=== PATIENT | male | born 1950 | race Caucasian/White ===

== ENCOUNTER → 2020-05-17 10:44 | Outpatient (BNVA) | payer MEDICARE, SELFPAY | PROVIDERS: PCP Internal Medicine; Visit Provider Nurse Practitioner | DX: Z11.0 Encounter for screening for intestinal infectious diseases (principal) | CPT/HCPCS: 83013; Q3014 ==

== ENCOUNTER 2020-08-31 10:44 | Outpatient (REF) | payer MEDICARE, SELFPAY ==
--- NOTE | ~2020-08-31 | XR_ITS ---
EXAMINATION: XR knee RT 4V CLINICAL INFORMATION: Reason for Exam PAIN IN RT KNEE COMPARISON: None available at the time of this dictation. TECHNIQUE: frontal, lateral, tunnel and patella sunrise views FINDINGS: BONES: No fracture or dislocation is present. JOINTS: Narrowing of joint spaces and developed osteophytes from the edges of articular surfaces suggest degenerative osteoarthritis. SOFT TISSUE: Normal XR/XR knee RT 4V IMPRESSION: Mild degenerative osteoarthritis. No joint effusion.
== END 2020-08-31 10:45 | disposition home or self-care (01) ==
LOC: HO.XRAY 10:44
PROVIDERS: PCP Internal Medicine; Visit Provider Family Medicine
DX: M25.561 Pain in right knee (principal)
CPT/HCPCS: 73564

== ENCOUNTER → 2021-01-20 12:08 | Outpatient (BNVA) | payer MEDICARE, SELFPAY | PROVIDERS: PCP Internal Medicine; Referring Provider Internal Medicine; Visit Provider Nurse Practitioner | DX: R10.10 Upper abdominal pain, unspecified (principal); K21.9 Gastro-esophageal reflux disease without esophagitis; R14.0 Abdominal distension (gaseous); Z90.49 Acquired absence of other specified parts of digestive tract | CPT/HCPCS: 99212 ==

== ENCOUNTER → 2021-03-23 13:14 | Outpatient (BNVA) | payer MEDICARE, SELFPAY | PROVIDERS: Visit Provider Nurse Practitioner | DX: K21.9 Gastro-esophageal reflux disease without esophagitis (principal); R10.10 Upper abdominal pain, unspecified; R14.0 Abdominal distension (gaseous) | CPT/HCPCS: 99212 ==

== ENCOUNTER → 2021-10-02 14:26 | Outpatient (BNVA) | payer OTHER, SELFPAY | PROVIDERS: PCP Internal Medicine; Referring Provider Internal Medicine; Visit Provider Nurse Practitioner | DX: K21.9 Gastro-esophageal reflux disease without esophagitis (principal); R14.0 Abdominal distension (gaseous); R10.10 Upper abdominal pain, unspecified | CPT/HCPCS: 99212 ==

== ENCOUNTER 2021-10-27 08:49 | Outpatient (REF) | payer MEDICARE, SELFPAY ==
--- NOTE | ~2021-10-27 | MM_ITS ---
EXAMINATION: BONE DENSITOMETRY CLINICAL INDICATION: Encounter for screening for osteoporosis. COMPARISON: None (current study represents initial baseline exam). TECHNIQUE: Using a [employer] DXA System (software version: 13.1) manufactured by [employer], dual-energy x-ray absorptiometry was performed of the lumbar spine and left hip. The images are of good technical quality. Summary results are attached. FINDINGS: AP SPINE L1-L4: BMD 1.422 g/cm2, Z-score 2.7, T-score 1.7, normal. LEFT FEMUR, NECK: BMD 1.092 g/cm2, Z-score 1.8, T-score 0.2, normal. LEFT FEMUR, TOTAL: BMD 1.153 g/cm2, Z-score 1.4, T-score 0.4, normal. IDENTIFIED RISK FACTORS: Rheumatoid arthritis, recurrent falls, history of fracture (adult), secondary osteoporosis. HISTORY OF FRACTURE: Knee. MEDICATIONS: Calcium supplements or multivitamin, vitamin D. MM/XR DEXA axial skeleton IMPRESSION: 1. DIAGNOSIS: Normal bone density based on the lowest T-score value of 0.2 in the femoral neck applying World Health Organization criteria. 2. 10-YEAR FRACTURE RISK PREDICTION, FRAX: According to the guidelines, FRAX calculation should only be performed on patients in the osteopenia bone density category. Therefore, FRAX was not performed on this patient. 3. Treatment Recommendations: NOF guidelines recommend consideration for treatment in postmenopausal women and men age 50 and older presenting with the following: -A hip or vertebral (clinical or morphometric) fracture. -T-score less than or equal to -2.5 at the femoral neck or spine after appropriate evaluation to exclude secondary causes. -Low bone mass at the hip or spine and a 10-year fracture probability by FRAX of greater than or equal to 3% for hip fracture or greater than or equal to 20% for major osteoporotic fracture based on the [place] adapted WHO algorithm. 4. Other Recommendations: All treatment decisions require clinical judgment and consideration of individual patient factors, including patient preferences, comorbidities, previous drug use, risk factors not captured in the FRAX model (e.g. frailty, falls, vitamin D deficiency, increased bone turnover, interval significant decline in bone density) and possible under or overestimation of fracture risk by FRAX. FUTURE SCAN RECOMMENDATION: People with diagnosed cases of osteoporosis or at high risk for fracture should have regular bone mineral density tests. For patients eligible for Medicare, routine testing is allowed once every 2 years. The testing frequency can be increased to one year for patients who have rapidly progressing disease, those who are receiving or discontinuing medical therapy to restore bone mass, or have additional risk factors.
== END 2021-10-27 08:50 | disposition home or self-care (01) ==
LOC: HO.MAMMO 08:49
PROVIDERS: Visit Provider Internal Medicine
DX: Z13.820 Encounter for screening for osteoporosis (principal); M05.9 Rheumatoid arthritis with rheumatoid factor, unspecified; M81.0 Age-related osteoporosis without current pathological fracture; Z79.899 Other long term (current) drug therapy; Z87.81 Personal history of (healed) traumatic fracture
CPT/HCPCS: 77080

== ENCOUNTER 2022-01-01 13:13 | Emergency (ER) | payer MEDICARE, SELFPAY ==
--- NOTE | 2022-01-01 13:17 | ECG_ITS ---
Test Reason : CP Blood Pressure : / mmHG Vent. Rate : 069 BPM Atrial Rate : 069 BPM P-R Int : 194 ms QRS Dur : 096 ms QT Int : 390 ms P-R-T Axes : 012 -04 071 degrees QTc Int : 417 ms Normal sinus rhythm Nonspecific ST and T wave abnormality Abnormal ECG When compared to the previous EKG of Nonspecific ST and T wave abnormality are noted Referred By: Generic ED Physician Electronically Signed By:SHEILA BYERS MD
[2022-01-01 13:20] VITALS: BP 160/86; PULSE 71; RESP 18; O2SAT 99; BMI 26.0
[2022-01-01 13:34] LABS: MANUAL DIFF FLAG NO
[2022-01-01 13:39] LABS: Basophils Percent Auto 0.5 % (0-2); Eosinophils Absolute Auto 0.1 X10*3/uL (0.0-0.4); Eosinophils Percent Auto 1.6 % (0-4); Hematocrit 39.2 % (42.0-52.0); Hemoglobin 12.3 g/dl (14.0-18.0); Imm Gran Abs Auto 0.01 X10*3/uL (0.00-0.03); Imm Gran Pct Auto 0.2 % (0.0-0.4); Lymphocytes Absolute Auto 1.6 X10*3/uL (1.2-4.9); Lymphocytes Percent Auto 25.8 % (20-40); Mean Corpuscular HGB Conc 31.4 g/dl (31.0-36.0); Mean Corpuscular Hemoglobin 25.7 pg (27.0-33.0); Mean Corpuscular Volume 81.8 fL (80.0-98.0); Mean Platelet Volume 9.3 fL (9.4-12.4); Monocytes Absolute Auto 0.4 X10*3/uL (0.1-1.2); Neutrophils Absolute Auto 4.1 x10*3/uL (2.0-8.3); Neutrophils Percent Auto 64.9 % (45-73); Platelet Count 188 X10*3/uL (160-400); Red Blood Count 4.79 X10*6/uL (4.60-5.80); Red Cell Distribution Width 14.5 % (11.0-16.0); White Blood Count 6.3 X10*3/uL (4.8-10.8)
[2022-01-01 13:49] LABS: INTERNATIONAL NORM RATIO 1.2 (0.9-1.1); Prothrombin Time 13.4 SEC (10.0-13.1)
[2022-01-01 13:52] LABS: Anion Gap 15 (12-20); Blood Urea Nitrogen 27 mg/dL (9-16); Calcium 8.7 mg/dL (8.4-10.2); Carbon Dioxide 24 mmol/L (22-29); Chloride 103 mmol/L (96-108); Creatinine Clr Calc Pharmacy 40.9; Estimated Glomerular Filt Rate 53; Glucose Random 196 mg/dL (60-115); Sodium 138 mmol/L (135-145)
[2022-01-01 13:58] LABS: Troponin-I High Sensitivity 25.9 ng/L (<3.5-35.0)
--- NOTE | 2022-01-01 15:40 | ECG_ITS ---
Test Reason : repeat Blood Pressure : / mmHG Vent. Rate : 064 BPM Atrial Rate : 064 BPM P-R Int : 194 ms QRS Dur : 092 ms QT Int : 392 ms P-R-T Axes : 033 015 070 degrees QTc Int : 404 ms Normal sinus rhythm with sinus arrhythmia Low voltage QRS ST elevation consider inferolateral injury or acute infarct ACUTE ID / STEMI Consider right ventricular involvement in acute inferior infarct Abnormal ECG When compared with ECG of 01-JAN-2022 13:19, ST elevation now present in Inferior leads ST elevation now present in Lateral leads Referred By: Generic ED Physician Electronically Signed By:SHEILA BYERS MD
[2022-01-01 15:44] VITALS: RESP 20
[2022-01-01] MEDS: Morphine Sulfate 2 MG/ML CARTRIDGE IVPUSH (15:44)
[2022-01-01 15:45] VITALS: BMI 26.6
--- NOTE | 2022-01-01 15:45 | ED.CHESTPAIN ---
HPI - Chest Pain General Chief Complaint: Chest Pain Stated Complaint: chest pain, hand numb, history of heart attack Time Seen by Provider: 01/01/22 15:41 Source: patient Mode of arrival: ambulatory History of Present Illness HPI narrative: 71-year-old male with history of hypertension and CAD presents with chest pressure across his entire chest with noon today associated with shortness of breath, dizziness, diaphoresis and mild nausea but otherwise denies any recent travel, fever, chills. Related Data Home Medications Medication Instructions Recorded Confirmed alendronate 70 mg tablet 70 mg PO QWEEK 10/02/21 aspirin 81 mg tablet,delayed 81 mg PO DAILY 10/02/21 release brimonidine 0.2 % eye drops 1 drp ophthalmic (eye) ONCE 10/02/21 cholecalciferol (vitamin D3) 25 25 mcg PO DAILY 10/02/21 mcg (1,000 unit) capsule enalapril maleate 2.5 mg tablet mg PO DAILY 10/02/21 methimazole 10 mg tablet 10 mg PO DAILY 10/02/21 metoprolol succinate 25 mg 25 mg PO DAILY 10/02/21 tablet,extended release 24 hr simvastatin 20 mg tablet 20 mg PO BEDTIME 10/02/21 timolol maleate 0.5 % eye drops 1 drp ophthalmic (eye) QAM 10/02/21 Previous Rx's Medication Instructions Recorded pantoprazole 40 mg tablet,delayed 40 mg PO DAILY #30 tabs 10/12/21 release (Protonix) simethicone 125 mg capsule (Gas 125 mg PO TID-QID PRN abdominal 10/12/21 Relief (simethicone)) distention #120 caps sucralfate 1 gram tablet 2 g PO .qafternoon #60 tabs 10/13/21 Allergies Allergy/AdvReac Type Severity Reaction Status Date / Time No Known Allergies Allergy Verified 10/02/21 15:12 [No Known Allergies*] Review of Systems Review of Systems: Pertinent positives and negatives as stated in HPI 10 point review of systems is otherwise negative. [facility] Past Medical History Source: nursing notes reviewed Medical History Common bile duct calculi Surgical History H/O angioplasty H/O heart artery stent History of cholecystectomy History of esophagogastroduodenoscopy (EGD) Hx of colonoscopy Family History Family History Father No problems noted. Mother Cancer Social History Social History Alcohol intake: current Alcohol intake frequency: does not drink Advance Directives: No Advance Directives Information Provided: No Physical Exam Vital Signs: Vital Signs: Last Vital Signs Pulse 71 01/01/22 13:20 Resp 20 01/01/22 15:44 BP 160/86 H 01/01/22 13:20 Pulse Ox 99 01/01/22 13:20 O2 Del Method 01/01/22 13:20 BMI result Body Mass Index 26.0 VITAL SIGNS: Reviewed. GENERAL: Well developed, well nourished, in moderate distress. HEAD: Normocephalic/atraumatic EYES: PERRLA, EOMI EARS: Ext canals without abnormality OROPHARYNX: no oral lesions noted, posterior pharynx clear LUNGS: Normal breath sounds. No adventitious sounds or accessory muscle use. SpO2<99> CARDIOVASCULAR: Regular rate and rhythm without noted murmurs, no JVD or lower extremity edema. ABDOMEN: Soft, non-tender, non-distended with bowel sounds. MUSCULOSKELETAL: No tenderness, deformities, or effusions noted on gross inspection. EXTREMITIES: No cyanosis, clubbing or edema. SKIN: Inspection of the skin reveals no rashes NEUROLOGIC: Alert and oriented x 4. Strength and sensation to light touch were grossly intact x 4. Course Course Course Narrative: 1535: Notified by nursing that there was concerned that patient's EKG was changing and he had had persistent pain. Initial EKG from did show significant ST-T changes in the V2/V3 leads and on repeat EKG at 15:[address] elevations in the inferior distribution as well as V5/V6. Patient given Brilinta as well as IV push heparin and 2 mg of morphine in place on oxygen. ALS and [facility] [place] was contacted and patient accepted by Dr. Garcia for transfer to the cathode builder. MDM - Chest Pain Lab Data Result diagrams: 01/01/22 13:28 01/01/22 13:28 Labs: Lab Results 01/01/22 01/01/22 01/01/22 Range/Units 13:28 13:28 13:28 WBC 6.3 (4.8-10.8) X10*3/uL RBC 4.79 (4.60-5.80) X10*6/uL Hgb 12.3 L (14.0-18.0) g/dl Hct 39.2 L (42.0-52.0) % MCV 81.8 (80.0-98.0) fL MCH 25.7 L (27.0-33.0) pg MCHC 31.4 (31.0-36.0) g/dl RDW 14.5 (11.0-16.0) % Plt Count 188 (160-400) X10*3/uL MPV 9.3 L (9.4-12.4) fL Immature Gran % (Auto) 0.2 (0.0-0.4) % Neut % (Auto) 64.9 (45-73) % Lymph % (Auto) 25.8 (20-40) % Dawes % (Auto) 7.0 (2-11) % Eos % (Auto) 1.6 (0-4) % Baso % (Auto) 0.5 (0-2) % Lymph # (Auto) 1.6 (1.2-4.9) X10*3/uL Dawes # (Auto) 0.4 (0.1-1.2) X10*3/uL Eos # (Auto) 0.1 (0.0-0.4) X10*3/uL Baso # (Auto) 0.0 (0.0-0.2) X10*3/uL Abs Immat Gran (auto) 0.01 (0.00-0.03) X10*3/uL Absolute Neuts (auto) 4.1 (2.0-8.3) x10*3/uL Absolute Nucleated RBC 0.000 (0.0-0.012) X10*3/uL Nucleated RBC % (auto) 0.0 (0.0-0.2) /100WBC PT 13.4 H (10.0-13.1) SEC INR 1.2 H (0.9-1.1) Sodium 138 (135-145) mmol/L Potassium 4.0 (3.3-5.1) mmol/L Chloride 103 (96-108) mmol/L Carbon Dioxide 24 (22-29) mmol/L Anion Gap 15 (12-20) BUN 27 H (9-16) mg/dL Creatinine 1.33 (0.5-1.4) mg/dL Estim Creat Clear Calc 40.9 Estimated GFR 53 Random Glucose 196 H (60-115) mg/dL Calcium 8.7 (8.4-10.2) mg/dL Troponin I High Sens (<3.5-35.0) ng/L 01/01/22 Range/Units 13:28 WBC (4.8-10.8) X10*3/uL RBC (4.60-5.80) X10*6/uL Hgb (14.0-18.0) g/dl Hct (42.0-52.0) % MCV (80.0-98.0) fL MCH (27.0-33.0) pg MCHC (31.0-36.0) g/dl RDW (11.0-16.0) % Plt Count (160-400) X10*3/uL MPV (9.4-12.4) fL Immature Gran % (Auto) (0.0-0.4) % Neut % (Auto) (45-73) % Lymph % (Auto) (20-40) % Dawes % (Auto) (2-11) % Eos % (Auto) (0-4) % Baso % (Auto) (0-2) % Lymph # (Auto) (1.2-4.9) X10*3/uL Dawes # (Auto) (0.1-1.2) X10*3/uL Eos # (Auto) (0.0-0.4) X10*3/uL Baso # (Auto) (0.0-0.2) X10*3/uL Abs Immat Gran (auto) (0.00-0.03) X10*3/uL Absolute Neuts (auto) (2.0-8.3) x10*3/uL Absolute Nucleated RBC (0.0-0.012) X10*3/uL Nucleated RBC % (auto) (0.0-0.2) /100WBC PT (10.0-13.1) SEC INR (0.9-1.1) Sodium (135-145) mmol/L Potassium (3.3-5.1) mmol/L Chloride (96-108) mmol/L Carbon Dioxide (22-29) mmol/L Anion Gap (12-20) BUN (9-16) mg/dL Creatinine (0.5-1.4) mg/dL Estim Creat Clear Calc Estimated GFR Random Glucose (60-115) mg/dL Calcium (8.4-10.2) mg/dL Troponin I High Sens 25.9 (<3.5-35.0) ng/L ECG Data ECG #1: Attestation: I personally reviewed and interpreted this ECG as follows: Prior ECG tracings: available for review Interpretation: 1540: STEMI with ST elevaTIONS II,III,aVF, V5/V6 Discharge Plan Discharge Clinical Impression: ST elevation (STEMI) myocardial infarction Patient Disposition: [facility] Transfer Details: STEMI Prescriptions: No Action pantoprazole [Protonix] 40 mg tablet,delayed release (DR/EC) 40 mg PO DAILY Qty: 30 0RF simethicone [Gas Relief (simethicone)] 125 mg capsule 125 mg PO TID-QID PRN (Reason: abdominal distention) Qty: 120 1RF sucralfate 1 gram tablet 2 g PO .qafternoon Qty: 60 6RF metoprolol succinate 25 mg tablet extended release 24 hr 25 mg PO DAILY cholecalciferol (vitamin D3) 25 mcg (1,000 unit) capsule 25 mcg PO DAILY enalapril maleate 2.5 mg tablet PO DAILY aspirin 81 mg tablet,delayed release (DR/EC) 81 mg PO DAILY simvastatin 20 mg tablet 20 mg PO BEDTIME alendronate 70 mg tablet 70 mg PO QWEEK timolol maleate 0.5 % drops 1 drp ophthalmic (eye) QAM methimazole 10 mg tablet 10 mg PO DAILY brimonidine 0.2 % drops 1 drp ophthalmic (eye) ONCE
[2022-01-01 15:46] VITALS: BP 139/72; PULSE 61; RESP 18
[2022-01-01] MEDS: Ticagrelor 90 MG TABLET 180 MG PO (15:49)
[2022-01-01] MEDS: Heparin Sodium,Porcine 5,000 UNIT/ML VIAL 4000 UNIT IVPUSH (15:50)
--- NOTE | 2022-01-01 15:57 | PC.NURSE ---
Dr Grande asked to place [facility] Call was placed at 1541. Call back at 1549 with placement to the cathodic protection technician with the accepting physician Dr Dawson. I reached out to Gina to have her book and [employer] truck. ALS truck showed up at 1556.
[2022-01-01 16:13] LABS: COVID-19 Test Negative (Negative)
[2022-01-01 16:36] LABS: Troponin-I High Sensitivity 235.7 ng/L (<3.5-35.0)
== END 2022-01-01 16:53 | disposition short-term general hospital (02) ==
PROVIDERS: Emergency Provider Student in an Organized Health Care Education/Training Program
DX: I21.3 ST elevation (STEMI) myocardial infarction of unspecified site (principal); R07.89 Other chest pain; I25.10 Atherosclerotic heart disease of native coronary artery without angina pectoris; Z20.822 Contact with and (suspected) exposure to COVID-19; Z79.899 Other long term (current) drug therapy
CPT/HCPCS: 36415; 80048; 84484; 85025; 85610; 87635; 93005; 96374; 96375; 99285; J2270

== ENCOUNTER → 2022-04-25 13:11 | Outpatient (BNVA) | payer MEDICARE, SELFPAY | PROVIDERS: PCP Internal Medicine; Visit Provider Nurse Practitioner | DX: K21.9 Gastro-esophageal reflux disease without esophagitis (principal); R14.0 Abdominal distension (gaseous); R10.10 Upper abdominal pain, unspecified; Z86.010 Personal history of colon polyps; Z79.899 Other long term (current) drug therapy | CPT/HCPCS: 99212 ==

== ENCOUNTER 2022-06-13 11:04 | Outpatient (REF) | payer OTHER, SELFPAY ==
--- NOTE | ~2022-06-13 | XR_ITS ---
EXAMINATION: XR CHEST XR RIBS, RIGHT CLINICAL INFORMATION: Coughing. Right lateral chest and rib pain. No known injury. COMPARISON: Chest radiographs 05/20/2018, 3-14, 05/02/2013 TECHNIQUE: PA and lateral views of the chest are obtained along with 3 views of the right ribs. There are a total of 5 views. FINDINGS: There is no visible right rib fracture or rib destructive process. Surgical clips right upper quadrant abdomen likely from prior cholecystectomy. There is no lobar or segmental airspace consolidation, groundglass opacity, pleural reaction, pneumothorax, or effusion. The costophrenic sulci are clear. Heart is within normal size. The hilar and mediastinal contours are normal. There are scattered degenerative changes thoracic spine. XR/XR ribs RT 2V IMPRESSION: 1. No visible right rib fracture or rib destructive process. 2. Lungs clear.
--- NOTE | ~2022-06-13 | XR_ITS ---
EXAMINATION: XR CHEST XR RIBS, RIGHT CLINICAL INFORMATION: Coughing. Right lateral chest and rib pain. No known injury. COMPARISON: Chest radiographs 05/20/2018, 3-14, 05/02/2013 TECHNIQUE: PA and lateral views of the chest are obtained along with 3 views of the right ribs. There are a total of 5 views. FINDINGS: There is no visible right rib fracture or rib destructive process. Surgical clips right upper quadrant abdomen likely from prior cholecystectomy. There is no lobar or segmental airspace consolidation, groundglass opacity, pleural reaction, pneumothorax, or effusion. The costophrenic sulci are clear. Heart is within normal size. The hilar and mediastinal contours are normal. There are scattered degenerative changes thoracic spine. XR/XR chest 2V IMPRESSION: 1. No visible right rib fracture or rib destructive process. 2. Lungs clear.
== END 2022-06-13 11:05 | disposition home or self-care (01) ==
LOC: HO.XRAY 11:04
PROVIDERS: Absent Provider Internal Medicine; PCP Internal Medicine; Visit Provider Internal Medicine
DX: R07.81 Pleurodynia (principal); R31.29 Other microscopic hematuria
CPT/HCPCS: 71046; 71100

== ENCOUNTER 2022-10-23 13:59 | Outpatient (REF) | payer OTHER, SELFPAY ==
--- NOTE | ~2022-10-23 | US_ITS ---
ULTRASOUND RIGHT AXILLARY SOFT TISSUES CLINICAL: Right axillary pain and swelling of one week's duration. TECHNIQUE: Using a linear array transducer with grayscale and color modalities, ultrasound examination is performed of the right axilla. FINDINGS: The cutaneous, subcutaneous, muscular and fascial planes are unremarkable. No mass or fluid collection is seen. There is no lymphadenopathy. No foreign body is noted. The vascular structures show normal color Doppler flow. There is normal compressibility of the left axillary vein. US/US extremity nonvascular mauricio IMPRESSION: Unremarkable examination.
== END 2022-10-23 14:00 | disposition home or self-care (01) ==
LOC: HO.HMGCX 13:59
PROVIDERS: PCP Internal Medicine; Visit Provider Emergency Medicine
DX: M79.621 Pain in right upper arm (principal)
CPT/HCPCS: 76882

== ENCOUNTER 2022-11-01 12:43 | Outpatient (REF) | payer OTHER, SELFPAY ==
[2022-11-01 13:51] LABS: MANUAL DIFF FLAG NO
[2022-11-01 14:04] LABS: Basophils Percent Auto 0.5 % (0-2); Eosinophils Absolute Auto 0.1 X10*3/uL (0.0-0.4); Eosinophils Percent Auto 1.7 % (0-4); Hematocrit 35.6 % (42.0-52.0); Hemoglobin 11.3 g/dl (14.0-18.0); Imm Gran Abs Auto 0.01 X10*3/uL (0.00-0.03); Imm Gran Pct Auto 0.2 % (0.0-0.4); Lymphocytes Absolute Auto 1.1 X10*3/uL (1.2-4.9); Lymphocytes Percent Auto 18.7 % (20-40); Mean Corpuscular HGB Conc 31.7 g/dl (31.0-36.0); Mean Corpuscular Hemoglobin 25.9 pg (27.0-33.0); Mean Corpuscular Volume 81.5 fL (80.0-98.0); Mean Platelet Volume 10.2 fL (9.4-12.4); Monocytes Absolute Auto 0.7 X10*3/uL (0.1-1.2); Monocytes Percent Auto 10.9 % (2-11); Platelet Count 169 X10*3/uL (160-400); Red Blood Count 4.37 X10*6/uL (4.60-5.80); Red Cell Distribution Width 15.5 % (11.0-16.0); White Blood Count 5.9 X10*3/uL (4.8-10.8)
[2022-11-01 15:10] LABS: Alanine Aminotransferase 14 U/L (0-40); Albumin Level 3.9 g/dL (3.5-5.0); Alkaline Phosphatase 65 U/L (39-117); Anion Gap 9 (12-20); Aspartate Amino Transferase 18 U/L (5-37); Bilirubin Total 0.6 mg/dL (0.0-1.0); Blood Urea Nitrogen 14 mg/dL (9-16); Calcium 8.7 mg/dL (8.4-10.2); Carbon Dioxide 26 mmol/L (22-29); Chloride 109 mmol/L (96-108); Estimated Glomerular Filt Rate > 60; Glucose Random 128 mg/dL (60-115); Potassium 3.9 mmol/L (3.3-5.1); Sodium 140 mmol/L (135-145); Total Protein 6.6 g/dL (6.5-8.0)
== END 2022-11-01 12:44 | disposition home or self-care (01) ==
LOC: HO.LAB 12:43
PROVIDERS: PCP Internal Medicine; Referring Provider Internal Medicine; Visit Provider Nurse Practitioner
DX: Z01.818 Encounter for other preprocedural examination (principal); D12.6 Benign neoplasm of colon, unspecified; K21.9 Gastro-esophageal reflux disease without esophagitis; R14.0 Abdominal distension (gaseous); I21.9 Acute myocardial infarction, unspecified
CPT/HCPCS: 36415; 80053; 85025; 99212

== ENCOUNTER 2022-12-11 09:59 | Emergency (ER) | payer OTHER, SELFPAY ==
--- NOTE | ~2022-12-11 | XR_ITS ---
EXAMINATION: XR LUMBOSACRAL SPINE CLINICAL INFORMATION: Low back pain after injury Patient states severe low back pain since 12/09/2022 COMPARISON: None available. TECHNIQUE: Three standing views of the lumbosacral spine. The patient was unable to lay on the table for supine radiographs. FINDINGS: There are 5 nonrib-bearing lumbar-type vertebral bodies. The height of the vertebral bodies is well-maintained. There is moderate disc space narrowing with marginal osteophyte formation at L4-L5 and L5-S1. Moderate degenerative facet joint disease is seen at these levels as well. There is no spondylolisthesis. Surgical clips in the right upper quadrant are consistent with prior cholecystectomy. XR/XR lumbar spine 2-3V IMPRESSION: Degenerative disc disease and degenerative facet joint disease at L4-L5 and L5-S1.
[2022-12-11 10:07] VITALS: BP 136/85; PULSE 77; RESP 18; TEMP 36.3; O2SAT 98; BMI 24.0
--- NOTE | 2022-12-11 10:08 | ED.GENADULT ---
HPI - General Adult General Chief complaint: Back Pain/Injury Stated complaint: HTN Reflux Etc Time Seen by Provider: 12/11/22 10:06 Source: patient Mode of arrival: ambulatory Limitations: no limitations History of Present Illness HPI narrative: 72 yo [place]ian speaking male with history of HTN, osteoporosis, GERD, CAD, MT, Sciatica, thyroid disorder, BPH presents for evaluation of lower back pain x 2 days. He reports that he was doing mechanical work on a car when he injured his back while bending forward and pulling something at the same time. He reports a stabbing pain 10/10 in his lower back that radiates to his groin area. He is unable to bend forward. He states it was difficult to get dress this morning or put on his socks. He denies fever, chills, chest pain, SOB, urinary symptoms, or numbness or tingling. MD complaint: low back pain Onset (ago): day(s) (2) Location: back Radiation: other (Groin) Severity: severe Severity scale (1-10): >10 Quality: stabbing Pain Consistency: constant Relieving factors: rest Exacerbating factors: movement Associated symptoms: denies other symptoms Treatments prior to arrival: none Related Data Home Medications Medication Instructions Recorded Confirmed aspirin 81 mg tablet,delayed 81 mg PO DAILY 10/02/21 release brimonidine 0.2 % eye drops 1 drp ophthalmic (eye) ONCE 10/02/21 cholecalciferol (vitamin D3) 25 25 mcg PO DAILY 10/02/21 mcg (1,000 unit) capsule enalapril maleate 2.5 mg tablet mg PO DAILY 10/02/21 methimazole 10 mg tablet 10 mg PO DAILY 10/02/21 metoprolol succinate 25 mg 25 mg PO DAILY 10/02/21 tablet,extended release 24 hr timolol maleate 0.5 % eye drops 1 drp ophthalmic (eye) QAM 10/02/21 atorvastatin 80 mg tablet 80 mg PO BEDTIME 04/25/22 diclofenac sodium 1 % topical gel 2 g topical BID 04/25/22 finasteride 5 mg tablet 5 mg PO DAILY 04/25/22 isosorbide mononitrate 30 mg 30 mg PO DAILY 04/25/22 tablet,extended release 24 hr nitroglycerin 0.4 mg sublingual 0.4 mg sublingual angina 04/25/22 tablet tamsulosin 0.4 mg capsule 0.4 mg PO BEDTIME 04/25/22 ticagrelor 90 mg tablet (Brilinta) 90 mg PO BID 04/25/22 acetaminophen 500 mg capsule 500 mg PO Q6H PRN 11/01/22 Previous Rx's Medication Instructions Recorded pantoprazole 40 mg tablet,delayed 40 mg PO DAILY #30 tabs 11/01/22 release (Protonix) peg 3350-electrolytes 236 240 ml PO Q10M 1 day #4,000 mL 11/01/22 gram-22.74 gram-6.74 gram-5.86 gram solution (Golytely) simethicone 125 mg capsule (Gas 125 mg PO TID-QID abdominal 11/01/22 Relief (simethicone)) distention #120 caps sucralfate 1 gram tablet 2 g PO BEDTIME #60 tabs 11/01/22 cyclobenzaprine 10 mg tablet 10 mg PO TID PRN muscle spasm #10 12/11/22 tabs lidocaine 5 % topical patch 1 patch topical DAILY #15 ea 12/11/22 naproxen 500 mg tablet 500 mg PO BID PRN pain #20 tabs 12/11/22 Allergies Allergy/AdvReac Type Severity Reaction Status Date / Time No Known Allergies Allergy Verified 11/01/22 12:53 [No Known Allergies*] Review of Systems Review of Systems: Yes all other systems are reviewed and are negative PMFSH Past Medical History Attestation statement: The following information was validated with the patient. Source: nursing notes reviewed Medical History Common bile duct calculi Surgical History H/O angioplasty H/O heart artery stent History of cholecystectomy History of esophagogastroduodenoscopy (EGD) Hx of colonoscopy Family History Family History Father No problems noted. Mother Cancer Social History Social History Alcohol intake: current Alcohol intake frequency: does not drink Advance Directives: Yes Advance Directives Information Provided: Yes Advance Directives on File: No Physical Exam ED Vital Signs: Vital Signs - 24 hr 12/11/22 10:07 Temperature 97.4 F Pulse Rate 77 Respiratory Rate 18 Blood Pressure 136/85 Pulse Oximetry 98 Oxygen Delivery Method Room Air BMI result Body Mass Index 24.0 Const General: no acute distress and alert; No comfortable Orientation/consciousness: patient oriented x3 HENMT Head: Yes normocephalic and Yes atraumatic Neck Neck: Yes supple Resp Effort & Inspection: normal respiratory effort and able to speak in complete sentences Back/Spine/Pelvis Back: No erythema and No warmth Thoracic/Lumbar Spine: thoracic and lumbar spine normal to inspection, straight leg raise negative bilaterally, pain with thoraco-lumbar ROM, thoraco-lumbar ROM limited and lumbar spinal tenderness Skin General skin exam: no rashes or lesions noted, no ecchymosis and no erythema Neuro General: patient oriented x3 Medications Administered Discontinued Medications Generic Name Dose Route Start Last Admin Trade Name Familiaq PRN Reason Stop Dose Admin Acetaminophen 975 mg 12/11/22 13:01 12/11/22 13:07 Acetaminophen 325 Mg Tablet PO 12/11/22 13:02 975 mg ONCE ONE Administration Cyclobenzaprine HCl 10 mg 12/11/22 13:01 12/11/22 13:07 Cyclobenzaprine Hcl 10 Mg Tablet PO 12/11/22 13:02 10 mg ONCE ONE Administration Ketorolac Tromethamine 30 mg 12/11/22 10:34 12/11/22 10:50 Ketorolac Tromethamine 30 Mg/Ml Vial IM 12/11/22 10:35 30 mg ONCE ONE Administration Oxycodone HCl 5 mg 12/11/22 10:33 12/11/22 10:50 Oxycodone Hcl Immed Release 5 Mg Tablet PO 12/11/22 10:34 5 mg ONCE ONE Administration Oxycodone HCl 5 mg 12/11/22 13:01 12/11/22 13:07 Oxycodone Hcl Immed Release 5 Mg Tablet PO 12/11/22 13:02 5 mg ONCE ONE Administration Medical Decision Making Medical Decision Making MDM Narrative: 72 yo male presents to the ER for evaluation of low back pain after bending over working on a car. No red flag symptoms of low back pain but he is very uncomfortable. He is ambulatory. XR lumbar spine was checked due to history of osteoporosis which showed degenerative changes. He was treated with 2 rounds of pain medications and had improvement in his symptoms. Most likely muscular pain. Will treat accordingly and have him follow up with PCP. Stable for d/c home. Ambulatory out of the ER Differential Diagnosis Differential Diagnoses: The differential diagnosis associated with the presentation includes Inflammatory disorders, malignancy, trauma, osteoporosis, nerve root compression, radiculopathy, plexopathy, degenerative disc disease, disc herniation, spinal stenosis, sacroiliac joint dysfunction, facet joint injury, and less likely infection?like abscess or diskitis Independent Interpretation I performed an independent interpretation of an: Plain X-Ray Interpretation: xr without compression fx, agree w/ radiology read Radiology Impression Discussion of test interpretation with radiology: I have reviewed the radiologist's reading. Radiologist Impression: ?XR/XR lumbar spine 2-3V IMPRESSION: Degenerative disc disease and degenerative facet joint disease at L4-L5 and L5-S1. Independent Historian Clinical information obtained from an independent historian. History obtained from or confirmed by: Other (PCP) External Record Review External record reviewed: Office record, Outpatient record and Prior outpatient labs Tests considered The following testing was considered but not selected: CT scan of the lumbar spine considered but indicated today Prescription Management I considered prescription management with: Pain Medication and Other (muscle relaxer) Chronic Conditions Patient?s care impacted by: Hypertension Critical Care Time Critical Care Time Critical Care Time: No Discharge Plan Discharge Clinical Impression: Strain of lumbar region Patient Disposition: Home, Self-Care Instructions: Low Back Strain (ED), Lower Back Exercises (ED) Additional Instructions: XR/XR lumbar spine 2-3V Degenerative disc disease and degenerative facet joint disease at L4-L5 and L5-S1. Your pain is most likely due to muscle strain and spasm. No bending, lifting or twisting. Use ice several times per day for 20 minutes at a time for the next 48 hours and then change to heat. Take medications as prescribed to help with pain and discomfort. Follow up with your Primary Care Doctor this week. If your pain worsens, if you develop new numbness, tingling, weakness, loss of function or incontinence call 911 or come back to the ER right away for evaluation. [place] lumbar XR/XR 2-3V Enfermedad degenerativa del disco y enfermedad degenerativa de las articulaciones facetarias en L4-L5 y L5-S1. Lo m?s probable es que beckwith dolor se deba a tensi?n y espasmos musculares. Sin doblar, levantar o torcer. Use hielo varias veces al d?a guido 20 minutos a la vez guido las pr?ximas 48 horas y luego cambie a calor. Lavinia los medicamentos seg?n lo prescrito para ayudar con el dolor y la incomodidad. Gina un seguimiento con beckwith m?dico de atenci?n primaria esta semana. Si beckwith dolor empeora, si desarrolla un nuevo entumecimiento, hormigueo, debilidad, p?rdida de funci?n o incontinencia, llame al 911 o regrese a la mateo de emergencias de inmediato para chaparro evaluaci?n. Prescriptions: New cyclobenzaprine 10 mg tablet 10 mg PO TID PRN (Reason: muscle spasm) Qty: 10 0RF lidocaine 5 % adhesive patch,medicated 1 patch topical DAILY Qty: 15 0RF Rx Instructions: leave on most painful area for up to 12 hrs naproxen 500 mg tablet 500 mg PO BID PRN (Reason: pain) Qty: 20 0RF No Action metoprolol succinate 25 mg tablet extended release 24 hr 25 mg PO DAILY cholecalciferol (vitamin D3) 25 mcg (1,000 unit) capsule 25 mcg PO DAILY enalapril maleate 2.5 mg tablet PO DAILY aspirin 81 mg tablet,delayed release (DR/EC) 81 mg PO DAILY timolol maleate 0.5 % drops 1 drp ophthalmic (eye) QAM methimazole 10 mg tablet 10 mg PO DAILY brimonidine 0.2 % drops 1 drp ophthalmic (eye) ONCE nitroglycerin 0.4 mg tablet, sublingual 0.4 mg sublingual isosorbide mononitrate 30 mg tablet extended release 24 hr 30 mg PO DAILY atorvastatin 80 mg tablet 80 mg PO BEDTIME tamsulosin 0.4 mg capsule 0.4 mg PO BEDTIME finasteride 5 mg tablet 5 mg PO DAILY diclofenac sodium 1 % gel 2 g topical BID Brilinta 90 mg tablet 90 mg PO BID acetaminophen 500 mg capsule 500 mg PO Q6H PRN peg 3350-electrolytes [Golytely] 236-22.74-6.74 -5.86 gram recon soln 240 ml PO Q10M 1 Days Qty: 4000 0RF Rx Instructions: until fecal effluent is clear; do not exceed a total volume of 2,000 mL sucralfate 1 gram tablet 2 g PO BEDTIME Qty: 60 5RF pantoprazole [Protonix] 40 mg tablet,delayed release (DR/EC) 40 mg PO DAILY Qty: 30 6RF simethicone [Gas Relief (simethicone)] 125 mg capsule 125 mg PO TID-QID Qty: 120 6RF Referrals: Gucci Gross MD [Primary Care Provider] - Interventions: ED Discharge Assessment Last Done: 12/11/22 14:24 Discharge Date/Time: 12/11/22 14:25
--- NOTE | 2022-12-11 10:38 | PC.NURSE ---
pt ambulates with strong steady gait using own cane to xray at this time
[2022-12-11] MEDS: Ketorolac Tromethamine 30 MG/ML VIAL IM (10:50)
[2022-12-11] MEDS: oxyCODONE HCl Immed Release 5 MG TABLET PO ×2 (10:50→13:07)
[2022-12-11] MEDS: Cyclobenzaprine HCl 10 MG TABLET PO (13:07)
[2022-12-11] MEDS: Acetaminophen 325 MG TABLET 975 MG PO (13:07)
--- NOTE | 2022-12-11 13:13 | PC.NURSE ---
pt medicated per AUG for 10/10 back pain- attempted to reposition pt, pt declined.
== END 2022-12-11 14:25 | disposition home or self-care (01) ==
PROVIDERS: Emergency Provider Emergency Medicine Emergency Medical Services; PCP Internal Medicine
DX: S39.012A Strain of muscle, fascia and tendon of lower back, initial encounter (principal); X50.9XXA Other and unspecified overexertion or strenuous movements or postures, initial encounter; Y93.89 Activity, other specified; Y92.9 Unspecified place or not applicable; Y99.9 Unspecified external cause status
CPT/HCPCS: 72100; 96372; 99283; 99284; J1885

== ENCOUNTER 2023-02-15 05:46 | Emergency (ER) | payer OTHER, SELFPAY ==
--- NOTE | ~2023-02-15 | XR_ITS ---
EXAMINATION: XR KNEE, RIGHT CLINICAL INFORMATION: Knee pain after twisting injury COMPARISON: 08/31/2020 TECHNIQUE: Four views of the right knee. FINDINGS: Patellar spurring, mild medial knee joint narrowing. No fracture or dislocation. Moderate suprapatellar effusion. XR/XR knee RT 4V IMPRESSION: Moderate suprapatellar effusion. Mild degenerative changes. No acute bony pathology right knee.
[2023-02-15 06:30] VITALS: BP 115/70; PULSE 75; RESP 16; TEMP 36.4; O2SAT 97; BMI 25.6
--- NOTE | 2023-02-15 06:43 | PC.NURSE ---
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 State twisted knee x2 days ago and since has 9/10 pain feels like tearing. Some swelling noted to R-knee, Pt ambulated into room independently with cane.
--- NOTE | 2023-02-15 07:10 | ED_ITS ---
HPI - Extremity Injury (Lower) General Chief Complaint: Extremity Injury, Lower Stated Complaint: Right knee swelling with pain Time Seen by Provider: 02/15/23 06:47 Source: patient Mode of arrival: ambulatory Limitations: no limitations History of Present Illness HPI Narrative: 72-year-old male with PMHx of HTN, CAD, GERD, PA, osteoporosis, sciatica, thyroid d/o and BPH presents to the ED for evaluation of right knee pain/ swelling s/p or twisting his right knee in his sleep 2 days ago. The pain is localized to the medial aspect of the right knee. No radiation of pain. Rates his pain 7/10, worse with movement and bending the knee. Improved with rest. Able to ambulate. Reports chronic issue of knee popping out of place after a knee fracture 4 years ago. Reports following up with orthopedist who told him he was not a surgical candidate, has been receiving a corticosteroid injections in the right knee. Denies fever, chills, cp/sob, tingling/ numbness/ weakness of the LEs. Related Data Home Medications Medication Instructions Recorded Confirmed aspirin 81 mg tablet,delayed 81 mg PO DAILY 10/02/21 release brimonidine 0.2 % eye drops 1 drp ophthalmic (eye) ONCE 10/02/21 cholecalciferol (vitamin D3) 25 25 mcg PO DAILY 10/02/21 mcg (1,000 unit) capsule enalapril maleate 2.5 mg tablet mg PO DAILY 10/02/21 methimazole 10 mg tablet 10 mg PO DAILY 10/02/21 metoprolol succinate 25 mg 25 mg PO DAILY 10/02/21 tablet,extended release 24 hr timolol maleate 0.5 % eye drops 1 drp ophthalmic (eye) QAM 10/02/21 atorvastatin 80 mg tablet 80 mg PO BEDTIME 04/25/22 diclofenac sodium 1 % topical gel 2 g topical BID 04/25/22 finasteride 5 mg tablet 5 mg PO DAILY 04/25/22 isosorbide mononitrate 30 mg 30 mg PO DAILY 04/25/22 tablet,extended release 24 hr nitroglycerin 0.4 mg sublingual 0.4 mg sublingual angina 04/25/22 tablet tamsulosin 0.4 mg capsule 0.4 mg PO BEDTIME 04/25/22 ticagrelor 90 mg tablet (Brilinta) 90 mg PO BID 04/25/22 acetaminophen 500 mg capsule 500 mg PO Q6H PRN 11/01/22 Previous Rx's Medication Instructions Recorded pantoprazole 40 mg tablet,delayed 40 mg PO DAILY #30 tabs 11/01/22 release (Protonix) peg 3350-electrolytes 236 240 ml PO Q10M 1 day #4,000 mL 11/01/22 gram-22.74 gram-6.74 gram-5.86 gram solution (Golytely) simethicone 125 mg capsule (Gas 125 mg PO TID-QID abdominal 11/01/22 Relief (simethicone)) distention #120 caps sucralfate 1 gram tablet 2 g (2 x 1 gram) PO BEDTIME #60 11/01/22 tabs cyclobenzaprine 10 mg tablet 10 mg PO TID PRN muscle spasm #10 12/11/22 tabs lidocaine 5 % topical patch 1 patch topical DAILY #15 ea 12/11/22 naproxen 500 mg tablet 500 mg PO BID PRN pain #20 tabs 12/11/22 lidocaine 5 % topical patch 1 patch topical DAILY #15 ea 02/15/23 (Lidoderm) Allergies Allergy/AdvReac Type Severity Reaction Status Date / Time No Known Allergies Allergy Verified 11/01/22 12:53 [No Known Allergies*] Review of Systems Review of Systems: Constitutional: No fever, No chills, No fatigue, No malaise ENT/Mouth: No ear pain, No hearing loss, No nasal congestion, No sinus pain Eyes: No eye pain, No swelling, No redness, No vision changes, No foreign body, No discharge Cardio: No chest pain, No palpitations, No dyspnea on exertion, No orthopnea, No edema Respiratory: No SOB, No cough, No sputum, No wheezing, No dyspnea, No hemoptysis GI: No nausea, No vomiting, No hematemesis, No abdominal pain, No diarrhea, No constipation, No hematochezia, No melena : No irregular bleeding, No dysuria, No frequency, No urgency, No hesitancy, No hematuria MSK: No back pain, No neck pain, + joint pain, No myalgias Skin: No skin lesions, No rashes Neuro: No weakness, No numbness, No paresthesias, No LOC, No dizziness, No heada stephane All other systems reviewed and are negative. PMFSH Past Medical History Attestation statement: The following information was validated with the patient. Source: old records reviewed and nursing notes reviewed Medical History Common bile duct calculi Surgical History H/O heart artery stent H/O angioplasty History of cholecystectomy History of esophagogastroduodenoscopy (EGD) Hx of colonoscopy Family History Family History Father No problems noted. Mother Cancer Social History Social History Alcohol intake: never Smoked in Last 30 Days: No Use of substances other than those prescribed or required for medical reasons: No Advance Directives: No Advance Directives Information Provided: Yes Physical Exam Vital Signs: Vital Signs: Last Vital Signs Temp 97.6 F 02/15/23 06:30 Pulse 75 02/15/23 06:30 Resp 16 02/15/23 06:30 BP 115/70 02/15/23 06:30 Pulse Ox 97 02/15/23 06:30 O2 Del Method Room Air 02/15/23 06:30 BMI result Body Mass Index 25.6 Vital signs stable General: Nontoxic appearing. NAD Skin: Warm and dry. No rashes or lesions. Head: Normocephalic, atraumatic. EENT: Hearing is intact b/l. Conjunctiva clear. PERRLA. EOM intact. Moist mucous membranes. . Neck: Supple without LAD. Normal ROM. Trachea midline. Cardiac: Chest wall symmetric. RRR. S1 and S1 appreciated. No MRG. No JVD. Lungs: CTA bilaterally. No rales, rhonchi, or wheezes. Normal respiratory effort without accessory muscle use. Abdomen: No visible lesions or scars. Soft, non-tender, non-distended. No rebound tenderness or guarding. Normoactive BS x4. No masses, hepatomegaly, or splenomegaly. Spine: No midline spinous tenderness. No deformity or step off. Ext: Upper extremities atraumatic. Left knee with diffuse edema more medially, no overlying wound, erythema, warmth or fluctuance, diffuse tenderness to palpation M>L without palpable deformity, full ROM with limited flexion of the knee secondary to pain. NV intact distally Capillary refill <2 seconds in all extremities. Pulses 2+ equal b/l. No cyanosis. Neuro: Alert and oriented x3. Normal speech. CN 2-12 grossly intact. Strength 5/5 intact throughout. Sensation intact to light touch. Reflexes 2+ bilaterally. Ambulating with steady gait with cane. Psych: Appropriate mood and affect. Responds appropriately to questions. Course Course Course Narrative: 844 -- on re-evaluation patient's pain has improved with Tylenol. Informed patient of his x-ray results > no acute fracture dislocation. This is likelly a sprain or strain. Let patient know that he will have to follow up with Orthopedics as this may require MRI and further treatment and provided patient with referral. Advised patient that he will have to call and make an appointment, they will not call him. Provided patient with Alfred wrap to right knee. Patient able to ambulate with steady gait however offered to provide him with crutches > declined as he uses his cane. Lidoderm patches sent to patient's pharmacy. Advised patient to take Tylenol and Motrin as needed for pain/swelling. Educated patient on RICE treatment. Insert all questions. Patient agreeable with plan. Stable for discharge. Medications Administered Discontinued Medications Generic Name Dose Route Start Last Admin Trade Name Freq PRN Reason Stop Dose Admin Acetaminophen 975 mg 02/15/23 07:49 02/15/23 08:16 Acetaminophen 325 Mg Tablet PO 02/15/23 07:50 975 mg ONCE ONE Administration Medical Decision Making Medical Decision Making [facility] Narrative: 72-year-old male with PMHx of HTN, CAD, GERD, PA, osteoporosis, sciatica, thyroid d/o and BPH presents to the ED for evaluation of right knee pain/ swelling s/p twisting injury 2 days ago. Vital signs stable. Nontoxic appearing, in NAD. Left knee with diffuse edema more medially, no overlying wound, erythema, warmth or fluctuance, diffuse tenderness to palpation M>L without pa lpable deformity, full ROM with limited flexion of the knee secondary to pain. NV intact distally Capillary refill <2 seconds in all extremities. Pulses 2+ equal b/l. No cyanosis. Clinical concern for dislocation vs acute on chronic fracture vs ligamentous injury vs osteoporosis. Unlikely osteomyelitis or septic joint as patient is afebrile, knee without warmth, erythema or fluctuance, not consistent with story. Unlikely the DVT, compartment syndrome, arterial occlusion or threat to limb as patient is neurovascularly intact. Plan: X-ray, pain control Differential Diagnosis Differential Diagnoses: The differential diagnosis associated with the presentation includes Clinical concern for dislocation vs acute on chronic fracture vs ligamentous injury vs osteoporosis. Unlikely osteomyelitis or septic joint as patient is afebrile, knee without warmth, erythema or fluctuance, not consistent with story. Unlikely the DVT, compartment syndrome, arterial occlusion or threat to limb as patient is neurovascularly intact. Admission/Observation Not indicated. Lab Data Not indicated. Independent Interpretation I performed an independent interpretation of an: Plain X-Ray Interpretation: X-ray right knee without acute fracture, agree with radiologist's interpretation. Radiology Impression Discussion of test interpretation with radiology: I have reviewed the radiologist's reading. Radiologist Impression: XR knee RT 4V IMPRESSION: Moderate suprapatellar effusion. Mild degenerative changes. No acute bony pathology right knee. External Record Review External record reviewed: Inpatient record Tests considered The following testing was considered but not selected: I considered obtaining CBC with differential however patient without warmth, erythema, fluctuance over the right knee, afebrile. Prescription Management I considered prescription management with: Pain Medication (Tylenol) Chronic Conditions Patient?s care impacted by: Other (osteoporosis) Procedures Orthopedic Splinting/Casting Injury #1: Side: right Lower Extremity Injury Location: knee Lower Extremity Immobilizer: Alfred wrap Critical Care Time Critical Care Time Critical Care Time: No Discharge Plan Discharge Clinical Impression: Right knee injury Patient Disposition: Home, Self-Care Instructions: Musculoskeletal Pain (ED), R.I.C.E. Treatment (ED) Additional Instructions: X-ray today showed swelling of your right knee, no fracture or dislocation. This is likely a ligamentous or muscle injury. This requires outpatient follow- up for further imaging. You can take Tylenol and Motrin as needed for pain. Rest, ice, elevate the leg. Lidocaine patches have been sent to your pharmacy. You can apply these to your knee to help with any pain or discomfort. You've been provided with an ALFRED bandage. Keep this wrapped around your right knee to help with swelling. Remove as needed to shower. A referral to orthopedics has been provided to you, please follow up with them. CALL THEM TO MAKE AN APPOINTMENT. Follow-up with your primary care as needed. Return to the emergency department for worsening symptoms, fever, chills, inability to walk, numbness/tingling/weakness of your legs. La radiograf?a de hoy mostr? hinchaz?n de beckwith rodilla derecha, sin fractura ni dislocaci?n. Es probable que se trate de chaparro lesi?n ligamentosa o muscular. [place] requiere seguimiento ambulatorio para obtener m?s im?genes. Puede mitchell Tylenol y Motrin seg?n sea necesario para el dolor. Descansar, hacer hielo, elevar la pierna. Los parches de lidoca?na rosenberg sido enviados a beck[place] farmacia. Puede aplicarlos en la rodilla para ayudar con cualquier dolor o molestia. Le rosenberg proporcionado un vendaje ALFRED. Mant?ngalo enrollado alrededor de beckwith rodilla derecha para ayudar con la hinchaz?n. Retirar seg?n sea necesario para ducharse. Se le smith proporcionado chaparro derivaci?n a un ortopedista; gina un seguimiento con ellos. LL?[facility] [facility] ROSEM[facility]IE. Gina un seguimiento con beckwith atenci?n primaria seg?n sea necesario. Regrese al departamento de emergencia si los s?ntomas empeoran, fiebre, escalofr?os, incapacidad para caminar, entumecimiento/hormigueo/debilidad de las piernas. Prescriptions: New lidocaine [Lidoderm] 5 % adhesive patch,medicated 1 patch topical DAILY Qty: 15 0RF Rx Instructions: leave on most painful area for up to 12 hrs No Action cyclobenzaprine 10 mg tablet 10 mg PO TID PRN (Reason: muscle spasm) Qty: 10 0RF lidocaine 5 % adhesive patch,medicated 1 patch topical DAILY Qty: 15 0RF Rx Instructions: leave on most painful area for up to 12 hrs naproxen 500 mg tablet 500 mg PO BID PRN (Reason: pain) Qty: 20 0RF metoprolol succinate 25 mg tablet extended release 24 hr 25 mg PO DAILY cholecalciferol (vitamin D3) 25 mcg (1,000 unit) capsule 25 mcg PO DAILY enalapril maleate 2.5 mg tablet PO DAILY aspirin 81 mg tablet,delayed release (DR/EC) 81 mg PO DAILY timolol maleate 0.5 % drops 1 drp ophthalmic (eye) QAM methimazole 10 mg tablet 10 mg PO DAILY brimonidine 0.2 % drops 1 drp ophthalmic (eye) ONCE nitroglycerin 0.4 mg tablet, sublingual 0.4 mg sublingual isosorbide mononitrate 30 mg tablet extended release 24 hr 30 mg PO DAILY atorvastatin 80 mg tablet 80 mg PO BEDTIME tamsulosin 0.4 mg capsule 0.4 mg PO BEDTIME finasteride 5 mg tablet 5 mg PO DAILY diclofenac sodium 1 % gel 2 g topical BID Brilinta 90 mg tablet 90 mg PO BID acetaminophen 500 mg capsule 500 mg PO Q6H PRN peg 3350-electrolytes [Golytely] 236-22.74-6.74 -5.86 gram recon soln 240 ml PO Q10M 1 Days Qty: 4000 0RF Rx Instructions: until fecal effluent is clear; do not exceed a total volume of 2,000 mL sucralfate 1 gram tablet 2 g PO BEDTIME Qty: 60 5RF pantoprazole [Protonix] 40 mg tablet,delayed release (DR/EC) 40 mg PO DAILY Qty: 30 6RF simethicone [Gas Relief (simethicone)] 125 mg capsule 125 mg PO TID-QID Qty: 120 6RF Referrals: [facility] [place]] [facility] [Provider Group] Print Language: Bangladeshi
[2023-02-15] MEDS: Acetaminophen 325 MG TABLET 975 MG PO (08:16)
--- NOTE | 2023-02-15 08:19 | PC.NURSE ---
pt alert and oriented, skin appropriate for ethnicity, respirations even and unlabored, pt reports right knee pain 7/10, knee is slightly swollen and tender to touch
[2023-02-15 09:14] VITALS: BP 138/86; PULSE 75; RESP 14; O2SAT 100
== END 2023-02-15 09:24 | disposition home or self-care (01) ==
PROVIDERS: Emergency Provider Emergency Medicine Emergency Medical Services
DX: S89.91XA Unspecified injury of right lower leg, initial encounter (principal); X58.XXXA Exposure to other specified factors, initial encounter; M25.561 Pain in right knee; M25.461 Effusion, right knee; Z79.82 Long term (current) use of aspirin; Z79.899 Other long term (current) drug therapy; Y93.9 Activity, unspecified; Y92.9 Unspecified place or not applicable; Y99.9 Unspecified external cause status
CPT/HCPCS: 73564; 99283; 99284

== ENCOUNTER 2023-03-21 11:36 | Outpatient (REF) | payer OTHER, SELFPAY ==
--- NOTE | ~2023-03-21 | XR_ITS ---
EXAMINATION: XR KNEE, RIGHT CLINICAL INFORMATION: Chronic right knee pain COMPARISON: 02/15/2023 TECHNIQUE: Three views of the right knee. FINDINGS: Mild medial joint space narrowing. Small tricompartmental osteophytes. Moderate suprapatellar effusion. XR/XR knee RT 3V IMPRESSION: Mild degenerative changes. Moderate suprapatellar effusion
== END 2023-03-21 11:37 | disposition home or self-care (01) ==
LOC: HO.XRAY 11:36
PROVIDERS: PCP Internal Medicine; Visit Provider Internal Medicine
DX: M25.561 Pain in right knee (principal)
CPT/HCPCS: 73562

== ENCOUNTER 2023-04-22 08:03 | Outpatient (REF) | payer OTHER, SELFPAY ==
[2023-04-22 11:13] LABS: MANUAL DIFF FLAG NO
[2023-04-22 11:46] LABS: Basophils Percent Auto 0.4 % (0-2); Eosinophils Absolute Auto 0.1 X10*3/uL (0.0-0.4); Eosinophils Percent Auto 0.8 % (0-4); Hematocrit 41.9 % (42.0-52.0); Hemoglobin 13.3 g/dl (14.0-18.0); Imm Gran Abs Auto 0.02 X10*3/uL (0.00-0.03); Imm Gran Pct Auto 0.2 % (0.0-0.4); Lymphocytes Absolute Auto 1.4 X10*3/uL (1.2-4.9); Lymphocytes Percent Auto 14.9 % (20-40); Mean Corpuscular HGB Conc 31.7 g/dl (31.0-36.0); Mean Platelet Volume 10.7 fL (9.4-12.4); Monocytes Absolute Auto 0.8 X10*3/uL (0.1-1.2); Monocytes Percent Auto 8.9 % (2-11); Neutrophils Absolute Auto 6.9 x10*3/uL (2.0-8.3); Neutrophils Percent Auto 74.8 % (45-73); Platelet Count 203 X10*3/uL (160-400); Red Blood Count 5.11 X10*6/uL (4.60-5.80); Red Cell Distribution Width 16.5 % (11.0-16.0); White Blood Count 9.2 X10*3/uL (4.8-10.8)
[2023-04-22 12:42] LABS: Cholesterol 139 mg/dL (<200); HDL Cholesterol 61 mg/dL (>40); LDL Cholesterol Calculated 64 mg/dL (<100); Triglycerides 72 mg/dL (<150)
[2023-04-22 13:03] LABS: Free T4 (Free Thyroxine) 0.85 ng/dL (0.71-1.85)
== END 2023-04-22 08:04 | disposition home or self-care (01) ==
LOC: HO.HHCL 08:03
PROVIDERS: Visit Provider Internal Medicine
DX: R31.29 Other microscopic hematuria (principal); I10 Essential (primary) hypertension; I21.A9 Other myocardial infarction type
CPT/HCPCS: 36415; 80061; 84439; 84443; 85025

== ENCOUNTER 2023-06-26 08:40 | Outpatient (AMB) | payer OTHER, SELFPAY ==
--- NOTE | 2023-06-26 08:43 | A.OFFVIS_ITS ---
Intake Vital Signs 06/26/23 08:55 Height 5 ft 3 in Weight 132 lb 11.492 oz BMI 23.5 BP 124/93 H Blood Pressure Location Lt brachial Position Sitting Pulse 82 Intake Visit Reasons: Follow up GERD Intake Note: Patient presents to in office visit today in 6 months follow up of GERD. CC: Patient reports that he sometimes gets abdominal pain and GERD. Denies other GI symptoms today. Bander Hand Required: Yes Accompanied by: Self / Same As Patient Allergies No Known Allergies [No Known Allergies*] Allergy (Verified 06/26/23 08:58) HPI Follow up GERD HPI Details Assessment & Plan (1) GERD (gastroesophageal reflux diseas e): ?Code(s): K21.9 - Gastro-esophageal reflux disease without esophagitis ?Plan: [place] #[id number] He states that all of his GI conditions are good and stable, at times gas.? He continues on his pantoprazole 40 mg once a day with good control of his GERD, Carafate 2 tabs a day with good control of his diarrhea and on his simethicone. Next appt talk about colonoscopy. ROV 6 mos. (2) Abdominal bloating: ?Code(s): R14.0 - Abdominal distension (gaseous) (3) Tubular adenoma of colon: ?Comment: Last scoped -20 18 repeat in 5 years or 2022 ?Code(s): D12.6 - Benign neoplasm of colon, unspecified ? ? ? Medications: Changed From simethicone 125 mg? PO TID-QID PRN 120 caps 1RF abdominal distention ? ? To simethicone (Gas Relief (simethicone)) 125 mg PO TID-QID 120 caps 6RF abdominal distention ? ? From sucralfate 2 grams (2 x 1 gram) PO .qafternoon 60 tabs 6RF K21.9 - Gastro-esophageal reflux disease without esophagitis, R10.10 - Upper abdominal pain, unspecified ? To sucralfate 2 grams (2 x 1 gram) PO .qafternoon 60 tabs 6RF K21.9 - Gastro-esophageal reflux disease without esophagitis, R10.10 - Upper abdominal pain, unspecified ? Refilled pantoprazole (Protonix) 40 mg PO DAILY 30 tabs 6RF ? ? Laboratory Tests 11/01/22 04/22/23 04/22/23 13:49 08:05 08:05 WBC 9.2 Hgb 13.3 L Hct 41.9 L Plt Count 203 Estimated GFR > 60 Total Bilirubin 0.6 AST 18 ALT 14 Alkaline Phosphata se 65 TSH 8.10 H Free T4 0.85 TODAY'S VISIT [place] #Stephon Live He continues on his pantoprazole 40 mg once a day with good control of his GERD, Carafate 2 tabs a day with good control of his diarrhea and on his simethicone. He already had a colonoscopy scheduled 06/04, but they had to cancel it r/t his cardiac clearance. He will be seeing his retail loss prevention investigator in July for clearance - he does not know the name but he says he is at [facility]. He will be having an echocardiogram. He is also scheduled to have some sort of eye surgery common? Cataracts in the upcoming months for which he also needs cardiac clearance. He also had a respiratory illness in June, but it resolved with drinking teas. ROV in early august to check on cardiac clearance. He already has 2 bottles of prep at home because of the canceled colonoscopies. [facility] Medical History Common bile duct calculi Surgical History H/O heart artery stent H/O angioplasty History of cholecystectomy History of esophagogastroduodenoscopy (EGD) Hx of colonoscopy Family History Father No problems noted. Mother Cancer Social History Alcohol intake: never Patient Tobacco Use Status: Never used Tobacco Review of Systems Const Denies fatigue, Denies fever(s), Denies night sweats, Denies poor appetite and Denies weight loss Eyes Details: glasses Reports requires corrective lenses ENT Reports Normal hearing present, Denies dysphagia, Denies odynophagia, Denies throat swelling and Denies tongue swelling Card Reports no additional complaints Resp Reports no additional complaints GI Denies abdominal pain, Denies melena, Denies bloating, Denies hematochezia, Reports constipation, Denies GI cramping, Denies dysphagia, Denies excessive flatus, Denies early satiety, Reports heartburn, Denies diarrhea, Denies nausea, Denies odynophagia, Denies vomiting and Denies hematemesis Musc Reports back pain and Reports arthralgias Skin/Breast Denies pruritus, Denies lesions, Denies rash and Denies jaundice Neuro Reports Normal hearing present and Denies Abnormal speech present Endo Denies fatigue Aller/Immun Denies throat swelling and Denies tongue swelling Physical Exam Vital Signs: Last Vital Signs Pulse 82 06/26/23 08:55 BP 124/93 H 06/26/23 08:55 BMI result Body Mass Index 23.5 Const General: cooperative, no acute distress, well developed and well groomed Nutritional Appearance: well nourished and overweight Orientation/consciousness: oriented to person, oriented to place and oriented to time Limitations: language barrier and ambulation with cane HEENT Head: Yes normocephalic and Yes atraumatic Eyes General: appearance normal, both eyes and all related structures Pupils: Equal, round and reactive pupils present Neck Neck: Yes normal visual inspection and Yes no lymphadenopathy Thyroid: Thyroid normal Resp Effort & Inspection: normal respiratory effort and able to speak in complete sentences Auscultation: clear to auscultation bilaterally Cardio Rate: regular rate Rhythm: regular rhythm Heart sounds: Murmur heart sound present systolic (Mitral area late blowing) Peripheral pulses: radial pulses present and posterior tibial pulses present GI Inspection: No distended and No Abdominal panniculus present Palpation (GI): Soft to palpation, nontender, no guarding, not rigid and No hepatosplenomegaly present Percussion: Yes normal to percussion Auscultation: normal bowel sounds Rectal Exam - Male: Yes deferred Skin General skin exam: no rashes or lesions noted, turgor normal, skin not dry, no jaundice, No spider nevi and no striae Rashes: no rashes Nails: normal Neuro General: oriented to person, oriented to place and oriented to time Cranial nerves: Yes Equal, round and reactive pupils present and Yes Normal hearing present Speech: No Abnormal speech present Extrem General: Yes normal to inspection, No clubbing, No cyanosis and No edema Psych Appearance: grossly normal and well kempt Mental Status: mental status grossly normal Speech and movement: Normal speech and movement present Affect: normal affect Attitude: cooperative Thought process: Normal thought process present and not confabulating Thought content: Normal thought content present Insight: Fair insight present (Psych) Judgement: Fair judgement present (Psych) Results Reviewed Results Reviewed: Laboratory Tests 11/01/22 04/22/23 04/22/23 13:49 08:05 08:05 WBC 9.2 Hgb 13.3 L Hct 41.9 L Plt Count 203 Estimated GFR > 60 Total Bilirubin 0.6 AST 18 ALT 14 Alkaline Phosphatase 65 TSH 8.10 H Free T4 0.85 Assessment & Plan Assessment & Plan (1) Pre-op examination: Code(s): Z01.818 - Encounter for other preprocedural examination (2) Tubular adenoma of colon: Comment: Last scoped - repeat in 5 years or 2022 Code(s): D12.6 - Benign neoplasm of colon, unspecified (3) GERD (gastroesophageal reflux disease): Code(s): K21.9 - Gastro-esophageal reflux disease without esophagitis (4) Myocardial infarction: Comment: x 2 in [place] [facility](s): I21.9 - Acute myocardial infarction, unspecified Plan [place] #Stephon Live He continues on his pantoprazole 40 mg once a day with good control of his GERD, Carafate 2 tabs a day with good control of his diarrhea and on his simethicone. He already had a colonoscopy scheduled 06/04, but they had to cancel it r/t his cardiac clearance. He will be seeing his retail loss prevention investigator in July for clearance - he does not know the name but he says he is at [facility]. He will be having an echocardiogram. He is also scheduled to have some sort of eye surgery common? Cataracts in the upcoming months for which he also needs cardiac clearance. He also had a respiratory illness in June, but it resolved with drinking teas. ROV in early august to check on cardiac clearance. He already has 2 bottles of prep at home because of the canceled colonoscopies Medications: Refilled pantoprazole 40 mg PO QPM 30 tabs 6RF simethicone (Gas Relief (simethicone)) 125 mg PO TID-QID 120 caps 6RF abdominal distention sucralfate 2 grams (2 x 1 gram) PO BEDTIME 60 tabs 5RF K21.9 - Gastro-esophageal reflux disease without esophagitis, R10.10 - Upper abdominal pain, unspecified Coding Level of Care Code Est Pt Level 3 (38572) Diagnoses Pre-op examination Z01.818 Tubular adenoma of colon D12.6 GERD (gastroesophageal reflux disease) K21.9 Myocardial infarction I21.9
[2023-06-26 08:55] VITALS: BP 124/93; PULSE 82; BMI 23.5
== END 2023-06-26 09:56 | disposition home or self-care (01) ==
PROVIDERS: PCP Internal Medicine; Visit Provider Nurse Practitioner
DX: K21.9 Gastro-esophageal reflux disease without esophagitis (principal); Z01.818 Encounter for other preprocedural examination; Z12.11 Encounter for screening for malignant neoplasm of colon; Z86.010 Personal history of colon polyps
CPT/HCPCS: 99213

== ENCOUNTER → 2023-06-26 08:40 | Outpatient (BNVA) | payer OTHER, SELFPAY | PROVIDERS: PCP Internal Medicine; Visit Provider Nurse Practitioner | DX: Z01.818 Encounter for other preprocedural examination (principal); K21.9 Gastro-esophageal reflux disease without esophagitis; D12.6 Benign neoplasm of colon, unspecified; I21.9 Acute myocardial infarction, unspecified | CPT/HCPCS: 99212 ==

== ENCOUNTER 2023-07-12 09:03 | Outpatient (REF) | payer OTHER, SELFPAY ==
[2023-07-12 09:17] LABS: MANUAL DIFF FLAG NO
[2023-07-12 10:11] LABS: Basophils Percent Auto 0.4 % (0-2); Eosinophils Absolute Auto 0.1 X10*3/uL (0.0-0.4); Eosinophils Percent Auto 0.9 % (0-4); Hematocrit 36.2 % (42.0-52.0); Hemoglobin 11.7 g/dl (14.0-18.0); INTERNATIONAL NORM RATIO 1.1 (0.9-1.1); Imm Gran Abs Auto 0.04 X10*3/uL (0.00-0.03); Imm Gran Pct Auto 0.5 % (0.0-0.4); Lymphocytes Absolute Auto 0.9 X10*3/uL (1.2-4.9); Mean Corpuscular HGB Conc 32.3 g/dl (31.0-36.0); Mean Corpuscular Volume 83.4 fL (80.0-98.0); Mean Platelet Volume 9.4 fL (9.4-12.4); Monocytes Absolute Auto 0.6 X10*3/uL (0.1-1.2); Monocytes Percent Auto 8.2 % (2-11); Platelet Count 225 X10*3/uL (160-400); Prothrombin Time 13.7 SEC (11.1-13.3); Red Blood Count 4.34 X10*6/uL (4.60-5.80); Red Cell Distribution Width 17.3 % (11.0-16.0); White Blood Count 7.6 X10*3/uL (4.8-10.8)
[2023-07-12 10:14] LABS: Partial Thromboplastin Time 30.6 SEC (26.0-36.8)
[2023-07-12 10:38] LABS: B Type Natriuretic Peptide 424 pg/mL (<100)
[2023-07-12 10:49] LABS: Anion Gap 13 (12-20); Blood Urea Nitrogen 17 mg/dL (9-16); Carbon Dioxide 27 mmol/L (22-29); Chloride 107 mmol/L (96-108); Cholesterol 135 mg/dL (<200); Estimated Glomerular Filt Rate > 60; Glucose Random 94 mg/dL (60-115); HDL Cholesterol 56 mg/dL (>40); LDL Cholesterol Calculated 67 mg/dL (<100); Potassium 4.2 mmol/L (3.3-5.1); Sodium 143 mmol/L (135-145); Triglycerides 62 mg/dL (<150)
== END 2023-07-12 09:04 | disposition home or self-care (01) ==
LOC: HO.LAB 09:03
PROVIDERS: PCP Internal Medicine; Visit Provider Internal Medicine Cardiovascular Disease
DX: I48.91 Unspecified atrial fibrillation (principal); E78.2 Mixed hyperlipidemia
CPT/HCPCS: 36415; 80048; 80061; 83880; 85025; 85610; 85730

== ENCOUNTER 2023-08-14 08:30 | Outpatient (REF) | payer OTHER, SELFPAY ==
[2023-08-14 12:06] LABS: TSH reflex Free T4 6.85 uIU/mL (0.32-4.0)
[2023-08-14 14:54] LABS: Free T4 (Free Thyroxine) 0.87 ng/dL (0.71-1.85)
== END 2023-08-14 08:31 | disposition home or self-care (01) ==
LOC: HO.HHCL 08:30
PROVIDERS: Visit Provider Internal Medicine
DX: R79.89 Other specified abnormal findings of blood chemistry (principal)
CPT/HCPCS: 36415; 84439; 84443

== ENCOUNTER 2023-09-19 09:05 | Outpatient (AMB) | payer OTHER, SELFPAY ==
[2023-09-19 09:11] VITALS: BP 131/80; PULSE 81; BMI 24.3
--- NOTE | 2023-09-19 09:11 | MHC.OFFVIS ---
Intake Vital Signs 09/19/23 09:11 Height 5 ft 3 in Weight 137 lb 2.04 oz BMI 24.3 BP 131/80 Blood Pressure Location Lt brachial Position Sitting Pulse 81 Intake Visit Reasons: clearance for scope, GERD Intake Note: Patient scheduled today to get clearance for scope/ colonoscopy procedure. Reports GERD under control. Patient states emergency cardiac surgery at [facility] in August 2023. On eliquis. Patient sees Dr. 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 Accompanied by: Self / Same As Patient Allergies No Known Allergies [No Known Allergies*] Allergy (Verified 09/19/23 09:20) HPI clearance for scope, GERD HPI Details Assessment & Plan (1) Pre-op examination: Code(s): Z01.818 - Encounter for other preprocedural examination (2) Tubular adenoma of colon: Comment: Last scoped - repeat in 5 years or 2022 Code(s): D12.6 - Benign neoplasm of colon, unspecified (3) GERD (gastroesophageal reflux disease): Code(s): K21.9 - Gastro-esophageal reflux disease without esophagitis (4) Myocardial infarction: Comment: x 2 in 2021 at [facility] Code(s): I21.9 - Acute myocardial infarction, unspecified Plan Pakistani #Stephon Live He continues on his pantoprazole 40 mg once a day with good control of his GERD, Carafate 2 tabs a day with good control of his diarrhea and on his simethicone. He already had a colonoscopy scheduled 06/04, but they had to cancel it r/t his cardiac clearance. He will be seeing his paper twister tender in July for clearance - he does not know the name but he says he is at [facility]. He will be having an echocardiogram. He is also scheduled to have some sort of eye surgery common? Cataracts in the upcoming months for which he also needs cardiac clearance. He also had a respiratory illness in June, but it resolved with drinking teas. ROV in early august to check on cardiac clearance. He already has 2 bottles of prep at home because of the canceled colonoscopies Medications: Refilled pantoprazole 40 mg PO QPM 30 t abs 6RF simethicone (Gas R elief (simethicone )) 125 mg PO TID-QID 120 caps 6RF abdo laura distention sucralfate 2 grams (2 x 1 gra m) PO BEDTIME 60 t abs 5RF K21.9 - Gastro-eso phageal reflux dis ease without esoph agitis, R10.10 - U pper abdominal brent n, unspecified TODAY'S VISIT Pakistani #[id number] Floridalma Candelaria at [facility] cardiology.? ? I can not find this provider so will probably have to rely on his primary care provider to make sure he is cleared from a cardiac standpoint. His primary provider is Dr. Fitzpatrick at [facility]. During the appointment we find his records at [facility] it appears that he had a DC conversion for AFib only and no invasive procedure. This is performed by Dr. Jeannette Olmstead at [facility]. He says his cardiac procedure went well. He says that he is now clear for his colonoscopy. Ordered. There are no respiratory problems reported. There are no prior problems with anesthesia or sedation. There are no infectious disease problems. He had a tubular adenoma removed in 2018 was his last colonoscopy and we have put off repeat scoping him because of his continued cardiac issues which he says are now resolved. From a GI standpoint he continues to do well on his pantoprazole, simethicone and Carafate. ROV 6 mos [facility] Medical History (Updated 09/19/23 @ 11:23 by TAN Cavazos) Abdominal bloating Upper abdominal pain Common bile duct calculi Surgical History H/O heart artery stent H/O angioplasty History of cholecystectomy History of esophagogastroduodenoscopy (EGD) Hx of colonoscopy Family History Father No problems noted. Mother Cancer Social History Alcohol intake: never Patient Tobacco Use Status: Never used Tobacco Review of Systems Const Denies fatigue, Denies fever(s), Denies night sweats, Denies poor appetite and Denies weight loss ENT Reports Normal hearing present, Denies dental pain, Denies dysphagia, Denies hearing loss, Denies mouth pain, Denies odynophagia, Denies throat swelling, Denies tongue swelling and Reports other (Dentition adequate) Card Reports no additional complaints Resp Reports no additional complaints GI Details: Denies abdominal pain, Denies melena, Reports bloating, Denies hematochezia, Denies constipation, Denies GI cramping, Denies dysphagia, Denies excessive flatus, Denies early satiety, Reports heartburn, Reports diarrhea, Denies nausea, Denies odynophagia, Denies vomiting and Denies hematemesis Musc Reports abnormal gait, Reports myalgias and Reports arthralgias Skin/Breast Denies pruritus, Denies lesions, Denies rash and Denies jaundice Neuro Reports Normal hearing present, Denies Abnormal speech present and Reports abnormal gait Endo Denies fatigue Aller/Immun Denies throat swelling and Denies tongue swelling Physical Exam Vital Signs: Last Vital Signs Pulse 81 09/19/23 09:11 BP 131/80 09/19/23 09:11 BMI result Body Mass Index 24.3 Const General: cooperative, no acute distress, well developed and well groomed Nutritional Appearance: average body habitus and well nourished Orientation/consciousness: oriented to person, oriented to place and oriented to time Limitations: language barrier and ambulation with cane HEENT Head: Yes normocephalic and Yes atraumatic Eyes General: appearance normal, both eyes and all related structures Pupils: Equal, round and reactive pupils present Neck Neck: Yes normal visual inspection and Yes no lymphadenopathy Thyroid: Thyroid normal Resp Effort & Inspection: normal respiratory effort and able to speak in complete sentences Auscultation: clear to auscultation bilaterally Cardio Rate: regular rate Rhythm: regular rhythm Heart sounds: Normal, physiologic split S2 sound present Peripheral pulses: radial pulses present and posterior tibial pulses present GI Inspection: No distended, No Abdominal panniculus present and Yes obesity Palpation (GI): Soft to palpation, nontender, no guarding, not rigid and No hepatosplenomegaly present Percussion: Yes normal to percussion Auscultation: normal bowel sounds Rectal Exam - Male: Yes deferred Skin General skin exam: no rashes or lesions noted, turgor normal, skin not dry, no jaundice, No spider nevi and no striae Rashes: no rashes Nails: normal Neuro General: oriented to person, oriented to place and oriented to time Cranial nerves: Yes Equal, round and reactive pupils present and Yes Normal hearing present Speech: No Abnormal speech present Extrem General: Yes normal to inspection, No clubbing, No cyanosis and No edema Psych Appearance: grossly normal and well kempt Mental Status: mental status grossly normal Speech and movement: Normal speech and movement present Affect: normal affect Attitude: cooperative Thought process: Normal thought process present and not confabulating Thought content: Normal thought content present Insight: Limited insight present (Psych) Judgement: Limited judgement present (Psych) Results Reviewed Results Reviewed: Laboratory Tests 11/01/22 07/12/23 08/14/23 13:49 09:16 08:32 WBC 7.6 RBC 4.34 L Hgb 11.7 L Hct 36.2 L MCV 83.4 Plt Count 225 Estimated GFR > 60 Total Bilirubin 0.6 AST 18 ALT 14 Alkaline Phosphatase 65 B-Natriuretic Peptide 424 H TSH 6.85 H Free T4 0.87 Assessment & Plan Assessment & Plan (1) Tubular adenoma of colon: Comment: Last scoped -20 18 repeat in 5 years or 2022 Code(s): D12.6 - Benign neoplasm of colon, unspecified (2) GERD (gastroesophageal reflux disease): Code(s): K21.9 - Gastro-esophageal reflux disease without esophagitis (3) Myocardial infarction: Comment: x 2 in 2021 at [facility] Code(s): I21.9 - Acute myocardial infarction, unspecified (4) Atrial fibrillation: Code(s): I48.91 - Unspecified atrial fibrillation (5) Pre-op examination: Code(s): Z01.818 - Encounter for other preprocedural examination Plan Pakistani #[id number] Floridalma Candelaria at [facility] cardiology.? ? I can not find this provider so will probably have to rely on his primary care provider to make sure he is cleared from a cardiac standpoint. His primary provider is Dr. Fitzpatrick at [facility]. During the appointment we find his records at [facility] it appears that he had a DC conversion for AFib only and no invasive procedure. This is performed by Dr. Jeannette Olmstead at [facility]. He says his cardiac procedure went well. He says that he is now clear for his colonoscopy. Ordered. There are no respiratory problems reported. There are no prior problems with anesthesia or sedation. There are no infectious disease problems. He had a tubular adenoma removed in 2018 was his last colonoscopy and we have put off repeat scoping him because of his continued cardiac issues which he says are now resolved. From a GI standpoint he continues to do well on his pantoprazole, simethicone and Carafate. ROV 6 mos Orders: Orders Colonoscopy - GI Use Only Today D12.6 - Benign neoplasm of colon, unspecified Medications: New bisacodyl (Dulcolax (bisacodyl)) 10 mg (2 x 5 mg) PO BEDTIME 2 days 4 tabs 0RF Refilled simethicone (Gas Relief (simethicone)) 125 mg PO TID-QID 120 caps 6RF abdominal distention pantoprazole 40 mg PO QPM 30 tabs 6RF sucralfate 2 grams (2 x 1 gram) PO BEDTIME 60 tabs 5RF K21.9 - Gastro-esophageal reflux disease without esophagitis, R10.10 - Upper abdominal pain, unspecified Coding Level of Care Code Est Pt Level 4 (53027) Diagnoses Tubular adenoma of colon D12.6 GERD (gastroesophageal reflux disease) K21.9 Myocardial infarction I21.9 Atrial fibrillation I48.91 Pre-op examination Z01.818
== END 2023-09-19 09:37 | disposition home or self-care (01) ==
PROVIDERS: PCP Internal Medicine; Visit Provider Nurse Practitioner
DX: D12.6 Benign neoplasm of colon, unspecified (principal); K21.9 Gastro-esophageal reflux disease without esophagitis; I21.9 Acute myocardial infarction, unspecified; I48.91 Unspecified atrial fibrillation; Z01.818 Encounter for other preprocedural examination
CPT/HCPCS: 99214

== ENCOUNTER → 2023-09-19 09:05 | Outpatient (BNVA) | payer OTHER, SELFPAY | PROVIDERS: PCP Internal Medicine; Visit Provider Nurse Practitioner | DX: Z01.818 Encounter for other preprocedural examination (principal); D12.6 Benign neoplasm of colon, unspecified; K21.9 Gastro-esophageal reflux disease without esophagitis; I21.9 Acute myocardial infarction, unspecified; I48.91 Unspecified atrial fibrillation | CPT/HCPCS: 99212 ==

== ENCOUNTER 2023-09-20 08:38 | Outpatient (REF) | payer OTHER, SELFPAY ==
[2023-09-23 10:54] LABS: Free Prostate Spec Ag 0.1 ng/mL; Percent Free Prostate Spec Ag 25 % (calc) (>25); Prostate Specific Ag Total 0.4 ng/mL (< OR = 4.0)
== END 2023-09-20 08:39 | disposition home or self-care (01) ==
LOC: HO.HHCL 08:38
PROVIDERS: Visit Provider Physician Assistant Surgical
DX: R97.20 Elevated prostate specific antigen [PSA] (principal)
CPT/HCPCS: 36415; 84154

== ENCOUNTER 2023-12-26 09:03 | Outpatient (REF) | payer OTHER, SELFPAY ==
--- NOTE | ~2023-12-26 | XR_ITS ---
EXAMINATION: XR CHEST CLINICAL INFORMATION: 73-year-old female with concern for heart failure exacerbation. COMPARISON: Multiple priors with last chest x-rays of 06/13/2022 TECHNIQUE: 2 views of the chest were obtained. FINDINGS: Cardiomediastinal silhouette is stable with mild cardiomegaly. The lungs are symmetrically adequately expanded. No focal consolidation, changes of congestion, pleural effusions or pneumothorax are seen. Regional skeleton is intact. Post cholecystectomy surgical clips are noted in the right upper abdominal quadrant. XR/XR chest 2V IMPRESSION: No acute pulmonary process. Specifically, there is no evidence of pulmonary edema.
[2023-12-26 09:28] LABS: MANUAL DIFF FLAG NO
[2023-12-26 10:52] LABS: Basophils Percent Auto 0.6 % (0-2); Eosinophils Absolute Auto 0.1 X10*3/uL (0.0-0.4); Eosinophils Percent Auto 1.1 % (0-4); Hematocrit 33.2 % (42.0-52.0); Hemoglobin 10.7 g/dl (14.0-18.0); Imm Gran Abs Auto 0.01 X10*3/uL (0.00-0.03); Imm Gran Pct Auto 0.2 % (0.0-0.4); Lymphocytes Absolute Auto 1.1 X10*3/uL (1.2-4.9); Lymphocytes Percent Auto 18.2 % (20-40); Mean Corpuscular HGB Conc 32.2 g/dl (31.0-36.0); Mean Corpuscular Hemoglobin 27.2 pg (27.0-33.0); Mean Corpuscular Volume 84.5 fL (80.0-98.0); Mean Platelet Volume 11.2 fL (9.4-12.4); Monocytes Absolute Auto 0.6 X10*3/uL (0.1-1.2); Monocytes Percent Auto 9.5 % (2-11); Neutrophils Absolute Auto 4.4 x10*3/uL (2.0-8.3); Neutrophils Percent Auto 70.4 % (45-73); Platelet Count 149 X10*3/uL (160-400); Red Blood Count 3.93 X10*6/uL (4.60-5.80); Red Cell Distribution Width 16.1 % (11.0-16.0); White Blood Count 6.2 X10*3/uL (4.8-10.8)
[2023-12-26 11:34] LABS: B Type Natriuretic Peptide 331 pg/mL (<100)
[2023-12-26 11:48] LABS: Alanine Aminotransferase 17 U/L (0-40); Albumin Level 3.8 g/dL (3.5-5.0); Alkaline Phosphatase 62 U/L (39-117); Anion Gap 13 (12-20); Aspartate Amino Transferase 17 U/L (5-37); Bilirubin Total 0.7 mg/dL (0.0-1.0); Blood Urea Nitrogen 13 mg/dL (9-16); Calcium 8.3 mg/dL (8.4-10.2); Carbon Dioxide 27 mmol/L (22-29); Chloride 106 mmol/L (96-108); Cholesterol 108 mg/dL (<200); Creatinine Urine 102.23 mg/dL; Estimated Glomerular Filt Rate > 60; Glucose Random 94 mg/dL (60-115); HDL Cholesterol 55 mg/dL (>40); LDL Cholesterol Calculated 44 mg/dL (<100); Microalbum/Creatinine Ratio Ur 4.8 ug/mg cr (<30); Potassium 3.9 mmol/L (3.3-5.1); Sodium 142 mmol/L (135-145); Total Protein 5.9 g/dL (6.5-8.0); Triglycerides 46 mg/dL (<150)
[2023-12-26 11:54] LABS: TSH reflex Free T4 19.71 uIU/mL (0.32-4.0)
[2023-12-26 12:40] LABS: Free T4 (Free Thyroxine) 0.49 ng/dL (0.71-1.85)
== END 2023-12-26 09:04 | disposition home or self-care (01) ==
LOC: HO.LAB 09:03
PROVIDERS: Absent Provider Internal Medicine; PCP Internal Medicine; Visit Provider Family Medicine
DX: I50.9 Heart failure, unspecified (principal)
CPT/HCPCS: 36415; 71046; 80053; 80061; 82043; 82570; 83880; 84439; 84443; 85025

== ENCOUNTER 2024-01-07 08:51 | Outpatient (REF) | payer OTHER, SELFPAY ==
[2024-01-07 12:03] LABS: Alanine Aminotransferase 16 U/L (0-40); Albumin Level 3.9 g/dL (3.5-5.0); Alkaline Phosphatase 63 U/L (39-117); Anion Gap 11 (12-20); Aspartate Amino Transferase 20 U/L (5-37); Bilirubin Total 0.6 mg/dL (0.0-1.0); Blood Urea Nitrogen 15 mg/dL (9-16); Calcium 8.4 mg/dL (8.4-10.2); Carbon Dioxide 30 mmol/L (22-29); Chloride 104 mmol/L (96-108); Estimated Glomerular Filt Rate > 60; Glucose Random 107 mg/dL (60-115); Potassium 3.7 mmol/L (3.3-5.1); Sodium 141 mmol/L (135-145); Total Protein 6.3 g/dL (6.5-8.0)
[2024-01-07 12:33] LABS: Free T4 (Free Thyroxine) 0.51 ng/dL (0.71-1.85)
== END 2024-01-07 08:52 | disposition home or self-care (01) ==
LOC: HO.HHCL 08:51
PROVIDERS: Visit Provider Internal Medicine
DX: I50.9 Heart failure, unspecified (principal); E77.8 Other disorders of glycoprotein metabolism
CPT/HCPCS: 36415; 80053; 84439; 84443

== ENCOUNTER 2024-01-23 09:37 | Outpatient (REF) | payer OTHER, SELFPAY ==
[2024-01-23 13:00] LABS: Free T4 (Free Thyroxine) 0.46 ng/dL (0.71-1.85)
[2024-01-24 07:19] LABS: Triiodothyronine T3 Total 60 ng/dL (76-181)
[2024-01-24 09:23] LABS: Thyroid Peroxidase Antibodies 11 IU/mL (<9)
[2024-01-28 16:04] LABS: Thyroid Stimulating Immunoglob 123 % baseline (<140)
== END 2024-01-23 09:38 | disposition home or self-care (01) ==
LOC: HO.LAB 09:37
PROVIDERS: PCP Internal Medicine; Visit Provider Student in an Organized Health Care Education/Training Program
DX: E05.90 Thyrotoxicosis, unspecified without thyrotoxic crisis or storm (principal); E03.2 Hypothyroidism due to medicaments and other exogenous substances
CPT/HCPCS: 36415; 84439; 84443; 84445; 84480; 86376; 99202

== ENCOUNTER 2024-01-23 09:37 | Outpatient (AMB) | payer OTHER, SELFPAY ==
[2024-01-23 09:43] VITALS: BP 102/58; PULSE 53; BMI 24.8
--- NOTE | 2024-01-23 09:43 | MHC.OFFVIS ---
Vital Signs 01/23/24 09:43 Height 5 ft 3 in Weight 139 lb 15.896 oz BMI 24.8 BP 102/58 L Blood Pressure Location Lt brachial Position Sitting Pulse 53 Pulse Source Pulse Oximeter Intake Visit Reasons: Elevated TSH Intake Note: Patient present today for elevated TSH follow up visit. 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 Beautician Language: Precision Machine Operator Name: Brisa Information Interpreted: non-clinical & clinical Accompanied by: Self / Same As Patient Allergies No Known Allergies [No Known Allergies*] Allergy (Verified 01/23/24 09:46) Medication List - Last Reconciled 01/23/24 by Aaliyah Ding MD acetaminophen 500 mg PO Q6H PRN apixaban (Eliquis) 5 mg PO BID atorvastatin 80 mg PO BEDTIME bisacodyl (Dulcolax (bisacodyl)) 10 mg (2 x 5 mg) PO BEDTIME 2 days brimonidine 0.2% 1 drp ophthalmic (eye) ONCE cholecalciferol (vitamin D3) 25 mcg PO DAILY cyclobenzaprine 10 mg PO TID PRN diclofenac sodium 1% 2 grams topical BID enalapril maleate mg PO DAILY ferrous gluconate 324 mg PO DAILY finasteride 5 mg PO DAILY furosemide 40 mg PO DAILY isosorbide mononitrate ER 30 mg PO DAILY lidocaine 5% 1 patch topical DAILY lidocaine 5% (Lidoderm) 1 patch topical DAILY methimazole mg PO TID metoprolol succinate ER 25 mg PO DAILY naproxen 500 mg PO BID PRN nitroglycerin 0.4 mg sublingual pantoprazole 40 mg PO QPM peg 3350-electrolytes 236-22.74-6.74 -5.86 gram (Golytely) 240 mL PO Q10M 1 day simethicone (Gas Relief (simethicone)) 125 mg PO TID-QID sucralfate 2 grams (2 x 1 gram) PO BEDTIME tamsulosin 0.4 mg PO BEDTIME ticagrelor (Brilinta) 90 mg PO BID timolol maleate 0.5% 1 drp ophthalmic (eye) QAM HPI Comments Details: 73-year-old male coming in today for initial evaluation of elevated TSH level. Blood work from 12/26/2023 showed elevated TSH of 19.71, free T4 low at 0.49 ng/dL. Blood work from 01/07/2024 also showed elevated TSH of 20.4 UU per mL, with low free T4 of 0.51 ng/dL. He is on methimazole 5 mg TID , says he has been on it for many years. Diagnosed with hyperthyroidism many years ago per patient. Methimazole prescribed by PCP. Denies any neck surgeries or MOSS Denies any thyroid eye disease. He remembers having a swollen neck at 1 point when he stopped taking this medicine. Otherwise denies any history of goiter. Patient currently denies heat or cold intolerance, diarrhea or constipation, hair loss, anxiety, weight changes, mood changes, changes in appearance of eyes or vision changes, tremors, increased diaphoresis or dry skin. ? endorses palpitations and low energy. Had an OR 6 months ago, underwent PCI Prior history of CAD as well No stroke Patient denies any difficulty swallowing, pain on swallowing or voice changes or difficulty breathing. Patient denies any history of childhood neck radiation. Denies having ever used lithium, amiodarone or biotin supplements. Patient denies any family history of thyroid cancer. Sister had thyroid disease , possible orbitopathy. Review of systems Constitutional: no fevers, chills or weight loss HEENT: no changes in vision Cardiac: No chest pain, discomfort or palpitations. Pulmonary: No SOB GI:No abdominal pain, no nausea or vomiting, no anorexia, no blood in stool : no burning micturition, dysuria or increase in urinary frequency Neurologic: No dizziness, no weakness in extremities MSK: no back pain or joint stiffness Physical exam General: sitting comfortably in bed in no acute distress HEENT: normocephalic/atraumatic, moist oral mucosa Neck: Prominent thyroid but no nodules palpable , no dorsocervical or supraclavicular fat pads Cardiac: normal heart sounds Pulm: normal breath sounds B/L, no added breath sounds Abd: not distended, no tenderness Extremities: no edema, no signs of myxedema Neuro: AAO x3, Speech: normal, no facial droop, moving all 4 extremities Skin: no rash PFSH Medical History (Updated 01/23/24 @ 10:32 by Aaliyah Ding MD) Hyperthyroidism Abdominal bloating Upper abdominal pain Common bile duct calculi Surgical History H/O heart artery stent H/O angioplasty History of cholecystectomy History of esophagogastroduodenoscopy (EGD) Hx of colonoscopy Family History Father No problems noted. Mother Cancer Social History Alcohol intake: never Patient Tobacco Use Status: Never used Tobacco Physical Exam Vital Signs: Last Vital Signs Pulse 53 01/23/24 09:43 BP 102/58 L 01/23/24 09:43 BMI result Body Mass Index 24.8 Results Reviewed Results Reviewed: Laboratory Tests 04/22/23 08/14/23 12/26/23 08:05 08:32 09:24 TSH 8.10 H 6.85 H 19.71 H Free T4 0.85 0.87 0.49 L 01/07/24 08:57 TSH 20.40 H Free T4 0.51 L Assessment & Plan Assessment & Plan (1) Hyperthyroidism: Code(s): E05.90 - Thyrotoxicosis, unspecified without thyrotoxic crisis or storm Category: Medical Plan: see below (2) Iatrogenic hypothyroidism: Code(s): E03.2 - Hypothyroidism due to medicaments and other exogenous substances Category: Medical Plan: Patient with history of hyperthyroidism, who is on methimazole 5 mg 3 times daily now coming in today for elevated TSH of 20.4, with low free T4 of 0.5. He does not have any symptoms of low thyroid function currently. Unclear whether he has history of Graves disease or toxic nodules. At this time he has iatrogenic hypothyroidism caused by exogenous intake of methimazole. I have asked him to stop taking methimazole and canceled this prescription. We will obtain blood work today to assess TSI and TPO antibody levels as well to see if there is any detection of possibly TSI levels causing Graves disease in the past. However unlikely they would be elevated at this point since clearly if he did have Graves disease he is in remission and now hypothyroid. I am also going to repeat his thyroid function testing today. I have asked him to also repeat blood tests in 6 weeks after stopping this medication before his follow up with me. Plan: -discontinue methimazole -check TSI and TPO antibodies -do thyroid function test today -repeat TSH and free T4 in 6 weeks -follow up in 6 weeks Plan I spent 45 minutes in reviewing the record, seeing the patient and documenting in the medical record. Orders: Orders Thyroid Stimulating Immunoglob Today E05.90 - Thyrotoxicosis, unspecified without thyrotoxic crisis or storm Free T4 (Free Thyroxine) Today E05.90 - Thyrotoxicosis, unspecified without thyrotoxic crisis or storm Thyroid Stimulating Hormone Today E05.90 - Thyrotoxicosis, unspecified without thyrotoxic crisis or storm Triiodothyronine T3 Total Today E05.90 - Thyrotoxicosis, unspecified without thyrotoxic crisis or storm Thyroid Peroxidase Antibodies Today E05.90 - Thyrotoxicosis, unspecified without thyrotoxic crisis or storm Patient Instructions: Do blood work today Stop methimazole Do blood work again in 6 weeks 2-3 days before your next appointment with me Hazte an?lisis de lashonda hoy Detener el metimazol Gina an?lisis de lashonda nuevamente en 6 semanas, 2-3 d?as antes de beckwith pr?xima lissette conmigo. Coding Level of Care Code New Pt Level 4 (81379) Diagnoses Hyperthyroidism E05.90 Iatrogenic hypothyroidism E03.2 Time Spent (min) 45
== END 2024-01-23 10:31 | disposition home or self-care (01) ==
PROVIDERS: PCP Internal Medicine; Visit Provider Student in an Organized Health Care Education/Training Program
DX: E05.90 Thyrotoxicosis, unspecified without thyrotoxic crisis or storm (principal); E03.2 Hypothyroidism due to medicaments and other exogenous substances
CPT/HCPCS: 99204

== ENCOUNTER 2024-01-29 12:09 | Day surgery (SDC) | payer OTHER, SELFPAY ==
--- NOTE | 2024-01-29 12:51 | MHC.SHP ---
Pre-Procedural Eval Section A - 24 Hr Update-Section A only Date of Service: 01/29/24 Section B - Complete if H&P > 30 days Chief Complaint: Benign neoplasm of colon, unspecified Relevant Family History (Specify if Yes): No Relevant Social History: None Present Medications: see Short Stay Collaborative assessment Medical History: Significant History (Hyperthyroidism Abdominal bloating Upper abdominal pain Common bile duct calculi) History of Previous Operations: Relevant previous surgery/procedure and date(s) (H/O heart artery stent H/O angioplasty History of cholecystectomy History of esophagogastroduodenoscopy (EGD) Hx of colonoscopy) Allergies: Allergies Allergy/AdvReac Type Severity Reaction Status Date / Time No Known Allergies Allergy Verified 01/23/24 09:46 [No Known Allergies*] Review of Systems Sugical H&P ROS: Negative: Constitution, Cardiovascular, Respiratory, Neurological, Psychiatric, Hem-Onc, Allergic/Immunologic, Gastrointestinal, Genitourinary, Musculoskeletal, Integumentary, Endocrine and Eyes/Ears/Nose/Throat Exam Surgical H&P Exam: Normal: HEENT, Normal: Heart, Normal: Lungs, Normal: Extremities, Normal: Abdomen, Normal: Skin and Normal: Neurological Plan Diagnosis/Plan: Unchanged I have reviewed the history and physical and performed a pertinent physical examination on my patient. No changes have occurred unless specified. Time Spent With Patient Time: Total time managing care of this patient today ____ minutes.
[2024-01-29 13:02] VITALS: BMI 24.3
[2024-01-29 13:04] VITALS: BP 138/83; PULSE 75; RESP 16; TEMP 36.7; O2SAT 99
[2024-01-29] MEDS: Lactated Ringers 1,000 ML 80 ML IVCONT (13:11)
--- NOTE | 2024-01-29 13:18 | HO.ANESPROP2 ---
HPI - Anesthesia Eval Consult details Narrative: for colon, saw cards, did not take metaprolol. [facility] Active Problems Active Problems: All Active Problems Iatrogenic hypothyroidism (Acute) Hyperthyroidism (Acute) Atrial fibrillation (Acute) Pre-op examination (Acute) Myocardial infarction (Acute) Mitral regurgitation (Acute) Tubular adenoma of colon (Acute) Heart murmur (Acute) Osteoporosis (Acute) HTN (hypertension), benign (Acute) GERD (gastroesophageal reflux disease) (Acute) Past Medical History Medical History Hyperthyroidism Abdominal bloating Upper abdominal pain Common bile duct calculi Family History Family History Father No problems noted. Mother Cancer Family history of problems with anesthesia: No Surgical History Surgical History H/O heart artery stent H/O angioplasty History of cholecystectomy History of esophagogastroduodenoscopy (EGD) Hx of colonoscopy History of Problems with Anesthesia: No Social History Social History Are you a primary special needs child caregiver to a significant other at home: No Do you presently have visiting nurse or other home services: No Alcohol intake: never Patient Tobacco Use Status: Never used Tobacco Second Hand Smoke Exposure: No Use of substances other than those prescribed or required for medical reasons: No Have you been hit, kicked, punched, or otherwise hurt by someone within the past year? If so, by whom?: No Are you DNR?: No Advance Directives: No Advance Directives Information Provided: Yes Advance Directives on File: No Recently lost weight without trying: No Eating poorly because of decreased appetite: No Nutrition Risks: No Nutritional Risk Poor oral hygiene: No Meds Allergies Allergy/AdvReac Type Severity Reaction Status Date / Time No Known Allergies Allergy Verified 01/23/24 09:46 [No Known Allergies*] Active Medications: Current Medications Lactated Ringer's (Lr) 1,000 mls @ 80 mls/hr IVCONT .[id number] GERSON Last Admin: 01/29/24 13:11 Dose: 80 mls/hr Home Medications ?Medication ?Instructions ?Recorded ?Confirmed ?Last Taken ?Type brimonidine 0.2 % eye drops 1 drp ophthalmic (eye) ONCE 10/02/21 01/23/24 Unknown History cholecalciferol (vitamin D3) 25 25 mcg PO DAILY 10/02/21 01/23/24 Unknown History mcg (1,000 unit) capsule enalapril maleate 2.5 mg tablet mg PO DAILY 10/02/21 01/23/24 Unknown History metoprolol succinate 25 mg 25 mg PO DAILY 10/02/21 01/23/24 Unknown History tablet,extended release 24 hr timolol maleate 0.5 % eye drops 1 drp ophthalmic (eye) QAM 10/02/21 01/23/24 Unknown History atorvastatin 80 mg tablet 80 mg PO BEDTIME 04/25/22 01/23/24 Unknown History diclofenac sodium 1 % topical gel 2 g topical BID 04/25/22 01/23/24 Unknown History finasteride 5 mg tablet 5 mg PO DAILY 04/25/22 01/23/24 Unknown History isosorbide mononitrate 30 mg 30 mg PO DAILY 04/25/22 01/23/24 Unknown History tablet,extended release 24 hr nitroglycerin 0.4 mg sublingual 0.4 mg sublingual angina 04/25/22 01/23/24 Unknown History tablet tamsulosin 0.4 mg capsule 0.4 mg PO BEDTIME 04/25/22 01/23/24 Unknown History ticagrelor 90 mg tablet (Brilinta) 90 mg PO BID 04/25/22 01/23/24 Unknown History acetaminophen 500 mg capsule 500 mg PO Q6H PRN 11/01/22 01/23/24 Unknown History apixaban 5 mg tablet (Eliquis) 5 mg PO BID 09/19/23 01/23/24 Unknown History ferrous gluconate 324 mg (37.5 mg 324 mg PO DAILY 01/23/24 01/23/24 Unknown History iron) tablet furosemide 40 mg tablet 40 mg PO DAILY 01/23/24 01/23/24 Unknown History Exam Height,Weight and Vital Signs: Height 5 ft 3 in Weight 62.227 kg Last Vital Signs Temp 98.0 F 01/29/24 13:04 Pulse 75 01/29/24 13:04 Resp 16 01/29/24 13:04 BP 138/83 01/29/24 13:04 Pulse Ox 99 01/29/24 13:04 O2 Del Method Room Air 01/29/24 13:04 Airway Mallampati Class: II TM Dist: >3cm Neck ROM: Full Heart: rrr Lungs: cta Assessment and Plan Assessment Anesthesia Assessment: Anesthesia Plan Discussed Final Anesthetic Review Family History of Problems with Anesthesia: No History of Problems with Anesthesia: No NPO: Yes ASA Class: III Final Preanesthetic Review: No Changes in Pt Med Stat, Meds/Allgs Chart Reviewed, Consent Obtained/Reviewed and Anes Risks/Benef Reviewed Patient Risk: Intermediate Procedure Risk: Low Anesthetic Plan Anesthetic Plan: MAC: Disposition: Standard PACU
--- NOTE | 2024-01-29 14:13 | P.OPN-COLO_ITS ---
Colonoscopy Operative Note Operative Note Date of Service: 01/29/24 Narrative: Operative Information Procedure Description: Colonoscopy Indication: Screening Anesthesia: MAC COLONOSCOPY Instrument: Olympus variable stiffness pediatric scope 190L Colonoscopy Monitoring: Vital signs and clinical assessment, continuous EKG monitoring, Pulse oximetry, Carbon Dioxide monitoring and blood pressure monitoring were done throughout the procedure. Colon withdrawal time was 6 minutes. Procedure: The patient was placed in the left lateral decubitis position and pre-procedure medications were administered. After a digital rectal examination of the ano-rectum, the video colonoscope was inserted into the rectum and advanced through the colon to the cecum/TI. The colonoscope was slowly withdrawn in a retrograde panoramic fashion and the colon mucosa was carefully examined including a retroflexed view of the rectum. Findings and interventions are described below. Procedure Difficulty: easy Findings: Terminal Ileum-normal Cecum:normal Ascending Colon: mild diverticulosis Transverse Colon -normal Descending Colon: moderate diverticulosis Sigmoid Colon: severe diverticulosis Rectum: Retroflexion with small internal hemorrhoids seen, grade I Anorectum - normal Intervention: none Colon preparation: [place] Bowel Preparation Scale Right colon; 2 Transverse colon: 2 Left colon; 2 (0 = Unprepared colon segment with mucosa not seen due to solid stool that c annot be cleared. 1 = Portion of mucosa of the colon segment seen, but other areas of the colon segment not well seen due to staining, residual stool and/or opaque liquid. 2 = Minor amount of residual staining, small fragments of stool and/or opaque liquid, but mucosa of colon segment seen well. 3 = Entire mucosa of colon segment seen well with no residual staining, small fragments of stool or opaque liquid) Impression and Post Procedure Diagnosis: diverticulosis internal hemorrhoids Plan: High fiber diet leaflet Avoid straining at stool, epsom salts and sitz bath, anusol supps or cream Repeat Colonoscopy in 10 years if health allows or earlier if clinically indicated Above findings were reviewed with the patient and relevant handouts were provided if indicated.
[2024-01-29 14:57] VITALS: BP 98/56; PULSE 81; RESP 12; TEMP 36.1; O2SAT 99
[2024-01-29 15:12] VITALS: BP 117/93; PULSE 78; RESP 16; TEMP 36.2; O2SAT 97
== END 2024-01-29 15:35 | disposition home or self-care (01) ==
PROVIDERS: PCP Internal Medicine; Visit Provider Internal Medicine Gastroenterology
PROC: 0DJD8ZZ Inspection of Lower Intestinal Tract, Via Natural or Artificial Opening Endoscopic (ICD-10-PCS; CPT 45378; principal; 2024-01-29 14:00)
DX: Z12.11 Encounter for screening for malignant neoplasm of colon (principal); Z86.010 Personal history of colon polyps; R14.0 Abdominal distension (gaseous); K57.30 Diverticulosis of large intestine without perforation or abscess without bleeding; K64.0 First degree hemorrhoids; R10.10 Upper abdominal pain, unspecified; K21.9 Gastro-esophageal reflux disease without esophagitis; E05.90 Thyrotoxicosis, unspecified without thyrotoxic crisis or storm; I48.91 Unspecified atrial fibrillation; I25.2 Old myocardial infarction; Z95.5 Presence of coronary angioplasty implant and graft; Z90.49 Acquired absence of other specified parts of digestive tract; Z79.899 Other long term (current) drug therapy
CPT/HCPCS: G0105; J2704

== ENCOUNTER → 2024-01-29 12:09 | Outpatient (BNV) | payer OTHER, SELFPAY | PROVIDERS: PCP Internal Medicine; Visit Provider Internal Medicine Gastroenterology | DX: Z12.11 Encounter for screening for malignant neoplasm of colon (principal); K57.90 Diverticulosis of intestine, part unspecified, without perforation or abscess without bleeding; K64.8 Other hemorrhoids | CPT/HCPCS: G0121 ==

== ENCOUNTER 2024-02-03 11:31 | Emergency (ER) | payer OTHER, SELFPAY ==
--- NOTE | 2024-02-03 | ECG_ITS ---
Test Reason : CHEST PAIN Blood Pressure : / mmHG Vent. Rate : 071 BPM Atrial Rate : 000 BPM P-R Int : 000 ms QRS Dur : 080 ms QT Int : 382 ms P-R-T Axes : 000 -01 023 degrees QTc Int : 415 ms Atrial fibrillation with a competing junctional pacemaker Low voltage QRS Abnormal ECG When compared with ECG of 01-JAN-2022 15:40, Atrial fibrillation has replaced Sinus rhythm ST no longer elevated in Inferior leads ST no longer elevated in Lateral leads Referred By: Generic ED Physician Electronically Signed By:IAN FITZGERALD
--- NOTE | ~2024-02-03 | XR_ITS ---
EXAMINATION: XR CHEST CLINICAL INFORMATION: Left chest pain COMPARISON: 12/26/2023 TECHNIQUE: 2 views of the chest were obtained. FINDINGS: Cardiac silhouette is mildly enlarged. Vascular redistribution is seen. Increased interstitial markings are identified with small pleural effusions and mild dependent basilar atelectasis. No acute osseous abnormality. XR/XR chest 2V IMPRESSION: Enlarged cardiac silhouette. Mild interstitial pulmonary edema with small pleural effusions identified. Electronically signed by: Kodak Millan MD 02/03/2024 01:42 PM EDT
[2024-02-03 11:53] VITALS: BP 136/82; PULSE 80; RESP 18; TEMP 36.8; O2SAT 98; BMI 24.6
--- NOTE | 2024-02-03 11:58 | ED_ITS ---
HPI - Chest Pain General Chief Complaint: Chest Pain Stated Complaint: Chest pain? Time Seen by Provider: 02/03/24 14:30 History of Present Illness ED Provider: Susan TORIBIO narrative: The patient is a 73-year-old male with a history of heart disease including coronary disease and valvular disease. He has significant mitral regurgitation. He has a history of congestive heart failure. He is on apixaban and furosemide. The patient says that at around 04:00 this morning mental left side of his chest. He took 3 nitroglycerins and it helped for awhile but then the pain returned and he drove himself to the emergency room this morning. He says he had a similar pain 3 days ago. He says he often feels chilled. No definite fevers. He has had worsening edema of both lower legs for about 6 months. Related Data Home Medications ?Medication ?Instructions ?Recorded ?Confirmed brimonidine 0.2 % eye drops 1 drp ophthalmic (eye) ONCE 10/02/21 01/23/24 cholecalciferol (vitamin D3) 25 25 mcg PO DAILY 10/02/21 01/23/24 mcg (1,000 unit) capsule enalapril maleate 2.5 mg tablet mg PO DAILY 10/02/21 01/23/24 metoprolol succinate 25 mg 25 mg PO DAILY 10/02/21 01/23/24 tablet,extended release 24 hr timolol maleate 0.5 % eye drops 1 drp ophthalmic (eye) QAM 10/02/21 01/23/24 atorvastatin 80 mg tablet 80 mg PO BEDTIME 04/25/22 01/23/24 diclofenac sodium 1 % topical gel 2 g topical BID 04/25/22 01/23/24 finasteride 5 mg tablet 5 mg PO DAILY 04/25/22 01/23/24 isosorbide mononitrate 30 mg 30 mg PO DAILY 04/25/22 01/23/24 tablet,extended release 24 hr nitroglycerin 0.4 mg sublingual 0.4 mg sublingual angina 04/25/22 01/23/24 tablet tamsulosin 0.4 mg capsule 0.4 mg PO BEDTIME 04/25/22 01/23/24 ticagrelor 90 mg tablet (Brilinta) 90 mg PO BID 04/25/22 01/23/24 acetaminophen 500 mg capsule 500 mg PO Q6H PRN 06/01/23 08/22/24 apixaban 5 mg tablet (Eliquis) 5 mg PO BID 09/19/23 01/23/24 ferrous gluconate 324 mg (37.5 mg 324 mg PO DAILY 01/23/24 01/23/24 iron) tablet furosemide 40 mg tablet 40 mg PO DAILY 01/23/24 01/23/24 Previous Rx's ?Medication ?Instructions ?Recorded cyclobenzaprine 10 mg tablet 10 mg PO TID PRN muscle spasm #10 12/11/22 tabs lidocaine 5 % topical patch 1 patch topical DAILY #15 ea 12/11/22 naproxen 500 mg tablet 500 mg PO BID PRN pain #20 tabs 12/11/22 lidocaine 5 % topical patch 1 patch topical DAILY #15 ea 02/15/23 (Lidoderm) peg 3350-electrolytes 236 240 ml PO Q10M 1 day #4,000 mL 04/30/23 gram-22.74 gram-6.74 gram-5.86 gram solution (Golytely) bisacodyl 5 mg tablet,delayed 10 mg (2 x 5 mg) PO BEDTIME 2 days 09/19/23 release (Dulcolax (bisacodyl)) #4 tabs pantoprazole 40 mg tablet,delayed 40 mg PO QPM #30 tabs 09/19/23 release simethicone 125 mg capsule (Gas 125 mg PO TID-QID abdominal 09/19/23 Relief (simethicone)) distention #120 caps sucralfate 1 gram tablet 2 g (2 x 1 gram) PO BEDTIME #60 09/19/23 tabs furosemide 40 mg tablet 40 mg PO DAILY #30 tabs 02/03/24 Allergies Allergy/AdvReac Type Severity Reaction Status Date / Time No Known Allergies Allergy Verified 02/03/24 11:57 [No Known Allergies*] [facility] Past Medical History Medical History Hyperthyroidism Abdominal bloating Upper abdominal pain Common bile duct calculi Surgical History H/O heart artery stent H/O angioplasty History of cholecystectomy History of esophagogastroduodenoscopy (EGD) Hx of colonoscopy Family History Family History Father No problems noted. Mother Cancer Social History Social History Are you a primary progressive care unit registered nurse to a significant other at home: No Do you presently have visiting nurse or other home services: No Alcohol intake: never Patient Tobacco Use Status: Never used Tobacco Smoked in Last 30 Days: No Second Hand Smoke Exposure: No Advance Directives: No Advance Directives Information Provided: Yes Do you have a plan to hurt others: No Plan Physical Exam 2 Vital Signs: Vital Signs: Last Vital Signs Temp 98.1 F 02/03/24 19:35 Pulse 74 02/03/24 19:35 Resp 21 H 02/03/24 19:35 BP 137/93 H 02/03/24 19:35 Pulse Ox 96 02/03/24 19:35 O2 Del Method Room Air 02/03/24 19:35 BMI result Body Mass Index 24.6 Const: Other: The patient is a slim, chronically ill-appearing 73-year-old who was awake and alert and does not seem in obvious distress HEENT: Head: Yes normal to inspection Mouth: Normal oral and palatal mucosa present and moist mucous membranes Throat: Yes posterior oropharynx normal Eyes: General: appearance normal, both eyes and all related structures Neck: Other: I felt the patient had some JVD Resp: Other: No increased work of breathing. Mild crackles at the bases Cardio: Other: The patient has an irregular rate and rhythm. He has a squeaky, seesaw type murmur GI: Other: Abdomen is soft and nontender Skin: Other: There is edema of the lower legs. The skin is otherwise unremarkable Neuro: Other: The patient is awake and alert, oriented and appropriate. Cranial nerves are grossly intact. He moves his extremities symmetrically. His gait is steady. He seemed neurologically intact. Extrem: Other: The patient has bilateral lower extremity edema of the ankles in the lower legs, 2+ to 3+. Course Course Course Narrative: This is a Rapid Medical Examination (RME) performed by Gris Lua PA-C in triage. Full HPI, ROS, assessment and treatment plan per primary provider in the Main ED. 73 yo male hx HTN, mitral regurgitation, [place] x2 (2021 [facility] [place]), atrial fibrillation GERD here for eval of substernal and L sided chest pain radiating into left neck x1 wk. states i dont feel normal . took 3 nitro around 4am today with minimal improvement. + 3+ pitting edema to b/l LEs. Irregularly irregular rhythm Plan: EKG, chest x-ray, labs Medications Administered Discontinued Medications Generic Name Dose Route Start Last Admin Trade Name Freq PRN Reason Stop Dose Admin Acetaminophen 975 mg 02/03/24 15:09 02/03/24 16:25 Acetaminophen 325 Mg Tablet PO 02/03/24 15:10 975 mg ONCE ONE Administration Furosemide 80 mg 02/03/24 14:57 02/03/24 16:24 Furosemide 100 Mg/10 Ml Vial IVPUSH 02/03/24 14:58 80 mg ONCE ONE Administration Protocol Medical Decision Making Medical Decision Making [facility] Narrative: The patient is a 73-year-old male with a history of atrial fibrillation on anticoagulation. He also has a history of coronary disease and GA. he presents complaining of chest pain. His EKG does not look ischemic. His EKG shows atrial fibrillation. His chest x-ray is consistent with congestive heart failure. He also has peripheral edema consistent with congestive heart failure and an elevated BNP. He was given 80 mg of IV Lasix. I had been under the impression that he was already taking 40 mg of oral Lasix daily but he says that although he has been prescribed this earlier he has run out and it was never represcribed. The patient had a good diuresis in response to the IV furosemide. He seemed to feel better. He was able to ambulate without difficulty and he kept his oxygen saturation on room air while ambulating at around 97%. He seems comfortable with the plan of being discharged with a prescription for new furosemide. He says he has a [facility] ror engineer and that he has an appointment next month. He should also follow up with his PCP at the [facility]. Lab Data 02/03/24 12:04 02/03/24 12:04 Labs: Lab Results 02/03/24 02/03/24 Range/Units 12:04 17:09 WBC 5.6 (4.8-10.8) X10*3/uL RBC 4.11 L (4.60-5.80) X10*6/uL Hgb 11.3 L (14.0-18.0) g/dl Hct 34.5 L (42.0-52.0) % MCV 83.9 (80.0-98.0) fL MCH 27.5 (27.0-33.0) pg MCHC 32.8 (31.0-36.0) g/dl RDW 16.3 H (11.0-16.0) % Plt Count 142 L (160-400) X10*3/uL MPV 9.8 (9.4-12.4) fL Immature Gran % (Auto) 0.4 (0.0-0.4) % Neut % (Auto) 69.4 (45-73) % Lymph % (Auto) 16.9 L (20-40) % [place] % (Auto) 10.7 (2-11) % Eos % (Auto) 2.1 (0-4) % Baso % (Auto) 0.5 (0-2) % Lymph # (Auto) 1.0 L (1.2-4.9) X10*3/uL [place] # (Auto) 0.6 (0.1-1.2) X10*3/uL Eos # (Auto) 0.1 (0.0-0.4) X10*3/uL Baso # (Auto) 0.0 (0.0-0.2) X10*3/uL Abs Immat Gran (auto) 0.02 (0.00-0.03) X10*3/uL Absolute Neuts (auto) 3.9 (2.0-8.3) x10*3/uL Absolute Nucleated RBC 0.000 (0.0-0.012) X10*3/uL Nucleated RBC % (auto) 0.0 (0.0-0.2) /100WBC Sodium 144 (135-145) mmol/L Potassium 4.3 (3.3-5.1) mmol/L Chloride 109 H (96-108) mmol/L Carbon Dioxide 27 (22-29) mmol/L Anion Gap 12 (12-20) BUN 16 (9-16) mg/dL Creatinine 1.27 (0.5-1.4) mg/dL Estim Creat Clear Calc 41.6 Estimated GFR 56 Random Glucose 86 (60-115) mg/dL Calcium 9.4 D (8.4-10.2) mg/dL Magnesium 2.1 (1.6-2.6) mg/dL Total Bilirubin 0.9 (0.0-1.0) mg/dL AST 26 (5-37) U/L ALT 36 (0-40) U/L Alkaline Phosphatase 84 (39-117) U/L Troponin I High Sens 5.7 5.3 (<3.5-35.0) ng/L C-Reactive Protein 0.27 (< or = 0.50) mg/dL B-Natriuretic Peptide 766 H (<100) pg/mL Total Protein 6.6 (6.5-8.0) g/dL Albumin 3.9 (3.5-5.0) g/dL Lipase 10 (8-78) U/L TSH 2.70 (0.32-4.0) uIU/mL Free T4 0.90 (0.71-1.85) ng/dL Independent Interpretation I performed an independent interpretation of an: EKG Interpretation: EKG at 11:37 shows atrial fibrillation at 71 beats per minute. No definite acute ischemic changes. Discharge Plan Discharge Clinical Impression: Congestive heart failure, Chest pain Patient Disposition: Home, Self-Care Additional Instructions: Your testing today showed that you had some fluid on your lungs. You seemed to have some degree of congestive heart failure. I have sent a prescription for medication called furosemide, also known as Lasix. This is a diuretic medication. It will cause you to urinate a lot. This will help get fluid off your lungs. Please take this medication once a day in the mornings. Please contact your regular doctor for a follow up appointment soon. Also follow up with your ror engineer as scheduled next month. Return to the emergency room if you feel significantly worse. Prescriptions: New furosemide 40 mg tablet 40 mg PO DAILY Qty: 30 0RF No Action peg 3350-electrolytes [Golytely] 236-22.74-6.74 -5.86 gram recon soln 240 ml PO Q10M 1 Days Qty: 4000 0RF Rx Instructions: until fecal effluent is clear; do not exceed a total volume of 2,000 mL cyclobenzaprine 10 mg tablet 10 mg PO TID PRN (Reason: muscle spasm) Qty: 10 0RF lidocaine 5 % adhesive patch,medicated 1 patch topical DAILY Qty: 15 0RF Rx Instructions: leave on most painful area for up to 12 hrs naproxen 500 mg tablet 500 mg PO BID PRN (Reason: pain) Qty: 20 0RF lidocaine [Lidoderm] 5 % adhesive patch,medicated 1 patch topical DAILY Qty: 15 0RF Rx Instructions: leave on most painful area for up to 12 hrs metoprolol succinate 25 mg tablet extended release 24 hr 25 mg PO DAILY cholecalciferol (vitamin D3) 25 mcg (1,000 unit) capsule 25 mcg PO DAILY enalapril maleate 2.5 mg tablet PO DAILY timolol maleate 0.5 % drops 1 drp ophthalmic (eye) QAM brimonidine 0.2 % drops 1 drp ophthalmic (eye) ONCE nitroglycerin 0.4 mg tablet, sublingual 0.4 mg sublingual isosorbide mononitrate 30 mg tablet extended release 24 hr 30 mg PO DAILY atorvastatin 80 mg tablet 80 mg PO BEDTIME tamsulosin 0.4 mg capsule 0.4 mg PO BEDTIME finasteride 5 mg tablet 5 mg PO DAILY diclofenac sodium 1 % gel 2 g topical BID Brilinta 90 mg tablet 90 mg PO BID acetaminophen 500 mg capsule 500 mg PO Q6H PRN Eliquis 5 mg tablet 5 mg PO BID bisacodyl [Dulcolax (bisacodyl)] 5 mg tablet,delayed release (DR/EC) 10 mg PO BEDTIME 2 Days Qty: 4 0RF pantoprazole 40 mg tablet,delayed release (DR/EC) 40 mg PO QPM Qty: 30 6RF simethicone [Gas Relief (simethicone)] 125 mg capsule 125 mg PO TID-QID Qty: 120 6RF sucralfate 1 gram tablet 2 g PO BEDTIME Qty: 60 5RF ferrous gluconate 324 mg (37.5 mg iron) tablet 324 mg PO DAILY furosemide 40 mg tablet 40 mg PO DAILY Referrals: Gucci Gross MD [Primary Care Provider] - (Congestive heart failure) Interventions: ED Discharge Assessment Last Done: 02/03/24 19:35 Discharge Date/Time: 02/03/24 19:35 Print Language: Luxembourger
[2024-02-03 12:15] LABS: MANUAL DIFF FLAG NO
[2024-02-03 12:17] LABS: Basophils Percent Auto 0.5 % (0-2); Eosinophils Absolute Auto 0.1 X10*3/uL (0.0-0.4); Eosinophils Percent Auto 2.1 % (0-4); Hematocrit 34.5 % (42.0-52.0); Hemoglobin 11.3 g/dl (14.0-18.0); Imm Gran Abs Auto 0.02 X10*3/uL (0.00-0.03); Imm Gran Pct Auto 0.4 % (0.0-0.4); Lymphocytes Percent Auto 16.9 % (20-40); Mean Corpuscular HGB Conc 32.8 g/dl (31.0-36.0); Mean Corpuscular Hemoglobin 27.5 pg (27.0-33.0); Mean Corpuscular Volume 83.9 fL (80.0-98.0); Mean Platelet Volume 9.8 fL (9.4-12.4); Monocytes Absolute Auto 0.6 X10*3/uL (0.1-1.2); Monocytes Percent Auto 10.7 % (2-11); Neutrophils Absolute Auto 3.9 x10*3/uL (2.0-8.3); Neutrophils Percent Auto 69.4 % (45-73); Platelet Count 142 X10*3/uL (160-400); Red Blood Count 4.11 X10*6/uL (4.60-5.80); Red Cell Distribution Width 16.3 % (11.0-16.0); White Blood Count 5.6 X10*3/uL (4.8-10.8)
[2024-02-03 12:33] LABS: Alanine Aminotransferase 36 U/L (0-40); Albumin Level 3.9 g/dL (3.5-5.0); Alkaline Phosphatase 84 U/L (39-117); Anion Gap 12 (12-20); Aspartate Amino Transferase 26 U/L (5-37); Bilirubin Total 0.9 mg/dL (0.0-1.0); Blood Urea Nitrogen 16 mg/dL (9-16); Calcium 9.4 mg/dL (8.4-10.2); Carbon Dioxide 27 mmol/L (22-29); Chloride 109 mmol/L (96-108); Creatinine Clr Calc Pharmacy 41.6; Estimated Glomerular Filt Rate 56; Glucose Random 86 mg/dL (60-115); Lipase 10 U/L (8-78); Magnesium 2.1 mg/dL (1.6-2.6); Potassium 4.3 mmol/L (3.3-5.1); Sodium 144 mmol/L (135-145); Total Protein 6.6 g/dL (6.5-8.0)
[2024-02-03 12:38] LABS: B Type Natriuretic Peptide 766 pg/mL (<100)
[2024-02-03 12:40] LABS: Troponin-I High Sensitivity 5.7 ng/L (<3.5-35.0)
[2024-02-03 14:46] VITALS: BP 155/83; PULSE 78; RESP 15; TEMP 36.7; O2SAT 98
[2024-02-03 16:05] LABS: C Reactive Protein 0.27 mg/dL (< or = 0.50)
[2024-02-03 16:24] VITALS: BP 161/89
[2024-02-03] MEDS: Furosemide 100 MG/10 ML VIAL 80 MG IVPUSH (16:24)
[2024-02-03] MEDS: Acetaminophen 325 MG TABLET 975 MG PO (16:25)
--- NOTE | 2024-02-03 16:43 | PC.NURSE ---
pt continues to c/o left side chest and shoulder pain. states it's worse wth deep breaths. LS CTA. pittind edema up to knees.
[2024-02-03 17:47] LABS: Troponin-I High Sensitivity 5.3 ng/L (<3.5-35.0)
[2024-02-03 18:41] VITALS: BP 133/82; PULSE 71; RESP 22; O2SAT 97
--- NOTE | 2024-02-03 19:00 | PC.NURSE ---
received report from Jocelynn JJ, assume care of pt at this time
[2024-02-03 19:25] VITALS: BP 137/93; PULSE 74; RESP 21; TEMP 36.7; O2SAT 96
[2024-02-03 19:35] VITALS: BP 137/93; PULSE 74; RESP 21; TEMP 36.7; O2SAT 96
== END 2024-02-03 19:35 | disposition home or self-care (01) ==
PROVIDERS: Physician Assistant Medical; Emergency Provider Emergency Medicine; PCP Internal Medicine
DX: I11.0 Hypertensive heart disease with heart failure (principal); I50.9 Heart failure, unspecified; R07.9 Chest pain, unspecified; I25.2 Old myocardial infarction; I34.0 Nonrheumatic mitral (valve) insufficiency; E05.90 Thyrotoxicosis, unspecified without thyrotoxic crisis or storm
CPT/HCPCS: 36415; 71046; 80053; 83690; 83735; 83880; 84439; 84443; 84484; 85025; 86140; 93005; 96374; 99284; 99285; J1940

== ENCOUNTER 2024-02-10 15:40 | Outpatient (REF) | payer OTHER, SELFPAY ==
[2024-02-10 18:22] LABS: Anion Gap 14 (12-20); Blood Urea Nitrogen 24 mg/dL (9-16); Calcium 9.4 mg/dL (8.4-10.2); Carbon Dioxide 28 mmol/L (22-29); Chloride 101 mmol/L (96-108); Estimated Glomerular Filt Rate 51; Glucose Random 94 mg/dL (60-115); Potassium 3.9 mmol/L (3.3-5.1); Sodium 139 mmol/L (135-145)
== END 2024-02-10 15:41 | disposition home or self-care (01) ==
LOC: HO.CHCLDS 15:40
PROVIDERS: Visit Provider Internal Medicine
DX: R25.2 Cramp and spasm (principal)
CPT/HCPCS: 36415; 80048

== ENCOUNTER 2024-03-02 08:34 | Outpatient (REF) | payer OTHER, SELFPAY ==
[2024-03-02 12:46] LABS: TSH reflex Free T4 1.61 uIU/mL (0.32-4.0)
== END 2024-03-02 08:35 | disposition home or self-care (01) ==
LOC: HO.HHCL 08:34
PROVIDERS: Visit Provider Nurse Practitioner Primary Care
DX: E05.90 Thyrotoxicosis, unspecified without thyrotoxic crisis or storm (principal)
CPT/HCPCS: 36415; 84443

== ENCOUNTER 2024-03-03 09:36 | Outpatient (AMB) | payer OTHER, SELFPAY ==
--- NOTE | 2024-03-03 09:37 | MHC.OFFVIS ---
Vital Signs 03/03/24 09:39 Height 5 ft 3 in Weight 129 lb 10.109 oz BMI 23.0 BP 100/62 Blood Pressure Location Rt brachial Position Sitting Pulse 101 H Intake Visit Reasons: Elevated TSH Intake Note: Patient present today for Elevated TSH office visit. Food Truck Caterer Required: Yes Food Truck Caterer Language: Accounts Executive Services: Food Truck Caterer Present Information Interpreted: non-clinical & clinical Accompanied by: Self / Same As Patient Allergies No Known Allergies [No Known Allergies*] Allergy (Verified 03/03/24 09:41) Medication List - Last Reconciled 03/03/24 by Aaliyah Ding MD acetaminophen 500 mg PO Q6H PRN apixaban (Eliquis) 5 mg PO BID atorvastatin 80 mg PO BEDTIME bisacodyl (Dulcolax (bisacodyl)) 10 mg (2 x 5 mg) PO BEDTIME 2 days brimonidine 0.2% 1 drp ophthalmic (eye) ONCE cholecalciferol (vitamin D3) 25 mcg PO DAILY cyclobenzaprine 10 mg PO TID PRN diclofenac sodium 1% 2 grams topical BID enalapril maleate mg PO DAILY ferrous gluconate 324 mg PO DAILY finasteride 5 mg PO DAILY furosemide 40 mg PO DAILY furosemide 40 mg PO DAILY isosorbide mononitrate ER 30 mg PO DAILY lidocaine 5% 1 patch topical DAILY lidocaine 5% (Lidoderm) 1 patch topical DAILY metoprolol succinate ER 25 mg PO DAILY naproxen 500 mg PO BID PRN nitroglycerin 0.4 mg sublingual pantoprazole 40 mg PO QPM peg 3350-electrolytes 236-22.74-6.74 -5.86 gram (Golytely) 240 mL PO Q10M 1 day simethicone (Gas Relief (simethicone)) 125 mg PO TID-QID sucralfate 2 grams (2 x 1 gram) PO BEDTIME tamsulosin 0.4 mg PO BEDTIME ticagrelor (Brilinta) 90 mg PO BID timolol maleate 0.5% 1 drp ophthalmic (eye) QAM HPI Comments Details: 73-year-old male coming in today for follow up of elevated TSH level. PRior HPI Blood work from 12/26/2023 showed elevated TSH of 19.71, free T4 low at 0.49 ng/dL. Blood work from 01/07/2024 also showed elevated TSH of 20.4 UU per mL, with low free T4 of 0.51 ng/dL. He is on methimazole 5 mg TID , says he has been on it for many years. Diagnosed with hyperthyroidism many years ago per patient. Methimazole prescribed by PCP. Denies any neck surgeries or MOSS Denies any thyroid eye disease. He remembers having a swollen neck at 1 point when he stopped taking this medicine. Otherwise denies any history of goiter. Last visit with dc 01/22, we stopped methimazole. Repeat blood work 02/03/24 showed normalization of TSH at 2.7 and free t4 of 0.9 Repeat TSH done 03/02/2024 1.61 Laboratory Tests 04/22/23 08/14/23 12/26/23 08:05 08:32 09:24 TSH 8.10 H 6.85 H 19.71 H Free T4 0.85 0.87 0.49 L Thyroid Peroxidase Ab 01/07/24 01/23/24 02/03/24 08:57 10:48 12:04 TSH 2.70 Free T4 0.51 L 0.46 L 0.90 Thyroid Peroxidase Ab 11 H 03/02/24 08:38 TSH 1.61 Free T4 Thyroid Peroxidase Ab Patient currently denies heat or cold intolerance, diarrhea or constipation, hair loss, anxiety, , mood changes, changes in appearance of eyes or vision changes, tremors, increased diaphoresis or dry skin. ? Denies palpitations. Energy is normal. Has lost 10 lbs in the last 2 months He did develop leg edema, was started furosemide. Had an HI early in 2023, underwent PCI Prior history of CAD as well No stroke Patient denies any difficulty swallowing, pain on swallowing or voice changes or difficulty breathing. Patient denies any history of childhood neck radiation. Denies having ever used lithium, amiodarone or biotin supplements. Patient denies any family history of thyroid cancer. Sister had thyroid disease , possible orbitopathy. Review of systems Constitutional: no fevers, chills or weight loss HEENT: no changes in vision Cardiac: No chest pain, discomfort or palpitations. Pulmonary: No SOB GI:No abdominal pain, no nausea or vomiting, no anorexia, no blood in stool : no burning micturition, dysuria or increase in urinary frequency Neurologic: No dizziness, no weakness in extremities MSK: no back pain or joint stiffness Physical exam General: sitting comfortably in bed in no acute distress HEENT: normocephalic/atraumatic, moist oral mucosa Neck: Prominent thyroid but no nodules palpable , no dorsocervical or supraclavicular fat pads Cardiac: normal heart sounds Pulm: normal breath sounds B/L, no added breath sounds Abd: not distended, no tenderness Extremities: no edema, no signs of myxedema Neuro: AAO x3, Speech: normal, no facial droop, moving all 4 extremities Skin: no rash PFSH Medical History Hyperthyroidism Abdominal bloating Upper abdominal pain Common bile duct calculi Surgical History H/O heart artery stent H/O angioplasty History of cholecystectomy History of esophagogastroduodenoscopy (EGD) Hx of colonoscopy Family History Father No problems noted. Mother Cancer Social History Are you a primary healthcare economics manager to a significant other at home: No Do you presently have visiting nurse or other home services: No Alcohol intake: never Patient Tobacco Use Status: Never used Tobacco Second Hand Smoke Exposure: No Physical Exam Vital Signs: Last Vital Signs Pulse 101 H 03/03/24 09:39 BP 100/62 03/03/24 09:39 BMI result Body Mass Index 23.0 Assessment & Plan Assessment & Plan (1) Iatrogenic hypothyroidism: Code(s): E03.2 - Hypothyroidism due to medicaments and other exogenous substances Category: Medical Plan: Patient with history of hyperthyroidism, who was on methimazole 5 mg 3 times daily for amny years up until he saw me 01/23/24 when labs had revealed elevated TSH of 20.4, with low free T4 of 0.5. Unclear whether he has history of Graves disease or toxic nodules. He has positive TPO antibody , normal TSI levels as we would expect even if he had Graves disease now in remission He had developed iatrogenic hypothyroidism caused by exogenous intake of methimazole. Stopped it 01/23/24 with resolution of hypothyroidism. Most recent labs show normal thyroid function. Currently denies any symptoms of hypothyroidism or hyperthyroidism. Plan: -stay off methimazole -repeat TSH and free T4 in 3 months -follow up in 6 months with another set of labs Plan See above Orders: Orders Thyroid Stimulating Hormone 3 Months E03.2 - Hypothyroidism due to medicaments and other exogenous substances Free T4 (Free Thyroxine) 3 Months E03.2 - Hypothyroidism due to medicaments and other exogenous substances Patient Instructions: Do blood in 3 months We will call you with results Do blood work again in 6 months before your next appointment with me Stay off methimazole, DONT USE this medication anymore Hacer lashonda en 3 meses. Te llamaremos con resultados. Hazte an?lisis de lashonda nuevamente 6 meses antes de tu pr?xima lissette conmigo. Mant?ngase alejado del metimazol, NO UTILICE m?s cary medicamento Coding Level of Care Code Est Pt Level 3 (20555) Diagnoses Iatrogenic hypothyroidism E03.2
[2024-03-03 09:39] VITALS: BP 100/62; PULSE 101; BMI 23.0
== END 2024-03-03 10:17 | disposition home or self-care (01) ==
PROVIDERS: PCP Internal Medicine; Visit Provider Student in an Organized Health Care Education/Training Program
DX: E03.2 Hypothyroidism due to medicaments and other exogenous substances (principal)
CPT/HCPCS: 99213

== ENCOUNTER → 2024-03-03 09:36 | Outpatient (BNVA) | payer OTHER, SELFPAY | PROVIDERS: PCP Internal Medicine; Visit Provider Student in an Organized Health Care Education/Training Program | DX: E03.2 Hypothyroidism due to medicaments and other exogenous substances (principal) | CPT/HCPCS: 99212 ==

== ENCOUNTER 2024-03-19 09:32 | Outpatient (AMB) | payer OTHER, SELFPAY ==
[2024-03-19 09:35] VITALS: BP 92/58; PULSE 58; BMI 22.6
--- NOTE | 2024-03-19 09:35 | A.OFFVIS_ITS ---
Vital Signs 03/19/24 09:35 Height 5 ft 3 in Weight 127 lb 13.89 oz BMI 22.6 BP 92/58 L Blood Pressure Location Lt brachial Position Sitting Pulse 58 Intake Visit Reasons: S/p colonoscopy Intake Note: Marcus presents in the office as a follow up colonoscopy. CC: He states he is not having any concerns at this time. Manager Proposal Required: Yes Manager Proposal Name: Carol Bradley Allergies No Known Allergies [No Known Allergies*] Allergy (Verified 03/19/24 09:55) HPI HPI S/p colonoscopy: Details: Assessment & Plan (1) Tubular adenoma of colon: Comment: Last scoped - repeat in 5 years or 2022 Code(s): D12.6 - Benign neoplasm of colon, unspecified (2) GERD (gastroesophageal reflux disease): Code(s): K21.9 - Gastro-esophageal reflux disease without esophagitis (3) Myocardial infarction: Comment: x 2 in 2021 at [facility] Code(s): I21.9 - Acute myocardial infarction, unspecified (4) Atrial fibrillation: Code(s): I48.91 - Unspecified atrial fibrillation (5) Pre-op examination: Code(s): Z01.818 - Encounter for other preprocedural examination Plan Turkmen #[id number] Floridalma Candelaria at [facility] cardiology.? ? I can not find this provider so will probably have to rely on his primary care provider to make sure he is cleared f rom a cardiac standpoint. His primary provider is Dr. Fitzpatrick at [facility]. During the appointment we find his records at [facility] it appears that he had a DC conversion for AFib only and no invasive procedure. This is performed by Dr. Jeannette Olmstead at [facility]. He says his cardiac procedure went well. He says that he is now clear for his colonoscopy. Ordered. There are no respiratory problems reported. There are no prior problems with anesthesia or sedation. There are no infectious disease problems. He had a tubular adenoma removed in 2018 was his last colonoscopy and we have put off repeat scoping him because of his continued cardiac issues which he says are now resolved. From a GI standpoint he continues to do well on his pantoprazole, simethicone and Carafate. ROV 6 mos Orders: Orders Colonoscopy - GI Use Only Today D12.6 - Benign neoplasm of colon, unspecified Medications: New bisacodyl (Dulcolax (bisacodyl)) 10 mg (2 x 5 mg) PO BEDTIME 2 days 4 tabs 0RF Refilled simethicone (Gas Relief (simethicone)) 125 mg PO TID-QID 120 caps 6RF abdominal distention pantoprazole 40 mg PO QPM 30 tabs 6RF sucralfate 2 grams (2 x 1 gram) PO BEDTIME 60 tabs 5RF K21.9 - Gastro- esophageal reflux disease without esophagitis, R10.10 - Upper abdominal pain, unspecified COLONOSCOPY Findings: Terminal Ileum-normal Cecum:normal Ascending Colon: mild diverticulosis Transverse Colon -normal Descending Colon: moderate diverticulosis Sigmoid Colon: severe diverticulosis Rectum: Retroflexion with small internal hemorrhoids seen, grade I Anorectum - normal Intervention: none Impression and Post Procedure Diagnosis: diverticulosis internal hemorrhoids Plan: High fiber diet leaflet Avoid straining at stool, epsom salts and sitz bath, anusol supps or cream Repeat Colonoscopy in 10 years if health allows or earlier if clinically indicated TODAYS VISIT Turkmen #[id number] Tasneem The procedure needs to be repeated in 5 years. The procedure was well to lerated. The results were explained and the patient is agreeable to the follow- up interval as stated. The bowel pattern has returned to normal. Education was provided to tell any 1st degree relatives about their findings to be sure that they are screened by age 45. Educated that they will be put on a recall list when it is time for their repeat scope but should they move out of state or away from the hospital they will need to remember along with their primary to repeat the procedure in a timely fashion to avoid any adverse complications. continues to do well on his pantoprazole, simethicone and Carafate. ROV 6 mos [facility] Medical History (Updated 03/19/24 @ 12:22 by LANI Cavazos Pre-op examination Hyperthyroidism Abdominal bloating Upper abdominal pain Common bile duct calculi Surgical History H/O heart artery stent H/O angioplasty History of cholecystectomy History of esophagogastroduodenoscopy (EGD) Hx of colonoscopy Family History Father No problems noted. Mother Cancer Social History Are you a primary youth care worker to a significant other at home: No Do you presently have visiting nurse or other home services: No Alcohol intake: never Patient Tobacco Use Status: Never used Tobacco Second Hand Smoke Exposure: No Review of Systems Const Denies fatigue, Denies fever(s), Denies night sweats, Denies poor appetite and Denies weight loss ENT Reports Normal hearing present, Denies dental pain, Denies dysphagia, Denies hearing loss, Denies mouth pain, Denies odynophagia, Denies throat swelling, Denies tongue swelling and Reports other (Dentition adequate) Card Reports no additional complaints Resp Reports no additional complaints GI Details: Denies abdominal pain, Denies melena, Reports bloating, Denies hematochezia, Denies constipation, Denies GI cramping, Denies dysphagia, Denies excessive flatus, Denies early satiety, Reports heartburn, Denies diarrhea, Denies nausea, Denies odynophagia, Denies vomiting and Denies hematemesis Skin/Breast Denies pruritus, Denies lesions, Denies rash and Denies jaundice Neuro Reports Normal hearing present and Denies Abnormal speech present Endo Denies fatigue Aller/Immun Denies throat swelling and Denies tongue swelling Physical Exam Const General: cooperative, no acute distress, well developed and well groomed Nutritional Appearance: average body habitus and well nourished Orientation/consciousness: oriented to person, oriented to place and oriented to time Limitations: language barrier HEENT Head: Yes normocephalic and Yes atraumatic Eyes General: appearance normal, both eyes and all related structures Pupils: Equal, round and reactive pupils present Neck Neck: Yes normal visual inspection and Yes no lymphadenopathy Thyroid: Thyroid normal Resp Effort & Inspection: normal respiratory effort and able to speak in complete sentences Auscultation: clear to auscultation bilaterally Cardio Rate: regular rate Rhythm: regular rhythm Heart sounds: Normal, physiologic split S2 sound present Peripheral pulses: radial pulses present and posterior tibial pulses present GI Inspection: No distended and No Abdominal panniculus present Palpation (GI): Soft to palpation, nontender, no guarding, not rigid and No hepatosplenomegaly present Percussion: Yes normal to percussion Auscultation: normal bowel sounds Rectal Exam - Male: Yes deferred Skin General skin exam: no rashes or lesions noted, turgor normal, skin not dry, no jaundice, No spider nevi and no striae Rashes: no rashes Nails: normal Neuro General: oriented to person, oriented to place and oriented to time Cranial nerves: Yes Equal, round and reactive pupils present and Yes Normal hearing present Speech: No Abnormal speech present Extrem General: Yes normal to inspection, No clubbing, No cyanosis and No edema Psych Appearance: grossly normal and well kempt Mental Status: mental status grossly normal Speech and movement: Normal speech and movement present Affect: normal affect Attitude: cooperative Thought process: Normal thought process present and not confabulating Thought content: Normal thought content present Insight: Limited insight present (Psych) Judgement: Limited judgement present (Psych) Assessment & Plan Assessment & Plan (1) Tubular adenoma of colon: Comment: 2023=neg study repeat in 5 years; 18 repeat in 5 years or 2022 Code(s): D12.6 - Benign neoplasm of colon, unspecified Category: Medical (2) GERD (gastroesophageal reflux disease): Code(s): K21.9 - Gastro-esophageal reflux disease without esophagitis Category: Medical Plan Turkmen #[id number] Tasneem The procedure needs to be repeated in 5 years. The procedure was well tolerated. The results were explained and the patient is agreeable to the follow-up interval as stated. The bowel pattern has returned to normal. Education was provided to tell any 1st degree relatives about their findings to be sure that they are screened by age 45. Educated that they will be put on a recall list when it is time for their repeat scope but should they move out of state or away from the hospital they will need to remember along with their primary to repeat the procedure in a timely fashion to avoid any adverse complications. continues to do well on his pantoprazole, simethicone and Carafate. ROV 6 mos Coding Level of Care Code Est Pt Level 3 (91953) Diagnoses Tubular adenoma of colon D12.6 GERD (gastroesophageal reflux disease) K21.9
== END 2024-03-19 10:20 | disposition home or self-care (01) ==
PROVIDERS: PCP Internal Medicine; Visit Provider Nurse Practitioner
DX: D12.6 Benign neoplasm of colon, unspecified (principal); K21.9 Gastro-esophageal reflux disease without esophagitis
CPT/HCPCS: 99213

== ENCOUNTER → 2024-03-19 09:32 | Outpatient (BNVA) | payer OTHER, SELFPAY | PROVIDERS: PCP Internal Medicine; Visit Provider Nurse Practitioner | DX: K21.9 Gastro-esophageal reflux disease without esophagitis (principal); I21.9 Acute myocardial infarction, unspecified; I48.91 Unspecified atrial fibrillation; D12.6 Benign neoplasm of colon, unspecified | CPT/HCPCS: 99212 ==

== ENCOUNTER 2024-03-25 08:06 | Outpatient (REF) | payer OTHER, SELFPAY ==
[2024-03-25 11:12] LABS: MANUAL DIFF FLAG NO
[2024-03-25 11:16] LABS: Basophils Percent Auto 0.4 % (0-2); Eosinophils Absolute Auto 0.1 X10*3/uL (0.0-0.4); Eosinophils Percent Auto 1.3 % (0-4); Hematocrit 35.6 % (42.0-52.0); Hemoglobin 11.7 g/dl (14.0-18.0); Imm Gran Abs Auto 0.01 X10*3/uL (0.00-0.03); Imm Gran Pct Auto 0.2 % (0.0-0.4); Lymphocytes Absolute Auto 0.9 X10*3/uL (1.2-4.9); Mean Corpuscular HGB Conc 32.9 g/dl (31.0-36.0); Mean Corpuscular Hemoglobin 27.1 pg (27.0-33.0); Mean Corpuscular Volume 82.6 fL (80.0-98.0); Mean Platelet Volume 11.1 fL (9.4-12.4); Monocytes Absolute Auto 0.6 X10*3/uL (0.1-1.2); Monocytes Percent Auto 10.7 % (2-11); Neutrophils Absolute Auto 3.9 x10*3/uL (2.0-8.3); Neutrophils Percent Auto 71.4 % (45-73); Platelet Count 168 X10*3/uL (160-400); Red Blood Count 4.31 X10*6/uL (4.60-5.80); Red Cell Distribution Width 15.3 % (11.0-16.0); White Blood Count 5.5 X10*3/uL (4.8-10.8)
[2024-03-25 11:25] LABS: INTERNATIONAL NORM RATIO 1.4 (0.9-1.1); Prothrombin Time 16.7 SEC (10.9-12.4)
[2024-03-25 11:28] LABS: Partial Thromboplastin Time 36.6 SEC (26.0-36.8)
[2024-03-25 12:23] LABS: Alanine Aminotransferase 16 U/L (0-40); Albumin Level 3.8 g/dL (3.5-5.0); Alkaline Phosphatase 61 U/L (39-117); Anion Gap 10 (12-20); Aspartate Amino Transferase 19 U/L (5-37); Bilirubin Total 0.5 mg/dL (0.0-1.0); Blood Urea Nitrogen 18 mg/dL (9-16); Carbon Dioxide 26 mmol/L (22-29); Chloride 110 mmol/L (96-108); Estimated Glomerular Filt Rate > 60; Glucose Random 112 mg/dL (60-115); Potassium 4.2 mmol/L (3.3-5.1); Sodium 142 mmol/L (135-145); Total Protein 6.2 g/dL (6.5-8.0)
== END 2024-03-25 08:07 | disposition home or self-care (01) ==
LOC: HO.HHCL 08:06
PROVIDERS: Visit Provider Internal Medicine Cardiovascular Disease
DX: I48.91 Unspecified atrial fibrillation (principal)
CPT/HCPCS: 36415; 80053; 85025; 85610; 85730

== ENCOUNTER 2024-08-03 09:33 | Outpatient (AMB) | payer OTHER, SELFPAY ==
[2024-08-03 09:37] VITALS: BP 96/64; PULSE 72; O2SAT 98; BMI 22.8
--- NOTE | 2024-08-03 09:37 | MHC.OFFVIS ---
Vital Signs 08/03/24 09:37 Height 5 ft 3 in Weight 128 lb 15.527 oz BMI 22.8 BP 96/64 Blood Pressure Location Lt brachial Position Sitting Pulse 72 Pulse Source Pulse Oximeter Pulse Oximetry (%) 98 Oxygen Delivery Method Room Air Intake Visit Reasons: Elevated TSH Intake Note: Patient present today for Elevated TSH office visit. International Flight Attendant Required: Yes International Flight Attendant Language: Mining Manager Services: International Flight Attendant Present Information Interpreted: non-clinical & clinical Accompanied by: Self / Same As Patient Allergies No Known Allergies [No Known Allergies*] Allergy (Verified 08/03/24 09:42) Medication List - Last Reconciled 08/03/24 by Aaliyah Ding MD acetaminophen 500 mg PO Q6H PRN apixaban (Eliquis) 5 mg PO BID atorvastatin 80 mg PO BEDTIME bisacodyl (Dulcolax (bisacodyl)) 10 mg (2 x 5 mg) PO BEDTIME 2 days brimonidine 0.2% 1 drp ophthalmic (eye) ONCE capsaicin 0.025% appl topical BID cholecalciferol (vitamin D3) 25 mcg PO QAM cyclobenzaprine 10 mg PO TID PRN diclofenac sodium 1% 2 grams topical BID enalapril maleate mg PO DAILY enalapril maleate 2.5 mg PO DAILY ferrous gluconate 324 mg PO DAILY finasteride 5 mg PO DAILY furosemide 40 mg PO DAILY furosemide 40 mg PO DAILY isosorbide mononitrate ER 30 mg PO DAILY metoprolol succinate ER 25 mg PO DAILY naproxen 500 mg PO BID PRN nitroglycerin 0.4 mg sublingual pantoprazole 40 mg PO QPM simethicone (Gas Relief (simethicone)) 125 mg PO TID-QID sucralfate 2 grams (2 x 1 gram) PO BEDTIME tamsulosin 0.4 mg PO BEDTIME ticagrelor (Brilinta) 90 mg PO BID timolol maleate 0.5% 1 drp ophthalmic (eye) QAM HPI Comments Details: 73-year-old male coming in today for follow up of elevated TSH level. PRior HPI Blood work from 12/26/2023 showed elevated TSH of 19.71, free T4 low at 0.49 ng/dL. Blood work from 01/07/2024 also showed elevated TSH of 20.4 UU per mL, with low free T4 of 0.51 ng/dL. He is on methimazole 5 mg TID , says he has been on it for many years. Diagnosed with hyperthyroidism many years ago per patient. Methimazole prescribed by PCP. Denies any neck surgeries or MOSS Denies any thyroid eye disease. He remembers having a swollen neck at 1 point when he stopped taking this medicine. Otherwise denies any history of goiter. He did develop leg edema, was started furosemide. Had an MD early in 2023, underwent PCI Prior history of CAD as well No stroke 01/22, we stopped methimazole. Repeat blood work 02/03/24 showed normalization of TSH at 2.7 and free t4 of 0.9 Repeat TSH done 03/02/2024 1.61 Interval history No tremors , no palpitations Weight stable No diarrhea No heat intolerance He forgot to do the blood work he was supposed to do before this appointment Laboratory Tests 04/22/23 08/14/23 12/26/23 08:05 08:32 09:24 TSH 8.10 H 6.85 H 19.71 H Free T4 0.85 0.87 0.49 L Thyroid Peroxidase Ab 01/07/24 01/23/24 02/03/24 08:57 10:48 12:04 TSH 2.70 Free T4 0.51 L 0.46 L 0.90 Thyroid Peroxidase Ab 11 H 03/02/24 08:38 TSH 1.61 Free T4 Thyroid Peroxidase Ab Patient denies any difficulty swallowing, pain on swallowing or voice changes or difficulty breathing. Patient denies any history of childhood neck radiation. Denies having ever used lithium, amiodarone or biotin supplements. Patient denies any family history of thyroid cancer. Sister had thyroid disease , possible orbitopathy. Physical exam General: sitting comfortably in bed in no acute distress HEENT: normocephalic/atraumatic, moist oral mucosa Neck: Prominent thyroid but no nodules palpable , no dorsocervical or supraclavicular fat pads Cardiac: normal heart sounds Pulm: normal breath sounds B/L, no added breath sounds Abd: not distended, no tenderness Extremities: no edema, no signs of myxedema Neuro: AAO x3, Speech: normal, no facial droop, moving all 4 extremities Skin: no rash [facility] Medical History (Updated 03/19/24 @ 12:22 by LANI Cavazos Pre-op examination Hyperthyroidism Abdominal bloating Upper abdominal pain Common bile duct calculi Surgical History H/O heart artery stent H/O angioplasty History of cholecystectomy History of esophagogastroduodenoscopy (EGD) Hx of colonoscopy Family History Father No problems noted. Mother Cancer Social History Are you a primary day care aide to a significant other at home: No Do you presently have visiting nurse or other home services: No Alcohol intake: never Patient Tobacco Use Status: Never used Tobacco Second Hand Smoke Exposure: No Physical Exam Vital Signs: Last Vital Signs Pulse 72 08/03/24 09:37 BP 96/64 08/03/24 09:37 Pulse Ox 98 08/03/24 09:37 Oxygen Delivery Method Room Air 08/03/24 09:37 BMI result Body Mass Index 22.8 Assessment & Plan Assessment & Plan (1) Iatrogenic hypothyroidism: Code(s): E03.2 - Hypothyroidism due to medicaments and other exogenous substances Category: Medical Plan: Patient with history of hyperthyroidism, who was on methimazole 5 mg 3 times daily for amny years up until he saw me 01/23/24 when labs had revealed elevated TSH of 20.4, with low free T4 of 0.5. Unclear whether he has history of Graves disease or toxic nodules. He has positive TPO antibody , normal TSI levels as we would expect even if he had Graves disease now in remission He had developed iatrogenic hypothyroidism caused by exogenous intake of methimazole. Stopped it 01/23/24 with resolution of hypothyroidism. Most recent labs from February show normal thyroid function. Currently denies any symptoms of hypothyroidism or hyperthyroidism. He forgot to do blood work prior to this appointment. However clinically appears euthyroid. At this point I told him he is in remission of Graves disease if he had it, and does not need methimazole anymore. I told him to do his blood work. If results are normal, we will plan to see him once more in 6 months with labs to make sure that he is remaining biochemically euthyroid. If that is the case, he will be discharged back to his primary care physician who can check his thyroid function once a year. Plan: -stay off methimazole -repeat TSH and free T4now -follow up in 6 months with another set of labs -if blood work is okay over the 6 months, we will be discharged to primary care physician who can check thyroid function once a year Plan See above Patient Instructions: Do blood work now We will call if results are abnormal If normal please reppeat another set of blood work prior to your appointment in 6 months, if its normal, we will discharge you to your primary care physician to repeat labs once a year Realice un an?lisis de lashonda ahora Lo llamaremos si los resultados son anormales Si es normal, repita otra serie de an?lisis de lashonda antes de beckwith lissette en 6 meses. Si es normal, le daremos el heather y lo llevaremos a beckwith m?dico de atenci?n primaria para repetir los an?lisis chaparro vez al a?o Coding Level of Care Code Est Pt Level 3 (45868) Diagnoses Iatrogenic hypothyroidism E03.2
--- OUTSIDE RECORDS SUMMARY | 2024-08-03 10:35 | XMS_ITS | Encounter Summary ---
Author Organization [employer] Address [address] [place] [address] 7 [place] [address] Care Team Providers Care Construction Driver Name Role Phone Gucci Gross MD Primary Care Provider [phone] Reason for Referral * (Routine) - Closed Specialty Diagnoses / Procedures Referred By Contac t Referred To Contact Diagnoses Axillary pain, right Procedures US Extremity Non Vascular Rg Ordonez MD [address] [place] [id number] Phone: tel: fax: Referral ID Status Reason Start Date Expiration Date Visits Re quested Visits Authorized [id number] Closed 10/23/2022 04/21/2023 1 1 Encounter Details Date Type Department Care Team (Late st Contact Info) Description 10/23/2022 Orders Only [facility] [address] [place] [address] [id number] Rg Ordonez MD [address] [place] [address] [phone] Axillary pain, right (Primary Dx) Social History Tobacco Use Types Packs/Day Years Used Date Smoking Tobacco: Never Smokeless Tobacco: Never Alcohol Use Standard Drinks/Week Comments Never 0 (1 standard drink = 0.6 oz pur e alcohol) Sex and Gender Information Value Date Recorded Sex Assigned at Male 04/02/2022 10:21 AM EDT Legal Sex Male 10:21 AM EDT Gender Identity Male 04/02/2022 10:21 AM EDT Sexual Orientation Straight 04/02/2022 10 :21 AM EDT COVID-19 Exposure Response Date Recorded In the last 10 days, have kayden u been in contact with someone who was confirmed or suspected to have Coronavirus/COVID-19? No / Unsure 10/22/2022 10:39 AM EDT documented as of this encounter Plan of Treatment Scheduled Orders Name Type Priority Associated Diagnoses Orde r Schedule US Extremity Non Vascular Imaging Routine Axillary pain, right Expected: 10/23/2022, Expires: 10/24/2023 documented as of this encounter Procedures Procedure Name Priority Date/Time Associated Diagnosis Comments US EXTREMITY NONVASCULAR STEPHENS Routine 10/23/2022 2:39 PM EDT documented in this encounter Results * US EXTREMITY NONVASCULAR STEPHENS (10/23/2022 2:39 PM EDT) Anatomical Region Laterality Modality Abdomen Ultrasound 10/23/2022 2:39 PM EDT Narrative 10/26/2022 7:34 PM EDT ? [facility] ?[address] ? [place] [address] ? Ultrasound Report ? Signed ? Patient: Marcus Vanessa ?MR#: M ?? [id number] ? : 1950 ?Acct:[id number] ? Age/Sex: 72 / M ?ADM Date: 10/23/22 ? Loc: HO.HMGCX ? Attending Dr: Rg Ordonez MD ? Ordering Physician: RG ORDONEZ MD ?? Date of Service: 10/23/22 ?? Procedure(s): US extremity nonvascular stephens ?? Accession Number(s): [id number] ? cc: RG ORDONEZ MD ? ULTRASOUND RIGHT AXILLARY SOFT TISSUES ? CLINICAL: Right axillary pain and swelling of one week's duration. ? TECHNIQUE: Using a linear array transducer with grayscale and color ?? modalities, ultrasound examination is performed of the right axilla. ? FINDINGS: ?? The cutaneous, subcutaneous, muscular and fascial planes are ?? unremarkable. ? No mass or fluid collection is seen. There is no lymphadenopathy. No ?? foreign body is noted. ? The vascular structures show normal color Doppler flow. There is normal ?? compressibility of the left axillary vein. ? US/US extremity nonvascular stephens ?? IMPRESSION: ?? Unremarkable examination. ? Dictated By: ?Shan Paulino MD ? Signed By: ?<Electronically signed by Shan Paulino MD in OV> ? 10/26/22 1932 ? DD/ 1439 ? TD/TT: ? Batting Machine Operator: WILDA ? Procedure Note Donotcyrusinterpreter, Image - 11/29/[address] [facility] [address] [place] [address] Ultrasound Report Signed Patient: Elizabeth Vanessa#: M [id number] : 1950cct:[id number] Age/Sex: 72 / MADM Date: 10/23/22 Loc: HO.HMGCX Attending Dr: Rg Ordonez MD Ordering Physician: RG ORDONEZ MD Date of Service: 10/23/22 Procedure(s): US extremity nonvascular stephens Accession Number(s): [id number] cc: RG ORDONEZ MD ULTRASOUND RIGHT AXILLARY SOFT TISSUES CLINICAL: Right axillary pain and swelling of one week's duration. TECHNIQUE: Using a linear array transducer with grayscale and color modalities, ultrasound examination is performed of the right axilla. FINDINGS: The cutaneous, subcutaneous, muscular and fascial planes are unremarkable. No mass or fluid collection is seen. There is no lymphadenopathy. No foreign body is noted. The vascular structures show normal color Doppler flow. There is normal compressibility of the left axillary vein. US/US extremity nonvascular stephens IMPRESSION: Unremarkable examination. Dictated By: Shan Paulino MD Signed By: <Electronically signed by Shan Paulino MD in OV> 10/26/221931 DD/ 1439 TD/TT: Batting Machine Operator: WILDA us [facility] External Provider IMG US PROCEDURES Edited Result - Final documented in this encounter Visit Diagnoses Diagnosis Axillary pain, right- Primary documented in this encounter Care Teams Construction Driver Relationship Specialty Start Date End Date Gucci Gross MD [address] [place] [address] ARCHIE Esparza [address] PCP - General Internal Medicine 06/03/18 documented as of this encounter
--- OUTSIDE RECORDS SUMMARY | 2024-08-03 10:35 | XMS_ITS | Encounter Summary ---
Author Organization [employer] Address [address] [place] [address] [address] [place] [address] Care Team Providers Care Zone Supervisor Firearms Name Role Phone Gucci Gross MD Primary Care Provider [phone] Encounter Details Date Type Department Care Team (Late st Contact Info) Description 09/27/2022 Orders Only [facility] [address] [place], [place] [id number] Ilda Drummond LPN Social History Tobacco Use Types Packs/Day Years Used Date Smoking Tobacco: Never Smokeless Tobacco: Never Sex and Gender Information Value Date Recorded Sex Assigned at Male 04/02/2022 10:21 AM EDT Legal Sex Male 10:21 AM EDT Gender Identity Male 04/02/2022 10:21 AM EDT Sexual Orientation Straight 04/02/2022 10 :21 AM EDT documented as of this encounter Plan of Treatment Not on file documented as of this encounter Visit Diagnoses Not on filedocumented in this encounter Care Teams Zone Supervisor Firearms Relationship Specialty Start Date End Date Gucci Gross MD [address] [place] [address] PCP - General Internal Medicine 06/03/18 documented as of this encounter
--- OUTSIDE RECORDS SUMMARY | 2024-08-03 10:35 | XMS_ITS | Encounter Summary ---
Author Organization [employer] Address [address] [facility] [address] [place] [address] Care Team Providers Care Locomotive Lubricating Systems Clerk Name Role Phone Gucci Gross MD Primary Care Provider [phone] Encounter Details Date Type Department Care Team (Late st Contact Info) Description 11/26/2022 Orders Only [facility] [address] [place] [address] Viridiana Gloria LPN Social History Tobacco Use Types Packs/Day [...] on filedocumented in this encounter Care Teams Locomotive Lubricating Systems Clerk Relationship Specialty Start Date End Date Gucci Gross MD [address] [place] [address] PCP - General Internal Medicine 06/03/18 documented as of this encounter
--- OUTSIDE RECORDS SUMMARY | 2024-08-03 10:35 | XMS_ITS | Clinical Summary ---
Author Organization [employer] Address [address] [place] [address] 7t [place] [address] Care Team Providers Care Larriman Helper Name Role Phone Gucci Gross MD Primary Care Provider [phone] Allergies No known active allergies Medications acetaminophen (Tylenol) 500 MG tablet Take 2 tablets (1,000 mg) by mouth every 6 (six) hours if needed for moderate pain or fever for up to 25 doses. 50 tablet 3 Active enalapril (Vasotec) 2.5 MG tablet TAKE ONE TABLET EVERY MORNING 90 tablet 3 4 Active nitroglycerin (Nitrostat) 0.4 MG SL tablet DISSOLVE 1 TABLET UNDER THE TONGUE EVERY 5 MINUTES NEEDED FOR CHEST PAIN. DO NOT EXCEED A TOTAL OF 3 DOSES IN 15 MINUTES. 25 tablet 4 Active timolol (Timoptic) 0.5 % ophthalmic solution PLACE ONE DROP IN THE LEFT EYE EVERY MORNING 4 Active Eliquis 5 MG tablet TAKE ONE TABLET TWICE DAILY IN THE MORNING AND AT BEDTIME 4 Active Bisacodyl EC 5 MG EC tablet TAKE TWO TABLETS AT BEDTIME FOR TWO DAYS 4 Active brimonidine (AlphaGAN) 0.2 % ophthalmic solution PLACE ONE DROP IN THE LEFT EYE TWICE DAILY, 12 HOURS APART Active finasteride (Proscar) 5 MG tablet TAKE ONE TABLET EVERY NIGHT AT BEDTIME Active isosorbide mononitrate ER (Imdur) 30 MG 24 hr tablet 4 Active pantoprazole (ProtoNix) 40 MG EC tablet Take 1 tablet by mouth at bed time. 2 Active PEG 7821-KRp-GhZws-Na Cl-NaSulf (PEG-3350/Electro lytes) 236 g reconstituted solution DRINK EIGHT OUNCE GLASS EVERY 10 MINUTES FOR ONE DAY UNTIL BOWEL MOVEMENT CLEAR 3 Active sucralfate (Carafate) 1 g tablet Take 2 tablets by mouth at bed time. Active GAS RELIEF 125 MG capsule TAKE ONE CAPSULE THREE OR FOUR TIMES DAILY Active tamsulosin (Flomax) 0.4 MG 24 hr capsule TAKE ONE CAPSULE EVERY NIGHT AT BEDTIME Active Diclofenac Sodium 1 % gelIndications:Mu scle cramps To apply to the affected area 4 times a day 100 g 1 4 Active metoprolol succinate XL (Toprol-XL) 25 MG 24 hr tabletIndications :Essential hypertension TAKE ONE TABLET EVERY MORNING 90 tablet 1 4 Active atorvastatin (Lipitor) 80 MG tablet TAKE ONE TABLET EVERY NIGHT AT BEDTIME 90 tablet 3 4 Active cholecalciferol (Vitamin D-3) 25 MCG tablet TAKE ONE TABLET EVERY MORNING 30 tablet 11 4 Active furosemide (Lasix) 40 MG tabletIndications :Acute on chronic congestive heart failure, unspecified heart failure type (CMS/HCC) TAKE ONE TABLET EVERY DAY 20 tablet 5 Active ferrous gluconate (Fergon) 324 (37.5 Fe) MG tablet TAKE ONE TABLET EVERY MORNING WITH BREAKFAST 90 tablet 1 5 Active capsaicin (Zostrix) 0.025 % creamIndications: Chronic pain of right knee Apply topically 2 times daily. 56.6 g 2 4 07/28/19 25 Active Problems Problem Noted Date Diagnosed Date Heart murmur 12/25/2023 Mitral regurgitation 12/25/2023 Pre-op examination 12/25/2023 Strain of lumbar region 12/25/2023 Tubular adenoma of colon 12/25/2023 Upper abdominal pain 12/25/2023 CAD, multiple vessel 12/25/2023 Abdominal bloating 12/25/2023 Age-related incipient cataract of left eye 12/24 Acute on chronic congestive heart failure 2023 Assessment & Plan (12/25/2023 3:39 PM EDT): Concern for heart failure exacerbation, will proceed with diuretics to help with volume overload. F/u with Dr. Gross. If symptoms worsen follow up with ED. Relevant Medications Furosemide (Lasix) 40 MG tablet Longstanding persistent atrial fibrillation 07/05 Myocardial infarction 07/06/2022 Hiatal hernia 07/14/2018 Sciatica 11/12/2017 Microscopic hematuria 01/25/2012 Gastroesophageal reflux disease 03/23/2011 Pain in joint involving lower leg 03/23/2011 Dizziness and giddiness 12/21/2010 Chest pain 09/21/2010 Essential hypertension 09/21/2010 Osteoporosis 06/22/2010 Vitamin D deficiency 06/22/2010 Resolved Problems Problem Noted Date Diagnosed Date Resolved Date Chronic atrial fibrillation 07/29/2023 07/29/2023 Encounters Date Type Department Care Team Description 06/19/2024 Refill [facility] [address] [place] [address] Tanya Queen MD 06/16/2024 Refill [facility] [address] [place] [address] Gucci Gross MD Acute on chronic congestive heart failure, unspecified heart failure type ([facility]) 05/21/2024 Refill [facility] [address] [place] [address] Tanya Queen MD 05/10/2024 Refill [facility] [address] [place] [address] Gucci Gross MD Muscle cramps from Last 3 Months Immunizations Name Administration Dates Next Due Influenza High-dose Quadriva lent Preservative Free 03/20/2023,02/23/2022,03/23/2021 Influenza, High Dose Seasona l, Preservative Free 02/18/2024,04/01/2019,04/16/2018,01/28 Influenza, IIV3, injectable 04/12/2014, 3 Influenza, Split (incl. wan fied surface antigen) 06/20/2012 Influenza, seasonal, injecta ble, preservative free 02/12/2020,01/10/2016 Pneumococcal Conjugate PCV 13 01/29/2019, 016 Pneumococcal Polysaccharide PPSV23 10/09/2021 Tdap 05/18/2015 Zoster, Recombinant 01/23/2021,09/26/2017 Zoster, live 01/14/2015 Social History Tobacco Use Types Packs/Day Years Used Date Smoking Tobacco: Never Smokeless Tobacco: Never Tobacco Cessation:Counseling Given: Not Answered Alcohol Use Standard Drinks/Week Comments Never 0 (1 standard drink = 0.6 oz pur e alcohol) Depression Answer Date Recorded Patient Health Questionnaire-9 Score 0 04/17/2023 Patient Health Questionnaire-9 Score 0 04/17/2023 Last PHQ-9: Questionnaire Data Not on file 1 06/17/2022 Housing Stability Answer Date Recorded What is your housing situation today? I have cr mascorro 04/09/[address] you li ve. Do you have problems with any of the following? None of the above 04/09/2023 Food Insecurity Answer Date Recorded Within the past 12 months, y ou worried that your food would run out before you got money to buy more: Never True 04/09/2023 Within the past 12 months,th e food you bought just didn't last and you didn't have enough money to get more: Never True 12/2022 Transportation Answer Date Recorded In the past 12 months, has l ack of transportation kept you from medical appts, meetings, work or from getting things needed for daily living? No 04/09/2023 Utilities Answer Date Recorded In the past 12 months, has t he electric, gas, oil or water company threatened to shut off services in your home? No 04/09/2023 Depression Answer Date Recorded Patient Health Questionnaire-2 Score 0 04/17/2023 Internet Access Answer Date Recorded Internet Access Q1 Yes 03/26/2024 Internet Access Q2 Not on file 03/26/2024 Sex and Gender Information Value Date Recorded Sex Assigned at Male 04/02/2022 10:21 AM EDT Legal Sex Male 10:21 AM EDT Gender Identity Male 04/02/2022 10:21 AM EDT Sexual Orientation Straight 04/02/2022 10 :21 AM EDT Last Filed Vital Signs Vital Sign Reading Time Taken Comments Blood Pressure 109/72 04/02/2024 11:15 AM EDT Pulse 90 04/02/2024 11:15 AM EDT Temperature 35.7 ??C (96.2 ??F) 04/02/2024 11:15 AM E DT Respiratory Rate 12 04/02/2024 11:15 AM EDT Oxygen Saturation 99% 04/02/2024 11:15 AM EDT Inhaled Oxygen Concentration - - Weight 59 kg (130 lb) 04/02/2024 11:15 AM EDT Height 158 cm (5' 2.21 ) 04/02/2024 11:15 AM EDT Body Mass Index 23.62 04/02/2024 11:15 AM EDT Plan of Treatment Health Maintenance Due Date Last Done Comments CT Colonography 1950 FIT DNA/Cologuard 1950 FIT 1950 FOBT 1950 Sigmoidoscopy 1950 Alcohol/Substance Use Screening 1962 RSV Patients and Patients Aged 60 years or older (1 - Risk 60-74 years 1-dose series) 2010 COVID-19 Vaccine ( season) 2024 04/16/2022, 10/26/2021, 05/19/2021, Additional history exists Depression Screening 04/17/2024 04/17/2023, 04/17/20 23 Tobacco Screening 02/09/2025 02/10/2024 SDOH Screening 03/26/2025 03/26/2024 DTaP/Tdap/Td Vaccines (2 - Td or Tdap) 05/18/2025 05/18/2015 Lipid Panel 12/25/2028 12/26/2023, 04/04, 10/09/2021 Colonoscopy 01/28/2034 01/29/2024, 05/08/2018 Colorectal Cancer Screening 01/28/2034 Zoster Vaccines Completed 01/23/2021, 09/02, 01/14/2015 Hepatitis C Screening Completed 10/09/2021 Pneumococcal Vaccine: 50+ Years Completed 10/09/2021, 01/29/2019, 08/09/2015 Influenza Vaccine Completed 02/18/2024, , 02/23/2022, Additional history exists HIB Vaccines Aged Out No longer eligi ble based on patient's age to complete this topic HPV Vaccines Aged Out No longer eligi ble based on patient's age to complete this topic Hepatitis A Vaccines Aged Out No long er eligible based on patient's age to complete this topic Hepatitis B Vaccines Aged Out No long er eligible based on patient's age to complete this topic IPV Vaccines Aged Out No longer eligi ble based on patient's age to complete this topic Meningococcal Vaccine Aged Out No deni kimberly eligible based on patient's age to complete this topic RSV under 20 months Aged Out No longe r eligible based on patient's age to complete this topic Rotavirus Vaccines Aged Out No longer eligible based on patient's age to complete this topic Procedures Procedure Name Priority Date/Time Associated Diagnosis Comments COLONOSCOPY Routine 01/29/2024 LIPID PANEL, STANDARD Routine 12/26/2023 9:24 AM EDT Acute on chronic congestive heart failure, unspecified heart failure type (CMS/HCC) ZZZ HISTORICAL HEPATITIS C AB W/REFL TO HCV RNA, QN, PCR Routine 10/09/2021 9:27 AM EDT from Last 3 Months or Most Recently Relevant to Health Maintenance Results * (ABNORMAL) Colonoscopy (01/29/2024) Anatomical Region Laterality Modality Endoscopy Narrative 01/29/[address] Keri Covarrubias on 01/29/24 at [facility]: Diverticulosis, Internal hemorrhoids. Repeat colonoscopy recommended in 10 years if health allows. us Historical Provider MD ENDOSCOPY PROCEDURE ORDER CHANG Edited Result - Final * Lipid Panel, Standard (12/26/2023 9:24 AM EDT) Triglycerides 46 <150 mg/dL [facility] Comment:Desirable Triglyceri de: less than 150 mg/dLBorderline High Triglyceride 150-199 mg/dLHigh Triglyceride: 200-499 mg/dLVery High Triglyceride: greater than or equal to 5OO mg/dL Cholesterol 108 <200 mg/dL [facility] Comment:Desirable Cholestero l: less than 200 mg/dLBorderline High Cholesterol: 200-239 mg/dLHigh Cholesterol: greater than 239 mg/dL LDL Cholesterol Calculated 44 <100 mg/dL [facility] Comment:Desirable LDL: less than 100 mg/dLNear Optimal/Above Optimal LDL: 110- 129 mg/dLBorderline High LDL: 130-159 mg/dLHigh LDL: 160-189 mg/dLVery High LDL: greater than or equal to 190 mg/dL HDL Cholesterol 55 >40 mg/dL [facility] Comment:Desirable HDL: great er than 40 mg/dL Note: This HDL assay may give artificially low results in patients with liver disease. Blood Venous blood specimen / Unknown 12/26/2023 9:24 AM EDT 12/26/2023 9:26 AM EDT us Tanya Queen MD LAB BLOOD ORDERABLES Final Re sult Performing Organization Address [facility] Co de Phone Number [facility] [address] [place] [address] [phone] * HEPATITIS C AB W/REFL TO HCV RNA, QN, PCR (10/09/2021 9:27 AM EDT) HEPATITIS C ANTIBODY NON-REACT [facility] NON-REACT [facility] INDEX 0.01 <1.00 [facility] Comment: ?? HCV antibody was non-reactive. There is no laboratory ?? evidence of HCV infection. ?? In most cases, no further action is required. However, if recent HCV exposure is suspected, a test for HCV RNA (test code 77552) is suggested. ?? For additional information please refer to http://[email or web address]/faq/VSF57m5 (This link is being provided for informational/ educational purposes only.) ?? 10/09/2021 9:27 AM EDT us Gucci Gross MD HISTORICAL/NON ORDERABLE LA BS Final Result Performing Organization Address [facility] Co de Phone Number [facility] [address] from Last 3 Months or Most Recently Relevant to Health Maintenance Insurance [facility] Care Teams Larriman Helper Relationship Specialty Start Date End Date Gucci Gross MD [address] [place] [id number] PCP - General Internal Medicine 06/03/18
--- OUTSIDE RECORDS SUMMARY | 2024-08-03 10:35 | XMS_ITS | Encounter Summary ---
Author Organization [employer] Address [address] [facility] 7t [place] [address] Care Team Providers Care Unemployment Examiner Name Role Phone Gucci Gross MD Primary Care Provider [phone] Reason for Visit * Reason Comments Med Refill Encounter Details Date Type Department Care Team ([facility] st Contact Info) Description 05/10/2024 Refill [facility] [address] [place], [place] [phone] Gucci Gross MD [address] [place] [address] Muscle cramps Social History Tobacco Use Types Packs/Day Years [...] documented as of this encounter Visit Diagnoses Diagnosis Muscle cramps documented in this encounter Additional Health Concerns Assessment Noted Time PHQ-9 Depression Total Score: 0 04/17/20 23 11:02 AM EST documented as of this encounter Care Teams Unemployment Examiner Relationship Specialty Start Date End Date Gucci Gross MD [address] [place] [address] PCP - General Internal Medicine 06/03/18 documented as of this encounter
--- OUTSIDE RECORDS SUMMARY | 2024-08-03 10:36 | XMS_ITS | Encounter Summary ---
Author Organization [employer] Address [address] [place] [address] 7 [place] [address] Care Team Providers Care Associate Professor Of Theology Name Role Phone Gucci Gross MD Primary Care Provider [phone] Reason for Referral * Consultation (Routine) - Closed Specialty Diagnoses / Procedures Referred By Contac t Referred To Contact Endocrinology Diagnoses Elevated TSH Gucci Gross MD [address] [place] [address] Phone: tel: fax: [facility] End[facility] [address] [place], [place] Phone: tel: fax: Referral ID Status Reason Start Date Expiration Date V isits Requested Visits Authorized [id number] Closed Specialty Services Required 01/17/2024 01/16/2025 1 1 Encounter Details Date Type Department Care Team (Late st Contact Info) Description 01/08/2024 Orders Only [facility] [address] [place], [place] [phone] Gucci Gross MD [address] [place], [place] [phone] Elevated TSH (Primary Dx) Social History Tobacco Use Types [...] Recorded Patient Health Questionnaire-2 Score 0 04/17/2023 Sex and Gender Information Value Date Recorded Sex Assigned at Male 04/02/2022 10:21 AM EDT Legal Sex Male 10:21 AM EDT Gender Identity Male 04/02/2022 10:21 AM EDT Sexual Orientation Straight 04/02/2022 10 :21 AM EDT documented as of this encounter Plan of Treatment Scheduled Referrals Name Type Priority Associated Diagnoses Order Schedule Referral to Endocrinology Outpatient Referral Routine Elevated TSH Expected: 01/17/2024 (Approximate), Expires: 01/08/2025 documented as of this encounter Visit Diagnoses Diagnosis Elevated TSH- Primary Other abnormal blood chemistry documented in this encounter Additional Health Concerns Assessment Noted Time PHQ-9 Depression Total Score: 0 04/17/20 23 11:02 AM EST documented as of this encounter Care Teams Associate Professor Of Theology Relationship Specialty Start Date End Date Gucci Gross MD [address] [place] [address] PCP - General Internal Medicine 06/03/18 documented as of this encounter
--- OUTSIDE RECORDS SUMMARY | 2024-08-03 10:36 | XMS_ITS | Encounter Summary ---
Author Organization [employer] Address [address] [place] [address] [address] [place] [address] Care Team Providers Care Academic Assistant Name Role Phone Gucci Gross MD Primary Care Provider [phone] Encounter Details Date Type Department Care Team (Late st Contact Info) Description 03/25/2023 Orders Only [facility] [address] [place], [place] [phone] Viridiana Gloria LPN Social History Tobacco Use [...] on filedocumented in this encounter Care Teams Academic Assistant Relationship Specialty Start Date End Date Gucci Gross MD [address] [place] [address] PCP - General Internal Medicine 06/03/18 documented as of this encounter
--- OUTSIDE RECORDS SUMMARY | 2024-08-03 10:36 | XMS_ITS | Encounter Summary ---
Author Organization [employer] Address [address] [place] [address] 7t [place] [address] Care Team Providers Care Maintenance Journeyman Name Role Phone Gucci Gross MD Primary Care Provider [phone] Reason for Visit * Reason Comments Med Refill Encounter Details Date Type Department Care Team ([facility] st Contact Info) Description 04/21/2024 Refill [facility] [address] [place], [place] [phone] Tanya Queen MD [address] [place] [address] Social History Tobacco Use Types Packs/Day Years [...] Diagnoses Not on filedocumented in this encounter Additional Health Concerns Assessment Noted Time PHQ-9 Depression Total Score: 0 04/17/20 23 11:02 AM EST documented as of this encounter Care Teams Maintenance Journeyman Relationship Specialty Start Date End Date Gucci Gross MD [address] [place] [id number] PCP - General Internal Medicine 06/03/18 documented as of this encounter
--- OUTSIDE RECORDS SUMMARY | 2024-08-03 10:36 | XMS_ITS | Encounter Summary ---
Author Organization [employer] Address [address] [facility] 7t [place] [address] Care Team Providers Care Motorcycle Deliverer Name Role Phone Gucci Gross MD Primary Care Provider [phone] Encounter Details Date Type Department Care Team (Late st Contact Info) Description 10/14/2023 Orders Only [facility] [address] [place] [address] ProviderAri MD Social History Tobacco Use Types Packs/Day Years [...] is your housing situation today? I have crnayan mascorro 04/09/[address] you [...] t he electric, gas, oil or water [employer] threatened to shut off services in your [...] on file documented as of this encounter Procedures Procedure Name Priority Date/Time Associated Diagnosis Comments TRANSTHORACIC ECHO (TTE) COMPLETE Routine 10/10/2023 4:16 PM EDT documented in this encounter Results * Transthoracic echo (TTE) complete (10/10/2023 4:16 PM EDT) Historical Provider MD GAN ECHO PROCEDURES Final Result documented in this encounter Visit Diagnoses Not on filedocumented in this encounter Additional Health Concerns Assessment Noted Time PHQ-9 Depression Total Score: 0 04/17/20 23 11:02 AM EST documented as of this encounter Care Teams Motorcycle Deliverer Relationship Specialty Start Date End Date Gucci Gross MD [address] [place] [id number] PCP - General Internal Medicine 06/03/18 documented as of this encounter
--- OUTSIDE RECORDS SUMMARY | 2024-08-03 10:36 | XMS_ITS | Encounter Summary ---
Author Organization [employer] Address [address] [place] [address] 7t [place] [address] Care Team Providers Care Vacuum Form Operator Name Role Phone Gucci Gross MD Primary Care Provider [phone] Reason for Visit * Reason Comments Med Refill Encounter Details Date Type Department Care Team ([facility] st Contact Info) Description 05/21/2024 Refill [facility] [address] [place], [place] [phone] Tanya Queen MD [address] [place] [address] Social History Tobacco Use Types Packs/Day Years [...] documented as of this encounter Care Teams Vacuum Form Operator Relationship Specialty Start Date End Date Gucci Gross MD [address] [place] [phone] PCP - General Internal Medicine 06/03/18 documented as of this encounter
--- OUTSIDE RECORDS SUMMARY | 2024-08-03 10:36 | XMS_ITS | Encounter Summary ---
Author Organization [employer] Address [address] [facility] 7t [place] [address] Care Team Providers Care Program Management Intern Name Role Phone Gucci Gross MD Primary Care Provider [phone] Encounter Details Date Type Department Care Team (Late st Contact Info) Description 04/04/2023 Abstract [facility] [address] [place] [address] Gucci Gross MD [address] [place], [place] [phone] Social History Tobacco Use Types Packs/Day Years [...] Priority Date/Time Associated Diagnosis Comments COLONOSCOPY Routine 05/08/2018 documented in this encounter Results * Colonoscopy (05/08/2018) Colonoscopy Normal Normal Narrative DebraMona - 05/08/2018 Recommended 5 year follow up Historical Provider HEALTH MAINTENANCE Final Result documented in this encounter Visit Diagnoses Not on filedocumented in this encounter Care Teams Program Management Intern Relationship Specialty Start Date End Date Gucci Gross MD [address] [place] [address] PCP - General Internal Medicine 06/03/18 documented as of this encounter
--- OUTSIDE RECORDS SUMMARY | 2024-08-03 10:36 | XMS_ITS | Encounter Summary ---
Author Organization [employer] Address [address] [facility] 7t [place] [address] Care Team Providers Care Automation Qa Tester Name Role Phone Gucci Gross MD Primary Care Provider [phone] Reason for Visit * Reason Onset Date Comments Nurse Triage 12/25/2023 Encounter Details Date Type Department Care Team ([facility] st Contact Info) Description 12/25/2023 Telephone [facility] [address] [place] [address] Gucci Gross MD [address] [place] [address] Nurse Triage Social History Tobacco Use Types Packs/Day Years [...] AM EDT documented as of this encounter Miscellaneous Notes * Telephone Encounter - Clare Borrego RN - 12/25/2023 12:29 PM EDT Triage call with [facility] [place] [id number] Pt reports a medication reaction symptoms are cough especially at night which causes back pain which radiates to chest, bilateral lower extremity edema. Pt believes this is caused by eliquis. Pt has been taking eliquis for > 3months but, reports , I take alot of pills maybe there is aspirin in them . Pt denies difficulty breathing, fever, cold sx. ASK apt in [facility] today @ 240pm. Pt agrees with disposition . Insurance is verified as active prior to booking. Protocol Used: Cough (Adult) Protocol-Based Disposition: See in Office or Video Visit Today or Tomorrow Video visit not offered Positive Triage Questions: * Continuous (nonstop) coughing interferes with work or school and no improvement using cough treatment per Care Advice * Patient wants to be seen * All higher-acuity triage questions were negative Care Advice Discussed: * Reassurance and Education - Cough * Coughing Spells * Prevent Dehydration * Reasons To Call Back - Difficulty breathing - Cough lasts more than 3 weeks - Fever lasts more than 3 days - You become worse * Telephone Encounter - Ary Kumari - 12/25/2023 12:02 PM EDT Symptom: Medication Reaction Outcome: Schedule an urgent appointment (within 1 hour) or talk to a nurse or provider soon Reason: Caller denied all higher acuity questions The caller accepted this outcome Singaporean speaker documented in this encounter Plan of Treatment Not on file documented as of this encounter Visit Diagnoses Not on filedocumented in this encounter Additional Health Concerns Assessment Noted Time PHQ-9 Depression Total Score: 0 04/17/20 23 11:02 AM EST documented as of this encounter Care Teams Automation Qa Tester Relationship Specialty Start Date End Date Gucci Gross MD [address] [place] [address] PCP - General Internal Medicine 06/03/18 documented as of this encounter
--- OUTSIDE RECORDS SUMMARY | 2024-08-03 10:36 | XMS_ITS | Encounter Summary ---
Author Organization [employer] Address [address] [place] [address] 7t [place] [address] Care Team Providers Care Industrial Organizational Psychologist Name Role Phone Gucci Gross MD Primary Care Provider [phone] Encounter Details Date Type Department Care Team (Late st Contact Info) Description 08/15/2023 Orders Only [facility] CHC MED & PEDS 505 [place], [place] [phone] Gucci Gross MD 505 [place] [address] Social History Tobacco Use Types Packs/Day Years [...] documented as of this encounter Care Teams Industrial Organizational Psychologist Relationship Specialty Start Date End Date Gucci Gross MD [address] [place] [address] PCP - General Internal Medicine 06/03/18 documented as of this encounter
--- OUTSIDE RECORDS SUMMARY | 2024-08-03 10:36 | XMS_ITS | Encounter Summary ---
Author Organization [employer] Address [address] [place] [address] 7t [place] [address] Care Team Providers Care Juice Packaging Machines Setter Name Role Phone Gucci Gross MD Primary Care Provider [phone] Encounter Details Date Type Department Care Team (Late st Contact Info) Description 01/27/2024 Orders Only [facility] CHC MED & PEDS 505 [place], [place] [phone] Gucci Gross MD 505 [place] [address] Social History Tobacco Use Types Packs/Day Years [...] documented as of this encounter Care Teams Juice Packaging Machines Setter Relationship Specialty Start Date End Date Gucci Gross MD [address] [place] [address] PCP - General Internal Medicine 06/03/18 documented as of this encounter
== END 2024-08-03 10:36 | disposition home or self-care (01) ==
PROVIDERS: PCP Internal Medicine; Visit Provider Student in an Organized Health Care Education/Training Program
DX: E03.2 Hypothyroidism due to medicaments and other exogenous substances (principal)
CPT/HCPCS: 99213

== ENCOUNTER → 2024-08-03 09:33 | Outpatient (BNVA) | payer OTHER, SELFPAY | PROVIDERS: PCP Internal Medicine; Visit Provider Student in an Organized Health Care Education/Training Program | DX: E03.2 Hypothyroidism due to medicaments and other exogenous substances (principal) | CPT/HCPCS: 99212 ==

== ENCOUNTER 2024-08-04 08:55 | Outpatient (REF) | payer OTHER, SELFPAY ==
--- OUTSIDE RECORDS SUMMARY | 2024-08-04 09:41 | XMS_ITS | Encounter Summary ---
Author Organization [employer] Address [address] [place] [address] 7 [place] [address] Care Team Providers Care Hydroelectric Powerplant Supervisor Name Role Phone Gucci Gross MD Primary Care Provider [phone] Reason for Referral * (Routine) - Closed Specialty Diagnoses / Procedures Referred By Contac t Referred To Contact Diagnoses Axillary pain, right Procedures US Extremity Non Vascular Rg Ordonez MD [address] [place] [address] Phone: tel: fax: Referral ID Status Reason Start Date Expiration Date Visits Re quested Visits Authorized [id number] Closed 10/23/2022 04/21/2023 1 1 Encounter Details Date Type Department Care Team (Late st Contact Info) Description 10/23/2022 Orders Only [facility] [address] [place] [address] [phone] Rg Ordonez MD [address] [place] [address] [phone] Axillary pain, right (Primary Dx) Social History [...] EDT ? [facility] ?[address] ? [place] [address] ? Ultrasound Report ? Signed ? Patient: Marcus Vanessa ?MR#: [id number] ?? [id number] ? : 1950 ?Acct:[id number] ? Age/Sex: 72 / M ?ADM Date: 10/23/22 ? Loc: HO.HMGCX ? Attending Dr: Rg Ordonez MD ? Ordering Physician: RG ORDONEZ MD ?? Date of Service: 10/23/22 ?? Procedure(s): US extremity nonvascular stephens ?? Accession Number(s): [id number] ? cc: RG ORDONEZ MD ? ULTRASOUND [...] 1932 ? DD/ 1439 ? TD/TT: ? Learning And Development Assistant: WILDA ? Procedure Note Donotcyrusinterpreter, Image - 11/29/2022 [facility] Adult Primary Care [address] [place] [address] Ultrasound Report Signed Patient: Elizabeth Vanessa#: M [id number] : 1950cct:[id number] Age/Sex: 72 / MADM Date: 10/23/22 Loc: HO.HMGCX Attending Dr: Rg Ordonez MD Ordering Physician: RG ORDONEZ MD Date of Service: 10/23/22 Procedure(s): US extremity nonvascular stephens Accession Number(s): [id number] cc: RG ORDONEZ MD ULTRASOUND RIGHT AXILLARY [...] MD in OV> 10/26/221931 DD/ 1439 TD/TT: Learning And Development Assistant: WILDA us [facility] External Provider IMG US PROCEDURES Edited Result - Final documented in this encounter Visit Diagnoses Diagnosis Axillary pain, right- Primary documented in this encounter Care Teams Hydroelectric Powerplant Supervisor Relationship Specialty Start Date End Date Gucci Gross MD [address] [place] [address] ARCHIE Esparza [address] PCP - General Internal Medicine 06/03/18 documented as of this encounter
--- OUTSIDE RECORDS SUMMARY | 2024-08-04 09:41 | XMS_ITS | Encounter Summary ---
Author Organization [employer] Address [address] [facility] 7t [place] [address] Care Team Providers Care Retail Associate Name Role Phone Gucci Gross MD Primary Care Provider [phone] Encounter Details Date Type Department Care Team (Late st Contact Info) Description 11/26/2022 Orders Only [facility] MEDICINE 230 [place] [address] Viridiana Gloria LPN Social History Tobacco Use [...] on filedocumented in this encounter Care Teams Retail Associate Relationship Specialty Start Date End Date Gucci Gross MD 505 [place] [address] PCP - General Internal Medicine 06/03/18 documented as of this encounter
--- OUTSIDE RECORDS SUMMARY | 2024-08-04 09:41 | XMS_ITS | Encounter Summary ---
Author Organization [employer] Address [address] [place] [address] 7t [place] [address] Care Team Providers Care Old Testament Professor Name Role Phone Gucci Gross MD Primary Care Provider [phone] Encounter Details Date Type Department Care Team (Late st Contact Info) Description 09/27/2022 Orders Only [facility] CHC MED & PEDS 505 [place], [place] [phone] Ilda Drummond LPN Social History Tobacco Use [...] on filedocumented in this encounter Care Teams Old Testament Professor Relationship Specialty Start Date End Date Gucci Gross MD 505 [place] [address] PCP - General Internal Medicine 06/03/18 documented as of this encounter
--- OUTSIDE RECORDS SUMMARY | 2024-08-04 09:42 | XMS_ITS | Encounter Summary ---
Author Organization [employer] Address [address] [facility] 7t [place] [address] Care Team Providers Care Senior Medical Transcriptionist Name Role Phone Gucci Gross MD Primary Care Provider [phone] Reason for Visit * Reason Comments Med Refill Encounter Details Date Type Department Care Team ([facility] st Contact Info) Description 05/10/[address] [facility] CHC MED & PEDS 505 [place], [place] [phone] Gucci Gross MD 505 [place] [address] Muscle cramps Social History Tobacco Use Types [...] documented as of this encounter Care Teams Senior Medical Transcriptionist Relationship Specialty Start Date End Date Gucci Gross MD 505 [place] [address] PCP - General Internal Medicine 06/03/18 documented as of this encounter
--- OUTSIDE RECORDS SUMMARY | 2024-08-04 09:42 | XMS_ITS | Encounter Summary ---
Author Organization [employer] Address [address] [place] [address] 7t [place] [address] Care Team Providers Care News Copy Editor Name Role Phone Gucci Gross MD Primary Care Provider [phone] Encounter Details Date Type Department Care Team (Late st Contact Info) Description 01/27/2024 Orders Only [facility] CHC MED & PEDS 505 [place], [place] [phone] Gucci Gross MD 505 [place] [address] Social History Tobacco Use Types Packs/Day Years [...] documented as of this encounter Care Teams News Copy Editor Relationship Specialty Start Date End Date Gucci Gross MD [address] [place] [address] PCP - General Internal Medicine 06/03/18 documented as of this encounter
--- OUTSIDE RECORDS SUMMARY | 2024-08-04 09:42 | XMS_ITS | Clinical Summary ---
Author Organization [employer] Address [address] [place] [address] 7t [place] [address] Care Team Providers Care Old Coin Dealer Name Role Phone Gucci Gross MD Primary Care Provider [phone] Allergies No known active allergies Medications acetaminophen [...] mouth at bed time. 2 Active PEG 0362-USm-PcBve-Na Cl-NaSulf (PEG-3350/Electro lytes) 236 g reconstituted solution [...] Care Team Description 06/19/2024 Refill [facility] MED & PEDS 505 [place] [address] Tanya Queen MD 06/16/2024 Refill [facility] MED & PEDS 505 [place] [address] Gucci Gross MD Acute on chronic congestive heart failure, unspecified heart failure type ([facility]) 05/21/2024 Refill [facility] MED & PEDS 505 [place] [address] Tanya Queen MD 05/10/2024 Refill [facility] MED & PEDS 505 [place] [address] Gucci Gross MD Muscle cramps from Last [...] by Dr Keri Covarrubias on 01/29/24 at [place]: Diverticulosis, Internal hemorrhoids. Repeat colonoscopy recommended in 10 years if health allows. us Historical Provider MD ENDOSCOPY PROCEDURE ORDER CHANG Edited Result - Final * Lipid Panel, Standard (12/26/2023 9:24 AM EDT) Triglycerides 46 <150 mg/dL [facility] Comment:Desirable Triglyceri de: less than 150 mg/dLBorderline High Triglyceride 150-199 mg/dLHigh Triglyceride: 200-499 mg/dLVery High Triglyceride: greater than or equal to 5OO mg/dL Cholesterol 108 <200 mg/dL [facility] Comment:Desirable Cholestero l: less than 200 mg/dLBorderline High Cholesterol: 200-239 mg/dLHigh Cholesterol: greater than 239 mg/dL LDL Cholesterol Calculated 44 <100 mg/dL [facility] Comment:Desirable LDL: less than 100 mg/dLNear Optimal/Above Optimal LDL: 110- 129 mg/dLBorderline High LDL: 130-159 mg/dLHigh LDL: 160-189 mg/dLVery High LDL: greater than or equal to 190 mg/dL HDL Cholesterol 55 >40 mg/dL [facility] Comment:Desirable HDL: great er than 40 mg/dL Note: This HDL assay may give artificially low results in patients with liver disease. Blood Venous blood specimen / Unknown 12/26/2023 9:24 AM EDT 12/26/2023 9:26 AM EDT us Tanya Queen MD LAB BLOOD ORDERABLES Final Re sult Performing Organization Address [facility] Co de Phone Number [facility] [address] [place] [address] [phone] * HEPATITIS C AB W/REFL TO HCV RNA, QN, PCR (10/09/2021 9:27 AM EDT) HEPATITIS C ANTIBODY NON-REACT [facility] NON-REACT [facility] INDEX 0.01 <1.00 [facility] Comment: ?? HCV antibody was non-reactive. There is no laboratory ?? evidence of HCV infection. ?? In most cases, no further action is required. However, if recent HCV exposure is suspected, a test for HCV RNA (test code 68228) is suggested. ?? For additional information please refer to http://education.[employer]/faq/XEQ96w9 (This link is being provided for informational/ educational purposes only.) ?? 10/09/2021 9:27 AM EDT us Gucci Gross MD HISTORICAL/NON ORDERABLE LA BS Final Result Performing Organization Address [facility] Co de Phone Number [facility] [address] from Last 3 Months or Most Recently Relevant to Health Maintenance Insurance [facility] Care Teams Old Coin Dealer Relationship Specialty Start Date End Date Gucci Gross MD [address] [place] [address] PCP - General Internal Medicine 06/03/18
--- OUTSIDE RECORDS SUMMARY | 2024-08-04 09:42 | XMS_ITS | Encounter Summary ---
Author Organization [employer] Address [address] [facility] 7t [place] [address] Care Team Providers Care B2B Outside Sales Representative Name Role Phone Gucci Gross MD Primary Care Provider [phone] Encounter Details Date Type Department Care Team (Late st Contact Info) Description 04/04/2023 Abstract [facility] MEDICINE 230 [place] [address] Gucci Gross MD 505 [place], [place] [phone] Social History Tobacco Use Types Packs/Day Years [...] on filedocumented in this encounter Care Teams B2B Outside Sales Representative Relationship Specialty Start Date End Date Gucci Gross MD [address] [place] [address] PCP - General Internal Medicine 06/03/18 documented as of this encounter
--- OUTSIDE RECORDS SUMMARY | 2024-08-04 09:42 | XMS_ITS | Encounter Summary ---
Author Organization [employer] Address [address] [place] [address] 7t [place] [address] Care Team Providers Care Tattoo And Body Artist Name Role Phone Gucci Gross MD Primary Care Provider [phone] Reason for Visit * Reason Comments Med Refill Encounter Details Date Type Department Care Team ([facility] st Contact Info) Description 04/21/2024 Refill [facility] CHC MED & PEDS 505 [place], [place] [phone] Tanya Queen MD 505 [place] [address] Social History Tobacco Use Types Packs/Day Years [...] documented as of this encounter Care Teams Tattoo And Body Artist Relationship Specialty Start Date End Date Gucci Gross MD [address] [place] [address] PCP - General Internal Medicine 06/03/18 documented as of this encounter
--- OUTSIDE RECORDS SUMMARY | 2024-08-04 09:42 | XMS_ITS | Encounter Summary ---
Author Organization [employer] Address [address] [place] [address] 7 [place] [address] Care Team Providers Care Potter Or Ceramic Artist Name Role Phone Gucci Gross MD Primary Care Provider [phone] Reason for Referral * Consultation (Routine) - Closed Specialty Diagnoses / Procedures Referred By Contac t Referred To Contact Endocrinology Diagnoses Elevated TSH Gucci Gross MD 505 [place] [address] Phone: tel: fax: [facility] Endocrinology [address] [place], [place] Phone: tel: fax: Referral ID Status Reason Start Date Expiration Date V isits Requested Visits Authorized [id number] Closed Specialty Services Required 01/17/2024 01/16/2025 1 1 Encounter Details Date Type Department Care Team (Late st Contact Info) Description 01/08/2024 Orders Only [facility] CHC MED & PEDS 505 [place], [place] [phone] Gucci Gross MD 505 [place], [place] [phone] Elevated TSH (Primary Dx) Social History Tobacco [...] documented as of this encounter Care Teams Potter Or Ceramic Artist Relationship Specialty Start Date End Date Gucci Gross MD 505 [place] [address] PCP - General Internal Medicine 06/03/18 documented as of this encounter
--- OUTSIDE RECORDS SUMMARY | 2024-08-04 09:42 | XMS_ITS | Encounter Summary ---
Author Organization [employer] Address [address] [facility] 7t [place] [address] Care Team Providers Care Project Intern Name Role Phone Gucci Gross MD Primary Care Provider [phone] Reason for Visit * Reason Onset Date Comments Nurse Triage 12/25/2023 Encounter Details Date Type Department Care Team ([facility] st Contact Info) Description 12/25/2023 Telephone [facility] MEDICINE 230 [place] [address] Gucci Gross MD 505 [place] [address] Nurse Triage Social History Tobacco Use Types [...] 12/25/2023 12:29 PM EDT Triage call with [employer] Architect [place] [id number] Pt reports a medication reaction symptoms are cough especially at night which causes back pain which radiates to chest, bilateral lower extremity edema. Pt believes this is caused by eliquis. Pt has been taking eliquis for > 3months but, reports , I take alot of pills maybe there is aspirin in them . Pt denies difficulty breathing, fever, cold sx. ASK apt in [facility] today @ 240pm. Pt agrees with disposition [...] acuity questions The caller accepted this outcome [place] Citizen speaker documented in this encounter Plan of Treatment Not on file documented as of this encounter Visit Diagnoses Not on filedocumented in this encounter Additional Health Concerns Assessment Noted Time PHQ-9 Depression Total Score: 0 04/17/20 23 11:02 AM EST documented as of this encounter Care Teams Project Intern Relationship Specialty Start Date End Date Gucci Gross MD [address] [place] [address] PCP - General Internal Medicine 06/03/18 documented as of this encounter
--- OUTSIDE RECORDS SUMMARY | 2024-08-04 09:42 | XMS_ITS | Encounter Summary ---
Author Organization [employer] Address [address] [facility] 7t [place] [address] Care Team Providers Care Corporate Real Estate Specialist Name Role Phone Gucci Gross MD Primary Care Provider [phone] Encounter Details Date Type Department Care Team (Late st Contact Info) Description 10/14/2023 Orders Only [facility] 230 [place] [address] ProviderAri MD Social History Tobacco Use Types [...] t he electric, gas, oil or water [employer] threatened to shut off services in your [...] documented as of this encounter Care Teams Corporate Real Estate Specialist Relationship Specialty Start Date End Date Gucci Gross MD [address] [place] [address] PCP - General Internal Medicine 06/03/18 documented as of this encounter
--- OUTSIDE RECORDS SUMMARY | 2024-08-04 09:42 | XMS_ITS | Encounter Summary ---
Author Organization [employer] Address [address] [place] [address] 7t [place] [address] Care Team Providers Care Slot Machine Mechanic Name Role Phone Gucci Gross MD Primary Care Provider [phone] Encounter Details Date Type Department Care Team (Late st Contact Info) Description 08/15/2023 Orders Only [facility] CHC MED & PEDS 505 [place], [place] [phone] Gucci Gross MD 505 [place] [address] Social History Tobacco Use Types Packs/Day Years [...] documented as of this encounter Care Teams Slot Machine Mechanic Relationship Specialty Start Date End Date Gucci Gross MD [address] [place] [address] PCP - General Internal Medicine 06/03/18 documented as of this encounter
--- OUTSIDE RECORDS SUMMARY | 2024-08-04 09:42 | XMS_ITS | Encounter Summary ---
Author Organization [employer] Address [address] [place] [address] 7[place] [address] Care Team Providers Care Silk Screen Frame Assembler Name Role Phone Gucci Gross MD Primary Care Provider [phone] Encounter Details Date Type Department Care Team (Late st Contact Info) Description 03/25/2023 Orders Only [facility] CHC MED & PEDS 505 [place], [place] [phone] Viridiana Gloria LPN Social History Tobacco Use [...] on filedocumented in this encounter Care Teams Silk Screen Frame Assembler Relationship Specialty Start Date End Date Gcuci Gross MD 505 [place] [address] PCP - General Internal Medicine 06/03/18 documented as of this encounter
--- OUTSIDE RECORDS SUMMARY | 2024-08-04 09:42 | XMS_ITS | Encounter Summary ---
Author Organization [employer] Address [address] [place] [address] 7t [place] [address] Care Team Providers Care Patient Services Rep Name Role Phone Gucci Gross MD Primary Care Provider [phone] Reason for Visit * Reason Comments Med Refill Encounter Details Date Type Department Care Team ([facility] st Contact Info) Description 05/21/2024 Refill [facility] CHC MED & PEDS 505 [place], [place] [phone] Tanya Queen MD 505 [place] [address] Social History Tobacco Use Types Packs/Day Years [...] documented as of this encounter Care Teams Patient Services Rep Relationship Specialty Start Date End Date Gucci Gross MD [address] [place] [address] PCP - General Internal Medicine 06/03/18 documented as of this encounter
[2024-08-04 12:12] LABS: Free T4 (Free Thyroxine) 1.23 ng/dL (0.71-1.85); Thyroid Stimulating Hormone 0.84 uIU/mL (0.32-4.0)
== END 2024-08-04 08:56 | disposition home or self-care (01) ==
LOC: HO.HHCL 08:55
PROVIDERS: Visit Provider Student in an Organized Health Care Education/Training Program
DX: E03.2 Hypothyroidism due to medicaments and other exogenous substances (principal)
CPT/HCPCS: 36415; 84439; 84443

== ENCOUNTER 2024-09-15 10:36 | Outpatient (AMB) | payer OTHER, SELFPAY ==
[2024-09-15 10:45] VITALS: BP 110/66; PULSE 67; BMI 23.4
--- NOTE | 2024-09-15 10:45 | A.OFFVIS_ITS ---
Vital Signs 09/15/24 10:45 Height 5 ft 3 in Weight 131 lb 13.383 oz BMI 23.4 BP 110/66 Blood Pressure Location Rt brachial Position Sitting Pulse 67 Intake Visit Reasons: GERD, 6 month follow up Intake Note: Marcus presents in follow up of GERD. CC: The patient reports that he underwent a heart procedure done in March 20 @ [facility] and also suffered a stroke about 2 weeks ago a home. Denies having any GI symptoms or concerns today. Jitney Driver Required: Yes Accompanied by: Self / Same As Patient Allergies No Known Allergies [No Known Allergies*] Allergy (Verified 09/15/24 10:54) HPI HPI GERD, 6 month follow up: Details: Assessment & Plan (1) Tubular adenoma of colon: Comment: 2023=neg study repeat in 5 years; repeat in 5 years or 2022 Code(s): D12.6 - Benign neoplasm of colon, unspecified Category: Medical (2) GERD (gastroesophageal reflux disease): Code(s): K21.9 - Gastro-esophageal reflux disease without esophagitis Category: Medical Plan [place] #[id number] Tasneem The procedure needs to be repeated in 5 years. The procedure was well tolerated. The results were explained and the patient is agreeable to the follow-up interval as stated. The bowel pattern has returned to normal. Education was provided to tell any 1st degree relatives about their findings to be sure that they are screened by age 45. Educated that they will be put on a recall list when it is time for their repeat scope but should they move out of state or away from the hospital they will need to remember along with their primary to repeat the procedure in a timely fashion to avoid any adverse complications. continues to do well on his pantoprazole, simethicone and Carafate. ROV 6 mos TODAY'S VISIT [place]er #[id number] He tells me that his son at age 50! He says he choked on something; which is tragic. He continues to do well on his pantoprazole, simethicone and Carafate. ROV 6 mos. [facility] Medical History (Updated 09/15/24 @ 11:44 by TAN Cavazos) Abdominal bloating Pre-op examination Hyperthyroidism Upper abdominal pain Common bile duct calculi Surgical History H/O heart artery stent H/O angioplasty History of cholecystectomy History of esophagogastroduodenoscopy (EGD) Hx of colonoscopy Family History Father No problems noted. Mother Cancer Social History Are you a primary clinical care coordinator to a significant other at home: No Do you presently have visiting nurse or other home services: No Alcohol intake: never Patient Tobacco Use Status: Never used Tobacco Second Hand Smoke Exposure: No Review of Systems Const Denies fatigue, Denies fever(s), Denies night sweats, Denies poor appetite and Denies weight loss ENT Reports Normal hearing present, Denies dental pain, Denies dysphagia, Denies hearing loss, Denies mouth pain, Denies odynophagia, Denies throat swelling, Denies tongue swelling and Reports other (Dentition adequate) Card Reports no additional complaints Resp Reports no additional complaints GI Details: Denies abdominal pain, Denies melena, Reports bloating, Denies hematochezia, Denies constipation, Denies GI cramping, Denies dysphagia, Denies excessive flatus, Denies early satiety, Reports heartburn, Denies diarrhea, Denies nausea, Denies odynophagia, Denies vomiting and Denies hematemesis Skin/Breast Denies pruritus, Denies lesions, Denies rash and Denies jaundice Neuro Reports Normal hearing present and Denies Abnormal speech present Endo Denies fatigue Aller/Immun Denies throat swelling and Denies tongue swelling Physical Exam Vital Signs: Last Vital Signs Pulse 67 09/15/24 10:45 BP 110/66 09/15/24 10:45 BMI result Body Mass Index 23.4 Const General: cooperative, no acute distress, well developed and well groomed Nutritional Appearance: well nourished, obese and overweight Orientation/consciousness: oriented to person, oriented to place and oriented to time Limitations: No language barrier and ambulation with cane HEENT Head: Yes normocephalic and Yes atraumatic Eyes General: appearance normal, both eyes and all related structures Pupils: Equal, round and reactive pupils present Neck Neck: Yes normal visual inspection and Yes no lymphadenopathy Thyroid: Thyroid normal Resp Effort & Inspection: normal respiratory effort and able to speak in complete sentences Auscultation: clear to auscultation bilaterally Cardio Rate: regular rate Rhythm: regular rhythm Heart sounds: Normal, physiologic split S2 sound present Peripheral pulses: radial pulses present and posterior tibial pulses present GI Inspection: No distended and No Abdominal panniculus present Palpation (GI): Soft to palpation, nontender, no guarding, not rigid and No hepatosplenomegaly present Percussion: Yes normal to percussion Auscultation: normal bowel sounds Rectal Exam - Male: Yes deferred Skin General skin exam: no rashes or lesions noted, turgor normal, skin not dry, no jaundice, No spider nevi and no striae Rashes: no rashes Nails: normal Neuro General: oriented to person, oriented to place and oriented to time Cranial nerves: Yes Equal, round and reactive pupils present and Yes Normal hearing present Speech: No Abnormal speech present Extrem General: Yes normal to inspection, No clubbing, No cyanosis and No edema Psych Appearance: grossly normal and well kempt Mental Status: mental status grossly normal Speech and movement: Normal speech and movement present Affect: normal affect Attitude: cooperative Thought process: Normal thought process present and not confabulating Thought content: Normal thought content present Insight: Limited insight present (Psych) Judgement: Limited judgement present (Psych) Assessment & Plan Assessment & Plan (1) GERD (gastroesophageal reflux disease): Code(s): K21.9 - Gastro-esophageal reflux disease without esophagitis Category: Medical Plan [place] #[id number] He tells me that his son at age 50! He says he choked on something; which is tragic. He continues to do well on his pantoprazole, simethicone and Carafate. ROV 6 mos. Medications: Refilled pantoprazole 40 mg PO QPM 30 tabs 6RF simethicone (Gas Relief (simethicone)) 125 mg PO TID-QID 120 caps 6RF abdominal distention sucralfate 2 grams (2 x 1 gram) PO BEDTIME 60 tabs 5RF K21.9 - Gastro- esophageal reflux disease without esophagitis, R10.10 - Upper abdominal pain, unspecified Discontinued bisacodyl (Dulcolax (bisacodyl)) Discontinued Reason: Patient Completed Course 10 mg (2 x 5 mg) PO BEDTIME 2 days 4 tabs 0RF Coding Level of Care Code Est Pt Level 3 (35548) Diagnoses GERD (gastroesophageal reflux disease) K21.9
--- OUTSIDE RECORDS SUMMARY | 2024-09-15 12:46 | XMS_ITS | Encounter Summary ---
Author Organization [employer] Address [address] [place] [address] 7 [place] [address] Care Team Providers Care Mold Yard Supervisor Name Role Phone Gucci Gross MD Primary Care Provider [phone] Reason for Referral * (Routine) - Closed Specialty Diagnoses / Procedures Referred By Contac t Referred To Contact Diagnoses Axillary pain, right Procedures US Extremity Non Vascular Rg Ordonez MD [address] [place] [address] Phone: tel: fax: Referral ID Status Reason Start Date Expiration Date Visits Re quested Visits Authorized [id number] Closed 10/23/2022 04/21/2023 1 1 Encounter Details Date Type Department Care Team (Late st Contact Info) Description 10/23/2022 Orders Only [facility] [address] [place] [address] [phone] Rg Ordonez MD [address] [place] [address] [phone] Axillary pain, right (Primary Dx) Social History [...] EDT ? [facility] ?[address] ? [place] [address] ? Ultrasound Report ? Signed ? Patient: Marcus Vanessa ?MR#: [id number] ?? [id number] ? : 1950 ?Acct:[id number] ? Age/Sex: 72 / M ?ADM Date: 10/23/22 ? Loc: HO.HMGCX ? Attending Dr: Rg Ordonez MD ? Ordering Physician: RG ORDONEZ MD ?? Date of Service: 10/23/22 ?? Procedure(s): US extremity nonvascular stephens ?? Accession Number(s): [id number] ? cc: RG ORDONEZ MD ? ULTRASOUND [...] 1932 ? DD/ 1439 ? TD/TT: ? Sales Merchandising Specialist: WILDA ? Procedure Note Donotcyrusinterpreter, Image - 11/29/2022 [facility] [address] [place] [address] Ultrasound Report Signed Patient: Elizabeth Vanessa#: M [id number] : 1950cct:[id number] Age/Sex: 72 / MADM Date: 10/23/22 Loc: HO.HMGCX Attending Dr: Rg Ordonez MD Ordering Physician: RG ORDONEZ MD Date of Service: 10/23/22 Procedure(s): US extremity nonvascular stephens Accession Number(s): [id number] cc: RG ORDONEZ MD ULTRASOUND RIGHT AXILLARY [...] MD in OV> 10/26/221931 DD/ 1439 TD/TT: Sales Merchandising Specialist: WILDA us [facility] External Provider IMG US PROCEDURES Edited Result - Final documented in this encounter Visit Diagnoses Diagnosis Axillary pain, right- Primary documented in this encounter Care Teams Mold Yard Supervisor Relationship Specialty Start Date End Date Gucci Gross MD [address] [place] [address] ARCHIE Esparza [id number] PCP - General Internal Medicine 06/03/18 documented as of this encounter
--- OUTSIDE RECORDS SUMMARY | 2024-09-15 12:47 | XMS_ITS | Encounter Summary ---
Author Organization [employer] Address [address] [place] [address] 7t [place] [address] Care Team Providers Care Food And Beverage Associate Name Role Phone Gucci Gross MD Primary Care Provider [phone] Encounter Details Date Type Department Care Team (Late st Contact Info) Description 09/27/2022 Orders Only [facility] [address] [place], [place] [phone] Ilda Drummond LPN Social History Tobacco Use [...] on filedocumented in this encounter Care Teams Food And Beverage Associate Relationship Specialty Start Date End Date Gucci Gross MD [address] [place] [address] PCP - General Internal Medicine 06/03/18 documented as of this encounter
--- OUTSIDE RECORDS SUMMARY | 2024-09-15 12:47 | XMS_ITS | Encounter Summary ---
Author Organization [employer] Address [address] [place] [address] 7t [place] [address] Care Team Providers Care Health Data Administrator Name Role Phone Gucci Gross MD Primary Care Provider [phone] Encounter Details Date Type Department Care Team (Late st Contact Info) Description 08/15/2023 Orders Only [facility] [address] [place], [place] [phone] Gucci Gross MD [address] [place] [address] Social History Tobacco Use Types Packs/Day Years [...] documented as of this encounter Care Teams Health Data Administrator Relationship Specialty Start Date End Date Gucci Gross MD [address] [place] [address] PCP - General Internal Medicine 06/03/18 documented as of this encounter
--- OUTSIDE RECORDS SUMMARY | 2024-09-15 12:47 | XMS_ITS | Encounter Summary ---
Author Organization [employer] Address [address] [facility] 7t [place] [address] Care Team Providers Care Bread Oven Operator Name Role Phone Gucci Gross MD Primary Care Provider [phone] Reason for Visit * Reason Onset Date Comments Nurse Triage 12/25/2023 Encounter Details Date Type Department Care Team ([facility] st Contact Info) Description 12/25/2023 Telephone [facility] MED[facility]INE [address] [place] [address] Gucci Gross MD [address] [place] [address] Nurse Triage Social History Tobacco Use Types [...] 12/25/2023 12:29 PM EDT Triage call with [employer] Folder [place] [id number] Pt reports a medication reaction symptoms are cough especially at night which causes back pain which radiates to chest, bilateral lower extremity edema. Pt believes this is caused by eliquis. Pt has been taking eliquis for > 3months but, reports , I take alot of pills maybe there is aspirin in them . Pt denies difficulty breathing, fever, cold sx. ASK apt in [facility] today @ 240pm. Pt agrees with [...] acuity questions The caller accepted this outcome Senegalese speaker documented in this encounter Plan of Treatment Not on file documented as of this encounter Visit Diagnoses Not on filedocumented in this encounter Additional Health Concerns Assessment Noted Time PHQ-9 Depression Total Score: 0 04/17/20 23 11:02 AM EST documented as of this encounter Care Teams Bread Oven Operator Relationship Specialty Start Date End Date Gucci Gross MD [address] [place] [id number] PCP - General Internal Medicine 06/03/18 documented as of this encounter
--- OUTSIDE RECORDS SUMMARY | 2024-09-15 12:47 | XMS_ITS | Encounter Summary ---
Author Organization [employer] Address [address] [facility] 7t [place] [address] Care Team Providers Care Tan Room Supervisor Name Role Phone Gucci Gross MD Primary Care Provider [phone] Encounter Details Date Type Department Care Team (Late st Contact Info) Description 04/04/2023 Abstract [facility] MED[facility]INE [address] [place] [address] Gucci Gross MD [address] [place], [place] [phone] Social History Tobacco Use Types Packs/Day Years [...] on filedocumented in this encounter Care Teams Tan Room Supervisor Relationship Specialty Start Date End Date Gucci Gross MD [address] [place] [address] PCP - General Internal Medicine 06/03/18 documented as of this encounter
--- OUTSIDE RECORDS SUMMARY | 2024-09-15 12:47 | XMS_ITS | Encounter Summary ---
Author Organization [employer] Address [address] [facility] 7t [place] [address] Care Team Providers Care Adding Machine Mechanic Name Role Phone Gucci Gross MD Primary Care Provider [phone] Encounter Details Date Type Department Care Team (Late st Contact Info) Description 11/26/2022 Orders Only [facility]INE [address] [place] [address] Viridiana Gloria LPN Social History Tobacco Use [...] on filedocumented in this encounter Care Teams Adding Machine Mechanic Relationship Specialty Start Date End Date Gucci Gross MD [address] [place] [address] PCP - General Internal Medicine 06/03/18 documented as of this encounter
--- OUTSIDE RECORDS SUMMARY | 2024-09-15 12:47 | XMS_ITS | Encounter Summary ---
Author Organization [employer] Address [address] [place] [address] [address] [address] Care Team Providers Care Screen Printing Machine Operator Name Role Phone Gucci rGoss MD Primary Care Provider [phone] Encounter Details Date Type Department Care Team (Late st Contact Info) Description 03/25/[address] [facility] MED & PEDS [address] [place], [place] [phone] Viridiana Gloria LPN Social History Tobacco Use [...] on filedocumented in this encounter Care Teams Screen Printing Machine Operator Relationship Specialty Start Date End Date Gucci Gross MD 505 [place] [address] PCP - General Internal Medicine 06/03/18 documented as of this encounter
--- OUTSIDE RECORDS SUMMARY | 2024-09-15 12:47 | XMS_ITS | Encounter Summary ---
Author Organization [employer] Address [address] [place] [address] 7t [place] [address] Care Team Providers Care Char House Supervisor Name Role Phone Gucci Gross MD Primary Care Provider [phone] Reason for Visit * Reason Comments Med Refill Encounter Details Date Type Department Care Team ([facility] st Contact Info) Description 04/21/2024 Refill [facility] MED [facility] PEDS [address] [place], [place] [phone] Tanya Queen MD [address] [place] [address] Social History Tobacco Use Types Packs/Day Years [...] documented as of this encounter Care Teams Char House Supervisor Relationship Specialty Start Date End Date Gucci Gross MD [address] [place] [address] PCP - General Internal Medicine 06/03/18 documented as of this encounter
--- OUTSIDE RECORDS SUMMARY | 2024-09-15 12:47 | XMS_ITS | Encounter Summary ---
Author Organization [employer] Address [address] [facility] 7t [place] [address] Care Team Providers Care Construction Checker Name Role Phone Gucci Gross MD Primary Care Provider [phone] Encounter Details Date Type Department Care Team (Late st Contact Info) Description 10/14/2023 Orders Only [facility] [address] [place] [address] ProviderAri MD Social History Tobacco Use Types [...] t he electric, gas, oil or water [employer] threatened to shut off services in your [...] documented as of this encounter Care Teams Construction Checker Relationship Specialty Start Date End Date Gucci Gross MD [address] [place] [address] PCP - General Internal Medicine 06/03/18 documented as of this encounter
--- OUTSIDE RECORDS SUMMARY | 2024-09-15 12:47 | XMS_ITS | Encounter Summary ---
Author Organization [employer] Address [address] [place] [address] 7t [place] [address] Care Team Providers Care Haircutter Name Role Phone Gucci Gross MD Primary Care Provider [phone] Reason for Visit * Reason Comments Med Refill Encounter Details Date Type Department Care Team ([facility] st Contact Info) Description 05/21/2024 Refill [facility] MED [facility] PEDS [address] [place], [place] [phone] Tanya Queen MD [address] [place] [address] Social History Tobacco Use Types Packs/Day Years [...] documented as of this encounter Care Teams Haircutter Relationship Specialty Start Date End Date Gucci Gross MD [address] [place] [address] PCP - General Internal Medicine 06/03/18 documented as of this encounter
--- OUTSIDE RECORDS SUMMARY | 2024-09-15 12:47 | XMS_ITS | Encounter Summary ---
Author Organization [employer] Address [address] [facility] 7t [place] [address] Care Team Providers Care Materials Engineering Technician Name Role Phone Gucci Gross MD Primary Care Provider [phone] Reason for Visit * Reason Comments Med Refill Encounter Details Date Type Department Care Team ([facility] st Contact Info) Description 05/10/2024 Refill [facility] MED [facility] PEDS [address] [place], [place] [phone] Gucci Gross MD 505 [place] [address] Muscle cramps Social History Tobacco Use Types [...] documented as of this encounter Care Teams Materials Engineering Technician Relationship Specialty Start Date End Date Gucci Gross MD [address] [place] [address] PCP - General Internal Medicine 06/03/18 documented as of this encounter
--- OUTSIDE RECORDS SUMMARY | 2024-09-15 12:47 | XMS_ITS | Clinical Summary ---
Author Organization [employer] Address [address] [place] [address] 7[address] [place] [address] Care Team Providers Care Travel Director Name Role Phone Gucci Gross MD Primary Care Provider [phone] Allergies No known active allergies Medications acetaminophen (Tylenol) 500 MG tablet Take 2 tablets (1,000 mg) by mouth every 6 (six) hours if needed for moderate pain or fever for up to 25 doses. 50 tablet 10/23/19 23 Active enalapril (Vasotec) 2.5 MG tablet TAKE ONE TABLET EVERY MORNING 90 tablet 3 09/20/19 24 Active nitroglycerin (Nitrostat) 0.4 MG SL tablet DISSOLVE 1 TABLET UNDER THE TONGUE EVERY 5 MINUTES NEEDED FOR CHEST PAIN. DO NOT EXCEED A TOTAL OF 3 DOSES IN 15 MINUTES. 25 tablet 11/27/19 24 Active timolol (Timoptic) 0.5 % ophthalmic solution PLACE ONE DROP IN THE LEFT EYE EVERY MORNING 09/24/19 24 Active Eliquis 5 MG tablet TAKE ONE TABLET TWICE DAILY IN THE MORNING AND AT BEDTIME 09/24/19 24 Active Bisacodyl EC 5 MG EC tablet TAKE TWO TABLETS AT BEDTIME FOR TWO DAYS 09/19/19 24 Active brimonidine (AlphaGAN) 0.2 % ophthalmic solution PLACE ONE DROP IN THE LEFT EYE TWICE DAILY, 12 HOURS APART Active finasteride (Proscar) 5 MG tablet TAKE ONE TABLET EVERY NIGHT AT BEDTIME Active isosorbide mononitrate ER (Imdur) 30 MG 24 hr tablet 12/23/19 24 Active pantoprazole (ProtoNix) 40 MG EC tablet Take 1 tablet by mouth at bed time. 11/22/19 22 Active PEG 9110-AZy-AiXkg-Na Cl-NaSulf (PEG-3350/Electro lytes) 236 g reconstituted solution DRINK EIGHT OUNCE GLASS EVERY 10 MINUTES FOR ONE DAY UNTIL BOWEL MOVEMENT CLEAR 04/30/20 23 Active sucralfate (Carafate) 1 g tablet Take [...] 4 times a day 100 g 1 02/10/20 24 Active atorvastatin (Lipitor) 80 MG tablet TAKE ONE TABLET EVERY NIGHT AT BEDTIME 90 tablet 3 02/18/20 24 Active cholecalciferol (Vitamin D-3) 25 MCG tablet TAKE ONE TABLET EVERY MORNING 30 tablet 11 03/23/20 24 Active furosemide (Lasix) 40 MG tabletIndications :Acute on chronic congestive heart failure, unspecified heart failure type (CMS/HCC) TAKE ONE TABLET EVERY DAY 20 tablet 06/17/19 25 Active ferrous gluconate (Fergon) 324 (37.5 Fe) MG tablet TAKE ONE TABLET EVERY MORNING WITH BREAKFAST 90 tablet 1 06/20/19 25 Active metoprolol succinate XL (Toprol-XL) 25 MG 24 hr tabletIndications :Essential hypertension TAKE ONE TABLET EVERY MORNING 90 tablet 1 08/19/19 25 Active metoprolol succinate XL (Toprol-XL) 25 MG 24 hr tabletIndications :Essential hypertension TAKE ONE TABLET EVERY MORNING 90 tablet 1 02/18/20 24 025 Discontinued Active Problems Problem Noted Date Diagnosed Date [...] Encounters Date Type Department Care Team Description 08/18/2024 Refill [facility] [address] [place] [address] Gucci Gross MD Essential hypertension 06/19/2024 Refill [facility] [address] [place] [address] Tanya Queen MD from Last 3 Months Immunizations Name Administration [...] is your housing situation today? I have rc mascorro 04/09/[address] you [...] 60-74 years 1-dose series) 2010 COVID-19 Vaccine (2023- season) 2024 04/16/2022, 10/26/2021, 05/19/2021, Additional history [...] Dr Keri Covarrubias on 01/29/24 at [facility]: Diverticulosis, Internal hemorrhoids. Repeat colonoscopy recommended in 10 years if health allows. us Historical Provider ENDOSCOPY PROCEDURE ORDER CHANG Edited Result - Final * Lipid Panel, Standard (12/26/2023 9:24 AM EDT) Triglycerides 46 <150 mg/dL [facility] Comment:Desirable Triglyceri de: less than 150 mg/dLBorderline High Triglyceride 150-199 mg/dLHigh Triglyceride: 200-499 mg/dLVery High Triglyceride: greater than or equal to 5OO mg/dL Cholesterol 108 <200 mg/dL [facility] Comment:Desirable Cholestero l: less than 200 mg/dLBorderline High Cholesterol: 200-239 mg/dLHigh Cholesterol: greater than 239 mg/dL LDL Cholesterol Calculated 44 <100 mg/dL [facility] Comment:Desirable LDL: less than 100 mg/dLNear Optimal/Above Optimal LDL: 110- 129 mg/dLBorderline High LDL: 130-159 mg/dLHigh LDL: 160-189 mg/dLVery High LDL: greater than or equal to 190 mg/dL HDL Cholesterol 55 >40 mg/dL [facility] Comment:Desirable HDL: great er than 40 mg/dL Note: This HDL assay may give artificially low results in patients with liver disease. Blood Venous blood specimen / Unknown 12/26/2023 9:24 AM EDT 12/26/2023 9:26 AM EDT us Tanya Queen MD LAB BLOOD ORDERABLES Final Re sult [facility] [address] [place] [address] [phone] * HEPATITIS C AB W/REFL TO HCV RNA, QN, PCR (10/09/2021 9:27 AM EDT) HEPATITIS C ANTIBODY NON-REACT CHARU NON-REACT CHARU [facility] INDEX 0.01 <1.00 [facility] Comment: ?? HCV antibody was non-reactive. There is no laboratory ?? evidence of HCV infection. ?? In most cases, no further action is required. However, if recent HCV exposure is suspected, a test for HCV RNA (test code 71747) is suggested. ?? For additional information please refer to http://education.Mophie/faq/RQQ70i4 (This link is being provided for informational/ educational purposes only.) ?? 10/09/2021 9:27 AM EDT us Gucci Gross MD HISTORICAL/NON ORDERABLE LA BS Final Result Performing Organization Address City/[facility]/ZIP Co de Phone Number [facility] [address] from Last 3 Months or Most Recently Relevant to Health Maintenance Insurance [facility] Care Teams Travel Director Relationship Specialty Start Date End Date Gucci Gross MD [address] [place] [phone] PCP - General Internal Medicine 06/03/18
--- OUTSIDE RECORDS SUMMARY | 2024-09-15 12:47 | XMS_ITS | Encounter Summary ---
Author Organization [employer] Address [address] [place] [address] [address] [place] [address] Care Team Providers Care Funeral Car Chauffeur Name Role Phone Gucci Gross MD Primary Care Provider [phone] Reason for Referral * Consultation (Routine) - Closed Specialty Diagnoses / Procedures Referred By Contac t Referred To Contact Endocrinology Diagnoses Elevated TSH Gucci Gross MD [address] [place] [address] Phone: tel: fax: [facility] [address] [place], [place] Phone: tel: fax: Referral ID Status Reason Start Date Expiration Date V isits Requested Visits Authorized [id number] Closed Specialty Services Required 01/17/2024 01/16/2025 1 1 Encounter Details Date Type Department Care Team (Late st Contact Info) Description 01/08/2024 Orders Only [facility] [address] [place], [place] [phone] Gucci Gross MD [address] [place], [place] [phone] Elevated TSH (Primary Dx) Social History Tobacco [...] documented as of this encounter Care Teams Funeral Car Chauffeur Relationship Specialty Start Date End Date Gucci Gross MD [address] [place] [address] PCP - General Internal Medicine 06/03/18 documented as of this encounter
--- OUTSIDE RECORDS SUMMARY | 2024-09-15 12:47 | XMS_ITS | Encounter Summary ---
Author Organization [employer] Address [address] [place] [address] [address] [place] [address] Care Team Providers Care Health Diagnostics Teacher Name Role Phone Gucci Gross MD Primary Care Provider [phone] Encounter Details Date Type Department Care Team (Late st Contact Info) Description 01/27/2024 Orders Only [facility] [address] [place], [place] [phone] Gucci Gross MD [address] [place] [address] Social History Tobacco Use Types Packs/Day Years [...] as of this encounter Care Teams Health Diagnostics Teacher Relationship Specialty Start Date End Date Gucci Gross MD [address] [place] [id number] PCP - General Internal Medicine 06/03/18 documented as of this encounter
== END 2024-09-15 11:16 | disposition home or self-care (01) ==
LOC: HO.HGI 10:36
PROVIDERS: PCP Internal Medicine; Visit Provider Nurse Practitioner
DX: K21.9 Gastro-esophageal reflux disease without esophagitis (principal)
CPT/HCPCS: 99213

== ENCOUNTER → 2024-09-15 10:36 | Outpatient (BNVA) | payer OTHER, SELFPAY | PROVIDERS: PCP Internal Medicine; Visit Provider Nurse Practitioner | DX: K21.9 Gastro-esophageal reflux disease without esophagitis (principal); D12.6 Benign neoplasm of colon, unspecified; Z86.73 Personal history of transient ischemic attack (TIA), and cerebral infarction without residual deficits | CPT/HCPCS: 99212 ==

== ENCOUNTER 2024-11-25 09:44 | Outpatient (REF) | payer OTHER, SELFPAY ==
[2024-11-25 11:10] LABS: MANUAL DIFF FLAG NO
[2024-11-25 11:14] LABS: Basophils Percent Auto 0.5 % (0-2); Eosinophils Absolute Auto 0.1 X10*3/uL (0.0-0.4); Eosinophils Percent Auto 1.4 % (0-4); Hematocrit 37.2 % (42.0-52.0); Hemoglobin 11.9 g/dl (14.0-18.0); Imm Gran Abs Auto 0.01 X10*3/uL (0.00-0.03); Imm Gran Pct Auto 0.2 % (0.0-0.4); Lymphocytes Absolute Auto 1.2 X10*3/uL (1.2-4.9); Lymphocytes Percent Auto 21.1 % (20-40); Mean Corpuscular Hemoglobin 26.4 pg (27.0-33.0); Mean Corpuscular Volume 82.5 fL (80.0-98.0); Mean Platelet Volume 10.7 fL (9.4-12.4); Monocytes Absolute Auto 0.5 X10*3/uL (0.1-1.2); Monocytes Percent Auto 9.1 % (2-11); Neutrophils Absolute Auto 3.9 x10*3/uL (2.0-8.3); Neutrophils Percent Auto 67.7 % (45-73); Platelet Count 168 X10*3/uL (160-400); Red Blood Count 4.51 X10*6/uL (4.60-5.80); Red Cell Distribution Width 15.1 % (11.0-16.0); White Blood Count 5.7 X10*3/uL (4.8-10.8)
--- OUTSIDE RECORDS SUMMARY | 2024-11-25 11:16 | XMS_ITS | Encounter Summary ---
Author Organization [employer] Address [address] [place] [address] 7 [place] [address] Care Team Providers Care Paper Baler Name Role Phone Gucci Gross MD Primary Care Provider [phone] Reason for Referral * (Routine) - Closed Specialty Diagnoses / Procedures Referred By Contac t Referred To Contact Diagnoses Axillary pain, right Procedures US Extremity Non Vascular Rg Ordonez MD [address] [place] [address] Phone: tel: fax: Referral ID Status Reason Start Date Expiration Date Visits Re quested Visits Authorized [id number] Closed 10/23/2022 04/21/2023 1 1 Encounter Details Date Type Department Care Team (Late st Contact Info) Description 10/23/2022 Orders Only [facility] [address] [place] [address] [phone] Rg Ordonez MD [address] [place] [phone] Axillary pain, right (Primary Dx) Social History [...] PM EDT Narrative 10/26/2022 7:34 PM EDT [facility] [place] [address] Ultrasound Report Signed Patient: Marcus Vanessa MR#: [id number] : 1950 Acct:[id number] Age/Sex: 72 / M ADM Date: 10/23/22 Loc: HO.HMGCX Attending Dr: Rg Ordonez MD Ordering Physician: RG ORDONEZ MD Date of Service: 10/23/22 Procedure(s): US extremity nonvascular stephens Accession Number(s): [id number] cc: RG ORDONEZ MD ULTRASOUND RIGHT AXILLARY [...] Shan Paulino MD in OV> 10/26/221931 DD/ 38 TD/TT: Machine Packaging Technician: WILDA Procedure Note Donotuseinterpreter, Image - 11/29/2022 [facility] [place] [address] Ultrasound Report Signed Patient: Elizabeth Vanessa#: [id number] : 1950cct:[id number] Age/Sex: 72 / MADM Date: 10/23/22 Loc: HO.HMGCX Attending Dr: Rg Ordonez MD Ordering Physician: RG ORDONEZ MD Date of Service: 10/23/22 Procedure(s): US extremity nonvascular stephens Accession Number(s): [id number] cc: RG ORDONEZ MD ULTRASOUND RIGHT AXILLARY [...] Shan Paulino MD in OV> 10/26/221931 DD/ 38 TD/TT: Machine Packaging Technician: WILDA [facility] External Provider IMG US PROCEDURES Edited Result - Final documented in this encounter Visit Diagnoses Diagnosis Axillary pain, right- Primary documented in this encounter Care Teams Paper Baler Relationship Specialty Start Date End Date Gucci Gross MD [address] [place] [address] [place] [address] [address] PCP - General Internal Medicine 06/03/18 documented as of this encounter
[2024-11-25 11:27] LABS: INTERNATIONAL NORM RATIO 1.5 (0.9-1.1); Prothrombin Time 16.8 SEC (10.9-12.4)
== END 2024-11-25 09:45 | disposition home or self-care (01) ==
LOC: HO.HHCL 09:44
PROVIDERS: PCP Internal Medicine; Visit Provider Internal Medicine Cardiovascular Disease
DX: I25.10 Atherosclerotic heart disease of native coronary artery without angina pectoris (principal); I34.1 Nonrheumatic mitral (valve) prolapse
CPT/HCPCS: 36415; 85025; 85610

== ENCOUNTER 2025-01-14 08:43 | Emergency (ER) | payer OTHER, SELFPAY ==
--- NOTE | ~2025-01-14 | XR_ITS ---
EXAMINATION: XR RIBS, LEFT CLINICAL INFORMATION: pain COMPARISON: February 03, 2024. TECHNIQUE: AP chest. Oblique views left hemithorax. FINDINGS: Pulmonary reticular pattern. No gross consolidation, pleural effusion or pneumothorax. Cardiomediastinal silhouette size is prominent, unchanged. Calcified plaque aortic arch.. Multilevel thoracolumbar spondylosis. Vascular clips in the right upper quadrant abdomen and likely prior laparoscopic cholecystectomy. There is no acute cortical irregularity of disruption within the ribs of the left hemithorax. XR/XR ribs LT min 3V w CXR1V IMPRESSION: No acute rib fracture, left hemithorax. Chronic interstitial lung disease without acute airspace disease. Cardiomegaly, mild. Electronically signed by: Garett Cheng MD 01/14/2025 10:36 AM EDT
--- NOTE | ~2025-01-14 | XR_ITS ---
EXAMINATION: XR SHOULDER, LEFT CLINICAL INFORMATION: pain unable to lift COMPARISON: None available. TECHNIQUE: AP external rotation, Grashey, scapular Y, and axillary views of the left shoulder. FINDINGS: No acute cortical disruption or malalignment. No lytic or blastic lesions. No gross calcifications in the soft tissues. XR/XR shoulder LT min 2V IMPRESSION: No acute fracture or dislocation. Negative exam. Electronically signed by: Garett Cheng MD 01/14/2025 10:35 AM EDT
[2025-01-14 08:51] VITALS: BP 132/65; PULSE 70; RESP 18; TEMP 36.6; O2SAT 98; BMI 23.0
--- NOTE | 2025-01-14 08:54 | ECG_ITS ---
Test Reason : upper back pain Blood Pressure : */* mmHG Vent. Rate : 68 BPM Atrial Rate : * BPM P-R Int : * ms QRS Dur : 92 ms QT Int : 400 ms P-R-T Axes : * 5 14 degrees QTcB Int : 425 ms Atrial fibrillation Low voltage QRS Incomplete right bundle branch block Abnormal ECG When compared with ECG of 03-Feb-2024 11:37, No significant change was found Referred By: Generic ED Physician Electronically Signed By: Al Garcia
[2025-01-14] MEDS: Lidocaine 4 % Patch ADH..PATCH 1 PATCH TRANSDERMA ×2 (09:59→11:23)
--- NOTE | 2025-01-14 09:59 | ED.BACK ---
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 He woke up with pain no known trauma. He has no rash, fevers, chills, no chest pain/dyspnea. He notes it is too painful to move and he cannot raise his L shoulder. No numbness or weakness. No prior history of this. NO meds taken at home MD elicited complaint: back pain Onset (ago): week(s) (1) Timing: constant Severity: moderate Similar Symptoms Previously: No Quality: sharp Location: left upper back Radiation: other (L shoulder) Exacerbating factors: movement Relieving factors: immobilization Context: unknown Associated symptoms: denies other symptoms Related Data Home Medications ?Medication ?Instructions ?Recorded ?Confirmed brimonidine 0.2 % eye drops 1 drp ophthalmic (eye) ONCE 10/02/21 08/03/24 metoprolol succinate 25 mg 25 mg PO DAILY 10/02/21 08/03/24 tablet,extended release 24 hr timolol maleate 0.5 % eye drops 1 drp ophthalmic (eye) QAM 10/02/21 08/03/24 atorvastatin 80 mg tablet 80 mg PO BEDTIME 04/25/22 08/03/24 diclofenac sodium 1 % topical gel 2 g topical BID 04/25/22 08/03/24 finasteride 5 mg tablet 5 mg PO DAILY 04/25/22 08/03/24 isosorbide mononitrate 30 mg 30 mg PO DAILY 04/25/22 08/03/24 tablet,extended release 24 hr nitroglycerin 0.4 mg sublingual 0.4 mg sublingual angina 04/25/22 08/03/24 tablet tamsulosin 0.4 mg capsule 0.4 mg PO BEDTIME 04/25/22 08/03/24 acetaminophen 500 mg capsule 500 mg PO Q6H PRN 11/01/22 08/03/24 apixaban 5 mg tablet (Eliquis) 5 mg PO BID 09/19/23 08/03/24 ferrous gluconate 324 mg (37.5 mg 324 mg PO DAILY 01/23/24 08/03/24 iron) tablet capsaicin 0.025 % topical cream appl topical BID 03/19/24 08/03/24 cholecalciferol (vitamin D3) 25 25 mcg PO QAM 03/19/24 08/03/24 mcg (1,000 unit) tablet enalapril maleate 2.5 mg tablet 2.5 mg PO DAILY 03/19/24 08/03/24 Previous Rx's ?Medication ?Instructions ?Recorded cyclobenzaprine 10 mg tablet 10 mg PO TID PRN muscle spasm #10 12/11/22 tabs naproxen 500 mg tablet 500 mg PO BID PRN pain #20 tabs 12/11/22 furosemide 40 mg tablet 40 mg PO DAILY #30 tabs 02/03/24 pantoprazole 40 mg tablet,delayed 40 mg PO QPM #30 tabs 09/15/24 release simethicone 125 mg capsule (Gas 125 mg PO TID-QID abdominal 09/15/24 Relief (simethicone)) distention #120 caps sucralfate 1 gram tablet 2 g (2 x 1 gram) PO BEDTIME #60 09/15/24 tabs lidocaine 4 % topical patch 1 patch topical DAILY PRN pain #30 01/14/25 ea oxycodone 5 mg tablet 2.5 mg (1/2 x 5 mg) PO BID PRN 01/14/25 pain 3 days #6 tabs Allergies Allergy/AdvReac Type Severity Reaction Status Date / Time No Known Allergies (No Known Allergy Verified 01/14/25 08:53 Allergies*) Review of Systems Review of Systems: Constitutional : No Weight loss, No Fever, No Chills, ENT/Mouth : No Hearing loss, No Ear Pain, No Nasal Congestion, No Sinus Pain, No Hoarseness, No sore throat, No Rhinorrhea, No Swallowing Difficulty Cardiovascular : No Chest Pain, No SOB Respiratory : No Cough, No Dyspnea Gastrointestinal : No Nausea, No Vomiting, No Diarrhea, No abdominal Pain, No Hematochezia, No Melena Genitourinary : No Dysuria, No Urinary Frequency, No Hematuria, No Urinary Incontinence, Musculoskeletal : positive back pain Skin : No Skin Lesions, No rash Neuro : No Weakness, No Numbness, No Paresthesias, no loss of bowel or bladder incontinence, no saddle anesthesia Yes all other systems are reviewed and are negative [facility] Past Medical History Attestation statement: The following information was validated with the patient. Source: old records reviewed Medical History Abdominal bloating Pre-op examination Hyperthyroidism Upper abdominal pain Common bile duct calculi Surgical History H/O heart artery stent H/O angioplasty History of cholecystectomy History of esophagogastroduodenoscopy (EGD) Hx of colonoscopy Family History Family History Father No problems noted. Mother Cancer Social History Social History Are you a primary health care social worker to a significant other at home: No Do you presently have visiting nurse or other home services: No Alcohol intake: never Patient Tobacco Use Status: Never used Tobacco Smoked in Last 30 Days: No Second Hand Smoke Exposure: No Use of substances other than those prescribed or required for medical reasons: No Advance Directives: Yes Advance Directives Information Provided: Yes Advance Directives on File: No Physical Exam Vital Signs: Vital Signs: Last Vital Signs Temp 97.9 F 01/14/25 08:51 Pulse 63 01/14/25 10:31 Resp 16 01/14/25 10:31 BP 120/70 01/14/25 10:31 Pulse Ox 100 01/14/25 10:31 O2 Del Method Room Air 01/14/25 10:31 BMI result Body Mass Index 23.0 Appearance: Alert. Oriented X3. No acute distress. Eyes: Pupils equal, round and reactive to light. ENT: Pharynx normal. Neck: Normal inspection. Neck supple. CVS: Normal heart rate and rhythm. Pulses normal. Respiratory: No respiratory distress. Breath sounds normal. Abdomen: Soft and nontender. Back: ttp along L rhomboid area with reproduction of pain no rash no swelling Skin: Skin warm and dry. Normal skin color. Normal skin turgor. Extremities: No lower extremity edema. pain with ROM testing of L shoulder Neuro: Oriented X 3. No motor deficit. No sensory deficit. CN2-12 intact Medications Administered Discontinued Medications Generic Name Dose Route Start Last Admin Trade Name Marco PRN Reason Stop Dose Admin Acetaminophen 650 mg 01/14/25 09:46 01/14/25 09:59 Acetaminophen 325 Mg Tablet PO 01/14/25 09:47 650 mg ONCE ONE Administration Lidocaine 1 patch 01/14/25 09:46 01/14/25 09:59 Lidocaine 4 % Patch Adh..Patch TRANSDERMA 01/14/25 09:47 1 patch ONCE ONE Administration Protocol Medical Decision Making Medical Decision Making MDM Narrative: 74 yo male with PMH of afib on eliquis, hyperparathyroidism, HTN, GERD, CHF, s/p valve replacement 2 months ago at [facility] here with c/o non traumatic L posterior rib/thoracic pain reproduceable in nature no associated numbness, weakness, rash, chest pain or trouble breathing. Suspect MSK issue I am ordering xrays and his EKG is unchanged. I did try to get records about his recent valve but no response from medical records. Differential Diagnosis Differential Diagnoses: The differential diagnosis associated with the presentation includes strain, sprain, rotator cuff injury Admission/Observation Consideration of admission/observation: Escalation of care including admission/observation considered no acute findings, EKG and xrays stable would refer to PCP/ortho and tylenol and pain patches Independent Interpretation I performed an independent interpretation of an: EKG and Plain X-Ray (no acute cause) Interpretation: Rate: 68 Rhythm: afib [place]: left Normal QRS complex. ST T wave : normal no AKASH qTC: 425 prior studies: no acute ischemia The study has been interpreted contemporaneously by me. . Radiology Impression Discussion of test interpretation with radiology: I have reviewed the radiologist's reading. External Record Review External record reviewed: Inpatient record and Outpatient record Prescription Management I considered prescription management with: Pain Medication and Other Discharge Plan Discharge Clinical Impression: Acute pain of left shoulder, Injury of left rotator cuff Patient Disposition: Home, Self-Care Instructions: Arthralgia (ED) Additional Instructions: xrays and EKG reassuring continue taking your tylenol regularly use the pain patches as well return for worsening pain, numbness, weakness you need to see your primary care doctor for possible physical therapy or orthopedics referral. Prescriptions: New lidocaine 4 % adhesive patch,medicated 1 patch topical DAILY PRN (Reason: pain) Qty: 30 0RF oxycodone 5 mg tablet 2.5 mg PO BID PRN (Reason: pain) 3 Days Qty: 6 0RF Rx Instructions: Partial Fill upon patient request. No Action cyclobenzaprine 10 mg tablet 10 mg PO TID PRN (Reason: muscle spasm) Qty: 10 0RF naproxen 500 mg tablet 500 mg PO BID PRN (Reason: pain) Qty: 20 0RF furosemide 40 mg tablet 40 mg PO DAILY Qty: 30 0RF metoprolol succinate 25 mg tablet extended release 24 hr 25 mg PO DAILY timolol maleate 0.5 % drops 1 drp ophthalmic (eye) QAM brimonidine 0.2 % drops 1 drp ophthalmic (eye) ONCE nitroglycerin 0.4 mg tablet, sublingual 0.4 mg sublingual isosorbide mononitrate 30 mg tablet extended release 24 hr 30 mg PO DAILY atorvastatin 80 mg tablet 80 mg PO BEDTIME tamsulosin 0.4 mg capsule 0.4 mg PO BEDTIME finasteride 5 mg tablet 5 mg PO DAILY diclofenac sodium 1 % gel 2 g topical BID acetaminophen 500 mg capsule 500 mg PO Q6H PRN Eliquis 5 mg tablet 5 mg PO BID cholecalciferol (vitamin D3) 25 mcg (1,000 unit) tablet 25 mcg PO QAM capsaicin 0.025 % cream topical BID enalapril maleate 2.5 mg tablet 2.5 mg PO DAILY ferrous gluconate 324 mg (37.5 mg iron) tablet 324 mg PO DAILY pantoprazole 40 mg tablet,delayed release (DR/EC) 40 mg PO QPM Qty: 30 6RF simethicone [Gas Relief (simethicone)] 125 mg capsule 125 mg PO TID-QID Qty: 120 6RF sucralfate 1 gram tablet 2 g PO BEDTIME Qty: 60 5RF Print Language: Burkinan
--- OUTSIDE RECORDS SUMMARY | 2025-01-14 10:29 | XMS_ITS | Encounter Summary ---
Author Organization [facility] Address [address] [place] [address] Care Team Providers Care Director Emergency Name Role Phone Physician, Pcp Unknown Primary Care Provider Sonia vailable Encounter Details Date Type Department Care Team (Late st Contact Info) Description 10/09/2024 Lab Requisition [facility] - Main Lab [address] [place] [address] Leia Sky PA [address] [place] [address] Benign essential microscopic hematuria Social History Tobacco Use Types Packs/Day Years Used Date Smoking Tobacco: Never Assessed Sex and Gender Information Value Date Recorded Sex Assigned at Not on file Legal Sex Male 10:40 AM EDT Gender Identity Not on file Sexual Orientation Not on file documented as of this encounter Plan of Treatment Not on file documented as of this encounter Procedures Procedure Name Priority Date/Time Associated Diagnosis Comments AP OUTSIDE CONSULT Routine 10/05/2024 12 :00 AM EDT Benign essential microscopic hematuria documented in this encounter Results * Anatomic pathology outside consult (10/05/2024 12:00 AM EDT) Final Diagnosis A. Urine, Voided, [id number]: Negative for high grade urothelial carcinoma. Results of UroV[employer]ion fluorescence in situ hybridization (FISH) testing: CEP3: Normal CEP7: Normal CEP17: Normal LSI 9p21: Normal Interpretation: Normal profile Controls stained appropriately. Note: The results are intended as a screening device and should be interpreted in association with other clinical and pathological findings. 10/22/2024 1:40 PM EDT [facility] Clinical Information Benign essential microscopic hematuria R31.1 Urine Cytology/FISH (now) 10/22/2024 1:40 PM EDT [facility] Gross Description A. Urine, Voided, [id number]: Received one ThinPrep slide for cytology and one ThinPrep slide for [employer]Vysion FISH 10/22/2024 1:40 PM EDT [facility] Disclaimer Unless otherwise specified, all tissue is 10% NB formalin fixed and paraffin embedded. Technical pathology services provided by [facility] at [address] [facility], [place] [address] (CLIA #[id number]/Georgia Roth MD, Sales Solutions Associate) 10/22/2024 1:40 PM EDT [facility] Tissue Urine specimen from urethra / Unknown 10/05/2024 10/09/2024 10:44 AM EDT us Leia ARGUETA LAB PATHOLOGY ORDERABLES Final Result [facility] [address] [place] [address], documented in this encounter Visit Diagnoses Diagnosis Benign essential microscopic hematuria documented in this encounter Care Teams Director Emergency Relationship Specialty Start Date End Date Physician, Pcp Unknown PCP - General 10/09/24 documented as of this encounter
[2025-01-14 10:31] VITALS: BP 120/70; PULSE 63; RESP 16; O2SAT 100
[2025-01-14 11:21] VITALS: BP 141/87; PULSE 67; RESP 18; TEMP -17.7; TEMP 0; O2SAT 94
== END 2025-01-14 11:22 | disposition home or self-care (01) ==
PROVIDERS: Emergency Provider Emergency Medicine; PCP Internal Medicine
DX: S46.002A Unspecified injury of muscle(s) and tendon(s) of the rotator cuff of left shoulder, initial encounter (principal); X58.XXXA Exposure to other specified factors, initial encounter; Y93.9 Activity, unspecified; Y92.9 Unspecified place or not applicable; Y99.9 Unspecified external cause status; M25.512 Pain in left shoulder; K21.9 Gastro-esophageal reflux disease without esophagitis; E21.3 Hyperparathyroidism, unspecified; I50.9 Heart failure, unspecified; I11.0 Hypertensive heart disease with heart failure
CPT/HCPCS: 71101; 73030; 93005; 99283; 99285

== ENCOUNTER → 2025-01-14 08:54 | Outpatient (BNV) | payer OTHER, SELFPAY | PROVIDERS: Emergency Provider Emergency Medicine; PCP Internal Medicine; Visit Provider Internal Medicine Cardiovascular Disease | DX: I48.91 Unspecified atrial fibrillation (principal); I45.10 Unspecified right bundle-branch block | CPT/HCPCS: 93010 ==

== ENCOUNTER → 2025-01-14 09:46 | Outpatient (BNV) | payer OTHER, SELFPAY | PROVIDERS: Emergency Provider Emergency Medicine; PCP Internal Medicine; Visit Provider Radiology Diagnostic Radiology | DX: J84.9 Interstitial pulmonary disease, unspecified (principal); M25.512 Pain in left shoulder | CPT/HCPCS: 71101; 73030 ==

== ENCOUNTER 2025-02-02 09:37 | Outpatient (AMB) | payer OTHER, SELFPAY ==
--- NOTE | 2025-02-02 09:38 | A.OFFVIS_ITS ---
Vital Signs 02/02/25 09:39 Height 5 ft 3 in Weight 131 lb 2.801 oz BMI 23.2 BP 128/80 Blood Pressure Location Lt brachial Position Sitting Pulse 68 Pulse Source Pulse Oximeter Pulse Oximetry (%) 98 Oxygen Delivery Method Room Air Intake Visit Reasons: Iatrogenic hypothyroidism Intake Note: Patient present today for Iatrogenic hypothyroidism office visit. 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 Apprentice Services: Head Animal Keeper Present Head Animal Keeper Name: Deandra [phone] Information Interpreted: non-clinical & clinical Accompanied by: Self / Same As Patient Allergies No Known Allergies (No Known Allergies*) Allergy (Verified 02/02/25 09:43) Medication List - Last Reconciled 02/02/25 by Aaliyah Ding MD acetaminophen 500 mg PO Q6H PRN apixaban (Eliquis) 5 mg PO BID atorvastatin 80 mg PO BEDTIME brimonidine 0.2% 1 drp ophthalmic (eye) ONCE capsaicin 0.025% appl topical BID cholecalciferol (vitamin D3) 25 mcg PO QAM cyclobenzaprine 10 mg PO TID PRN diclofenac sodium 1% 2 grams topical BID enalapril maleate 2.5 mg PO DAILY ferrous gluconate 324 mg PO DAILY finasteride 5 mg PO DAILY furosemide 40 mg PO DAILY isosorbide mononitrate ER 30 mg PO DAILY lidocaine 4% 1 patch topical DAILY PRN metoprolol succinate ER 25 mg PO DAILY naproxen 500 mg PO BID PRN nitroglycerin 0.4 mg sublingual oxycodone 2.5 mg (1/2 x 5 mg) PO BID PRN 3 days pantoprazole 40 mg PO QPM simethicone (Gas Relief (simethicone)) 125 mg PO TID-QID sucralfate 2 grams (2 x 1 gram) PO BEDTIME tamsulosin 0.4 mg PO BEDTIME timolol maleate 0.5% 1 drp ophthalmic (eye) QAM HPI Comments Details: 74-year-old male coming in today for follow up of elevated TSH level. PRior HPI Blood work from 12/26/2023 showed elevated TSH of 19.71, free T4 low at 0.49 ng/dL. Blood work from 01/07/2024 also showed elevated TSH of 20.4 UU per mL, with low free T4 of 0.51 ng/dL. He is on methimazole 5 mg TID , says he has been on it for many years. Diagnosed with hyperthyroidism many years ago per patient. Methimazole prescribed by PCP. Denies any neck surgeries or MOSS Denies any thyroid eye disease. He remembers having a swollen neck at 1 point when he stopped taking this medicine. Otherwise denies any history of goiter. He did develop leg edema, was started furosemide. Had an AR early in 2023, underwent PCI Prior history of CAD as well No stroke 01/22, we stopped methimazole. Repeat blood work 02/03/24 showed normalization of TSH at 2.7 and free t4 of 0.9 Repeat TSH done 03/02/2024 1.61 Interval history 02/02/25 08/04/2024: TSH 0.84, free T4 1.23, both normal No tremors , no palpitations Weight stable No diarrhea No heat intolerance He forgot to do the blood work he was supposed to do before this appointment Reports he is having surgery for valvular dysfunction at [facility] on Saturday02.08.25. Patient denies any difficulty swallowing, pain on swallowing or voice changes or difficulty breathing. Patient denies any history of childhood neck radiation. Denies having ever used lithium, amiodarone or biotin supplements. Patient denies any family history of thyroid cancer. Sister had thyroid disease , possible orbitopathy. Physical exam General: sitting comfortably in bed in no acute distress HEENT: normocephalic/atraumatic, moist oral mucosa Neck: Prominent thyroid but no nodules palpable , no dorsocervical or supraclavicular fat pads Cardiac: normal heart sounds Pulm: normal breath sounds B/L, no added breath sounds Abd: not distended, no tenderness Extremities: no edema, no signs of myxedema Neuro: AAO x3, Speech: normal, no facial droop, moving all 4 extremities Skin: no rash Laboratory Tests 04/22/23 08/14/23 12/26/23 08:05 08:32 09:24 TSH 8.10 H 6.85 H 19.71 H Free T4 0.85 0.87 0.49 L Thyroid Peroxidase Ab 01/07/24 01/23/24 02/03/24 08:57 10:48 12:04 TSH 20.40 H 18.30 H 2.70 Free T4 0.51 L 0.46 L 0.90 Thyroid Peroxidase Ab H 03/02/24 08/04/24 08:38 08:57 TSH 1.61 0.84 Free T4 1.23 Thyroid Peroxidase Ab PFSH Medical History Abdominal bloating Pre-op examination Hyperthyroidism Upper abdominal pain Common bile duct calculi Surgical History H/O heart artery stent H/O angioplasty History of cholecystectomy History of esophagogastroduodenoscopy (EGD) Hx of colonoscopy Family History Father No problems noted. Mother Cancer Social History Are you a primary caretaker resort to a significant other at home: No Do you presently have visiting nurse or other home services: No Alcohol intake: never Patient Tobacco Use Status: Never used Tobacco Second Hand Smoke Exposure: No Assessment & Plan Assessment & Plan (1) Iatrogenic hypothyroidism: Code(s): E03.2 - Hypothyroidism due to medicaments and other exogenous substances Category: Medical Plan: Patient with history of hyperthyroidism, who was on methimazole 5 mg 3 times daily for amny years up until he saw me 01/23/24 when labs had revealed elevated TSH of 20.4, with low free T4 of 0.5. Unclear whether he has history of Graves disease or toxic nodules. He has positive TPO antibody , normal TSI levels as we would expect even if he had Graves disease now in remission He had developed iatrogenic hypothyroidism caused by exogenous intake of methimazole. Stopped it 01/23/24 with resolution of hypothyroidism. Most recent labs from August 2024 show normal thyroid function. Currently denies any symptoms of hypothyroidism or hyperthyroidism. He forgot to do again blood work prior to this appointment. However clinically appears euthyroid. At this point I told him he is in remission of Graves disease if he had it, and does not need methimazole anymore. I told him to do his blood work. If results are normal, he can be be discharged back to his primary care physician who can check his thyroid function once a year. Plan: -stay off methimazole -repeat TSH and free T4now -if blood work is okay , we will be discharged to primary care physician who can check thyroid function once a year Plan See above Coding Level of Care Code Est Pt Level 3 (76153) Diagnoses Iatrogenic hypothyroidism E03.2
[2025-02-02 09:39] VITALS: BP 128/80; PULSE 68; O2SAT 98; BMI 23.2
--- OUTSIDE RECORDS SUMMARY | 2025-02-02 10:41 | XMS_ITS | Encounter Summary ---
Author Organization [facility] Address [address] [place] [address] Care Team Providers Care Account Management Assistant Name Role Phone Physician, Pcp Unknown Primary Care Provider Sonia vailable Encounter Details Date Type Department Care Team (Late st Contact Info) Description 10/09/2024 Lab Requisition [facility] - Main Lab [address] [facility] [place] [address] Leia Sky PA [address] [place] [address] Benign essential microscopic hematuria Social History Tobacco [...] AM EDT) Final Diagnosis A. Urine, Voided, [id number]: Negative for high grade urothelial carcinoma. Results of UroVysion fluorescence in situ hybridization (FISH) testing: CEP3: Normal CEP7: Normal CEP17: Normal LSI 9p21: Normal Interpretation: Normal profile Controls stained appropriately. Note: The results are intended as a screening device and should be interpreted in association with other clinical and pathological findings. 10/22/2024 1:40 PM EDT [facility] Clinical Information Benign essential microscopic hematuria R31.1 Urine Cytology/FISH (now) 10/22/2024 1:40 PM EDT [facility] Gross Description A. Urine, Voided, [id number]: Received one ThinPrep slide for cytology and one ThinPrep slide for UroVysion FISH 10/22/2024 1:40 PM EDT [facility] Disclaimer Unless otherwise specified, all tissue is 10% NB formalin fixed and paraffin embedded. Technical pathology services provided by [facility] at [address], [place] [address] (CLIA #[id number]/Georgia Roth MD, Support Representative) 10/22/2024 1:40 PM EDT [facility] Tissue Urine specimen from urethra / Unknown 10/05/2024 10/09/2024 10:44 AM EDT us Leia ARGUETA LAB PATHOLOGY ORDERABLES Final Result [facility] [address] [place] [address], documented in this encounter Visit Diagnoses Diagnosis Benign essential microscopic hematuria documented in this encounter Care Teams Account Management Assistant Relationship Specialty Start Date End Date Physician, Pcp Unknown PCP - General 10/09/24 documented as of this encounter
--- OUTSIDE RECORDS SUMMARY | 2025-02-02 10:41 | XMS_ITS | Encounter Summary ---
Author Organization [employer] Address [address] [place] [address] [address] [place] [address] Care Team Providers Care Mobile Ui/Ux Designer Name Role Phone Gucci Gross MD Primary Care Provider [phone] Reason for Visit * Reason Comments Med Refill Encounter Details Date Type Department Care Team ([facility] st Contact Info) Description 04/21/2024 Refill [facility] [address] [place], [place] [phone] Tanya Queen MD [address] [place] [address] Social History Tobacco Use Types Packs/Day Years [...] documented as of this encounter Care Teams Mobile Ui/Ux Designer Relationship Specialty Start Date End Date Gucci Gross MD [address] [place] [phone] PCP - General Internal Medicine 06/03/18 documented as of this encounter
--- OUTSIDE RECORDS SUMMARY | 2025-02-02 10:41 | XMS_ITS | Clinical Summary ---
Author Organization [employer] Address [address] [place] [address] [address] [place] [address] Care Team Providers Care Snack Stewardess Name Role Phone Gucci Gross MD Primary Care Provider [phone] Allergies No known active allergies Medications acetaminophen (Tylenol) 500 MG tablet Take 2 tablets (1,000 mg) by mouth every 6 (six) hours if needed for moderate pain or fever for up to 25 doses. 50 tablet 3 Active nitroglycerin (Nitrostat) 0.4 MG SL tablet [...] mouth at bed time. 2 Active PEG 4532-LHk-YySfj-NaC l-NaSulf (PEG-3350/Electrol ytes) 236 g reconstituted solution DRINK EIGHT OUNCE GLASS EVERY 10 MINUTES FOR ONE DAY UNTIL BOWEL MOVEMENT CLEAR 3 Active sucralfate (Carafate) 1 g tablet Take 2 tablets by mouth at bed time. Active GAS RELIEF 125 MG capsule TAKE ONE CAPSULE THREE OR FOUR TIMES DAILY Active tamsulosin (Flomax) 0.4 MG 24 hr capsule TAKE ONE CAPSULE EVERY NIGHT AT BEDTIME Active atorvastatin (Lipitor) 80 MG tablet TAKE ONE TABLET EVERY NIGHT AT BEDTIME 90 tablet 3 4 Active cholecalciferol (Vitamin D-3) 25 MCG tablet TAKE ONE TABLET EVERY MORNING 30 tablet 11 4 Active metoprolol succinate XL (Toprol-XL) 25 MG 24 hr tabletIndications: Essential hypertension TAKE ONE TABLET EVERY MORNING 90 tablet 1 5 Active enalapril (Vasotec) 2.5 MG tablet TAKE ONE TABLET EVERY MORNING 90 tablet 3 5 Active furosemide (Lasix) 40 MG tabletIndications: Acute on chronic congestive heart failure, unspecified heart failure type (CMS/HCC) TAKE ONE TABLET EVERY DAY 20 tablet 5 Active capsaicin (Zostrix) 0.025 % creamIndications:C hronic pain of right knee Apply topically 2 times daily. 56.6 g 2 5 10/28/19 26 Active Diclofenac Sodium 1 % gelIndications:Mus agusto cramps APPLY TOPICALLY TO AFFECTED AREA(s) TWO GRAMS, USE FOUR TIMES DAILY DIRECTED 100 g 1 5 Active ferrous gluconate (Fergon) 324 (37.5 Fe) MG tablet TAKE ONE TABLET TABLET EVERY MORNING WITH BREAKFAST 90 tablet 1 5 Active Active Problems Problem Noted Date Diagnosed Date [...] Encounters Date Type Department Care Team Description 01/14/2025 Orders Only [facility] External Provider, [facility] 12/17/2024 Refill [facility] [address] [place] [address] Gucci Gross MD 12/01/2024 Refill [facility] [address] [place] [address] Gucci Gross MD Muscle cramps from Last 3 Months Immunizations Immunization Administration Dates Next Due Influenza High-dose Quadriva lent Preservative Free 03/20/2023,02/23/2022,03/23/2021 Influenza, High Dose Seasona l, Preservative Free 02/18/2024,04/01/2019,04/16/2018,01/28 Influenza, IIV3, injectable 04/12/2014, 3 Influenza, Split (incl. awn fied surface antigen) 06/20/2012 Influenza, seasonal, injecta [...] 90 04/02/2024 11:15 AM EDT Temperature 35.7 C (96.2 F) 04/02/2024 11:15 AM EDT Respiratory Rate 12 04/02/2024 11:15 AM EDT [...] history exists Depression Screening 04/17/2024 04/17/2023, 04/17/20 Influenza Vaccine (#1) 2025 , 03/20/2023, 02/23/2022, Additional history exists Tobacco Screening 02/09/2025 02/10/2024 SDOH Screening 03/26/2025 03/26/2024 DTaP/Tdap/Td Vaccines (2 - Td or Tdap) 05/18/2025 05/18/2015 Lipid Panel 12/25/2028 12/26/2023, 04/04, 10/09/2021 Colonoscopy 01/28/2034 01/29/2024, 05/08/2018 Colorectal Cancer Screening 01/28/2034 Zoster Vaccines Completed 01/23/2021, 09/02, 01/14/2015 Hepatitis C Screening Completed 10/09/2021 Pneumococcal Vaccine: 50+ Years Completed 10/09/2021, 01/29/2019, 08/09/2015 HIB Vaccines Aged Out No longer eligi [...] patient's age to complete this topic Meningococcal B Vaccine Aged Out No l onger eligible based on patient's age to complete [...] Procedure Name Priority Date/Time Associated Diagnosis Comments XR SHOULDER 2+ VIEWS LEFT Routine 01/14/2025 9:29 AM EDT XR RIBS 3 VIEWS LEFT W CHEST Routine 01/14/2025 9:22 AM EDT COLONOSCOPY Routine 01/29/2024 LIPID PANEL, STANDARD Routine 12/26/2023 9:24 AM EDT Acute on chronic congestive heart failure, unspecified heart failure type (CMS/HCC) ZZZ HISTORICAL HEPATITIS C AB W/REFL TO HCV RNA, QN, PCR Routine 10/09/2021 9:27 AM EDT from Last 3 Months or Most Recently Relevant to Health Maintenance Results * XR Shoulder 2+ Views Left (01/14/2025 9:29 AM EDT) Anatomical Region Laterality Modality Upper Extremities, Shoulder Left Radi ographic Imaging 01/14/2025 9:29 AM EDT Narrative 01/14/2025 10:38 AM EDT [address] [address] XRay Report Signed Patient: Marcus Vanessa MR#: M [id number] : 1950 Acct:[id number] Age/Sex: 74 / M ADM Date: 01/14/25 Loc: .ED Attending Dr: Ordering Physician: Shannon Barr DO Date of Service: 01/14/25 Procedure(s): XR shoulder LT min 2V Accession Number(s): [id number] cc: Gucci Gross MD; [place],Shannon DO EXAMINATION: XR SHOULDER, LEFT CLINICAL INFORMATION: pain unable to lift COMPARISON: None available. TECHNIQUE: AP external rotation, Grashey, scapular Y, and axillary views of the left shoulder. FINDINGS: No acute cortical disruption or malalignment. No lytic or blastic lesions. No gross calcifications in the soft tissues. XR/XR shoulder LT min 2V IMPRESSION: No acute fracture or dislocation. Negative exam. Electronically signed by: Garett Cheng MD 01/14/2025 10:35 AM EDT RP Dictated By: Garett Jordan MD Signed By: <Electronically signed by Garett Noyola MD in OV> 01/14/25 1035 DD/ 8 TD/TT: 01/14/25 1025 Nursery Manager: Procedure Note Donotuseinterpreter, Image - 01/14/2025 [place] [address] XRay Report Signed Patient: Elizabeth Vanessa#: M [id number] : 1950cct:[id number] Age/Sex: 74 / MADM Date: 01/14/25 Loc: HO.ED Attending Dr: Ordering Physician: Shannon Barr DO Date of Service: 01/14/25 Procedure(s): XR shoulder LT min 2V Accession Number(s): [id number] cc: Gucci Gross MD; Shannon Barr DO EXAMINATION: XR SHOULDER, LEFT CLINICAL INFORMATION: pain unable to lift COMPARISON: None available. TECHNIQUE: AP external rotation, Grashey, scapular Y, and axillary views of the left shoulder. FINDINGS: No acute cortical disruption or malalignment. No lytic or blastic lesions. No gross calcifications in the soft tissues. XR/XR shoulder LT min 2V IMPRESSION: No acute fracture or dislocation. Negative exam. Electronically signed by: Garett Cheng MD 01/14/2025 10:35 AM EDT RP Dictated By: Garett Jordan MD Signed By: <Electronically signed by Garett Noyola MDin OV> 01/14/25 1035 DD/ 09 TD/TT: 01/14/25 1025 Nursery Manager: [facility] External Provider IMG XR PROCEDURES Final Result * XR Ribs 3 Views Left w/ Chest (01/14/2025 9:22 AM EDT) Anatomical Region Laterality Modality Radiographic Kaylin ging 01/14/2025 9:22 AM EDT Narrative 01/14/2025 10:39 AM EDT [address] [address] XRay Report Signed Patient: Marcus Vanessa MR#: M [id number] : 1950 Acct:[id number] Age/Sex: 74 / M ADM Date: 01/14/25 Loc: HO.ED Attending Dr: Ordering Physician: Shannon Barr DO Date of Service: 01/14/25 Procedure(s): XR ribs LT min 3V w CXR1V Accession Number(s): [id number] cc: Gucci Gross MD; Shannon Barr DO EXAMINATION: XR RIBS, LEFT CLINICAL INFORMATION: pain COMPARISON: February 03, 2024. TECHNIQUE: AP chest. Oblique views left hemithorax. FINDINGS: Pulmonary reticular pattern. No gross consolidation, pleural effusion or pneumothorax. Cardiomediastinal silhouette size is prominent, unchanged. Calcified plaque aortic arch.. Multilevel thoracolumbar spondylosis. Vascular clips in the right upper quadrant abdomen and likely prior laparoscopic cholecystectomy. There is no acute cortical irregularity of disruption within the ribs of the left hemithorax. XR/XR ribs LT min 3V w CXR1V IMPRESSION: No acute rib fracture, left hemithorax. Chronic interstitial lung disease without acute airspace disease. Cardiomegaly, mild. Electronically signed by: Garett Cheng MD 01/14/2025 10:36 AM EDT RP Dictated By: Garett Jordan MD Signed By: <Electronically signed by Garett Noyola MD in OV> 01/14/25 1036 DD/ 1 TD/TT: 01/14/25 102 Nursery Manager: Procedure Note Anater, Image - 01/14/[address] [address] XRay Report Signed Patient: Elizabeth Vanessa#: M [id number] : 1950cct:[id number] Age/Sex: 74 / MADM Date: 01/14/25 Loc: HO.ED Attending Dr: Ordering Physician: Shannon Barr DO Date of Service: 01/14/25 Procedure(s): XR ribs LT min 3V w CXR1V Accession Number(s): [id number] cc: Gucci Gross MD; Shannon Barr DO EXAMINATION: XR RIBS, LEFT CLINICAL INFORMATION: pain COMPARISON: February 03, 2024. TECHNIQUE: AP chest. Oblique views left hemithorax. FINDINGS: Pulmonary reticular pattern. No gross consolidation, pleural effusion or pneumothorax. Cardiomediastinal silhouette size is prominent, unchanged. Calcified plaque aortic arch.. Multilevel thoracolumbar spondylosis. Vascular clips in the right upper quadrant abdomen and likely prior laparoscopic cholecystectomy. There is no acute cortical irregularity of disruption within the ribs of the left hemithorax. XR/XR ribs LT min 3V w CXR1V IMPRESSION: No acute rib fracture, left hemithorax. Chronic interstitial lung disease without acute airspace disease. Cardiomegaly, mild. Electronically signed by: Garett Cheng MD 01/14/2025 10:36 AM EDT Dictated By: Garett Jordan MD Signed By: <Electronically signed by Garett Noyola MDin OV> 01/14/25 1036 DD/ 1 TD/TT: 01/14/25 102 Nursery Manager: [facility] External Provider IMG XR PROCEDURES Final Result * (ABNORMAL) Colonoscopy (01/29/2024) Anatomical Region Laterality Modality Endoscopy Narrative 01/29/[address] Keri Covarrubias on 01/29/24 at [facility]: Diverticulosis, Internal hemorrhoids. Repeat colonoscopy recommended in 10 years if health allows. Historical Provider ENDOSCOPY PROCEDURE ORDER CHANG Edited Result - Final * Lipid Panel, Standard (12/26/2023 9:24 AM EDT) Triglycerides 46 <150 mg/dL [facility] Comment:Desirable Triglyceri de: less than 150 mg/dLBorderline High Triglyceride 150-199 mg/dLHigh Triglyceride: 200-499 mg/dLVery High Triglyceride: greater than or equal to 5OO mg/dL Cholesterol 108 <200 mg/dL [facility] Comment:Desirable Cholestero l: less than 200 mg/dLBorderline High Cholesterol: 200-239 mg/dLHigh Cholesterol: greater than 239 mg/dL LDL Cholesterol Calculated 44 <100 mg/dL [facility] Comment:Desirable LDL: less than 100 mg/dLNear Optimal/Above Optimal LDL: 110- 129 mg/dLBorderline High LDL: 130-159 mg/dLHigh LDL: 160-189 mg/dLVery High LDL: greater than or equal to 190 mg/dL HDL Cholesterol 55 >40 mg/dL [facility] Comment:Desirable HDL: great er than 40 mg/dL Note: This HDL assay may give artificially low results in patients with liver disease. Blood Venous blood specimen / Unknown 12/26/2023 9:24 AM EDT 12/26/2023 9:26 AM EDT us Tanya Queen MD LAB BLOOD ORDERABLES Final Re sult [facility] [address] [place] [address] [phone] * HEPATITIS C AB W/REFL TO HCV RNA, QN, PCR (10/09/2021 9:27 AM EDT) HEPATITIS C ANTIBODY NON-REACT CHARU NON-REACT CHARU [facility] INDEX 0.01 <1.00 [facility] Comment: HCV antibody was non-reactive. There is no laboratory evidence of HCV infection. In most cases, no further action is required. However, if recent HCV exposure is suspected, a test for HCV RNA (test code 05860) is suggested. For additional information please refer to [email or web address].EBIQUOUS/faq/TUJ41j8 (This link is being provided for informational/ educational purposes only.) 10/09/2021 9:27 AM EDT us Gucci Gross MD HISTORICAL/NON ORDERABLE GUZMAN DU Final Result [facility] [address] from Last 3 Months or Most Recently Relevant to Health Maintenance Insurance [facility] DETENTION OPTIONS (O D-SNP) [place] CARTER [id number] Care Teams Snack Stewardess Relationship Specialty Start Date End Date Gucci Gross MD [address] [place] [phone] PCP - General Internal Medicine 06/03/18
--- OUTSIDE RECORDS SUMMARY | 2025-02-02 10:41 | XMS_ITS | Encounter Summary ---
Author Organization [employer] Address [address] [place] [address] 7 [place] [address] Care Team Providers Care Occupational Therapist Assistant Name Role Phone Gucci Gross MD Primary Care Provider [phone] Reason for Referral * (Routine) - Closed Specialty Diagnoses / Procedures Referred By Contac t Referred To Contact Diagnoses Axillary pain, right Procedures US Extremity Non Vascular Rg Ordonez MD [address] [place] [address] Phone: tel: fax: Referral ID Status Reason Start Date Expiration Date Visits Re quested Visits Authorized [id number] Closed 10/23/2022 04/21/2023 1 1 Encounter Details Date Type Department Care Team (Late st Contact Info) Description 10/23/2022 Orders Only [facility] [address] [place] [address] [phone] Rg Ordonez MD [address] [place] [address] [phone] Axillary pain, right (Primary Dx) Social History [...] PM EDT Narrative 10/26/2022 7:34 PM EDT [facility] [place] [address] Ultrasound Report Signed Patient: Marcus Vanessa MR#: [id number] : 1950 Acct:[id number] Age/Sex: 72 / M ADM Date: 10/23/22 Loc: HO.HMGCX Attending Dr: Rg Ordonez MD Ordering Physician: RG ORDONEZ MD Date of Service: 10/23/22 Procedure(s): US extremity nonvascular stephens Accession Number(s): [id number] cc: RG ORDONEZ MD ULTRASOUND RIGHT AXILLARY [...] MD in OV> 10/26/221931 DD/ 38 TD/TT: Hand Alterations Seamstress: WILDA Procedure Note Donotuseinterpreter, Image - 11/29/2022 [facility] [place] [address] Ultrasound Report Signed Patient: Elizabeth Vanessa#: [id number] : 1950cct:[id number] Age/Sex: 72 / MADM Date: 10/23/22 Loc: HO.HMGCX Attending Dr: Rg Ordonez MD Ordering Physician: RG ORDONEZ MD Date of Service: 10/23/22 Procedure(s): US extremity nonvascular stephens Accession Number(s): [id number] cc: RG ORDONEZ MD ULTRASOUND RIGHT AXILLARY [...] MD in OV> 10/26/221931 DD/ 38 TD/TT: Hand Alterations Seamstress: WILDA [facility] External Provider IMG US PROCEDURES Edited Result - Final documented in this encounter Visit Diagnoses Diagnosis Axillary pain, right- Primary documented in this encounter Care Teams Occupational Therapist Assistant Relationship Specialty Start Date End Date Gucci Gross MD [address] [place] [address] [place] [address] PCP - General Internal Medicine 06/03/18 documented as of this encounter
--- OUTSIDE RECORDS SUMMARY | 2025-02-02 10:41 | XMS_ITS | Encounter Summary ---
Author Organization [employer] Address [address] [place] [address] 7t [place] [address] Care Team Providers Care Assistant Project Manager Name Role Phone Gucci Gross MD Primary Care Provider [phone] Reason for Visit * Reason Comments Med Refill Encounter Details Date Type Department Care Team ([facility] st Contact Info) Description 05/21/[address] [facility] MED & PEDS [address] [place], [place] [phone] Tanya Queen MD 505 [place] [address] Social History Tobacco Use Types Packs/Day Years [...] documented as of this encounter Care Teams Assistant Project Manager Relationship Specialty Start Date End Date Gucci Gross MD [address] [place] [address] PCP - General Internal Medicine 06/03/18 documented as of this encounter
--- OUTSIDE RECORDS SUMMARY | 2025-02-02 10:41 | XMS_ITS | Encounter Summary ---
Author Organization [employer] Address [address] [place] [address] 7t [place] [address] Care Team Providers Care Ordnance Mechanic Name Role Phone Gucci Gross MD Primary Care Provider [phone] Encounter Details Date Type Department Care Team (Late st Contact Info) Description 01/27/2024 Orders Only [facility] CHC MED & PEDS [address] [place], [place] [phone] Gucci Gross MD 505 [place] [address] Social History Tobacco Use Types Packs/Day Years [...] documented as of this encounter Care Teams Ordnance Mechanic Relationship Specialty Start Date End Date Gucci Gross MD [address] [place] [address] PCP - General Internal Medicine 06/03/18 documented as of this encounter
--- OUTSIDE RECORDS SUMMARY | 2025-02-02 10:41 | XMS_ITS | Encounter Summary ---
Author Organization [employer] Address [address] [facility] 7t [place] [address] Care Team Providers Care Media Relations Intern Name Role Phone Gucci Gross MD Primary Care Provider [phone] Encounter Details Date Type Department Care Team (Late st Contact Info) Description 11/26/2022 Orders Only [facility] MEDICINE [address] [place] [address] Viridiana Gloria LPN Social History Tobacco Use [...] on filedocumented in this encounter Care Teams Media Relations Intern Relationship Specialty Start Date End Date Gucci Gross MD 505 [place] [address] PCP - General Internal Medicine 06/03/18 documented as of this encounter
--- OUTSIDE RECORDS SUMMARY | 2025-02-02 10:41 | XMS_ITS | Encounter Summary ---
Author Organization [employer] Address [address] [facility] 7t [place] [address] Care Team Providers Care Abseiling Instructor Name Role Phone Gucci Gross MD Primary Care Provider [phone] Encounter Details Date Type Department Care Team (Late st Contact Info) Description 10/27/2024 Orders Only [facility] CHC MED & PEDS [address] [place], [place] [phone] Gucci Gross MD 505 [place], [place] [phone] Chronic pain of right knee (Primary Dx); Muscle cramps Social History Tobacco Use Types [...] as of this encounter Visit Diagnoses Diagnosis Chronic pain of right knee- Primary Muscle cramps documented in this encounter Additional Health Concerns Assessment Noted Time PHQ-9 Depression Total Score: 0 04/17/20 23 11:02 AM EST documented as of this encounter Care Teams Abseiling Instructor Relationship Specialty Start Date End Date Gucci Gross MD [address] [place] [address] PCP - General Internal Medicine 06/03/18 documented as of this encounter
--- OUTSIDE RECORDS SUMMARY | 2025-02-02 10:41 | XMS_ITS | Encounter Summary ---
Author Organization [employer] Address [address] [place] [address] 7 [place] [address] Care Team Providers Care Change Of Address Clerk Name Role Phone Gucci Gross MD Primary Care Provider [phone] Reason for Referral * Consultation (Routine) - Closed Specialty Diagnoses / Procedures Referred By Contac t Referred To Contact Endocrinology Diagnoses Elevated TSH Gucci Gross MD [address] [place] [address] Phone: tel: fax: [facility] Endocrinology [address] [place], [place] Phone: tel: fax: Referral ID Status Reason Start Date Expiration Date V isits Requested Visits Authorized [id number] Closed Specialty Services Required 01/17/2024 01/16/2025 1 1 Encounter Details Date Type Department Care Team (Late st Contact Info) Description 01/08/2024 Orders Only [facility] CHC MED & PEDS [address] [place], [place] [phone] Gucci Gross MD [address] [place], [place] [phone] Elevated TSH (Primary Dx) Social History Tobacco [...] documented as of this encounter Care Teams Change Of Address Clerk Relationship Specialty Start Date End Date Gucci Gross MD [address] [place] [address] PCP - General Internal Medicine 06/03/18 documented as of this encounter
--- OUTSIDE RECORDS SUMMARY | 2025-02-02 10:41 | XMS_ITS | Encounter Summary ---
Author Organization [employer] Address [address] [facility] 7t [place] [address] Care Team Providers Care Exotic Dancer Name Role Phone Gucci Gross MD Primary Care Provider [phone] Reason for Visit * Reason Comments Med Refill Encounter Details Date Type Department Care Team ([facility] st Contact Info) Description 05/10/[address] [facility] CHC MED & PEDS [address] [place], [place] [phone] Gucci Gross MD 505 [place] [address] Muscle cramps Social History Tobacco Use Types [...] documented as of this encounter Care Teams Exotic Dancer Relationship Specialty Start Date End Date Gucci Gross MD [address] [place] [address] PCP - General Internal Medicine 06/03/18 documented as of this encounter
--- OUTSIDE RECORDS SUMMARY | 2025-02-02 10:41 | XMS_ITS | Encounter Summary ---
Author Organization [employer] Address [address] [place] [address] 7t [place] [address] Care Team Providers Care Chiseler Head Name Role Phone Gucci Gross MD Primary Care Provider [phone]- [phone] Encounter Details Date Type Department Care Team (Late st Contact Info) Description 09/27/2022 Orders Only [facility] CHC MED & PEDS [address] [place], [place] [phone] Ilda Drummond LPN Social History Tobacco Use [...] on filedocumented in this encounter Care Teams Chiseler Head Relationship Specialty Start Date End Date Gucci Gross MD [address] [place] [address] PCP - General Internal Medicine 06/03/18 documented as of this encounter
--- OUTSIDE RECORDS SUMMARY | 2025-02-02 10:42 | XMS_ITS | Encounter Summary ---
Author Organization [employer] Address [address] [facility] 7t [place] [address] Care Team Providers Care Tire Balancer Name Role Phone Gucci Gross MD Primary Care Provider [phone] Encounter Details Date Type Department Care Team (Late st Contact Info) Description 04/04/2023 Abstract [facility] MEDICINE [address] [place] [address] Gucci Gross MD 505 [place], [place] [phone] Social History Tobacco Use Types Packs/Day Years [...] on filedocumented in this encounter Care Teams Tire Balancer Relationship Specialty Start Date End Date Gucci Gross MD [address] [place] [address] PCP - General Internal Medicine 06/03/18 documented as of this encounter
--- OUTSIDE RECORDS SUMMARY | 2025-02-02 10:42 | XMS_ITS | Encounter Summary ---
Author Organization [employer] Address [address] [facility] 7t [place] [address] Care Team Providers Care Hydrogen Treater Name Role Phone Gucci Gross MD Primary Care Provider [phone] Encounter Details Date Type Department Care Team (Late st Contact Info) Description 10/14/2023 Orders Only [facility] [address] [place] [address] ProviderAri MD Social History Tobacco Use Types [...] t he electric, gas, oil or water [email or web address] threatened to shut off services in your [...] documented as of this encounter Care Teams Hydrogen Treater Relationship Specialty Start Date End Date Gucci Gross MD [address] [place] [address] PCP - General Internal Medicine 06/03/18 documented as of this encounter
--- OUTSIDE RECORDS SUMMARY | 2025-02-02 10:42 | XMS_ITS | Encounter Summary ---
Author Organization [employer] Address [address] [facility] 7t [place] [address] Care Team Providers Care Tanker Service Attendant Name Role Phone Gucci Gross MD Primary Care Provider [phone] Reason for Visit * Reason Onset Date Comments Nurse Triage 12/25/2023 Encounter Details Date Type Department Care Team ([facility] st Contact Info) Description 12/25/[address] [facility] MEDICINE [address] [place] [address] Gucci Gross MD [address] [place] [address] Nurse Triage Social History Tobacco Use Types [...] 12/25/2023 12:29 PM EDT Triage call with [employer] [place] [id number] Pt reports a medication reaction symptoms are cough especially at night which causes back pain which radiates to chest, bilateral lower extremity edema. Pt believes this is caused by eliquis. Pt has been taking eliquis for > 3months but, reports , I take alot of pills maybe there is aspirin in them . Pt denies difficulty breathing, fever, cold sx. ASK apt in [facility] today @ 240pm. Pt agrees with [...] acuity questions The caller accepted this outcome Upper Sorbian speaker documented in this encounter Plan of Treatment Not on file documented as of this encounter Visit Diagnoses Not on filedocumented in this encounter Additional Health Concerns Assessment Noted Time PHQ-9 Depression Total Score: 0 04/17/20 23 11:02 AM EST documented as of this encounter Care Teams Tanker Service Attendant Relationship Specialty Start Date End Date Gucci Gross MD [address] [place] [address] PCP - General Internal Medicine 06/03/18 documented as of this encounter
--- OUTSIDE RECORDS SUMMARY | 2025-02-02 10:42 | XMS_ITS | Encounter Summary ---
Author Organization [employer] Address [address] [place] [address] 7t [place] [address] Care Team Providers Care Call Center Team Leader Name Role Phone Gucci Gross MD Primary Care Provider [phone] Encounter Details Date Type Department Care Team (Late st Contact Info) Description 08/15/2023 Orders Only [facility] CHC MED & PEDS 505 [place], [place] [phone] Gucci Gross MD 505 [place] [address] Social History Tobacco Use Types Packs/Day Years [...] documented as of this encounter Care Teams Call Center Team Leader Relationship Specialty Start Date End Date Gucci Grsos MD [address] [place] [address] PCP - General Internal Medicine 06/03/18 documented as of this encounter
--- OUTSIDE RECORDS SUMMARY | 2025-02-02 10:42 | XMS_ITS | Clinical Summary ---
Author Organization [address] Address [address] [place] [address] Phone Care Team Providers Care Corporate Intern Name Role Phone Physician, Pcp Unknown Primary Care Provider Sonia vailable Social History Tobacco Use Types Packs/Day Years Used Date Smoking Tobacco: Never Assessed Sex and Gender Information Value Date Recorded Sex Assigned at Not on file Legal Sex Male 10:40 AM EDT Gender Identity Not on file Sexual Orientation Not on file Plan of Treatment Health Maintenance Due Date Last Done Comments DTaP,Tdap,and Td Vaccines (1 - Tdap) 1969 Pneumococcal Vaccine: 50+ Ye ars (1 of 1 - PCV) 2000 Zoster Vaccines (1 of 2) 2000 COVID-19 Vaccine ( - 2023-2 5 season) 2024 Depression Screening 06/03/2024 Abdominal Aortic Aneurysm (A AA) Screen 10/09/2024 Cholesterol Screening (Lipid Panel) 10/09/2024 Colorectal Cancer Screening: Colonoscopy 10/09/2024 Falls Risk Assessment 10/09/2024 Hepatitis C Screening 10/09/2024 Social Influencers of Health Screening 10/09/2024 Influenza Vaccine (#1) 2025 RSV Immunization Adult Patie nts (1 - 1-dose 75+ series) 2025 HIB Vaccines Aged Out No longer eligi [...] on patient's age to complete this topic MMR Vaccines Aged Out No longer eligi ble based on patient's age to complete this topic Meningococcal ACWY Vaccine Aged Out N o longer eligible based on patient's age to complete this topic Meningococcal B Vaccine Aged Out No l onger eligible based on patient's age to complete this topic RSV Immunization Patients Un patricio 20 months Aged Out No longer eligible b ased on patient's age to complete this topic Varicella Vaccines Aged Out No longer eligible based on patient's age to complete this topic Insurance [facility] MEDICAID Care Teams Corporate Intern Relationship Specialty Start Date End Date Physician, Pcp Unknown PCP - General 10/09/24
--- OUTSIDE RECORDS SUMMARY | 2025-02-02 10:42 | XMS_ITS | Encounter Summary ---
Author Organization [employer] Address [address] [place] [address] [address] [place] [address] Care Team Providers Care Scanning Manager Name Role Phone Gucci Gross MD Primary Care Provider [phone] Encounter Details Date Type Department Care Team (Late st Contact Info) Description 03/25/2023 Orders Only [facility] CHC MED & PEDS [address] [place], [place] [phone] Viridiana Gloria LPN Social History Tobacco Use [...] on filedocumented in this encounter Care Teams Scanning Manager Relationship Specialty Start Date End Date Gucci Gross MD [address] [place] [address] PCP - General Internal Medicine 06/03/18 documented as of this encounter
== END 2025-02-02 09:51 | disposition home or self-care (01) ==
LOC: HO.ENCR 09:37
PROVIDERS: PCP Internal Medicine; Visit Provider Student in an Organized Health Care Education/Training Program
DX: E03.2 Hypothyroidism due to medicaments and other exogenous substances (principal)
CPT/HCPCS: 99213

== ENCOUNTER 2025-02-02 09:37 | Outpatient (REF) | payer OTHER, SELFPAY ==
[2025-02-02 12:17] LABS: Free T4 (Free Thyroxine) 1.18 ng/dL (0.71-1.85); Thyroid Stimulating Hormone 0.46 uIU/mL (0.32-4.0)
== END 2025-02-02 09:38 | disposition home or self-care (01) ==
LOC: HO.HHCL 09:37
PROVIDERS: PCP Internal Medicine; Referring Provider Student in an Organized Health Care Education/Training Program; Visit Provider Student in an Organized Health Care Education/Training Program
DX: E03.2 Hypothyroidism due to medicaments and other exogenous substances (principal)
CPT/HCPCS: 36415; 84439; 84443; 99212

== ENCOUNTER 2025-03-16 10:42 | Outpatient (AMB) | payer OTHER, SELFPAY ==
[2025-03-16 11:02] VITALS: BP 103/65; PULSE 59; BMI 21.0
--- NOTE | 2025-03-16 11:02 | A.OFFVIS_ITS ---
Vital Signs 3 03/16/25 11:02 Height 5 ft 3 in Weight 118 lb 9.739 oz BMI 21.0 BP 103/65 Blood Pressure Location Rt brachial Position Sitting Pulse 59 Intake Visit Reasons: GERD, CIC Intake Note: Marcus returns to in office visit today in follow up of GERD, CIC. CC: Patient c/o constipation. He states that he [place] [facility] General Freight Agent Required: Yes General Freight Agent Language: Chinese Accompanied by: neighbor Allergies No Known Allergies (No Known Allergies*) Allergy (Verified 03/16/25 11:05) Medication List - Last Reconciled 03/16/25 by TAN Cavazos acetaminophen 500 mg PO Q6H PRN atorvastatin 80 mg PO BEDTIME brimonidine 0.2% 1 drp ophthalmic (eye) ONCE capsaicin 0.025% appl topical BID cholecalciferol (vitamin D3) 25 mcg PO QAM cyclobenzaprine 10 mg PO TID PRN diclofenac sodium 1% 2 grams topical BID enalapril maleate 2.5 mg PO DAILY ferrous gluconate 324 mg PO DAILY finasteride 5 mg PO DAILY furosemide 40 mg PO DAILY isosorbide mononitrate ER 30 mg PO DAILY lidocaine 4% 1 patch topical DAILY PRN metoprolol succinate ER 25 mg PO DAILY naproxen 500 mg PO BID PRN nitroglycerin 0.4 mg sublingual oxycodone 2.5 mg (1/2 x 5 mg) PO BID PRN 3 days pantoprazole 40 mg PO QPM simethicone (Gas Relief (simethicone)) 125 mg PO TID-QID tamsulosin 0.4 mg PO BEDTIME timolol maleate 0.5% 1 drp ophthalmic (eye) QAM warfarin 1 tablet Sa, sn, 1/2 on weekdays orally daily; on odd numbered days orally daily; HPI HPI GERD, CIC: Details: Assessment & Plan (1) GERD (gastroesophageal reflux disease): Code(s): K21.9 - Gastro-esophageal reflux disease without esophagitis Category: Medical Plan Chinese #[id number] He tells me that his son at age 50! He says he choked on something; which is tragic. He continues to do well on his pantoprazole, simethicone and Carafate. ROV 6 mos. Medications: Refilled pantoprazole 40 mg PO QPM 30 tabs 6RF simethicone (Gas Relief (simethicone)) 125 mg PO TID-QID 120 caps 6RF abdominal distention sucralfate 2 grams (2 x 1 gram) PO BEDTIME 60 tabs 5RF K21.9 - Gastro- esophageal reflux disease without esophagitis, R10.10 - Upper abdominal pain, unspecified Discontinued bisacodyl (Dulcolax (bisacodyl)) Discontinued Reason: Patient Completed Course 10 mg (2 x 5 mg) PO BEDTIME 2 days 4 tabs 0RF TODAY'S VISIT Chinese #Chuck LIVE He just had a double valve replacement [place] [facility] [place], they replaced the AVR and MVR! He says he has some new medications including 1 to ?smooth a blood? but he does not know the name of any of his medications. I suspect that he is now on Coumadin reviewing his [facility] records and he may also be on amiodarone. However I want to confirm this and I ask him to bring his medication list to the next visit. He has not needed the sucralfate since his surgery so this makes me think some of his upper abdominal pain may have been cardiac mediated. She is continuing on his pantoprazole in his simethicone. She has a new complaint of constipation and he wants a pill to manage this. We will start him on senna and titrate him to affect her side effect. In general he is feeling better and stronger since his surgery but since it was only a month ago he still in the early stages of recovery. Return office visit in 6 weeks [facility] Medical History (Updated 03/16/25 @ 11:35 by TAN Cavazos) Abdominal bloating Pre-op examination Hyperthyroidism Upper abdominal pain Common bile duct calculi Surgical History (Updated 03/16/25 @ 11:29 by TAN Cavazos) H/O mitral valve replacement H/O aortic valve replacement H/O heart artery stent H/O angioplasty History of cholecystectomy History of esophagogastroduodenoscopy (EGD) Hx of colonoscopy Family History Father No problems noted. Mother Cancer Social History Are you a primary health care facilities inspector to a significant other at home: No Do you presently have visiting nurse or other home services: No Alcohol intake: never Patient Tobacco Use Status: Never used Tobacco Second Hand Smoke Exposure: No Review of Systems Const Denies fatigue, Denies fever(s), Denies night sweats, Denies poor appetite and Denies weight loss ENT Reports Normal hearing present, Denies dental pain, Denies dysphagia, Denies hearing loss, Denies mouth pain, Denies odynophagia, Denies throat swelling, Denies tongue swelling and Reports other (Dentition adequate) Card Reports no additional complaints Resp Reports no additional complaints GI Details: Denies abdominal pain, Denies melena, Denies bloating, Denies hematochezia, Reports constipation, Denies GI cramping, Denies dysphagia, Denies excessive flatus, Denies early satiety, Reports heartburn, Denies diarrhea, Denies nausea, Denies odynophagia, Denies vomiting and Denies hematemesis Skin/Breast Denies pruritus, Denies lesions, Denies rash and Denies jaundice Neuro Reports Normal hearing present and Denies Abnormal speech present Endo Denies fatigue Aller/Immun Denies throat swelling and Denies tongue swelling Physical Exam Vital Signs: Last Vital Signs Pulse 59 03/16/25 11:02 BP 103/65 03/16/25 11:02 BMI result Body Mass Index 21.0 Const General: cooperative, no acute distress, well developed and well groomed Nutritional Appearance: well nourished and overweight Orientation/consciousness: oriented to person, oriented to place and oriented to time Limitations: language barrier and ambulation with cane HEENT Head: Yes normocephalic and Yes atraumatic Eyes General: appearance normal, both eyes and all related structures Pupils: Equal, round and reactive pupils present Neck Neck: Yes normal visual inspection and Yes no lymphadenopathy Thyroid: Thyroid normal Chest Chest/axillae images: 2 1. surgical scars healing we4ll 2. 3. Resp Effort & Inspection: normal respiratory effort and able to speak in complete sentences Auscultation: clear to auscultation bilaterally Cardio Rate: regular rate Rhythm: regular rhythm Heart sounds: Normal, physiologic split S2 sound present Peripheral pulses: radial pulses present and posterior tibial pulses present GI Inspection: No distended and No Abdominal panniculus present Palpation (GI): Soft to palpation, nontender, no guarding, not rigid and No hepatosplenomegaly present Percussion: Yes normal to percussion Auscultation: normal bowel sounds Rectal Exam - Male: Yes deferred Skin General skin exam: no rashes or lesions noted, turgor normal, skin not dry, no jaundice, No spider nevi and no striae Rashes: no rashes Nails: normal Neuro General: oriented to person, oriented to place and oriented to time Cranial nerves: Yes Equal, round and reactive pupils present and Yes Normal hearing present Speech: No Abnormal speech present Extrem General: Yes normal to inspection, No clubbing, No cyanosis and No edema Psych Appearance: grossly normal and well kempt Mental Status: mental status grossly normal Speech and movement: Normal speech and movement present Affect: normal affect Attitude: cooperative Thought process: not confabulating and Impoverished thought process present Thought content: Normal thought content present Insight: Limited insight present (Psych) Judgement: Limited judgement present (Psych) Assessment & Plan Assessment & Plan (1) Constipation: Code(s): K59.00 - Constipation, unspecified Category: Medical Plan He tells me that his son at age 50! He says he choked on something; which is tragic. He continues to do well on his pantoprazole, simethicone and Carafate. Medications: New 2 sennosides (Senna Laxative) 17.2 mg (2 x 8.6 mg) PO BEDTIME 60 tabs 6RF K59.00 - Constipation, unspecified Refilled 2 simethicone (Gas Relief (simethicone)) 125 mg PO TID-QID 120 caps 6RF abdominal distention pantoprazole 40 mg PO QPM 30 tabs 6RF Discontinued 2 sucralfate Discontinued Reason: Doctor's Order 2 grams (2 x 1 gram) PO BEDTIME 60 tabs 5RF K21.9 - Gastro-esophageal reflux disease without esophagitis, R10.10 - Upper abdominal pain, unspecified Coding Level of Care Code Est Pt Level 3 (96923) Diagnoses Constipation K59.00
--- OUTSIDE RECORDS SUMMARY | 2025-03-16 12:38 | XMS_ITS | Encounter Summary ---
Author Organization [facility] [facility] Address [address] [place] [address] [address] [place] [address] Care Team Providers Care Glass Technician/Installer Name Role Phone Gucci Gross MD Primary Care Provider [phone] Encounter Details Date Type Department Care Team (Late Contact Info) Description 11/26/2022 Orders Only [facility] MEDICINE [address] [place] [address] Viridiana Gloria LPN Social History Tobacco Use [...] as of this encounter Plan of Treatment Upcoming Encounters Date Type Department Care Team (Late st Contact Info) Description 03/22/2025 3:30 PM EDT Office Visit [facility] CHC MED & PEDS [address] [place] [address] Gucci Gross MD [address] [place] [address] documented as of this encounter Visit Diagnoses Not on filedocumented in this encounter Care Teams Glass Technician/Installer Relationship Specialty Start Date End Date Gucci Gross MD [address] [place] [address] PCP - General Internal Medicine 06/03/18 documented as of this encounter
--- OUTSIDE RECORDS SUMMARY | 2025-03-16 12:38 | XMS_ITS | Encounter Summary ---
Author Organization [employer] Address [address] [place] [address] 7t [place] [address] Care Team Providers Care Train Control Electronic Technician Name Role Phone Gucci Gross MD Primary Care Provider [phone] Reason for Visit * Reason Comments Med Refill Encounter Details Date Type Department Care Team ([facility] st Contact Info) Description 04/21/2024 Refill [facility] CHC MED & PEDS [address] [place], [place] [phone] Tanya Queen MD [address] [place] [address] Social History Tobacco Use Types Packs/Day Years [...] Upcoming Encounters Date Type Department Care Team ([facility] st Contact Info) Description 03/22/2025 3:30 PM EDT Office Visit [facility] MED & PEDS [address] [place] [address] Gucci Gross MD [address] [place] [address] documented as of this encounter Visit Diagnoses Not on filedocumented in this encounter Additional Health Concerns Assessment Noted Time PHQ-9 Depression Total Score: 0 04/17/20 23 11:02 AM EST documented as of this encounter Care Teams Train Control Electronic Technician Relationship Specialty Start Date End Date Gucci Gross MD [address] [place] [address] PCP - General Internal Medicine 06/03/18 documented as of this encounter
--- OUTSIDE RECORDS SUMMARY | 2025-03-16 12:38 | XMS_ITS | Clinical Summary ---
Author Organization [address] Address [address] [place] [address] Phone Care Team Providers Care Wind Energy Engineer Name Role Phone Physician, Pcp Unknown Primary Care Provider Sonia vailable Social History Tobacco Use Types Packs/Day Years Used Date Smoking Tobacco: Never Assessed Sex and Gender Information Value Date Recorded Sex Assigned at Not on file Legal Sex Male 10:40 AM EDT Gender Identity Not on file Sexual Orientation Not on file Plan of Treatment Health Maintenance Due Date Last Done Comments Colorectal Cancer Screening: Colonoscopy 1950 DTaP,Tdap,and Td Vaccines (1 - Tdap) 1969 Pneumococcal Vaccine: 50+ Ye ars (1 of 1 - PCV) 2000 Zoster Vaccines (1 of 2) 2000 Depression Screening 06/03/2024 Abdominal Aortic Aneurysm (A AA) Screen 10/09/2024 Cholesterol Screening (Lipid Panel) 10/09/2024 Falls Risk Assessment 10/09/2024 Hepatitis C Screening 10/09/2024 Social Influencers of Health Screening 10/09/2024 COVID-19 Vaccine ( - 2023-2 5 season) 2025 Influenza Vaccine (#1) 2025 RSV Immunization Adult [...] patient's age to complete this topic Insurance [facility] MEDICAID Care Teams Wind Energy Engineer Relationship Specialty Start Date End Date Physician, Pcp Unknown PCP - General 10/09/24
--- OUTSIDE RECORDS SUMMARY | 2025-03-16 12:38 | XMS_ITS | Encounter Summary ---
Author Organization [employer] Address [address] [place] [address] Care Team Providers Care Hydrodynamicist Name Role Phone Gucci Gross MD Primary Care Provider [phone] Reason for Visit * Reason Comments Med Refill Encounter Details Date Type Department Care Team ([facility] st Contact Info) Description 05/10/2024 Refill [facility] CHC MED & PEDS [address] [place], [place] [phone] Gucci Gross MD [address] [place] [address] Muscle cramps Social History Tobacco Use Types [...] Upcoming Encounters Date Type Department Care Team ([facility] st Contact Info) Description 03/22/2025 3:30 PM EDT Office Visit [facility] CHC MED & PEDS [address] [place] [address] Gucci Gross MD [address] [place] [address] documented as of this encounter Visit Diagnoses Diagnosis Muscle cramps documented in this encounter Additional Health Concerns Assessment Noted Time PHQ-9 Depression Total Score: 0 04/17/20 23 11:02 AM EST documented as of this encounter Care Teams Hydrodynamicist Relationship Specialty Start Date End Date Gucci Gross MD [address] [place] [address] PCP - General Internal Medicine 06/03/18 documented as of this encounter
--- OUTSIDE RECORDS SUMMARY | 2025-03-16 12:38 | XMS_ITS | Encounter Summary ---
Author Organization [employer] Address [address] [place] [address] 7 [place] [address] Care Team Providers Care Heel Edge Inker Machine Name Role Phone Gucci Gross MD Primary Care Provider [phone] Reason for Visit * Reason Onset Date Comments Appointment Request 02/23/2025 Encounter Details Date Type Department Care Team ([facility] st Contact Info) Description 02/23/2025 Telephone [facility] CHC MED & PEDS [address] [place] [address] Gucci Gross MD [address] [place] [address] Appointment Request Social History Tobacco Use Types Packs/Day Years [...] encounter Miscellaneous Notes * Telephone Encounter - Arsalan Loo - 02/23/2025 1:56 PM EDT Tc from pt requesting an apt with pcp due to having an open heart surgery and needing an apt. Contact pt at [phone] documented in this encounter Plan of Treatment Upcoming Encounters Date Type Department Care Team (Late st Contact Info) Description 03/22/2025 3:30 PM EDT Office Visit [facility] MED & PEDS [address] [place] [address] Gucci Gross MD [address] [place] [address] documented as of this encounter Visit Diagnoses Not on filedocumented in this encounter Additional Health Concerns Assessment Noted Time PHQ-9 Depression Total Score: 0 04/17/20 23 11:02 AM EST documented as of this encounter Care Teams Heel Edge Inker Machine Relationship Specialty Start Date End Date Gucci Gross MD [address] [place] [address] PCP - General Internal Medicine 06/03/18 documented as of this encounter
--- OUTSIDE RECORDS SUMMARY | 2025-03-16 12:38 | XMS_ITS | Encounter Summary ---
Author Organization [employer] Address [address] [facility] 7t [place] [address] Care Team Providers Care Telephone Sterilizer Name Role Phone Gucci Gross MD Primary Care Provider [phone] Encounter Details Date Type Department Care Team (Late st Contact Info) Description 10/14/2023 Orders Only [facility] [address] [place] [address] ProviderAri MD Social History Tobacco Use Types [...] t he electric, gas, oil or water [employer] threatened to shut off services in your [...] 3:30 PM EDT Office Visit [facility] MED & PEDS [address] [place] [address] Gucci Gross MD [address] [place] [address] documented as of this encounter Procedures Procedure [...] documented as of this encounter Care Teams Telephone Sterilizer Relationship Specialty Start Date End Date Gucci Gross MD [address] [place] [address] PCP - General Internal Medicine 06/03/18 documented as of this encounter
--- OUTSIDE RECORDS SUMMARY | 2025-03-16 12:38 | XMS_ITS | Encounter Summary ---
Author Organization [employer] Address [address] [place] [address] 7t [place] [address] Care Team Providers Care Policy Service Coordinator Name Role Phone Gucci Gross MD Primary Care Provider [phone] Encounter Details Date Type Department Care Team (Late st Contact Info) Description 03/12/2025 Refill [facility] MEDICINE [address] [place] [address] Lucille Urena, PharmD [address] [place] [address] Social History Tobacco Use Types Packs/Day Years [...] encounter Miscellaneous Notes * Telephone Encounter - Lucille Urena PharmD - 03/12/2025 3:34 PM EDT Patient started an aspirin and metoprolol succinate changed to titrate at [facility] discharge 02/17/25. Please consider sending new prescriptions in order to update medboxes. Patient will be out of medication prior to their follow up on 03/22/25. Thank you documented in this encounter Plan of Treatment Upcoming Encounters Date Type Department Care Team ([facility] st Contact Info) Description 03/22/2025 3:30 PM EDT Office Visit [facility] MED [facility] PEDS [address] [place] [address] Gucci Gross MD [address] [place] [address] documented as of this encounter Visit Diagnoses Not on filedocumented in this encounter Additional Health Concerns Assessment Noted Time PHQ-9 Depression Total Score: 0 04/17/20 23 11:02 AM EST documented as of this encounter Care Teams Policy Service Coordinator Relationship Specialty Start Date End Date Gucci Gross MD [address] [place] [address] PCP - General Internal Medicine 06/03/18 documented as of this encounter
--- OUTSIDE RECORDS SUMMARY | 2025-03-16 12:38 | XMS_ITS | Encounter Summary ---
Author Organization [employer] Address [address] [place] [address] 7t [place] [address] Care Team Providers Care Tso Name Role Phone Gucci Gross MD Primary Care Provider [phone] Reason for Visit * Reason Comments Med Refill Encounter Details Date Type Department Care Team ([facility] st Contact Info) Description 05/21/2024 Refill [facility] CHC MED & PEDS [address] [place], [place] [phone] Tanya Queen MD [address] [place] [address] Social History Tobacco Use Types Packs/Day Years [...] Upcoming Encounters Date Type Department Care Team ([facility] st Contact Info) Description 03/22/2025 3:30 PM EDT Office Visit [facility] MED & PEDS [address] [place] [address] Gucci Gross MD [address] [place] [address] documented as of this encounter Visit Diagnoses Not on filedocumented in this encounter Additional Health Concerns Assessment Noted Time PHQ-9 Depression Total Score: 0 04/17/20 23 11:02 AM EST documented as of this encounter Care Teams Tso Relationship Specialty Start Date End Date Gucci Gross MD [address] [place] [address] PCP - General Internal Medicine 06/03/18 documented as of this encounter
--- OUTSIDE RECORDS SUMMARY | 2025-03-16 12:38 | XMS_ITS | Encounter Summary ---
Author Organization [employer] Address [address] [place] [address] 7t [place] [address] Care Team Providers Care Quality Assurance Engineer Name Role Phone Gucci Gross MD Primary Care Provider [phone] Encounter Details Date Type Department Care Team (Late st Contact Info) Description 01/27/2024 Orders Only [facility] CHC MED & PEDS [address] [place], [place] [phone] Gucci Gross MD [address] [place] [address] Social History Tobacco Use Types Packs/Day Years [...] Upcoming Encounters Date Type Department Care Team ([facility] st Contact Info) Description 03/22/2025 3:30 PM EDT Office Visit [facility] CHC MED & PEDS [address] [place] [address] Gucci Gross MD [address] [place] [address] documented as of this encounter Visit Diagnoses Not on filedocumented in this encounter Additional Health Concerns Assessment Noted Time PHQ-9 Depression Total Score: 0 04/17/20 23 11:02 AM EST documented as of this encounter Care Teams Quality Assurance Engineer Relationship Specialty Start Date End Date Gucci Gross MD [address] [place] [address] PCP - General Internal Medicine 06/03/18 documented as of this encounter
--- OUTSIDE RECORDS SUMMARY | 2025-03-16 12:38 | XMS_ITS | Encounter Summary ---
Author Organization [facility] Address [address] [place] [address] Care Team Providers Care Crystal Report Developer Name Role Phone Gucci Gross MD Primary Care Provider [phone] Encounter Details Date Type Department Care Team (Late st Contact Info) Description 09/27/2022 Orders Only [facility] MED & PEDS [address] [place] [address] Ilda Drummond LPN Social History Tobacco Use [...] 03/22/2025 3:30 PM EDT Office Visit [facility] MED & PEDS [address] [place] [address] Gucci Gross MD [address] [place] [address] documented as of this encounter Visit Diagnoses Not on filedocumented in this encounter Care Teams Crystal Report Developer Relationship Specialty Start Date End Date Gucci Gross MD [address] [place] [address] PCP - General Internal Medicine 06/03/18 documented as of this encounter
--- OUTSIDE RECORDS SUMMARY | 2025-03-16 12:38 | XMS_ITS | Encounter Summary ---
Author Organization [employer] Address [address] [place] [address] 7 [place] [address] Care Team Providers Care Engineering Designer Name Role Phone Gucci Gross MD Primary Care Provider [phone] Reason for Referral * Consultation (Routine) - Closed Specialty Diagnoses / Procedures Referred By Contac t Referred To Contact Endocrinology Diagnoses Elevated TSH Gucci Gross MD [address] [place] [address] Phone: tel: fax: [facility] Endocrinology [address] [place], [place] Phone: tel: fax: Referral ID Status Reason Start Date Expiration Date V isits Requested Visits Authorized [id number] Closed Specialty Services Required 01/17/2024 01/16/2025 1 1 Encounter Details Date Type Department Care Team (Late st Contact Info) Description 01/08/2024 Orders Only [facility] CHC MED & PEDS [address] [place], [place] [phone] Gucci Gross MD [address] [place], [place] [phone] Elevated TSH (Primary Dx) Social History Tobacco [...] Upcoming Encounters Date Type Department Care Team ([facility] st Contact Info) Description 03/22/2025 3:30 PM EDT Office Visit [facility] MED & PEDS [address] [place] [address] Gucci Gross MD [address] [place] [address] Scheduled Referrals Name Type Priority Associated Diagnoses [...] documented as of this encounter Care Teams Engineering Designer Relationship Specialty Start Date End Date Gucci Gross MD [address] [place] [address] PCP - General Internal Medicine 06/03/18 documented as of this encounter
--- OUTSIDE RECORDS SUMMARY | 2025-03-16 12:38 | XMS_ITS | Encounter Summary ---
Author Organization [employer] Address [address] [place] [address] 7 [place] [address] Care Team Providers Care Project Management Consultant Name Role Phone Gucci Gross MD Primary Care Provider [phone] Encounter Details Date Type Department Care Team ([facility] Contact Info) Description 04/04/2023 Abstract [facility] MEDICINE [address] [place] [address] Gucci Gross MD [address] [place], [place] [phone] Social History Tobacco Use Types Packs/Day Years [...] Encounters Date Type Department Care Team (Late Contact Info) Description 03/22/2025 3:30 PM EDT Office Visit [facility] CHC MED & PEDS [address] [place], [place] [phone] Gucci Gross MD [address] [place], [place] [phone] documented as of this encounter Procedures Procedure Name Priority Date/Time Associated Diagnosis Comments HM COLONOSCOPY Routine 05/08/2018 documented in this encounter Results * Colonoscopy (05/08/2018) Colonoscopy Normal Normal Narrative Mona Richardson - 05/08/2018 Recommended 5 year follow up us Historical Provider HEALTH MAINTENANCE Final Result documented in this encounter Visit Diagnoses Not on filedocumented in this encounter Care Teams Project Management Consultant Relationship Specialty Start Date End Date Gucci Gross MD [address] [place] [address] PCP - General Internal Medicine 06/03/18 documented as of this encounter
--- OUTSIDE RECORDS SUMMARY | 2025-03-16 12:38 | XMS_ITS | Encounter Summary ---
Author Organization [employer] Address [address] [place] [address] [address] [place] [address] Care Team Providers Care Underlay Stitcher Name Role Phone Gucci Gross MD Primary Care Provider [phone] Encounter Details Date Type Department Care Team (Late st Contact Info) Description 08/15/2023 Orders Only [facility] CHC MED & PEDS [address] [place], [place] [phone] Gucci Gross MD [address] [place] [address] Social History Tobacco Use Types Packs/Day Years [...] Upcoming Encounters Date Type Department Care Team ([facility] st Contact Info) Description 03/22/2025 3:30 PM EDT Office Visit [facility] CHC MED & PEDS [address] [place] [address] Gucci Gross MD [address] [place] [address] documented as of this encounter Visit Diagnoses Not on filedocumented in this encounter Additional Health Concerns Assessment Noted Time PHQ-9 Depression Total Score: 0 04/17/20 23 11:02 AM EST documented as of this encounter Care Teams Underlay Stitcher Relationship Specialty Start Date End Date Gucci Gross MD [address] [place] [address] PCP - General Internal Medicine 06/03/18 documented as of this encounter
--- OUTSIDE RECORDS SUMMARY | 2025-03-16 12:38 | XMS_ITS | Encounter Summary ---
Author Organization [facility] Address [address] [place] [address] Care Team Providers Care International Marketing Coordinator Name Role Phone Physician, Pcp Unknown Primary Care Provider Sonia vailable Encounter Details Date Type Department Care Team (Late st Contact Info) Description 10/09/2024 Lab Requisition [facility] - Main Lab [address] [facility] [place] [address] Leia Sky PA [address] [place] [address] Benign essential microscopic hematuria Social History Tobacco [...] AM EDT) Final Diagnosis A. Urine, Voided, [id number]: Negative for high grade urothelial carcinoma. Results of UroVysion fluorescence in situ hybridization (FISH) testing: CEP3: Normal CEP7: Normal CEP17: Normal LSI 9p21: Normal Interpretation: Normal profile Controls stained appropriately. Note: The results are intended as a screening device and should be interpreted in association with other clinical and pathological findings. 10/22/2024 1:40 PM EDT [facility] Clinical Information Benign essential microscopic hematuria R31.1 Urine Cytology/FISH (now) 10/22/2024 1:40 PM EDT [facility] Gross Description A. Urine, Voided, [id number]: Received one ThinPrep slide for cytology and one ThinPrep slide for UroVysion FISH 10/22/2024 1:40 PM EDT [facility] Disclaimer Unless otherwise specified, all tissue is 10% NB formalin fixed and paraffin embedded. Technical pathology services provided by [facility] at [address] [facility] [address], [place] [address] (CLIA #[id number]/Georgia Roth MD, Stretcher Leveler Operator Helper) 10/22/2024 1:40 PM EDT [facility] Tissue Urine specimen from urethra / Unknown 10/05/2024 10/09/2024 10:44 AM EDT us Leia [facility] PATHOLOGY ORDERABLES Final Result [facility] [address] [place] [address], documented in this encounter Visit Diagnoses Diagnosis Benign essential microscopic hematuria documented in this encounter Care Teams International Marketing Coordinator Relationship Specialty Start Date End Date Physician, Pcp Unknown PCP - General 10/09/24 documented as of this encounter
--- OUTSIDE RECORDS SUMMARY | 2025-03-16 12:38 | XMS_ITS | Encounter Summary ---
Author Organization [employer] Address [address] [facility] 7t [place] [address] Care Team Providers Care Visual Aid Expert Name Role Phone Gucci Gross MD Primary Care Provider [phone] Reason for Visit * Reason Onset Date Comments Nurse Triage 12/25/2023 Encounter Details Date Type Department Care Team ([facility] st Contact Info) Description 12/25/[address] [facility] MEDICINE [address] [place] [address] Gucci Gross MD [address] [place] [address] Nurse Triage Social History Tobacco Use Types [...] 12/25/2023 12:29 PM EDT Triage call with [employer] [place] [id number] Pt reports a medication reaction symptoms are [...] acuity questions The caller accepted this outcome Albanian speaker documented in this encounter Plan of Treatment Upcoming Encounters Date Type Department Care Team (Late st Contact Info) Description 03/22/2025 3:30 PM EDT Office Visit [facility] MED & PEDS [address] [place] [address] Gucci Gross MD [address] [place] [address] documented as of this encounter Visit Diagnoses Not on filedocumented in this encounter Additional Health Concerns Assessment Noted Time PHQ-9 Depression Total Score: 0 04/17/20 23 11:02 AM EST documented as of this encounter Care Teams Visual Aid Expert Relationship Specialty Start Date End Date Gucci Gross MD [address] [place] [address] PCP - General Internal Medicine 06/03/18 documented as of this encounter
--- OUTSIDE RECORDS SUMMARY | 2025-03-16 12:38 | XMS_ITS | Encounter Summary ---
Author Organization [employer] Address [address] [facility] 7t [place] [address] Care Team Providers Care Envelope Patternmaker Name Role Phone Gucci Gross MD Primary Care Provider [phone] Encounter Details Date Type Department Care Team (Late st Contact Info) Description 10/27/2024 Orders Only [facility] CHC MED & PEDS [address] [place], [place] [phone] Gucci Gross MD [address] [place], [place] [phone] Chronic pain of right knee (Primary Dx); [...] Upcoming Encounters Date Type Department Care Team ([facility] st Contact Info) Description 03/22/2025 3:30 PM EDT Office Visit [facility] CHC MED & PEDS [address] [place] [address] Gucci Gross MD [address] [place] [address] documented as of this encounter Visit Diagnoses Diagnosis Chronic pain of right knee- Primary Muscle cramps documented in this encounter Additional Health Concerns Assessment Noted Time PHQ-9 Depression Total Score: 0 04/17/20 23 11:02 AM EST documented as of this encounter Care Teams Envelope Patternmaker Relationship Specialty Start Date End Date Gucci Gross MD [address] [place] [address] PCP - General Internal Medicine 06/03/18 documented as of this encounter
--- OUTSIDE RECORDS SUMMARY | 2025-03-16 12:38 | XMS_ITS | Encounter Summary ---
Author Organization [employer] Address [address] [place] [address] 7 [place] [address] Care Team Providers Care Manager Chemistry Name Role Phone Gucci Gross MD Primary Care Provider [phone] Reason for Referral * (Routine) - Closed Specialty Diagnoses / Procedures Referred By Contac t Referred To Contact Diagnoses Axillary pain, right Procedures US Extremity Non Vascular Rg Ordonez MD [address] [place] [address] Phone: tel: fax: Referral ID Status Reason Start Date Expiration Date Visits Re quested Visits Authorized [id number] Closed 10/23/2022 04/21/2023 1 1 Encounter Details Date Type Department Care Team (Late st Contact Info) Description 10/23/2022 Orders Only [facility] [address] [place] [address] [phone] Rg Ordonez MD [address] [place] [address] [phone] Axillary pain, right (Primary Dx) Social History [...] In the last 10 days, have kayden spicer been in contact with someone who was confirmed or suspected to have Coronavirus/COVID-19? No / Unsure 10/22/2022 10:39 AM EDT documented as of this encounter Plan of Treatment Upcoming Encounters Date Type Department Care Team ([facility] st Contact Info) Description 03/22/2025 3:30 PM EDT Office Visit [facility] CHC MED & PEDS [address] [place] [address] Gucci Gross MD [address] [place] [address] Scheduled Orders Name Type Priority Associated Diagnoses [...] PM EDT Narrative 10/26/2022 7:34 PM EDT [facility] [address] [place] [address] [place] [address] Ultrasound Report Signed Patient: Marcus Vanessa MR#: [id number] : 1950 Acct:[id number] Age/Sex: 72 / M ADM Date: 10/23/22 Loc: [facility] Attending Dr: Rg Ordonez MD Ordering Physician: RG ORDONEZ MD Date of Service: 10/23/22 Procedure(s): US extremity nonvascular stephens Accession Number(s): [id number] cc: RG ORDONEZ MD ULTRASOUND RIGHT AXILLARY [...] MD in OV> 10/26/221931 DD/ 38 TD/TT: Conductor And Engineer: WILDA Procedure Note Donotuseinterpreter, Image - 11/29/2022 [facility] [place] [address] Ultrasound Report Signed Patient: Elizabeth Vanessa#: [id number] : 1Acct:[id number] Age/Sex: 72 / MADM Date: 10/23/22 [facility] Dr: Rg Ordonez MD Ordering Physician: RG ORDONEZ MD Date of Service: 10/23/22 Procedure(s): US extremity nonvascular stephens Accession Number(s): [id number] cc: GR ORDONEZ MD ULTRASOUND RIGHT AXILLARY SOFT TISSUES [...] MD in OV> 10/26/221931 DD/ 38 TD/TT: Conductor And Engineer: WILDA us [facility] External Provider IMG US PROCEDURES Edited Result - Final documented in this encounter Visit Diagnoses Diagnosis Axillary pain, right- Primary documented in this encounter Care Teams Manager Chemistry Relationship Specialty Start Date End Date Gucci Gross MD [address] [place] [address] PCP - General Internal Medicine 06/03/18 documented as of this encounter
--- OUTSIDE RECORDS SUMMARY | 2025-03-16 12:38 | XMS_ITS | Encounter Summary ---
Author Organization [employer] [facility] Address [address] [place] [address] Care Team Providers Care Gore Maker Name Role Phone Gucci Gross MD Primary Care Provider [phone] Encounter Details Date Type Department Care Team (Late Contact Info) Description 03/25/2023 Orders Only [facility] MED & PEDS [address] [place] [address] Viridiana Gloria LPN Social History Tobacco Use [...] [facility] [address] [place] [address] Gucci Gross MD [address] [place] [address] documented as of this encounter Visit Diagnoses Not on filedocumented in this encounter Care Teams Gore Maker Relationship Specialty Start Date End Date Gucci Gross MD [address] [place] [address] PCP - General Internal Medicine 06/03/18 documented as of this encounter
--- OUTSIDE RECORDS SUMMARY | 2025-03-16 12:38 | XMS_ITS | Clinical Summary ---
Author Organization [employer] Address [address] [place] [address] 7[address] [place] [address] Care Team Providers Care Technical Advisor Name Role Phone Gucci Gross MD Primary Care Provider [phone] Allergies No known active allergies Medications acetaminophen (Tylenol) 500 MG tablet Take 2 tablets (1,000 mg) by mouth every 6 (six) hours if needed for moderate pain or fever for up to 25 doses. 50 tablet 10/23/19 23 Active nitroglycerin (Nitrostat) 0.4 MG SL tablet DISSOLVE 1 TABLET UNDER THE TONGUE EVERY 5 MINUTES NEEDED FOR CHEST PAIN. DO NOT EXCEED A TOTAL OF 3 DOSES IN 15 MINUTES. 25 tablet 11/27/19 24 Active timolol (Timoptic) 0.5 % ophthalmic solution PLACE ONE DROP IN THE LEFT EYE EVERY MORNING 09/24/19 24 Active Bisacodyl EC 5 MG EC tablet TAKE TWO TABLETS AT BEDTIME FOR TWO DAYS 09/19/19 24 Active brimonidine (AlphaGAN) 0.2 % ophthalmic solution PLACE ONE DROP IN THE LEFT EYE TWICE DAILY, 12 HOURS APART Active finasteride (Proscar) 5 MG tablet TAKE ONE TABLET EVERY NIGHT AT BEDTIME Active sucralfate (Carafate) 1 g tablet Take 2 tablets by mouth at bed time. Active GAS RELIEF 125 MG capsule TAKE ONE CAPSULE THREE OR FOUR TIMES DAILY Active tamsulosin (Flomax) 0.4 MG 24 hr capsule TAKE ONE CAPSULE EVERY NIGHT AT BEDTIME Active cholecalciferol (Vitamin D-3) 25 MCG tablet TAKE ONE TABLET EVERY MORNING 30 tablet 11 03/23/20 24 Active enalapril (Vasotec) 2.5 MG tablet TAKE ONE TABLET EVERY MORNING 90 tablet 3 09/18/19 25 Active capsaicin (Zostrix) 0.025 % creamIndications :Chronic pain of right knee Apply topically 2 times daily. 56.6 g 2 10/28/19 25 026 Active Diclofenac Sodium 1 % gelIndications:M uscle cramps APPLY TOPICALLY TO AFFECTED AREA(s) TWO GRAMS, USE FOUR TIMES DAILY DIRECTED 100 g 1 12/02/19 25 Active ferrous gluconate (Fergon) 324 (37.5 Fe) MG tablet TAKE ONE TABLET TABLET EVERY MORNING WITH BREAKFAST 90 tablet 1 12/18/19 25 Active atorvastatin (Lipitor) 80 MG tablet TAKE ONE TABLET EVERY NIGHT AT BEDTIME 90 tablet 1 02/18/20 25 Active amiodarone (Pacerone) 200 MG tablet Take 1 tablet by mouth 2 times daily. 02/18/20 25 025 Active warfarin (Coumadin) 1 MG tablet Take 1-3 tablets by mouth Once per day. As directed 02/19/20 25 Active aspirin 81 MG chewable tablet Chew 1 tablet (81 mg) Once per day. 90 tablet 03/14/20 25 Active metoprolol tartrate (Lopressor) 25 MG tablet Take 0.5 tablets (12.5 mg) by mouth 2 times daily. 90 tablet 03/14/20 25 Active Eliquis 5 MG tablet TAKE ONE TABLET TWICE DAILY IN THE MORNING AND AT BEDTIME 09/24/19 24 025 Discontinued(M ed list cleanup (will not trigger notification to Pharmacy)) isosorbide mononitrate ER (Imdur) 30 MG 24 hr tablet 12/23/19 24 025 Discontinued(M ed list cleanup (will not trigger notification to Pharmacy)) pantoprazole (ProtoNix) 40 MG EC tablet Take 1 tablet by mouth at bed time. 11/22/19 22 025 Discontinued(M ed list cleanup (will not trigger notification to Pharmacy)) PEG [id number]-N aCl-NaSulf (PEG-3350/Electr olytes) 236 g reconstituted solution DRINK EIGHT OUNCE GLASS EVERY 10 MINUTES FOR ONE DAY UNTIL BOWEL MOVEMENT CLEAR 04/30/20 025 Discontinued(M ed list cleanup (will not trigger notification to Pharmacy)) atorvastatin (Lipitor) 80 MG tablet TAKE ONE TABLET EVERY NIGHT AT BEDTIME 90 tablet 3 02/18/20 24 025 Discontinued metoprolol succinate XL (Toprol-XL) 25 MG 24 hr tabletIndication s:Essential hypertension TAKE ONE TABLET EVERY MORNING 90 tablet 1 08/19/19 25 025 Discontinued furosemide (Lasix) 40 MG tabletIndication s:Acute on chronic congestive heart failure, unspecified heart failure type (HCC) TAKE ONE TABLET EVERY DAY 20 tablet 09/19/19 025 Discontinued(M ed list cleanup (will not trigger notification to Pharmacy)) metoprolol succinate XL (Toprol-XL) 25 MG 24 hr tabletIndication s:Essential hypertension TAKE ONE TABLET EVERY MORNING 90 tablet 1 02/18/20 25 025 Discontinued(M ed list cleanup (will not trigger notification to Pharmacy)) aspirin 81 MG chewable tablet Chew 1 tablet Once per day. 02/18/20 025 Discontinued(R eorder (will not trigger notification to Pharmacy)) metoprolol tartrate (Lopressor) 25 MG tablet Take 0.5 tablets by mouth 2 times daily. 02/18/20 025 Discontinued(R eorder (will not trigger notification to Pharmacy)) Active Problems Problem Noted Date Diagnosed Date [...] 40 MG tablet Longstanding persistent atrial fibrillation (CMS /HCC) 07/29/2023 Myocardial infarction 07/06/2022 Hiatal hernia 07/14/2018 Sciatica 11/12/2017 Microscopic hematuria 01/25/2012 Gastroesophageal reflux disease 03/23/2011 Pain in joint involving lower leg 03/23/2011 Dizziness and giddiness 12/21/2010 Chest pain 09/21/2010 Essential hypertension 09/21/2010 Osteoporosis 06/22/2010 Vitamin D deficiency 06/22/2010 Resolved Problems Problem Noted Date Diagnosed Date Resolved Date Chronic atrial fibrillation ([facility]) 07/29/2023 07/29/2023 Encounters Date Type Department Care Team Description 03/12/2025 Refill [facility] [address] [place] [address] Lucille Urena, PharmD 03/04/2025 Patient Outreach [facility] [address] [place] [address] Gucci Gross MD Transition Of Care (Tcm) (HDF unscheduled unable to LVM ) 03/04/2025 Telephone [facility] [address] [place] [address] Lucille Urena, PharmD 02/23/2025 Telephone [facility] [address] [place] [address] Gucci Gross MD Appointment Request 02/16/2025 Refill [facility] [address] [place] [address] Gucci Gross MD Essential hypertension 02/02/2025 Orders Only GENERIC EXTERNAL DATA DEPARTMENT Provider, Generic External Data 01/14/2025 Orders Only [facility] External Provider, [facility] 12/17/2024 Refill [facility] [address] [place] [address] Gucci Gross MD from Last 3 Months Immunizations Immunization Administration [...] is your housing situation today? I have rcnayan mascorro 04/09/[address] you [...] 04/02/2024 11:15 AM EDT Plan of Treatment Upcoming Encounters Date Type Department Care Team ([facility] st Contact Info) Description 03/22/2025 3:30 PM EDT Office Visit [facility] [address] [place] [address] Gucci Gross MD [address] [place] [address] Health Maintenance Due Date Last Done Comments CT Colonography 1950 FIT DNA/Cologuard 1950 FIT 1950 FOBT 1950 Sigmoidoscopy 1950 Alcohol/Substance Use Screening 1962 RSV Patients and Patients Aged 60 years or older (1 - Risk 60-74 years 1-dose series) 2010 Depression Screening 04/17/2024 04/17/2023, 04/17/20 23 COVID-19 Vaccine ( season) 2025 04/16/2022, 10/26/2021, 05/19/2021, Additional history exists Influenza Vaccine (#1) 2025 , 03/20/2023, 02/23/2022, [...] Procedure Name Priority Date/Time Associated Diagnosis Comments TSH Routine 02/02/2025 10:33 AM EDT T4, FREE Routine 02/02/2025 10:33 AM EDT XR SHOULDER 2+ VIEWS LEFT Routine 01/14/2025 [...] Recently Relevant to Health Maintenance Results * TSH (02/02/2025 10:33 AM EDT) Thyroid Stimulating Hormone 0.46 0.32 - 4.0 uIU/mL [facility] Comment:TSH 3rd Generation ( [facility]) 02/02/2025 10:3 3 AM EDT 02/02/2025 11:01 AM EDT Generic External Data Provider LAB BLOOD ORDERAB LES Final Result Performing Organization Address [facility]/ZIP Co de Phone Number [facility] [address] [place] [phone] * T4, Free (02/02/2025 10:33 AM EDT) Free T4 (Free Thyroxine) 1.18 0.71 - 1.85 ng/dL [facility] 02/02/2025 10:3 3 AM EDT 02/02/2025 11:01 AM EDT Generic External Data Provider LAB BLOOD ORDERAB LES Final Result Performing Organization Address City/[facility] Co de Phone Number [facility] [address] [place] [phone] * XR Shoulder 2+ Views Left (01/14/2025 9:29 AM EDT) Anatomical Region Laterality Modality Upper Extremities, Shoulder Left Radi ographic Imaging 01/14/2025 9:29 AM EDT Narrative 01/14/2025 10:38 AM EDT [address] [address] XRay Report Signed Patient: Marcus Vanessa MR#: [id number] : 1950 Acct:[id number] Age/Sex: 74 / M ADM Date: 01/14/25 Loc: HO.ED Attending Dr: Ordering Physician: Shannon Barr DO Date of Service: 01/14/25 Procedure(s): XR shoulder LT min 2V Accession Number(s): [id number] cc: Gucci Gross MD; Shannon Barr DO [...] Noyola MD in OV> 01/14/25 1035 DD/ 0929 TD/TT: 01/14/25 1025 Photographic Equipment Technician: Procedure Note Donotuseinterpreter, Image - 01/14/2025 [place] [address] XRay Report Signed Patient: Elizabeth Vanessa#: M [id number] : 1950cct:[id number] Age/Sex: 74 / MADM Date: 01/14/25 Loc: HO.ED Attending Dr: Ordering Physician: Shannon Barr DO Date of Service: 01/14/25 Procedure(s): XR shoulder LT min 2V Accession Number(s): [id number] cc: Gucci Gross MD; Shannon Barr DO [...] Garett Noyola MDin OV> 01/14/25 1035 DD/ 0929 TD/TT: 01/14/25 1025 Photographic Equipment Technician: [facility] External Provider IMG XR PROCEDURES Final Result * XR Ribs 3 Views Left w/ Chest (01/14/2025 9:22 AM EDT) Anatomical Region Laterality Modality Radiographic Kaylin ging 01/14/2025 9:22 AM EDT Narrative 01/14/2025 10:39 AM EDT [address] [address] XRay Report Signed Patient: Marcus Vanessa MR#: [id number] : 1950 Acct:[id number] Age/Sex: 74 / M ADM Date: 01/14/25 Loc: .ED Attending Dr: Ordering Physician: Shannon Barr DO Date of Service: 01/14/25 Procedure(s): XR ribs LT min 3V w CXR1V Accession Number(s): [id number] cc: Gucci Gross MD; Shannon Barr DO [...] Noyola MD in OV> 01/14/25 1036 DD/ 0922 TD/TT: 01/14/25 1025 Photographic Equipment Technician: Procedure Note Donotuseinterpreter, Image - 01/14/[address] [address] XRay Report Signed Patient: Elizabeth Vanessa#: M [id number] : 1950cct:[id number] Age/Sex: 74 / MADM Date: 01/14/25 Loc: .ED Attending Dr: Ordering Physician: Shannon Barr DO Date of Service: 01/14/25 Procedure(s): XR ribs LT min 3V w CXR1V Accession Number(s): [id number] cc: Gucci Gross MD; Shannon Barr DO [...] Garett Noyola MDin OV> 01/14/25 1036 DD/ 0922 TD/TT: 01/14/25 1025 Photographic Equipment Technician: [facility] External Provider IMG XR PROCEDURES Final Result * (ABNORMAL) Colonoscopy (01/29/2024) Anatomical Region Laterality Modality Endoscopy Narrative 01/29/[address] Keri Covarrubias on 01/29/24 at [facility]: Diverticulosis, Internal hemorrhoids. Repeat colonoscopy recommended in 10 years if health allows. Historical Provider ENDOSCOPY PROCEDURE ORDER CHANG Edited Result - Final * Lipid Panel, Standard (12/26/2023 9:24 AM EDT) Triglycerides 46 <150 mg/dL [facility] Comment:Desirable Triglyceri de: less than 150 mg/dLBorderline High Triglyceride 150-199 mg/dLHigh Triglyceride: 200-499 mg/dLVery High Triglyceride: greater than or equal to 5OO mg/dL Cholesterol 108 <200 mg/dL [facility] Comment:Desirable Cholestero l: less than 200 mg/dLBorderline High Cholesterol: 200-239 mg/dLHigh Cholesterol: greater than 239 mg/dL LDL Cholesterol Calculated 44 <100 mg/dL [facility] Comment:Desirable LDL: less than 100 mg/dLNear Optimal/Above Optimal LDL: 110- 129 mg/dLBorderline High LDL: 130-159 mg/dLHigh LDL: 160-189 mg/dLVery High LDL: greater than or equal to 190 mg/dL HDL Cholesterol 55 >40 mg/dL [facility] Comment:Desirable HDL: great er than 40 mg/dL Note: This HDL assay may give artificially low results in patients with liver disease. Blood Venous blood specimen / Unknown 12/26/2023 9:24 AM EDT 12/26/2023 9:26 AM EDT Tanya Queen MD LAB BLOOD ORDERABLES Final Re sult [facility] [address] [place] [phone] * HEPATITIS C AB W/REFL TO HCV RNA, QN, PCR (10/09/2021 9:27 AM EDT) HEPATITIS C ANTIBODY NON-REACT CHARU NON-REACT CHARU [facility] INDEX 0.01 <1.00 [facility] Comment: HCV antibody was non-reactive. There is no laboratory evidence of HCV infection. In most cases, no further action is required. However, if recent HCV exposure is suspected, a test for HCV RNA (test code 30319) is suggested. For additional information please refer to http://education.EditGrid/faq/HEZ47v4 (This link is being provided for informational/ educational purposes only.) 10/09/2021 9:27 AM EDT Gucci Gross MD HISTORICAL/NON ORDERABLE GUZMAN DU Final Result [facility] [address] from Last 3 Months or Most Recently Relevant to Health Maintenance Insurance [facility] DETENTION OPTIONS (O D-SNP) [place] [id number] Care Teams Technical Advisor Relationship Specialty Start Date End Date Gucci Gross MD [address] [place] [phone] PCP - General Internal Medicine 06/03/18
== END 2025-03-16 11:41 | disposition home or self-care (01) ==
LOC: HO.HGI 10:42
PROVIDERS: PCP Internal Medicine; Visit Provider Nurse Practitioner
DX: K59.00 Constipation, unspecified (principal)
CPT/HCPCS: 99213

== ENCOUNTER → 2025-03-16 10:42 | Outpatient (BNVA) | payer OTHER, SELFPAY | PROVIDERS: PCP Internal Medicine; Visit Provider Nurse Practitioner | DX: K21.9 Gastro-esophageal reflux disease without esophagitis (principal); K59.04 Chronic idiopathic constipation | CPT/HCPCS: 99212 ==

== ENCOUNTER 2025-03-24 08:36 | Outpatient (REF) | payer OTHER, SELFPAY ==
--- OUTSIDE RECORDS SUMMARY | 2025-03-22 15:30 | XMS_ITS | Encounter Summary ---
Author Organization [employer] Address [address] [place] [address] [address] [place] [address] Care Team Providers Care Clinical Rn Liaison Name Role Phone Gucci Gross MD Primary Care Provider [phone] Encounter Details Date Type Department Care Team (Latest Contact Info) Description 03/22/2025 3:30 PM EDT Office Visit [facility] [address] [place], [place] [phone] Gucci Gross MD [address] [place], [place] [phone] Gastroesophageal reflux disease without esophagitis (Primary Dx); Encounter for immunization; Essential hypertension; Longstanding persistent atrial fibrillation (CMS/HCC) (HCC); Mitral valve insufficiency, unspecified etiology Social History Tobacco Use Types Packs/Day Years [...] AM EDT documented as of this encounter Last Filed Vital Signs Vital Sign Reading Time Taken Comments Blood Pressure 117/69 03/22/2025 3:21 PM EDT Pulse 59 03/22/2025 3:21 PM EDT Temperature - - Respiratory Rate 19 03/22/2025 3:21 PM EDT Oxygen Saturation 97% 03/22/2025 3:21 PM EDT Inhaled Oxygen Concentration - - Weight 54.4 kg (120 lb) 03/22/2025 3:21 PM EDT Height 158 cm (5' 2.21 ) 03/22/2025 3:21 PM EDT Body Mass Index 21.8 03/22/2025 3:21 PM EDT documented in this encounter Progress Notes * Gucci Gross MD - 03/22/2025 3:30 PM EDT SUBJECTIVE Marcus Urena is a 74 y.o. male who presents for No chief complaint on file.. HPI Last seen in office on 04/02/2025: 1) evaluation by [facility] endocrinology on August 2024. Most recent labs shows normal thyroid function. Asymptomatic. Advised to stay off methimazole. Will follow-up in 6 months. 2) evaluated by [facility] gastroenterology on September 15, 2024 for follow-up of his GERD. Status post colonoscopy. Needs a repeat colonoscopy in 5 years given his diagnosis of tubular adenoma of the colon. Advised to continue with pantoprazole, simethicone and Carafate. 3) history of hematuria. Evaluated October 22, 2024. Urine negative for high-grade urothelial carcinoma 4)evaluation at [facility] emergency department on January 14, 2025 for left shoulder pain He is rhomboids. No trauma. Impression of acute pain of the left shoulder secondary to injury of the left rotator cuff. Prescribed lidocaine 4% patch with oxycodone 5 m.5 mg p.o. twice daily as needed for 3 days. Advised to consider physical therapy or a referral to Ortho with PCP. Overall feels better. Has improved exercise tolerance since his valve replacement. 4) had an echocardiogram on October 15, 2024 which shows normal left ventricular function, overall leftventricular systolic function with an ejection fraction of 55 to 60%. Diastolic function could not be assessed due to the presence of atrial fibrillation. Mitral valve is thickened with myxomatous degeneration. Mild thickening of the anterior mitral valve leaflet. There is mild thickening of the posterior mitral valve leaflet. Moderate to severe mitral regurgitation. Moderate prolapse of the anterior mitral valve leaflet. Mild to moderate tricuspid regurgitation. There is mild pulmonary hypertension. No significant change when compared to October 09, 2024 findings. Patient with h/o Progressive JENKINS in the setting of severe MR is status post valve replacement at [facility], on 02/08/25 MVR-T, AVR-T, LA Maze, MALIK clip, IABP placement. Discharged on Warfarin, amiodarone, aspirin. Has a scheduled appointment w/ Cardiology on Apr 07 for a repeat Echocardiogram. Problem List[1] Allergies[2] Medications Ordered Prior to Encounter[3] Review of Systems Constitutional: Negative for appetite change, chills and diaphoresis. Eyes: Negative for photophobia, pain and redness. Respiratory: Negative for cough and shortness of breath. Cardiovascular: Negative for leg swelling. Gastrointestinal: Negative for anal bleeding, blood in stool and constipation. Musculoskeletal: Negative for gait problem and joint swelling. OBJECTIVE Vitals: 03/22/25 1521 BP: 117/69 BP Location: Left arm Patient Position: Sitting BP Cuff Size: Adult Pulse: 59 Resp: 19 SpO2: 97% Weight: 120 lb (54.4 kg) Height: 5' 2.21 (1.58 m) Physical Exam Constitutional: General: He is not in acute distress. Appearance: Normal appearance. He is not ill-appearing, toxic-appearing or diaphoretic. Cardiovascular: Rate and Rhythm: Rhythm irregular. Pulmonary: Effort: Pulmonary effort is normal. Skin: Comments: Longitudinal presternal scar. Well-healed. No redness/swelling/tenderness. Neurological: General: No focal deficit present. Mental Status: He is alert. Assessment/Plan Assessment/Plan Diagnoses and all orders for this visit: Gastroesophageal reflux disease without esophagitis Comments: Avoid eating 3 hours prior to bedtime Head of bed elevation Avoid dietary irritants Continue with the same medication Encounter for immunization - FLU VACCINE TRIVALENT HIGH DOSE [id number] (Fluzone) 65 yrs + Essential hypertension Comments: Stable No acute intervention today DASH diet. Longstanding persistent atrial fibrillation (CMS/HCC) (HCC) Comments: On warfarin Follow-up with the Coumadin clinic Mitral valve insufficiency, unspecified etiology Comments: Status post valve replacement Follow-up with cardiology Coumadin as per the grab setter recommendation. [1] Patient Active Problem List Diagnosis Chest pain Essential hypertension Gastroesophageal reflux disease Hiatal hernia Microscopic hematuria Myocardial infarction (HCC) Osteoporosis Pain in joint involving lower leg Sciatica Vitamin D deficiency Longstanding persistent atrial fibrillation (CMS/HCC) (HCC) Dizziness and giddiness Heart murmur Mitral regurgitation Pre-op examination Strain of lumbar region Tubular adenoma of colon Upper abdominal pain CAD, multiple vessel Abdominal bloating Age-related incipient cataract of left eye Acute on chronic congestive heart failure (HCC) [2] No Known Allergies [3] Current Outpatient Medications on File Prior to Visit Medication Sig Dispense Refill acetaminophen (Tylenol) 500 MG tablet Take 2 tablets (1,000 mg) by mouth every 6 (six) hours if needed for moderate pain or fever for up to 25 doses. 50 tablet 0 amiodarone (Pacerone) 200 MG tablet Take 1 tablet by mouth 2 times daily. aspirin 81 MG chewable tablet Chew 1 tablet (81 mg) Once per day. 90 tablet 0 atorvastatin (Lipitor) 80 MG tablet TAKE ONE TABLET EVERY NIGHT AT BEDTIME 90 tablet 1 Bisacodyl EC 5 MG EC tablet TAKE TWO TABLETS AT BEDTIME FOR TWO DAYS brimonidine (AlphaGAN) 0.2 % ophthalmic solution PLACE ONE DROP IN THE LEFT EYE TWICE DAILY, 12 HOURS APART capsaicin (Zostrix) 0.025 % cream Apply topically 2 times daily. 56.6 g 2 cholecalciferol (Vitamin D-3) 25 MCG tablet TAKE ONE TABLET EVERY MORNING 30 tablet 11 Diclofenac Sodium 1 % gel APPLY TOPICALLY TO AFFECTED AREA(s) TWO GRAMS, USE FOUR TIMES DAILY DIRECTED 100 g 1 enalapril (Vasotec) 2.5 MG tablet TAKE ONE TABLET EVERY MORNING 90 tablet 3 ferrous gluconate (Fergon) 324 (37.5 Fe) MG tablet TAKE ONE TABLET TABLET EVERY MORNING WITH BREAKFAST 90 tablet 1 finasteride (Proscar) 5 MG tablet TAKE ONE TABLET EVERY NIGHT AT BEDTIME GAS RELIEF 125 MG capsule TAKE ONE CAPSULE THREE OR FOUR TIMES DAILY metoprolol tartrate (Lopressor) 25 MG tablet Take 0.5 tablets (12.5 mg) by mouth 2 times daily. 90 tablet 0 nitroglycerin (Nitrostat) 0.4 MG SL tablet DISSOLVE 1 TABLET UNDER THE TONGUE EVERY 5 MINUTES NEEDED FOR CHEST PAIN. DO NOT EXCEED A TOTAL OF 3 DOSES IN 15 MINUTES. 25 tablet 0 sucralfate (Carafate) 1 g tablet Take 2 tablets by mouth at bed time. tamsulosin (Flomax) 0.4 MG 24 hr capsule TAKE ONE CAPSULE EVERY NIGHT AT BEDTIME timolol (Timoptic) 0.5 % ophthalmic solution PLACE ONE DROP IN THE LEFT EYE EVERY MORNING warfarin (Coumadin) 1 MG tablet Take 1-3 tablets by mouth Once per day. As directed [DISCONTINUED] cholecalciferol (Vitamin D-3) 25 MCG tablet TAKE ONE TABLET EVERY MORNING 30 tablet 11 No current facility-administered medications on file prior to visit. documented in this encounter Plan of Treatment Not on file documented as of this encounter Visit Diagnoses Diagnosis Gastroesophageal reflux disease without esophagitis- Primary Esophageal reflux Encounter for immunization Essential hypertension Unspecified essential hypertension Longstanding persistent atrial fibrillation (CMS/HCC) (HCC) Mitral valve insufficiency, unspecified etiology documented in this encounter Additional Health Concerns Assessment Noted Time PHQ-9 Depression Total Score: 0 04/17/20 23 11:02 AM EST documented as of this encounter Care Teams Clinical Rn Liaison Relationship Specialty Start Date End Date Gucci Gross MD [address] [place] [address] [phone] PCP - General Internal Medicine 06/03/18 documented as of this encounter
--- OUTSIDE RECORDS SUMMARY | 2025-03-24 09:02 | XMS_ITS | Encounter Summary ---
Author Organization [employer] Address [address] [facility] 7t [place] [address] Care Team Providers Care Group Therapist Name Role Phone Gucci Gross MD Primary Care Provider [phone]- [phone] Encounter Details Date Type Department Care Team (Late st Contact Info) Description 11/26/2022 Orders Only [facility] [address] [place] [address] Viridiana Gloria LPN Social History Tobacco Use [...] on filedocumented in this encounter Care Teams Group Therapist Relationship Specialty Start Date End Date Gucci Gross MD [address] [place] [address] PCP - General Internal Medicine 06/03/18 documented as of this encounter
--- OUTSIDE RECORDS SUMMARY | 2025-03-24 09:02 | XMS_ITS | Encounter Summary ---
Author Organization [facility] Address [address] [place] [address] Care Team Providers Care Nut Former Name Role Phone Physician, Pcp Unknown Primary Care Provider Sonia vailable Encounter Details Date Type Department Care Team (Late st Contact Info) Description 10/09/[address] [facility] - Main Lab [address] [facility] [place] [address] Leia Sky PA [address] [place] [address] Benign essential microscopic hematuria Social History Tobacco [...] AM EDT) Final Diagnosis A. Urine, Voided, [id number]: Negative for high grade urothelial carcinoma. Results of UroVysion fluorescence in situ hybridization (FISH) testing: CEP3: Normal CEP7: Normal CEP17: Normal LSI 9p21: Normal Interpretation: Normal profile Controls stained appropriately. Note: The results are intended as a screening device and should be interpreted in association with other clinical and pathological findings. 10/22/2024 1:40 PM EDT [facility] ([facility]) HOSPITAL LAB Clinical Information Benign essential microscopic hematuria R31.1 Urine Cytology/FISH (now) 10/22/2024 1:40 PM EDT [facility] Gross Description A. Urine, Voided, [id number]: Received one ThinPrep slide for cytology and one ThinPrep slide for UroVysion FISH 10/22/2024 1:40 PM EDT [facility] Disclaimer Unless otherwise specified, all tissue is 10% NB formalin fixed and paraffin embedded. Technical pathology services provided by [facility] at [address] [facility] [address], [place] [address] (CLIA #[id number]/Georgia Roth MD, Display Coordinator) 10/22/2024 1:40 PM EDT [facility] Tissue Urine specimen from urethra / Unknown 10/05/2024 10/09/2024 10:44 AM EDT us Leia ARGUETA LAB PATHOLOGY ORDERABLES Final Result [facility] [address] [place] [address], documented in this encounter Visit Diagnoses Diagnosis Benign essential microscopic hematuria documented in this encounter Care Teams Nut Former Relationship Specialty Start Date End Date Physician, Pcp Unknown PCP - General 10/09/24 documented as of this encounter
--- OUTSIDE RECORDS SUMMARY | 2025-03-24 09:02 | XMS_ITS | Encounter Summary ---
Author Organization [employer] Address [address] [place] [address] 7t [place] [address] Care Team Providers Care Zinc Furnace Charger Name Role Phone Gucci Gross MD Primary Care Provider [phone] Reason for Visit * Reason Comments Med Refill Encounter Details Date Type Department Care Team ([facility] st Contact Info) Description 05/21/2024 Refill [facility] [address] [place], [place] [phone] Tanya Queen MD [address] [place] [address] Social History Tobacco Use Types Packs/Day Years [...] documented as of this encounter Care Teams Zinc Furnace Charger Relationship Specialty Start Date End Date Gucci Gross MD [address] [place] [address] PCP - General Internal Medicine 06/03/18 documented as of this encounter
--- OUTSIDE RECORDS SUMMARY | 2025-03-24 09:02 | XMS_ITS | Encounter Summary ---
Author Organization [employer] Address [address] [place] [address] 7 [place] [address] Care Team Providers Care Enamel Buffer Name Role Phone Gucci Gross MD Primary Care Provider [phone] Reason for Referral * (Routine) - Closed Specialty Diagnoses / Procedures Referred By Contac t Referred To Contact Diagnoses Axillary pain, right Procedures US Extremity Non Vascular Rg Ordonez MD [address] [place] [address] Phone: tel: fax: Referral ID Status Reason Start Date Expiration Date Visits Re quested Visits Authorized [id number] Closed 10/23/2022 04/21/2023 1 1 Encounter Details Date Type Department Care Team (Late st Contact Info) Description 10/23/2022 Orders Only [facility] [address] [place] [address] [phone] Rg Ordonez MD [address] [place] [address] [phone] Axillary pain, right (Primary Dx) Social History [...] PM EDT Narrative 10/26/2022 7:34 PM EDT [facility] Adult Primary Care [facility] [address] Ultrasound Report Signed Patient: Marcus Vanessa MR#: [id number] : 1950 Acct:[id number] Age/Sex: 72 / M ADM Date: 10/23/22 Loc: HO.HMGCX Attending Dr: Rg Ordonez MD Ordering Physician: RG ORDONEZ MD Date of Service: 10/23/22 Procedure(s): US extremity nonvascular stephens Accession Number(s): [id number] cc: RG ORDONEZ MD ULTRASOUND RIGHT AXILLARY [...] MD in OV> 10/26/221931 DD/ 38 TD/TT: Electric Deicer Inspector: WILDA Procedure Note Donotuseinterpreter, Image - 11/29/2022 [facility] Adult Primary Care [facility] [address] Ultrasound Report Signed Patient: Elizabeth Vanessa#: M [id number] : 1950cct:[id number] Age/Sex: 72 / MADM Date: 10/23/22 Loc: HO.HMGCX Attending Dr: Rg Ordonez MD Ordering Physician: RG ORDONEZ MD Date of Service: 10/23/22 Procedure(s): US extremity nonvascular stephens Accession Number(s): [id number] cc: RG ORDONEZ MD ULTRASOUND RIGHT AXILLARY [...] MD in OV> 10/26/221931 DD/ 38 TD/TT: Electric Deicer Inspector: WILDA [facility] External Provider IMG US PROCEDURES Edited Result - Final documented in this encounter Visit Diagnoses Diagnosis Axillary pain, right- Primary documented in this encounter Care Teams Enamel Buffer Relationship Specialty Start Date End Date Gucci Gross MD [address] [place] [address] [place] [address] PCP - General Internal Medicine 06/03/18 documented as of this encounter
--- OUTSIDE RECORDS SUMMARY | 2025-03-24 09:02 | XMS_ITS | Clinical Summary ---
Author Organization [employer] Address [address] [place] [address] 7t [place] [address] Care Team Providers Care Pad Cutter Name Role Phone Gucci Gross MD Primary Care Provider [phone] Allergies No known active allergies Medications acetaminophen [...] ONE CAPSULE EVERY NIGHT AT BEDTIME Active enalapril (Vasotec) 2.5 MG tablet TAKE [...] by mouth 2 times daily. 02/18/20 25 Active warfarin (Coumadin) 1 MG tablet Take 1-3 tablets by mouth Once per day. As directed 02/19/20 25 Active aspirin 81 MG chewable tablet Chew 1 tablet (81 mg) Once per day. 90 tablet 03/14/20 25 Active metoprolol tartrate (Lopressor) 25 MG tablet Take 0.5 tablets (12.5 mg) by mouth 2 times daily. 90 tablet 03/14/20 25 Active cholecalciferol (Vitamin D-3) 25 MCG tablet TAKE ONE TABLET EVERY MORNING 30 tablet 11 03/19/20 25 Active Eliquis 5 MG tablet TAKE [...] (will not trigger notification to Pharmacy)) PEG 3820-HEr-DeXzv-N aCl-NaSulf (PEG-3350/Electr olytes) 236 g reconstituted solution DRINK EIGHT OUNCE GLASS EVERY 10 MINUTES FOR ONE DAY UNTIL BOWEL MOVEMENT CLEAR 04/30/20 23 025 Discontinued(M ed list cleanup (will not trigger notification to Pharmacy)) cholecalciferol (Vitamin D-3) 25 MCG tablet TAKE ONE TABLET EVERY MORNING 30 tablet 11 03/23/20 24 025 Discontinued furosemide (Lasix) 40 MG tabletIndication s:Acute on chronic congestive heart failure, unspecified heart failure type (HCC) TAKE ONE TABLET EVERY DAY 20 tablet 09/19/19 025 Discontinued(M ed list cleanup (will not trigger notification to Pharmacy)) metoprolol succinate XL (Toprol-XL) 25 MG 24 hr tabletIndication s:Essential hypertension TAKE ONE TABLET EVERY MORNING 90 tablet 1 02/18/20 025 Discontinued(M ed list cleanup (will not [...] Diagnosed Date Resolved Date Chronic atrial fibrillation (CMS/HCC) 07/29/2023 07/29/2023 Encounters Date Type Department Care Team Description 03/22/2025 3:30 PM EDT Office Visit [facility] MED [facility]ED[facility] [address] [place] [address] Gucci Gross MD Gastroesophageal reflux disease without esophagitis (Primary Dx); Encounter for immunization; Essential hypertension; Longstanding persistent atrial fibrillation (CMS/HCC) (HCC); Mitral valve insufficiency, unspecified etiology 03/22/2025 Travel 03/19/2025 Telephone [facility] [address] [place] [address] Gucci Gross MD Chart Prep 03/19/2025 Telephone [facility] [address] [place] [address] Gucci Gross MD Durable Medical Equipment 03/19/2025 Refill [facility] [address] [place] [address] Gucci Gross MD 03/12/2025 Refill [facility] [address] [place] [address] Lucille Urena, PharmD 03/04/2025 Patient Outreach [facility] [address] [place] [address] Gucci Gross MD Transition Of Care (Tcm) (HDF unscheduled unable to LVM ) 03/04/2025 Telephone [facility] [address] [place] [address] Lucille Urena, PharmD 02/23/2025 Telephone [facility] [address] [place] [address] Gucci Gross MD Appointment Request 02/16/2025 Refill [facility] [address] [place] [address] Gucci Gross MD Essential hypertension 02/02/2025 Orders Only GENERIC EXTERNAL DATA DEPARTMENT Provider, Generic External Data 01/14/2025 Orders Only [facility] External Provider, [facility] from Last 3 Months Immunizations Immunization Administration Dates Next Due Influenza High-dose Quadriva lent Preservative Free 03/20/2023,02/23/2022,03/23/2021 Influenza, High Dose Seasona l, Preservative Free 03/22/2025,02/18/2024,04/01/2019,04/16,01/28/2017 Influenza, IIV3, injectable 03/23/2021, 4,03/25/2013 Influenza, Split (incl. wan fied surface antigen) [...] Pulse 59 03/22/2025 3:21 PM EDT Temperature 35.7 C (96.2 F) 04/02/2024 11:15 AM EDT Respiratory Rate 19 03/22/2025 3:21 PM EDT Oxygen Saturation 97% 03/22/2025 3:21 PM EDT Inhaled Oxygen Concentration - - Weight 54.4 kg (120 lb) 03/22/2025 3:21 PM EDT Height 158 cm (5' 2.21 ) 03/22/2025 3:21 PM EDT Body Mass Index 21.8 03/22/2025 3:21 PM EDT Plan of Treatment Health Maintenance Due Date Last Done Comments CT Colonography 1950 FIT DNA/Cologuard 1950 FIT 1950 FOBT 1950 Sigmoidoscopy 1950 Alcohol/Substance Use Screening 1962 RSV Patients and Patients Aged 60 years or older (1 - Risk 60-74 years 1-dose series) 2010 Depression Screening 04/17/2024 04/17/2023, 04/17/20 23 COVID-19 Vaccine ( season) 2025 04/16/2022, 10/26/2021, 05/19/2021, Additional history exists Tobacco Screening 02/09/2025 02/10/2024 SDOH Screening 03/26/2025 03/26/2024 DTaP/Tdap/Td Vaccines (2 - Td or Tdap) 05/18/2025 05/18/2015 Lipid Panel 12/25/2028 12/26/2023, 04/04, 10/09/2021 Colonoscopy 01/28/2034 01/29/2024, 05/08/2018 Colorectal Cancer Screening 01/28/2034 Zoster Vaccines Completed 01/23/2021, 09/02, 01/14/2015 Hepatitis C Screening Completed 10/09/2021 Pneumococcal Vaccine: 50+ Years Completed 10/09/2021, 01/29/2019, 08/09/2015 Influenza Vaccine Completed 03/22/2025, , 03/20/2023, Additional history exists HIB Vaccines Aged Out [...] Stimulating Hormone 0.46 0.32 - 4.0 uIU/mL [facility] Comment:TSH 3rd Generation ( [facility]) 02/02/2025 10:3 3 AM EDT 02/02/2025 11:01 AM EDT Generic External Data Provider LAB BLOOD ORDERAB LES Final Result Performing Organization Address [facility] Co de Phone Number [facility] [address] [place] [phone] * T4, Free (02/02/2025 10:33 AM EDT) Free T4 (Free Thyroxine) 1.18 0.71 - 1.85 ng/dL [facility] 02/02/2025 10:3 3 AM EDT 02/02/2025 11:01 AM EDT Generic External Data Provider LAB BLOOD ORDERAB LES Final Result Performing Organization Address City/[facility] Co de Phone Number [facility] [address] [place] [phone] * XR Shoulder 2+ Views Left (01/14/2025 9:29 AM EDT) Anatomical Region Laterality Modality Upper Extremities, Shoulder Left Radi ographic Imaging 01/14/2025 9:29 AM EDT Narrative 01/14/2025 10:38 AM EDT [address] [address] XRay Report Signed Patient: Marcus Vanessa MR#: M [id number] : 1950 Acct:[id number] Age/Sex: 74 / M ADM Date: 01/14/25 Loc: HO.ED Attending Dr: Ordering Physician: Shannon Barr DO Date of Service: 01/14/25 Procedure(s): XR shoulder LT min 2V Accession Number(s): [id number] cc: Gucci Gross MD; Shannon Barr DO [...] 01/14/25 1035 DD/ 0929 TD/TT: 01/14/25 1025 Telegraph And Teletype Operator: Procedure Note Donotuseinterpreter, Image - 01/14/2025 [place] [address] XRay Report Signed Patient: Jerry VanessasMR#: Renato [id number] : 1950cct:[id number] Age/Sex: 74 / MADM Date: 01/14/25 Loc: HO.ED Attending Dr: Ordering Physician: Shannon Barr DO Date of Service: 01/14/25 Procedure(s): XR shoulder LT min 2V Accession Number(s): [id number] cc: Gucci Gross MD; Shannon Barr DO [...] 01/14/25 1035 DD/ 0929 TD/TT: 01/14/25 1025 Telegraph And Teletype Operator: [facility] External Provider IMG XR PROCEDURES Final Result * XR Ribs 3 Views Left w/ Chest (01/14/2025 9:22 AM EDT) Anatomical Region Laterality Modality Radiographic Kaylin ging 01/14/2025 9:22 AM EDT Narrative 01/14/2025 10:39 AM EDT [place] [address] XRay Report Signed Patient: Marcus Vanessa MR#: M [id number] : 1950 Acct:[id number] Age/Sex: 74 / M ADM Date: 01/14/25 Loc: .ED Attending Dr: Ordering Physician: Shannon Barr DO Date of Service: 01/14/25 Procedure(s): XR ribs LT min 3V w CXR1V Accession Number(s): [id number] cc: Gucci Gross MD; Shannon Barr DO [...] 01/14/25 1036 DD/ 0922 TD/TT: 01/14/25 1025 Telegraph And Teletype Operator: Procedure Note Donotuseinterpreter, Image - 01/14/[address] [address] XRay Report Signed Patient: Elizabeth Vanessa#: M [id number] : 1950cct:[id number] Age/Sex: 74 / MADM Date: 01/14/25 Loc: HO.ED Attending Dr: Ordering Physician: Shannon Barr DO Date of Service: 01/14/25 Procedure(s): XR ribs LT min 3V w CXR1V Accession Number(s): [id number] cc: Gucci Gross MD; Shannon Barr DO [...] MD Signed By: <Electronically signed by Garett Noyoal MDin OV> 01/14/25 1036 DD/ 0922 TD/TT: 01/14/25 1025 Telegraph And Teletype Operator: [facility] External Provider IMG XR PROCEDURES Final Result * (ABNORMAL) Colonoscopy (01/29/2024) Anatomical Region Laterality Modality Endoscopy Narrative 01/29/[address] Keri Covarrubias on 01/29/24 at [place]: Diverticulosis, Internal hemorrhoids. Repeat colonoscopy recommended in 10 years if health allows. Historical Provider ENDOSCOPY PROCEDURE ORDER CHANG Edited Result - Final * Lipid Panel, Standard (12/26/2023 9:24 AM EDT) Triglycerides 46 <150 mg/dL [facility] Comment:Desirable Triglyceri de: less than 150 mg/dLBorderline High Triglyceride 150-199 mg/dLHigh Triglyceride: 200-499 mg/dLVery High Triglyceride: greater than or equal to 5OO mg/dL Cholesterol 108 <200 mg/dL [facility] Comment:Desirable Cholestero l: less than 200 mg/dLBorderline High Cholesterol: 200-239 mg/dLHigh Cholesterol: greater than 239 mg/dL LDL Cholesterol Calculated 44 <100 mg/dL [facility] Comment:Desirable LDL: less than 100 mg/dLNear Optimal/Above Optimal LDL: 110- 129 mg/dLBorderline High LDL: 130-159 mg/dLHigh LDL: 160-189 mg/dLVery High LDL: greater than or equal to 190 mg/dL HDL Cholesterol 55 >40 mg/dL [facility] Comment:Desirable HDL: great er than 40 mg/dL Note: This HDL assay may give artificially low results in patients with liver disease. Blood Venous blood specimen / Unknown 12/26/2023 9:24 AM EDT 12/26/2023 9:26 AM EDT Tanya Queen MD LAB BLOOD ORDERABLES Final Re sult [facility] [address] [place] [phone] * HEPATITIS C AB W/REFL TO HCV RNA, QN, PCR (10/09/2021 9:27 AM EDT) HEPATITIS C ANTIBODY NON-REACT CHARU NON-REACT CHARU [facility] INDEX 0.01 <1.00 [facility] Comment: HCV antibody was non-reactive. There is no laboratory evidence of HCV infection. In most cases, no further action is required. However, if recent HCV exposure is suspected, a test for HCV RNA (test code 55639) is suggested. For additional information please refer to http://education.Mercora/faq/NVJ06c2 (This link is being provided for informational/ educational purposes only.) 10/09/2021 9:27 AM EDT us Gucci Gross MD HISTORICAL/NON ORDERABLE LA BS Final Result Performing Organization Address City/[facility]/ZIP Co de Phone Number [facility] [address] from Last 3 Months or Most Recently Relevant to Health Maintenance Insurance [facility] [employer] OPT[employer] (HMO D-SNP) [place] [id number] [place] [address] [phone] [address] [place] [phone] Care Teams Pad Cutter Relationship Specialty Start Date End Date Gucci Gross MD [address] [place] [address] PCP - General Internal Medicine 06/03/18
--- OUTSIDE RECORDS SUMMARY | 2025-03-24 09:02 | XMS_ITS | Encounter Summary ---
Author Organization [employer] Address [address] [place] [address] 7t [place] [address] Care Team Providers Care Plumber'S Helper Name Role Phone Gucci Gross MD Primary Care Provider [phone]- [phone] Encounter Details Date Type Department Care Team (Late st Contact Info) Description 09/27/2022 Orders Only [facility] [address] [place], [place] [phone] Ilda Drummond LPN Social History Tobacco Use [...] on filedocumented in this encounter Care Teams Plumber'S Helper Relationship Specialty Start Date End Date Gucci Gross MD [address] [place] [address] PCP - General Internal Medicine 06/03/18 documented as of this encounter
--- OUTSIDE RECORDS SUMMARY | 2025-03-24 09:02 | XMS_ITS | Encounter Summary ---
Author Organization [employer] Address [address] [facility] 7t [place] [address] Care Team Providers Care Hat Lacer Name Role Phone Gucci Gross MD Primary Care Provider [phone] Reason for Visit * Reason Comments Med Refill Encounter Details Date Type Department Care Team ([facility] st Contact Info) Description 05/10/2024 Refill [facility]S [address] [place], [place] [phone] Gucci Gross MD [address] [place] [address] Muscle cramps Social History Tobacco Use Types [...] documented as of this encounter Care Teams Hat Lacer Relationship Specialty Start Date End Date Gucci Gross MD [address] [place] [address] PCP - General Internal Medicine 06/03/18 documented as of this encounter
--- OUTSIDE RECORDS SUMMARY | 2025-03-24 09:02 | XMS_ITS | Encounter Summary ---
Author Organization [employer] Address [address] [place] [address] 7 [place] [address] Care Team Providers Care Roofer Apprentice Name Role Phone Gucci Gross MD Primary Care Provider [phone] Reason for Visit * Reason Onset Date Comments Appointment Request 02/23/2025 Encounter Details Date Type Department Care Team ([facility] st Contact Info) Description 02/23/2025 Telephone [facility] MED [facility] PEDS [address] [place] [address] Gucci Gross MD [address] [place] [address] Appointment Request Social History Tobacco Use Types [...] and needing an apt. Contact pt at [phone] documented in this encounter Plan of Treatment Not on file documented as of this encounter Visit Diagnoses Not on filedocumented in this encounter Additional Health Concerns Assessment Noted Time PHQ-9 Depression Total Score: 0 04/17/20 23 11:02 AM EST documented as of this encounter Care Teams Roofer Apprentice Relationship Specialty Start Date End Date Gucci Gross MD [address] [place] [address] PCP - General Internal Medicine 06/03/18 documented as of this encounter
--- OUTSIDE RECORDS SUMMARY | 2025-03-24 09:02 | XMS_ITS | Encounter Summary ---
Author Organization [employer] Address [address] [facility] 7t [place] [address] Care Team Providers Care Prototype Sewer Name Role Phone Gucci Gross MD Primary Care Provider [phone] Encounter Details Date Type Department Care Team (Late st Contact Info) Description 10/27/2024 Orders Only [facility] [address] [place], [place] [phone] Gucci Gross MD [address] [place], [place] [phone] Chronic pain of right knee (Primary Dx); [...] documented as of this encounter Care Teams Prototype Sewer Relationship Specialty Start Date End Date Gucci Gross MD [address] [place] [address] PCP - General Internal Medicine 06/03/18 documented as of this encounter
--- OUTSIDE RECORDS SUMMARY | 2025-03-24 09:03 | XMS_ITS | Encounter Summary ---
Author Organization [employer] Address [address] [place] [address] 7 [place] [address] Care Team Providers Care Dinker Name Role Phone Gucci Gross MD Primary Care Provider [phone] Reason for Referral * Consultation (Routine) - Closed Specialty Diagnoses / Procedures Referred By Contac t Referred To Contact Endocrinology Diagnoses Elevated TSH Gucci Gross MD [address] [place] [address] Phone: tel: fax: [facility] [address] [place], [place] Phone: tel: fax: Referral ID Status Reason Start Date Expiration Date V isits Requested Visits Authorized [id number] Closed Specialty Services Required 01/17/2024 01/16/2025 1 1 Encounter Details Date Type Department Care Team (Late st Contact Info) Description 01/08/2024 Orders Only [facility] [address] [place], [place] [phone] Gucci Gross MD [address] [place], [place] [phone] Elevated TSH (Primary Dx) Social History Tobacco [...] documented as of this encounter Care Teams Dinker Relationship Specialty Start Date End Date Gucci Gross MD [address] [place] [address] PCP - General Internal Medicine 06/03/18 documented as of this encounter
--- OUTSIDE RECORDS SUMMARY | 2025-03-24 09:03 | XMS_ITS | Encounter Summary ---
Author Organization [employer] Address [address] [place] [address] 7t [place] [address] Care Team Providers Care Systems Test Technician Name Role Phone Gucci Gross MD Primary Care Provider [phone] Encounter Details Date Type Department Care Team (Late st Contact Info) Description 08/15/2023 Orders Only [facility] MED [facility] PEDS [address] [place], [place] [phone] Gucci Gross MD [address] [place] [address] Social History Tobacco Use Types Packs/Day Years [...] documented as of this encounter Care Teams Systems Test Technician Relationship Specialty Start Date End Date Gucci Gross MD [address] [place] [address] PCP - General Internal Medicine 06/03/18 documented as of this encounter
--- OUTSIDE RECORDS SUMMARY | 2025-03-24 09:03 | XMS_ITS | Encounter Summary ---
Author Organization [employer] Address [address] [facility] 7t [place] [address] Care Team Providers Care Parachute Inspector Name Role Phone Gucci Gross MD Primary Care Provider [phone] Encounter Details Date Type Department Care Team (Late st Contact Info) Description 10/14/2023 Orders Only [facility] [address] [place] [address] ProviderAri MD Social History Tobacco Use Types [...] t he electric, gas, oil or water Mismi threatened to shut off services in your [...] documented as of this encounter Care Teams Parachute Inspector Relationship Specialty Start Date End Date Gucci Gross MD [address] [place] [address] PCP - General Internal Medicine 06/03/18 documented as of this encounter
--- OUTSIDE RECORDS SUMMARY | 2025-03-24 09:03 | XMS_ITS | Encounter Summary ---
Author Organization [employer] Address [address] [place] [address] 7[place] [address] Care Team Providers Care Upsetter Helper Name Role Phone Gucci Gross MD Primary Care Provider [phone] Encounter Details Date Type Department Care Team (Late st Contact Info) Description 03/25/2023 Orders Only [facility] CHC MED & PEDS 505 [place], [place] [phone] Viridiana Gloria LPN Social History Tobacco Use [...] on filedocumented in this encounter Care Teams Upsetter Helper Relationship Specialty Start Date End Date Gucci Gross MD 505 [place] [address] PCP - General Internal Medicine 06/03/18 documented as of this encounter
--- OUTSIDE RECORDS SUMMARY | 2025-03-24 09:03 | XMS_ITS | Encounter Summary ---
Author Organization [employer] Address 75 [facility] 7t [place] [address] Care Team Providers Care Origination Specialist Name Role Phone Gucci Gross MD Primary Care Provider [phone] Reason for Visit * Reason Onset Date Comments Durable Medical Equipment 03/19/2025 Encounter Details Date Type Department Care Team (Late st Contact Info) Description 03/19/[address] [facility] MEDICINE 230 [place] [address] Gucci Gross MD 505 [place] [address] Durable Medical Equipment Social History Tobacco Use Types Packs/Day Years [...] encounter Miscellaneous Notes * Telephone Encounter - Zuleyma Urena LPN - 03/22/2025 12:20 PM EDT Rx [email or web address] . TC from [place] with [facility] requesting a DME : Rollator with Seat [phone] * Telephone Encounter - Jairo Barrera - 03/19/2025 11:58 AM EDT TC from [place] with [facility] requesting a DME : Rollator with Seat [email or web address] [phone] documented in this encounter Plan of Treatment Not on file documented as of this encounter Visit Diagnoses Not on filedocumented in this encounter Additional Health Concerns Assessment Noted Time PHQ-9 Depression Total Score: 0 04/17/20 23 11:02 AM EST documented as of this encounter Care Teams Origination Specialist Relationship Specialty Start Date End Date Gucci Gross MD [address] [place] [address] PCP - General Internal Medicine 06/03/18 documented as of this encounter
--- OUTSIDE RECORDS SUMMARY | 2025-03-24 09:03 | XMS_ITS | Encounter Summary ---
Author Organization [employer] Address 75 [facility] 7t [place] [address] Care Team Providers Care Ems Educator Name Role Phone Gucci Gross MD Primary Care Provider [phone] Reason for Visit * Reason Onset Date Comments Nurse Triage 12/25/2023 Encounter Details Date Type Department Care Team ([facility] st Contact Info) Description 12/25/2023 Telephone [facility] MEDICINE 230 [place] [address] Gucci Gross MD 505 [place] [address] Nurse Triage Social History Tobacco Use Types [...] 12/25/2023 12:29 PM EDT Triage call with [employer] [place] [id number] Pt reports a medication reaction symptoms are cough especially at night which causes back pain which radiates to chest, bilateral lower extremity edema. Pt believes this is caused by eliquis. Pt has been taking eliquis for > 3months but, reports , I take alot of pills maybe there is aspirin in them . Pt denies difficulty breathing, fever, cold sx. ASK apt in [facility] today @ 240pm. Pt agrees with [...] acuity questions The caller accepted this outcome Chinese speaker documented in this encounter Plan of Treatment Not on file documented as of this encounter Visit Diagnoses Not on filedocumented in this encounter Additional Health Concerns Assessment Noted Time PHQ-9 Depression Total Score: 0 04/17/20 23 11:02 AM EST documented as of this encounter Care Teams Ems Educator Relationship Specialty Start Date End Date Gucci Gross MD [address] [place] [address] PCP - General Internal Medicine 06/03/18 documented as of this encounter
--- OUTSIDE RECORDS SUMMARY | 2025-03-24 09:03 | XMS_ITS | Encounter Summary ---
Author Organization [employer] Address 75 [facility] 7t [place] [address] Care Team Providers Care Boilermaker Loftsman Name Role Phone Gucci Gross MD Primary Care Provider [phone] Encounter Details Date Type Department Care Team (Late st Contact Info) Description 04/04/2023 Abstract [facility] MEDICINE 230 [place] [address] Gucci Gross MD 505 [place], [place] [phone] Social History Tobacco Use Types Packs/Day Years [...] on filedocumented in this encounter Care Teams Boilermaker Loftsman Relationship Specialty Start Date End Date Gucci Gross MD [address] [place] [address] PCP - General Internal Medicine 06/03/18 documented as of this encounter
--- OUTSIDE RECORDS SUMMARY | 2025-03-24 09:03 | XMS_ITS | Clinical Summary ---
Author Organization [address] Address [address] [place] [address] Phone Care Team Providers Care Dental Lab Technician Name Role Phone Physician, Pcp Unknown Primary [...] patient's age to complete this topic Insurance [facility] MEDICAID Care Teams Dental Lab Technician Relationship Specialty Start Date End Date Physician, Pcp Unknown PCP - General 10/09/24
--- OUTSIDE RECORDS SUMMARY | 2025-03-24 09:03 | XMS_ITS | Encounter Summary ---
Author Organization [employer] Address [address] [place] [address] 7t [place] [address] Care Team Providers Care Sanitarian Name Role Phone Gucci Gross MD Primary Care Provider [phone] Reason for Visit * Reason Comments Med Refill Encounter Details Date Type Department Care Team ([facility] st Contact Info) Description 04/21/2024 Refill [facility] CHC MED & PEDS 505 [place], [place] [phone] Tanya Queen MD 505 [place] [address] Social History Tobacco Use Types Packs/Day Years [...] documented as of this encounter Care Teams Sanitarian Relationship Specialty Start Date End Date Gucci Gross MD [address] [place] [address] PCP - General Internal Medicine 06/03/18 documented as of this encounter
--- OUTSIDE RECORDS SUMMARY | 2025-03-24 09:03 | XMS_ITS | Encounter Summary ---
Author Organization [employer] Address [address] [place] [address] 7 [place] [address] Care Team Providers Care Oral And Maxillofacial Surgery Name Role Phone Gucci Gross MD Primary Care Provider [phone] Reason for Visit * Reason Onset Date Comments Chart Prep 03/19/2025 Encounter Details Date Type Department Care Team ([facility] st Contact Info) Description 03/19/2025 Telephone [facility] CHC MED & PEDS 505 [place] [address] Gucci Gross MD 505 [place] [address] Chart Prep Social History Tobacco Use Types Packs/Day Years [...] encounter Miscellaneous Notes * Telephone Encounter - Virginia Webster MA - 03/19/2025 3:21 PM EDT Chart Prep Labs: not applicable Images: done Referrals: not applicable Vaccines due: Covid, Flu, Tdap, and RSV Screenings: not applicable Overdue care gaps: SBIRT, PHQ-9, and Tobacco documented in this encounter Plan of Treatment Not on file documented as of this encounter Visit Diagnoses Not on filedocumented in this encounter Additional Health Concerns Assessment Noted Time PHQ-9 Depression Total Score: 0 04/17/20 23 11:02 AM EST documented as of this encounter Care Teams Oral And Maxillofacial Surgery Relationship Specialty Start Date End Date Gucci Gross MD [address] [place] [address] PCP - General Internal Medicine 06/03/18 documented as of this encounter
--- OUTSIDE RECORDS SUMMARY | 2025-03-24 09:03 | XMS_ITS | Encounter Summary ---
Author Organization [employer] Address [address] [place] [address] 7t [place] [address] Care Team Providers Care Sandal Parts Assembler Name Role Phone Gucci Gross MD Primary Care Provider [phone] Encounter Details Date Type Department Care Team (Late st Contact Info) Description 01/27/2024 Orders Only [facility] CHC MED & PEDS 505 [place], [place] [phone] Gucci Gross MD 505 [place] [address] Social History Tobacco Use Types Packs/Day Years [...] documented as of this encounter Care Teams Sandal Parts Assembler Relationship Specialty Start Date End Date Gucci Gross MD [address] [place] [address] PCP - General Internal Medicine 06/03/18 documented as of this encounter
--- OUTSIDE RECORDS SUMMARY | 2025-03-24 09:03 | XMS_ITS | Encounter Summary ---
Author Organization [employer] Address 75 [facility] 7t [place] [address] Care Team Providers Care Wastewater Treatment Supervisor Name Role Phone Gucci Gross MD Primary Care Provider [phone] Reason for Visit * Reason Comments Med Refill Encounter Details Date Type Department Care Team ([facility] st Contact Info) Description 03/19/2025 Refill [facility] CHC MED & PEDS [address] [place], [place] [phone] Gucci Gross MD 505 [place] [address] Social History Tobacco Use Types Packs/Day Years [...] documented as of this encounter Care Teams Wastewater Treatment Supervisor Relationship Specialty Start Date End Date Gcuci Gross MD [address] [place] [address] PCP - General Internal Medicine 06/03/18 documented as of this encounter
--- OUTSIDE RECORDS SUMMARY | 2025-03-24 09:03 | XMS_ITS | Encounter Summary ---
Author Organization [employer] Address 75 [facility] 7t [place] [address] Care Team Providers Care Ophthalmic Technologist Name Role Phone Gucci Gross MD Primary Care Provider [phone] Encounter Details Date Type Department Care Team (Latest Contact Info) Description 03/22/2025 Travel Social History Tobacco Use Types Packs/Day Years [...] documented as of this encounter Care Teams Ophthalmic Technologist Relationship Specialty Start Date End Date Gucci Gross MD [address] [place] [address] PCP - General Internal Medicine 06/03/18 documented as of this encounter
== END 2025-03-24 08:37 | disposition home or self-care (01) ==
LOC: HO.HHCL 08:36
PROVIDERS: PCP Internal Medicine; Visit Provider Pharmacist
DX: Z13.89 Encounter for screening for other disorder (principal)

== ENCOUNTER 2025-03-25 11:47 | Outpatient (REF) | payer OTHER, SELFPAY ==
--- OUTSIDE RECORDS SUMMARY | 2025-03-22 15:30 | XMS_ITS | Encounter Summary ---
Author Organization [employer] Address [address] [place] [address] [address] [place] [address] Care Team Providers Care Lab Support Technician Name Role Phone Gucci Gross MD Primary Care Provider [phone] Encounter Details Date Type Department Care Team (Latest Contact Info) Description 03/22/2025 3:30 PM EDT Office Visit [facility] [address] [place], [place] [phone] Gucci Gross MD [address] [place], [place] [phone] Gastroesophageal reflux disease without esophagitis (Primary Dx); [...] in office on 04/02/2025: 1) evaluation by [facility] endocrinology on August 2024. Most recent labs shows normal thyroid function. Asymptomatic. Advised to stay off methimazole. Will follow-up in 6 months. 2) evaluated by [facility] gastroenterology on September 15, 2024 for follow-up of his GERD. Status post colonoscopy. Needs a repeat colonoscopy in 5 years given his diagnosis of tubular adenoma of the colon. Advised to continue with pantoprazole, simethicone and Carafate. 3) history of hematuria. Evaluated October 22, 2024. Urine negative for high-grade urothelial carcinoma 4)evaluation at [facility] emergency department on January 14, 2025 for [...] MR is status post valve replacement at [facility], on 02/08/25 MVR-T, AVR-T, LA Maze, MALIK [...] immunization - FLU VACCINE TRIVALENT HIGH DOSE [id number] (Fluzone) 65 yrs + Essential hypertension Comments: Stable No acute intervention today DASH diet. Longstanding persistent atrial fibrillation (CMS/HCC) (HCC) Comments: On warfarin Follow-up with the Coumadin clinic Mitral valve insufficiency, unspecified etiology Comments: Status post valve replacement Follow-up with cardiology Coumadin as per the fuel cell designer recommendation. [1] Patient Active Problem List Diagnosis [...] documented as of this encounter Care Teams Lab Support Technician Relationship Specialty Start Date End Date Gucci Gross MD [address] [place] [address] [phone] PCP - General Internal Medicine 06/03/18 documented as of this encounter
[2025-03-25 13:41] LABS: INTERNATIONAL NORM RATIO 1.8 (0.9-1.1); Prothrombin Time 20.1 SEC (10.9-12.4)
--- OUTSIDE RECORDS SUMMARY | 2025-03-25 15:04 | XMS_ITS | Encounter Summary ---
Author Organization [employer] Address [address] [facility] 7t [place] [address] Care Team Providers Care Hogshead Inspector Name Role Phone Gucci Gross MD Primary Care Provider [phone] Encounter Details Date Type Department Care Team (Late st Contact Info) Description 11/26/2022 Orders Only [facility] MEDICINE 230 [place] [address] Viridiana Gloria LPN Social History Tobacco Use [...] on filedocumented in this encounter Care Teams Hogshead Inspector Relationship Specialty Start Date End Date Gucci Gross MD 505 [place] [address] PCP - General Internal Medicine 06/03/18 documented as of this encounter
--- OUTSIDE RECORDS SUMMARY | 2025-03-25 15:04 | XMS_ITS | Encounter Summary ---
Author Organization [employer] Address [address] [place] [address] 7t [place] [address] Care Team Providers Care Shore Man Name Role Phone Gucci Gross MD Primary Care Provider [phone] Encounter Details Date Type Department Care Team (Late st Contact Info) Description 09/27/2022 Orders Only [facility] CHC MED & PEDS 505 [place], [place] [phone] Ilda Drummond LPN Social History Tobacco Use [...] on filedocumented in this encounter Care Teams Shore Man Relationship Specialty Start Date End Date Gucci Gross MD 505 [place] [address] PCP - General Internal Medicine 06/03/18 documented as of this encounter
--- OUTSIDE RECORDS SUMMARY | 2025-03-25 15:04 | XMS_ITS | Encounter Summary ---
Author Organization [employer] Address [address] [place] [address] 7t [place] [address] Care Team Providers Care Deliverer Outside Name Role Phone Gucci Gross MD Primary Care Provider [phone] Reason for Visit * Reason Comments Med Refill Encounter Details Date Type Department Care Team ([facility] st Contact Info) Description 05/21/2024 Refill [facility] CHC MED & PEDS 505 [place], [place] [phone] Tanya Queen MD 505 [place] [address] Social History Tobacco Use Types Packs/Day Years [...] documented as of this encounter Care Teams Deliverer Outside Relationship Specialty Start Date End Date Gucci Gross MD [address] [place] [address] PCP - General Internal Medicine 06/03/18 documented as of this encounter
--- OUTSIDE RECORDS SUMMARY | 2025-03-25 15:04 | XMS_ITS | Encounter Summary ---
Author Organization [employer] Address [address] [place] [address] 7 [place] [address] Care Team Providers Care Ore Charger Name Role Phone Gucci Gross MD Primary Care Provider [phone] Reason for Visit * Reason Onset Date Comments Appointment Request 02/23/2025 Encounter Details Date Type Department Care Team ([facility] st Contact Info) Description 02/23/2025 Telephone [facility] CHC MED & PEDS [address] [place] [address] Gucci Gross MD 505 [place] [address] Appointment Request Social History Tobacco Use Types [...] and needing an apt. Contact pt at [phone] documented in this encounter Plan of Treatment Not on file documented as of this encounter Visit Diagnoses Not on filedocumented in this encounter Additional Health Concerns Assessment Noted Time PHQ-9 Depression Total Score: 0 04/17/20 23 11:02 AM EST documented as of this encounter Care Teams Ore Charger Relationship Specialty Start Date End Date Gucci Gross MD [address] [place] [address] PCP - General Internal Medicine 06/03/18 documented as of this encounter
--- OUTSIDE RECORDS SUMMARY | 2025-03-25 15:04 | XMS_ITS | Encounter Summary ---
Author Organization [facility] Address [address] [place] [address] Care Team Providers Care Correctional Captain Name Role Phone Physician, Pcp Unknown Primary Care Provider Sonia vailable Encounter Details Date Type Department Care Team (Late st Contact Info) Description 10/09/2024 Lab Requisition [facility] - Main Lab [address] [facility] [employer] [address] Leia Sky PA [address] [place] [address] Benign essential microscopic hematuria Social History Tobacco [...] AM EDT) Final Diagnosis A. Urine, Voided, [id number]: Negative for high grade urothelial carcinoma. Results of UroVysion fluorescence in situ hybridization (FISH) testing: CEP3: Normal CEP7: Normal CEP17: Normal LSI 9p21: Normal Interpretation: Normal profile Controls stained appropriately. Note: The results are intended as a screening device and should be interpreted in association with other clinical and pathological findings. 10/22/2024 1:40 PM EDT [facility] HOSPITAL LAB Clinical Information Benign essential microscopic hematuria R31.1 Urine Cytology/FISH (now) 10/22/2024 1:40 PM EDT [facility] Gross Description A. Urine, Voided, [id number]: Received one ThinPrep slide for cytology and one ThinPrep slide for UroVysion FISH 10/22/2024 1:40 PM EDT [facility] Disclaimer Unless otherwise specified, all tissue is 10% NB formalin fixed and paraffin embedded. Technical pathology services provided by [facility] at [address] [facility] [address], [place] [address] (CLIA #[id number]/Georgia Roth MD, Price Clerk) 10/22/2024 1:40 PM EDT [facility] Tissue Urine specimen from urethra / Unknown 10/05/2024 10/09/2024 10:44 AM EDT us Leia [facility] PATHOLOGY ORDERABLES Final Result [facility] [address] [place] [address], documented in this encounter Visit Diagnoses Diagnosis Benign essential microscopic hematuria documented in this encounter Care Teams Correctional Captain Relationship Specialty Start Date End Date Physician, Pcp Unknown PCP - General 10/09/24 documented as of this encounter
--- OUTSIDE RECORDS SUMMARY | 2025-03-25 15:04 | XMS_ITS | Encounter Summary ---
Author Organization [employer] Address [address] [place] [address] 7 [place] [address] Care Team Providers Care Jailkeeper Name Role Phone Gucci Gross MD Primary Care Provider [phone] Reason for Referral * (Routine) - Closed Specialty Diagnoses / Procedures Referred By Contac t Referred To Contact Diagnoses Axillary pain, right Procedures US Extremity Non Vascular Rg Ordonez MD [address] [place] [phone] Phone: tel: fax: Referral ID Status Reason Start Date Expiration Date Visits Re quested Visits Authorized [id number] Closed 10/23/2022 04/21/2023 1 1 Encounter Details Date Type Department Care Team (Late st Contact Info) Description 10/23/2022 Orders Only [facility] [address] [place] [address] [phone] Rg Ordonez MD [address] [place] [address] [phone] Axillary pain, right (Primary Dx) Social History [...] PM EDT Narrative 10/26/2022 7:34 PM EDT [facility] [place] [facility] [place] [address] Ultrasound Report Signed Patient: Marcus Vanessa MR#: [id number] : 1950 Acct:[id number] Age/Sex: 72 / M ADM Date: 10/23/22 Loc: HO.HMGCX Attending Dr: Rg Ordonez MD Ordering Physician: RG ORDONEZ MD Date of Service: 10/23/22 Procedure(s): US extremity nonvascular stephens Accession Number(s): [id number] cc: RG ORDONEZ MD ULTRASOUND RIGHT AXILLARY [...] MD in OV> 10/26/221931 DD/ 38 TD/TT: Carpet Mechanic: WILDA Procedure Note Donotuseinterpreter, Image - 11/29/2022 [facility] [place] [facility] [place] [address] Ultrasound Report Signed Patient: Elizabeth Vanessa#: M [id number] : 1950cct:[id number] Age/Sex: 72 / MADM Date: 10/23/22 Loc: HO.HMGCX Attending Dr: Rg Ordonez MD Ordering Physician: RG ORDONEZ MD Date of Service: 10/23/22 Procedure(s): US extremity nonvascular stephens Accession Number(s): [id number] cc: RG ORDONEZ MD ULTRASOUND RIGHT AXILLARY [...] MD in OV> 10/26/221931 DD/ 38 TD/TT: Carpet Mechanic: WILDA [facility] External Provider IMG US PROCEDURES Edited Result - Final documented in this encounter Visit Diagnoses Diagnosis Axillary pain, right- Primary documented in this encounter Care Teams Jailkeeper Relationship Specialty Start Date End Date Gucci Gross MD [address] [place] [address] [place] [address] PCP - General Internal Medicine 06/03/18 documented as of this encounter
--- OUTSIDE RECORDS SUMMARY | 2025-03-25 15:04 | XMS_ITS | Clinical Summary ---
Author Organization [employer] Address [address] [place] [address] 7t [place] [address] Care Team Providers Care Divemaster Name Role Phone Gucci Gross MD Primary Care Provider [phone] Allergies No known active allergies Medications acetaminophen [...] (will not trigger notification to Pharmacy)) PEG 1522-FCt-WwGdw-N aCl-NaSulf (PEG-3350/Electr olytes) 236 g reconstituted solution [...] Encounters Date Type Department Care Team Description 03/25/2025 Orders Only GENERIC EXTERNAL DATA DEPARTMENT Provider, Generic External Data 03/22/2025 3:30 PM EDT Office Visit [facility] MED & [facility]S [address] [place] [address] Gucci Gross MD Gastroesophageal reflux disease without esophagitis (Primary Dx); Encounter for immunization; Essential hypertension; Longstanding persistent atrial fibrillation (CMS/HCC) (HCC); Mitral valve insufficiency, unspecified etiology 03/22/2025 Travel 03/19/2025 Telephone [facility] [address] [place] [address] Gucci Gross MD Chart Prep 03/19/2025 Telephone [facility] MEDICINE [address] [place] [address] Gucci Gross MD Durable Medical Equipment 03/19/2025 Refill [facility] [address] [place] [address] Gucci Gross MD 03/12/2025 Refill [facility] MEDICINE [address] [place] [address] Lucille Urena, PharmD 03/04/2025 Patient Outreach [facility] MEDICINE [address] [place] [address] Gucci Gross MD Transition Of Care (Tcm) (HDF unscheduled unable to LVM ) 03/04/2025 Telephone [facility] MEDICINE [address] [place] [address] Lucille Urena, PharmD 02/23/2025 Telephone [facility]ED[facility] [address] [place] [address] Gucci Gross MD Appointment Request 02/16/2025 Refill [facility] [address] [place] [address] Gucci Gross MD Essential hypertension 02/02/2025 Orders Only GENERIC EXTERNAL DATA DEPARTMENT Provider, Generic External Data 01/14/2025 Orders Only [facility] External Provider, [facility] from Last 3 Months Immunizations Immunization [...] Procedure Name Priority Date/Time Associated Diagnosis Comments PROTHROMBIN TIME-INR Routine 03/25/2025 11:54 AM EDT TSH Routine 02/02/2025 10:33 AM EDT T4, [...] Relevant to Health Maintenance Results * (ABNORMAL) Prothrombin Time-INR (03/25/2025 11:54 AM EDT) Prothrombin Time 20.1(H) 10.9 - 12.4 SEC [facility] INTERNATIONAL NORM RATIO 1.8(H) 0.9 - 1.1 [facility] Comment:INTERNATIONAL NORMAL IZED RATIO (INR) REFERENCE RANGES Reference RangeFor patients not on anticoagulant therapy: 0.9 - 1.1INR ranges for oral anticoagulanttherapy:For prevention and treatment of venous thrombosis and pulmonary embolism: 2.0 - 3.0For acute myocardial infarction with aspirin therapy: 2.0 - 3.0For acute myocardial infarction without aspirin therapy: 3.0 - 4.0For patients with mechanical prosthetic heart valves: 2.5 - 3.5 03/25/2025 11:5 4 AM EDT 03/25/2025 1:01 PM EDT us Generic External Data Provider LAB BLOOD ORDERAB LES Final Result [facility] [address] [place] [phone] * TSH (02/02/2025 10:33 AM EDT) Thyroid Stimulating Hormone 0.46 0.32 - 4.0 uIU/mL [facility] Comment:TSH 3rd Generation ( [facility]) 02/02/2025 10:3 3 AM EDT 02/02/2025 11:01 AM EDT Generic External Data Provider LAB BLOOD ORDERAB LES Final Result Performing Organization Address [facility] Co de Phone Number [facility] [address] [place] [phone] * T4, Free (02/02/2025 10:33 AM EDT) Free T4 (Free Thyroxine) 1.18 0.71 - 1.85 ng/dL [facility] 02/02/2025 10:3 3 AM EDT 02/02/2025 11:01 AM EDT Generic External Data Provider LAB BLOOD ORDERAB LES Final Result Performing Organization Address [facility] de Phone Number [facility] [address] [place] [phone] * XR Shoulder 2+ Views Left (01/14/2025 9:29 AM EDT) Anatomical Region Laterality Modality Upper Extremities, Shoulder Left Radi ographic Imaging 01/14/2025 9:29 AM EDT Narrative 01/14/2025 10:38 AM EDT [address] [address] XRay Report Signed Patient: Marcus Vanessa MR#: [id number] : 1950 Acct:[id number] Age/Sex: 74 / M ADM Date: 01/14/25 Loc: HO.ED Attending Dr: Ordering Physician: Shannon Barr DO Date of Service: 01/14/25 Procedure(s): XR shoulder LT min 2V Accession Number(s): [id number] cc: Gucci Gross MD; Shannon Barr DO [...] OV> 01/14/25 1035 DD/ 8 TD/TT: 01/14/25 102 Rating Clerk: Procedure Note Donotuseinterpreter, Image - 01/14/2025 [place] [address] XRay Report Signed Patient: Elizabeth Vanessa#: M [id number] : 1950cct:[id number] Age/Sex: 74 / MADM Date: 01/14/25 Loc: HO.ED Attending Dr: Ordering Physician: Shannon Barr DO Date of Service: 01/14/25 Procedure(s): XR shoulder LT min 2V Accession Number(s): [id number] cc: Gucci Gross MD; Shannon Barr DO [...] Garett Noyola MDin OV> 01/14/25 1035 DD/ 8 TD/TT: 01/14/25 1025 Rating Clerk: us [facility] External Provider IMG XR PROCEDURES Final Result * XR Ribs 3 Views Left w/ Chest (01/14/2025 9:22 AM EDT) Anatomical Region Laterality Modality Radiographic Kaylin ging 01/14/2025 9:22 AM EDT Narrative 01/14/2025 10:39 AM EDT [address] [address] XRay Report Signed Patient: Marcus Vanessa MR#: Renato [id number] : 1950 Acct:[id number] Age/Sex: 74 / M ADM Date: 01/14/25 Loc: HO.ED Attending Dr: Ordering Physician: Shannon Barr DO Date of Service: 01/14/25 Procedure(s): XR ribs LT min 3V w CXR1V Accession Number(s): [id number] cc: Gucci Gross MD; Shannon Barr DO [...] 01/14/25 1036 DD/ 0922 TD/TT: 01/14/25 1025 Rating Clerk: Procedure Note Donotuseinterpreter, Image - 01/14/[address] [address] XRay Report Signed Patient: Elizabeth Vanessa#: M [id number] : 1950cct:[id number] Age/Sex: 74 / MADM Date: 01/14/25 Loc: HO.ED Attending Dr: Ordering Physician: Shannon Barr DO Date of Service: 01/14/25 Procedure(s): XR ribs LT min 3V w CXR1V Accession Number(s): [id number] cc: Gucci Gross MD; Shannon Barr DO [...] 01/14/25 1036 DD/ 0922 TD/TT: 01/14/25 1025 Rating Clerk: [facility] External Provider IMG XR PROCEDURES Final Result * (ABNORMAL) Colonoscopy (01/29/2024) Anatomical Region Laterality Modality Endoscopy Narrative 01/29/[address] Keri Covarrubias on 01/29/[address] [facility]: Diverticulosis, Internal hemorrhoids. Repeat colonoscopy recommended in 10 years if health allows. us Historical Provider ENDOSCOPY PROCEDURE ORDER CHANG Edited Result - Final * Lipid Panel, Standard (12/26/2023 9:24 AM EDT) Triglycerides 46 <150 mg/dL [facility] Comment:Desirable Triglyceri de: less than 150 mg/dLBorderline High Triglyceride 150-199 mg/dLHigh Triglyceride: 200-499 mg/dLVery High Triglyceride: greater than or equal to 5OO mg/dL Cholesterol 108 <200 mg/dL [facility] Comment:Desirable Cholestero l: less than 200 mg/dLBorderline High Cholesterol: 200-239 mg/dLHigh Cholesterol: greater than 239 mg/dL LDL Cholesterol Calculated 44 <100 mg/dL [facility] Comment:Desirable LDL: less than 100 mg/dLNear Optimal/Above Optimal LDL: 110- 129 mg/dLBorderline High LDL: 130-159 mg/dLHigh LDL: 160-189 mg/dLVery High LDL: greater than or equal to 190 mg/dL HDL Cholesterol 55 >40 mg/dL [facility] Comment:Desirable HDL: great er than 40 mg/dL Note: This HDL assay may give artificially low results in patients with liver disease. Blood Venous blood specimen / Unknown 12/26/2023 9:24 AM EDT 12/26/2023 9:26 AM EDT us Tanya Queen MD LAB BLOOD ORDERABLES Final Re sult [facility] [address] [place] [phone] [phone] * HEPATITIS C AB W/REFL TO HCV RNA, QN, PCR (10/09/2021 9:27 AM EDT) HEPATITIS C ANTIBODY NON-REACT CHARU NON-REACT CHARU [facility] INDEX 0.01 <1.00 [facility] Comment: HCV antibody was non-reactive. There is no laboratory evidence of HCV infection. In most cases, no further action is required. However, if recent HCV exposure is suspected, a test for HCV RNA (test code 07929) is suggested. For additional information please refer to http://education.questdiagnostics.com/faq/XZP22l3 (This link is being provided for informational/ educational purposes only.) 10/09/2021 9:27 AM EDT us Gucci Gross MD HISTORICAL/NON ORDERABLE LA BS Final Result [facility] Counts include 234 beds at the [facility] Anywhere [address] from Last 3 Months or Most Recently Relevant to Health Maintenance Insurance [facility] MCC OPTIONS (O D-SNP) [place]TER [id number] [place] [id number] [place] [id number] Care Teams Divemaster Relationship Specialty Start Date End Date Gucci Gross MD [address] [place] [phone] PCP - General Internal Medicine 06/03/18
--- OUTSIDE RECORDS SUMMARY | 2025-03-25 15:04 | XMS_ITS | Encounter Summary ---
Author Organization [employer] Address [address] [facility] 7t [place] [address] Care Team Providers Care Manager Merchandising Name Role Phone Gucci Gross MD Primary Care Provider [phone] Reason for Visit * Reason Comments Med Refill Encounter Details Date Type Department Care Team ([facility] st Contact Info) Description 05/10/2024 Refill [facility] MED & PEDS [address] [place], [place] [phone] Gucci Gross MD [address] [place] [address] Muscle cramps Social History Tobacco Use Types [...] documented as of this encounter Care Teams Manager Merchandising Relationship Specialty Start Date End Date Gucci Gross MD [address] [place] [address] PCP - General Internal Medicine 06/03/18 documented as of this encounter
--- OUTSIDE RECORDS SUMMARY | 2025-03-25 15:05 | XMS_ITS | Encounter Summary ---
Author Organization [employer] Address [address] [facility] 7t [place] [address] Care Team Providers Care Sponge Press Operator Name Role Phone Gucci Gross MD Primary Care Provider [phone] Encounter Details Date Type Department Care Team (Late st Contact Info) Description 10/14/2023 Orders Only [facility] [address] [place] [address] ProviderAri MD Social History Tobacco Use Types [...] t he electric, gas, oil or water [employer] threatened to shut off services in your [...] documented as of this encounter Care Teams Sponge Press Operator Relationship Specialty Start Date End Date Gucci Gross MD [address] [place] [address] PCP - General Internal Medicine 06/03/18 documented as of this encounter
--- OUTSIDE RECORDS SUMMARY | 2025-03-25 15:05 | XMS_ITS | Encounter Summary ---
Author Organization [employer] Address [address] [facility] [address] [place] [address] Care Team Providers Care South Asian History Professor Name Role Phone Gucci Gross MD Primary Care Provider [phone] Encounter Details Date Type Department Care Team (Late st Contact Info) Description 03/25/2025 Orders Only GENERIC EXTERNAL DATA DEPARTMENT Provider, Generic External Data Social History Tobacco Use Types Packs/Day Years [...] PROTHROMBIN TIME-INR Routine 03/25/2025 11:54 AM EDT documented in this encounter Results * (ABNORMAL) Prothrombin Time-INR (03/25/2025 11:54 AM EDT) Prothrombin Time 20.1(H) 10.9 - 12.4 SEC [facility] INTERNATIONAL NORM RATIO 1.8(H) 0.9 - 1.1 [facility] Comment:INTERNATIONAL NORMAL IZED RATIO (INR) REFERENCE [...] Provider LAB BLOOD ORDERAB LES Final Result [facility] [address] [place] [phone] documented in this encounter Visit Diagnoses Not on filedocumented in this encounter Additional Health Concerns Assessment Noted Time PHQ-9 Depression Total Score: 0 04/17/20 11:02 AM EST documented as of this encounter Care Teams South Asian History Professor Relationship Specialty Start Date End Date Gucci Gross MD [address] [place] [phone] PCP - General Internal Medicine 06/03/18 documented as of this encounter
--- OUTSIDE RECORDS SUMMARY | 2025-03-25 15:05 | XMS_ITS | Encounter Summary ---
Author Organization [employer] Address [address] [facility] 7t [place] [address] Care Team Providers Care Patient Information Coordinator Name Role Phone Gucci Gross MD Primary Care Provider [phone] Encounter Details Date Type Department Care Team (Late st Contact Info) Description 04/04/2023 Abstract [facility] MEDICINE [address] [place] [address] Gucci Gross MD [address] [place], [place] [phone] Social History Tobacco Use Types Packs/Day Years [...] on filedocumented in this encounter Care Teams Patient Information Coordinator Relationship Specialty Start Date End Date Gucci Gross MD [address] [place] [address] PCP - General Internal Medicine 06/03/18 documented as of this encounter
--- OUTSIDE RECORDS SUMMARY | 2025-03-25 15:05 | XMS_ITS | Encounter Summary ---
Author Organization [employer] Address [address] [place] [address] 7t [place] [address] Care Team Providers Care Planning Intern Name Role Phone Gucci Gross MD Primary Care Provider [phone] Encounter Details Date Type Department Care Team (Late st Contact Info) Description 08/15/[address] [facility] MED & PEDS [address] [place], [place] [phone] Gucci Gross MD [address] [place] [address] Social History Tobacco Use Types Packs/Day Years [...] documented as of this encounter Care Teams Planning Intern Relationship Specialty Start Date End Date Gucci Gross MD [address] [place] [phone] PCP - General Internal Medicine 06/03/18 documented as of this encounter
--- OUTSIDE RECORDS SUMMARY | 2025-03-25 15:05 | XMS_ITS | Encounter Summary ---
Author Organization [employer] Address [address] [place] [address] 7[place] [address] Care Team Providers Care Silk Screener Name Role Phone Gucci Gross MD Primary Care Provider [phone] Encounter Details Date Type Department Care Team (Late st Contact Info) Description 03/25/2023 Orders Only [facility] MED & PEDS [address] [place], [place] [phone] Viridiana Gloria LPN Social History Tobacco Use [...] filedocumented in this encounter Care Teams Silk Screener Relationship Specialty Start Date End Date Gucci Gross MD [address] [place] [address] PCP - General Internal Medicine 06/03/18 documented as of this encounter
--- OUTSIDE RECORDS SUMMARY | 2025-03-25 15:05 | XMS_ITS | Encounter Summary ---
Author Organization [employer] Address [address] [facility] 7t [place] [address] Care Team Providers Care Refractory Tile Helper Name Role Phone Gucci Gross MD Primary Care Provider [phone] Reason for Visit * Reason Onset Date Comments Durable Medical Equipment 03/19/2025 Encounter Details Date Type Department Care Team (Late st Contact Info) Description 03/19/2025 Telephone [facility] MEDICINE [address] [place] [address] Gucci Gross MD [address] [place] [address] Durable Medical Equipment Social History Tobacco Use [...] PM EDT Rx generated and faxed to [facility] as requested . TC from [place] with [facility] requesting a DME : Rollator with Seat [facility] [phone] * Telephone Encounter - Jairo Barrera - 03/19/2025 11:58 AM EDT TC from [place] with [facility] requesting a DME : Rollator with Seat To be [facility] [phone] documented in this encounter Plan of Treatment Not on file documented as of this encounter Visit Diagnoses Not on filedocumented in this encounter Additional Health Concerns Assessment Noted Time PHQ-9 Depression Total Score: 0 04/17/20 23 11:02 AM EST documented as of this encounter Care Teams Refractory Tile Helper Relationship Specialty Start Date End Date Gucci Gross MD [address] [place] [address] PCP - General Internal Medicine 06/03/18 documented as of this encounter
--- OUTSIDE RECORDS SUMMARY | 2025-03-25 15:05 | XMS_ITS | Encounter Summary ---
Author Organization [employer] Address [address] [place] [address] 7 [place] [address] Care Team Providers Care Sloop Captain Name Role Phone Gucci Gross MD Primary Care Provider [phone] Reason for Referral * Consultation (Routine) - Closed Specialty Diagnoses / Procedures Referred By Contac t Referred To Contact Endocrinology Diagnoses Elevated TSH Gucci Gross MD [address] [place] [address] Phone: tel: fax: [facility] Endocrinology [address] [place], [place] Phone: tel: fax: Referral ID Status Reason Start Date Expiration Date V isits Requested Visits Authorized [id number] Closed Specialty Services Required 01/17/2024 01/16/2025 1 1 Encounter Details Date Type Department Care Team (Late st Contact Info) Description 01/08/2024 Orders Only [facility] CHC MED & PEDS [address] [place], [place] [phone] Gucci Gross MD [address] [place], [place] [phone] Elevated TSH (Primary Dx) Social History Tobacco [...] documented as of this encounter Care Teams Sloop Captain Relationship Specialty Start Date End Date Gucci Gross MD [address] [place] [address] PCP - General Internal Medicine 06/03/18 documented as of this encounter
--- OUTSIDE RECORDS SUMMARY | 2025-03-25 15:05 | XMS_ITS | Encounter Summary ---
Author Organization [employer] Address [address] [facility] 7t [place] [address] Care Team Providers Care Apartment House Manager Name Role Phone Gucci Gross MD Primary Care Provider [phone] Encounter Details Date Type Department Care Team [...] documented as of this encounter Care Teams Apartment House Manager Relationship Specialty Start Date End Date Gucci Gross MD [address] [place] [address] PCP - General Internal Medicine 06/03/18 documented as of this encounter
--- OUTSIDE RECORDS SUMMARY | 2025-03-25 15:05 | XMS_ITS | Encounter Summary ---
Author Organization [employer] Address [address] [place] [address] 7t [place] [address] Care Team Providers Care Usability Engineer Name Role Phone Gucci Gross MD Primary Care Provider [phone] Reason for Visit * Reason Comments Med Refill Encounter Details Date Type Department Care Team ([facility] st Contact Info) Description 04/21/2024 Refill [facility] CHC MED & PEDS [address] [place], [place] [phone] Tanya Queen MD [address] [place] [address] Social History Tobacco Use Types Packs/Day Years [...] documented as of this encounter Care Teams Usability Engineer Relationship Specialty Start Date End Date Gucci Gross MD [address] [place] [address] PCP - General Internal Medicine 06/03/18 documented as of this encounter
--- OUTSIDE RECORDS SUMMARY | 2025-03-25 15:05 | XMS_ITS | Encounter Summary ---
Author Organization [employer] Address [address] [facility] 7t [place] [address] Care Team Providers Care Vice Admiral Name Role Phone Gucci Gross MD Primary Care Provider [phone] Encounter Details Date Type Department Care Team (Late st Contact Info) Description 10/27/2024 Orders Only [facility] CHC MED & PEDS [address] [place], [place] [phone] Gucci Gross MD 505 [place], [place] [phone] Chronic pain of right knee (Primary Dx); [...] documented as of this encounter Care Teams Vice Admiral Relationship Specialty Start Date End Date Gucci Gross MD [address] [place] [address] PCP - General Internal Medicine 06/03/18 documented as of this encounter
--- OUTSIDE RECORDS SUMMARY | 2025-03-25 15:05 | XMS_ITS | Clinical Summary ---
Author Organization [address] Address [address] [place] [address] Phone Care Team Providers Care Welder Helper Name Role Phone Physician, Pcp Unknown Primary [...] patient's age to complete this topic Insurance [facility] MEDICAID Care Teams Welder Helper Relationship Specialty Start Date End Date Physician, Pcp Unknown PCP - General 10/09/24
--- OUTSIDE RECORDS SUMMARY | 2025-03-25 15:05 | XMS_ITS | Encounter Summary ---
Author Organization [employer] Address [address] [facility] 7t [place] [address] Care Team Providers Care Clinical Documentation Improvement Specialist Name Role Phone Gucci Gross MD Primary Care Provider [phone] Reason for Visit * Reason Onset Date Comments Nurse Triage 12/25/2023 Encounter Details Date Type Department Care Team ([facility] st Contact Info) Description 12/25/[address] [facility] MEDICINE [address] [place] [address] Gucci Gross MD [address] [place] [address] Nurse Triage Social History Tobacco Use Types [...] 12/25/2023 12:29 PM EDT Triage call with [employer] Screen Print Operator ID [id number] Pt reports a medication reaction symptoms are cough especially at night which causes back pain which radiates to chest, bilateral lower extremity edema. Pt believes this is caused by eliquis. Pt has been taking eliquis for > 3months but, reports , I take alot of pills maybe there is aspirin in them . Pt denies difficulty breathing, fever, cold sx. ASK apt in [facility] today @ 240pm. Pt agrees with [...] acuity questions The caller accepted this outcome Nepali speaker documented in this encounter Plan of Treatment Not on file documented as of this encounter Visit Diagnoses Not on filedocumented in this encounter Additional Health Concerns Assessment Noted Time PHQ-9 Depression Total Score: 0 04/17/20 23 11:02 AM EST documented as of this encounter Care Teams Clinical Documentation Improvement Specialist Relationship Specialty Start Date End Date Gucci Gross MD [address] [place] [address] PCP - General Internal Medicine 06/03/18 documented as of this encounter
--- OUTSIDE RECORDS SUMMARY | 2025-03-25 15:05 | XMS_ITS | Encounter Summary ---
Author Organization [employer] Address [address] [place] [address] 7t [place] [address] Care Team Providers Care Theatre Instructor Name Role Phone Gucci Gross MD Primary Care Provider [phone] Encounter Details Date Type Department Care Team (Late st Contact Info) Description 01/27/2024 Orders Only [facility] CHC MED & PEDS [address] [place], [place] [phone] Gucci Gross MD 505 [place] [address] Social History Tobacco Use Types Packs/Day Years [...] documented as of this encounter Care Teams Theatre Instructor Relationship Specialty Start Date End Date Gucci Gross MD [address] [place] [address] PCP - General Internal Medicine 06/03/18 documented as of this encounter
== END 2025-03-25 11:48 | disposition home or self-care (01) ==
LOC: HO.HHCL 11:47
PROVIDERS: Pharmacist; PCP Internal Medicine; Visit Provider Internal Medicine
DX: Z13.89 Encounter for screening for other disorder (principal)
CPT/HCPCS: 36415; 85610

== ENCOUNTER 2025-04-05 13:30 | Outpatient (RCR) | payer OTHER, SELFPAY | END 2025-04-14 10:09 | disposition home or self-care (01) | LOC: HO.CR 13:30 | PROVIDERS: PCP Internal Medicine; Visit Provider Thoracic Surgery (Cardiothoracic Vascular Surgery) | DX: Z95.2 Presence of prosthetic heart valve (principal) | CPT/HCPCS: 93798 ==

== ENCOUNTER 2025-04-16 11:27 | Emergency (ER) | payer OTHER, SELFPAY ==
--- NOTE | ~2025-04-16 | XR_ITS ---
EXAMINATION: XR CHEST CLINICAL INFORMATION: chest pain s/p surgery in sept COMPARISON: X-ray 01/14/2025 TECHNIQUE: 2 views of the chest were obtained. FINDINGS: Cardiac and mediastinal silhouette is stable. Mild cardiomegaly, unchanged. Atrial appendage clip. Prosthetic cardiac valves.. Sternotomy wires. Stable mild elevation right hemidiaphragm. Stable mild prominence of the pulmonary vasculature. No focal consolidation. No effusion. No pneumothorax is seen. No acute osseous findings. XR/XR chest 2V IMPRESSION: No radiographic evidence of acute cardiopulmonary findings. Electronically signed by: Demond Mendiola MD 04/16/2025 12:29 PM EST
--- NOTE | 2025-04-16 11:28 | ECG_ITS ---
Test Reason : CP Blood Pressure : */* mmHG Vent. Rate : 62 BPM Atrial Rate : 254 BPM P-R Int : * ms QRS Dur : 100 ms QT Int : 456 ms P-R-T Axes : * -10 10 degrees QTcB Int : 462 ms Atrial flutter with variable A-V block Incomplete right bundle branch block Possible Anterior infarct , age undetermined Abnormal ECG When compared with ECG of 14-Jan-2025 08:51, Atrial flutter has replaced Atrial fibrillation Borderline criteria for Anterior infarct are now Present Referred By: Generic ED Physician Electronically Signed By: SHEILA BYERS MD
[2025-04-16 11:37] VITALS: BP 146/69; PULSE 66; RESP 16; TEMP 36.6; O2SAT 100; BMI 22.7
--- NOTE | 2025-04-16 11:40 | ED.GENADULT ---
HPI - General Adult General Chief complaint: Skin/Abscess/Foreign Body Stated complaint: chest pain Time Seen by Provider: 04/16/25 12:20 Source: patient Mode of arrival: ambulatory History of Present Illness HPI narrative: This is 74 years old male presented to the ED with the complaint of chest wall pain. He had mitral valve replaced in February 08 at [facility] he is now complaining of chest wall pain. Pain can be reproduced with the palpation pain he has been going on for days he has no exertional symptoms he is not diaphoretic Onset (ago): day(s) Location: chest Radiation: non-radiation Severity: moderate Quality: burning Pain Consistency: constant Relieving factors: none Exacerbating factors: none Associated symptoms: denies other symptoms Related Data Home Medications ?Medication ?Instructions ?Recorded ?Confirmed brimonidine 0.2 % eye drops 1 drp ophthalmic (eye) ONCE 10/02/21 02/02/25 metoprolol succinate 25 mg 25 mg PO DAILY 10/02/21 02/02/25 tablet,extended release 24 hr timolol maleate 0.5 % eye drops 1 drp ophthalmic (eye) QAM 10/02/21 02/02/25 atorvastatin 80 mg tablet 80 mg PO BEDTIME 04/25/22 02/02/25 diclofenac sodium 1 % topical gel 2 g topical BID 04/25/22 02/02/25 finasteride 5 mg tablet 5 mg PO DAILY 04/25/22 02/02/25 isosorbide mononitrate 30 mg 30 mg PO DAILY 04/25/22 02/02/25 tablet,extended release 24 hr nitroglycerin 0.4 mg sublingual 0.4 mg sublingual angina 04/25/22 02/02/25 tablet tamsulosin 0.4 mg capsule 0.4 mg PO BEDTIME 04/25/22 02/02/25 acetaminophen 500 mg capsule 500 mg PO Q6H PRN 11/01/22 02/02/25 ferrous gluconate 324 mg (37.5 mg 324 mg PO DAILY 01/23/24 02/02/25 iron) tablet capsaicin 0.025 % topical cream appl topical BID 03/19/24 02/02/25 cholecalciferol (vitamin D3) 25 25 mcg PO QAM 03/19/24 02/02/25 mcg (1,000 unit) tablet enalapril maleate 2.5 mg tablet 2.5 mg PO DAILY 03/19/24 02/02/25 warfarin 2 mg tablet See Rx Instructions PO DAILY 03/16/25 03/16/25 Previous Rx's ?Medication ?Instructions ?Recorded cyclobenzaprine 10 mg tablet 10 mg PO TID PRN muscle spasm #10 12/11/22 tabs naproxen 500 mg tablet 500 mg PO BID PRN pain #20 tabs 12/11/22 furosemide 40 mg tablet 40 mg PO DAILY #30 tabs 02/03/24 lidocaine 4 % topical patch 1 patch topical DAILY PRN pain #30 01/14/25 ea oxycodone 5 mg tablet 2.5 mg (1/2 x 5 mg) PO BID PRN 01/14/25 pain 3 days #6 tabs pantoprazole 40 mg tablet,delayed 40 mg PO QPM #30 tabs 03/16/25 release sennosides 8.6 mg tablet (Senna 17.2 mg (2 x 8.6 mg) PO BEDTIME 03/16/25 Laxative) #60 tabs simethicone 125 mg capsule (Gas 125 mg PO TID-QID abdominal 03/16/25 Relief (simethicone)) distention #120 caps cephalexin 500 mg capsule 500 mg PO Q8H #21 caps 04/16/25 oxycodone 5 mg tablet 5 mg PO Q6H PRN pain #15 tabs 04/16/25 Allergies Allergy/AdvReac Type Severity Reaction Status Date / Time No Known Allergies (No Known Allergy Verified 04/16/25 11:43 Allergies*) Review of Systems Constitutional: Constitutional: Reports no additional constitutional complaints PMFSH Past Medical History Attestation statement: The following information was validated with the patient. Source: unable to obtain Medical History Abdominal bloating Pre-op examination Hyperthyroidism Upper abdominal pain Common bile duct calculi Surgical History H/O mitral valve replacement H/O aortic valve replacement H/O heart artery stent H/O angioplasty History of cholecystectomy History of esophagogastroduodenoscopy (EGD) Hx of colonoscopy Family History Family History Father No problems noted. Mother Cancer Social History Social History Are you a primary care management associate to a significant other at home: No Do you presently have visiting nurse or other home services: No Alcohol intake: never Patient Tobacco Use Status: Never used Tobacco Smoked in Last 30 Days: No Second Hand Smoke Exposure: No Use of substances other than those prescribed or required for medical reasons: No Advance Directives: No Advance Directives Information Provided: Yes Do you have a plan to hurt others: No Plan Physical Exam ED Exam Exam: No acute distress he is comfortable in Vital Signs: Vital Signs - 24 hr 04/16/25 11:37 04/16/25 13:01 Temperature 98 F 97.7 F Pulse Rate 66 60 Respiratory Rate 16 16 Blood Pressure 146/69 H 123/78 Pulse Oximetry 100 100 Oxygen Delivery Method Room Air Room Air BMI result Body Mass Index 22.7 Vital signs reviewed stable Const General: cooperative Nutritional Appearance: well nourished Orientation/consciousness: oriented to time and patient oriented x3 HENMT Head: Yes normal to inspection General nose exam: Normal external nose present Face and sinus: Yes normal facial exam Mouth: Normal oral and palatal mucosa present Teeth and gingiva: dentition normal Neck Neck: Yes normal visual inspection Resp Effort & Inspection: normal respiratory effort Auscultation: clear to auscultation bilaterally Cardio Jugular venous distension: no JVD Rhythm: regular rhythm GI Inspection: Yes normal to inspection Skin Other: He has a healing sternotomy scar General skin exam: no rashes or lesions noted Neuro General: oriented to time and patient oriented x3 Course Course Course Narrative: This is a rapid medical exam performed by Tamiko Garcias NP: Additional HPI, ROS, PE not included below will be deferred to primary provider. Patient is a 74y/o Belgian speaking male pmhx ?HTN,?CAD, CT s/p embolic OM2 thrombectomy, HLD, asthma, carotid disease, Afib status post MVR and AVR with bioprosthetic tissue valve replacement on warfarin. ?He also had a left side maze procedure and MALIK clip. Presents today with chest pain, erythema and swelling to superior aspect of surgical scar. Seen at [facility] on 03/30 for similar symptoms. Follows up with surgery on 11/18. Plan: EKG, labs, CXR Medical Decision Making Medical Decision Making [facility] Narrative: Patient is here with chest pain, the pain is reproducible I do not think he has ischemic, high sensitive troponin negative, I really do not think we need to repeat another one, I can reproduce the pain with palpation. I think he can be discharged home. INR noted at 1.8, he has a valve replacement his target should be 2.5-3.5, I will give him a dose of enoxaparin now, I will tell the patient to call the Coumadin clinic today to adjust his Coumadin dose. Sternotomy scar looks well to me, his white count is normal, he is afebrile I do not think he has an infection on his sternotomy scar. Patient is comfortable with the plan anticipate discharge home. I spoke with the patient at length with the hooker inspector he understand the plan, I also called the son I spoke with the son I explained that his INR is low in his to call the Coumadin clinic. At this time we will discharge the patient home, I will give him an antibiotic anyway given that he has a prosthetic valve is a risk of endocarditis. The patient and family comfortable with the plan Differential Diagnosis Differential Diagnoses: The differential diagnosis associated with the presentation includes Differential diagnosis ACS/musculoskeletal chest pain/pericarditis Admission/Observation Consideration of admission/observation: Escalation of care including admission/observation considered Lab Data [facility] Lab Attestation statement: I reviewed the patient's lab results. 04/16/25 11:54 04/16/25 11:54 Labs: Lab Results 04/16/25 Range/Units 11:54 WBC 5.1 (4.8-10.8) X10*3/uL RBC 4.39 L (4.60-5.80) X10*6/uL Hgb 11.0 L (14.0-18.0) g/dl Hct 35.0 L (42.0-52.0) % MCV 79.7 L (80.0-98.0) fL MCH 25.1 L (27.0-33.0) pg MCHC 31.4 (31.0-36.0) g/dl RDW 16.4 H (11.0-16.0) % Plt Count 173 (160-400) X10*3/uL MPV 9.1 L (9.4-12.4) fL Immature Gran % (Auto) 0.4 (0.0-0.4) % Neut % (Auto) 67.5 (45-73) % Lymph % (Auto) 20.8 (20-40) % [place] % (Auto) 9.1 (2-11) % Eos % (Auto) 1.4 (0-4) % Baso % (Auto) 0.8 (0-2) % Lymph # (Auto) 1.1 L (1.2-4.9) X10*3/uL [place] # (Auto) 0.5 (0.1-1.2) X10*3/uL Eos # (Auto) 0.1 (0.0-0.4) X10*3/uL Baso # (Auto) 0.0 (0.0-0.2) X10*3/uL Abs Immat Gran (auto) 0.02 (0.00-0.03) X10*3/uL Absolute Neuts (auto) 3.5 (2.0-8.3) x10*3/uL Absolute Nucleated RBC 0.000 (0.0-0.012) X10*3/uL Nucleated RBC % (auto) 0.0 (0.0-0.2) /100WBC ESR 25 H (0-15) MM/HR PT 21.2 H (11.2-13.5) SEC INR 1.8 H (0.9-1.1) Sodium 141 (135-145) mmol/L Potassium 4.4 (3.3-5.1) mmol/L Chloride 108 (96-108) mmol/L Carbon Dioxide 25 (22-29) mmol/L Anion Gap 12 (12-20) BUN 14 (9-16) mg/dL Creatinine 1.04 (0.5-1.4) mg/dL Estim Creat Clear Calc 50.1 Estimated GFR > 60 Random Glucose 99 (60-115) mg/dL Lactic Acid 0.9 (0.5-2.0) mmol/L Calcium 9.2 (8.4-10.2) mg/dL Magnesium 2.0 (1.6-2.6) mg/dL Total Bilirubin 0.6 (0.0-1.0) mg/dL AST 30 (5-37) U/L ALT 24 (0-40) U/L Alkaline Phosphatase 128 H (39-117) U/L Troponin I High Sens 6.3 (<3.5-35.0) ng/L C-Reactive Protein 0.72 H (< or = 0.50) mg/dL Total Protein 7.7 (6.5-8.0) g/dL Albumin 4.1 (3.5-5.0) g/dL Independent Interpretation I performed an independent interpretation of an: EKG Interpretation: EKG artifact he flutter with controlled rate 62 (the patient is anticoagulated anyway) Independent Historian Clinical information obtained from an independent historian. History obtained from or confirmed by: Other (spoke with son) Discharge Plan Discharge Clinical Impression: Acute chest wall pain Patient Disposition: Home, Self-Care Instructions: Chest Pain (DC) Additional Instructions: Follow-up with your primary care physician, you INR was a little low, make sure you call the Coumadin clinic today we will give you a shot of Lovenox to bridge you, but you need to call the Coumadin clinic Prescriptions: New cephalexin 500 mg capsule 500 mg PO Q8H Qty: 21 0RF oxycodone 5 mg tablet 5 mg PO Q6H PRN (Reason: pain) Qty: 15 0RF Rx Instructions: partial filing upon pt request; Partial Fill upon patient request. No Action cyclobenzaprine 10 mg tablet 10 mg PO TID PRN (Reason: muscle spasm) Qty: 10 0RF naproxen 500 mg tablet 500 mg PO BID PRN (Reason: pain) Qty: 20 0RF furosemide 40 mg tablet 40 mg PO DAILY Qty: 30 0RF lidocaine 4 % adhesive patch,medicated 1 patch topical DAILY PRN (Reason: pain) Qty: 30 0RF oxycodone 5 mg tablet 2.5 mg PO BID PRN (Reason: pain) 3 Days Qty: 6 0RF Rx Instructions: Partial Fill upon patient request. metoprolol succinate 25 mg tablet extended release 24 hr 25 mg PO DAILY timolol maleate 0.5 % drops 1 drp ophthalmic (eye) QAM brimonidine 0.2 % drops 1 drp ophthalmic (eye) ONCE nitroglycerin 0.4 mg tablet, sublingual 0.4 mg sublingual isosorbide mononitrate 30 mg tablet extended release 24 hr 30 mg PO DAILY atorvastatin 80 mg tablet 80 mg PO BEDTIME tamsulosin 0.4 mg capsule 0.4 mg PO BEDTIME finasteride 5 mg tablet 5 mg PO DAILY diclofenac sodium 1 % gel 2 g topical BID acetaminophen 500 mg capsule 500 mg PO Q6H PRN cholecalciferol (vitamin D3) 25 mcg (1,000 unit) tablet 25 mcg PO QAM capsaicin 0.025 % cream topical BID enalapril maleate 2.5 mg tablet 2.5 mg PO DAILY ferrous gluconate 324 mg (37.5 mg iron) tablet 324 mg PO DAILY pantoprazole 40 mg tablet,delayed release (DR/EC) 40 mg PO QPM Qty: 30 6RF simethicone [Gas Relief (simethicone)] 125 mg capsule 125 mg PO TID-QID Qty: 120 6RF warfarin 2 mg tablet See Rx Instructions PO DAILY Rx Instructions: 1 tablet Sa, sn, 1/2 on weekdays orally daily; on odd numbered days orally daily; sennosides [Senna Laxative] 8.6 mg tablet 17.2 mg PO BEDTIME Qty: 60 6RF Print Language: Belgian
[2025-04-16 12:02] LABS: MANUAL DIFF FLAG NO
[2025-04-16 12:03] LABS: Hematocrit 35.0 % (42.0-52.0); Hemoglobin 11.0 g/dl (14.0-18.0); Imm Gran Abs Auto 0.02 X10*3/uL (0.00-0.03); Imm Gran Pct Auto 0.4 % (0.0-0.4); Lymphocytes Absolute Auto 1.1 X10*3/uL (1.2-4.9); Mean Corpuscular HGB Conc 31.4 g/dl (31.0-36.0); Mean Corpuscular Hemoglobin 25.1 pg (27.0-33.0); Mean Corpuscular Volume 79.7 fL (80.0-98.0); NRBC Abs Auto 0.000 X10*3/uL (0.0-0.012); NRBC Pct Auto 0.0 /100WBC (0.0-0.2); Platelet Count 173 X10*3/uL (160-400); Red Blood Count 4.39 X10*6/uL (4.60-5.80); White Blood Count 5.1 X10*3/uL (4.8-10.8)
[2025-04-16 12:08] LABS: INTERNATIONAL NORM RATIO 1.8 (0.9-1.1); Prothrombin Time 21.2 SEC (11.2-13.5)
[2025-04-16 12:18] LABS: Alanine Aminotransferase 24 U/L (0-40); Albumin Level 4.1 g/dL (3.5-5.0); Alkaline Phosphatase 128 U/L (39-117); Anion Gap 12 (12-20); Aspartate Amino Transferase 30 U/L (5-37); Blood Urea Nitrogen 14 mg/dL (9-16); Calcium 9.2 mg/dL (8.4-10.2); Carbon Dioxide 25 mmol/L (22-29); Chloride 108 mmol/L (96-108); Creatinine Clr Calc Pharmacy 50.1; Estimated Glomerular Filt Rate > 60; Magnesium 2.0 mg/dL (1.6-2.6); Potassium 4.4 mmol/L (3.3-5.1); Sodium 141 mmol/L (135-145); Total Protein 7.7 g/dL (6.5-8.0)
[2025-04-16 12:25] LABS: Troponin-I High Sensitivity 6.3 ng/L (<3.5-35.0)
[2025-04-16 13:00] LABS: Erythrocyte Sedimentation Rate 25 MM/HR (0-15)
[2025-04-16 13:01] VITALS: BP 123/78; PULSE 60; RESP 16; TEMP 36.5; O2SAT 100
--- NOTE | 2025-04-16 13:35 | PC.NURSE ---
pt is alert and oriented, skin appropriate for ethnicity, respirations even and unlabored, pt is coming to the ed because he recently had open heart surgery for a valve-but states having pain in the incision and redness and a small lump, the area is red and tender, pain at 9/10
--- NOTE | 2025-04-16 13:51 | PC.NURSE ---
dr jones and the aerial photograph interpreter at bedside and the pt's son on the phone discussing the risks of INr levels being low and the need for lovonx and follow up with Coumadin clinic
[2025-04-16 14:10] VITALS: BP 123/78; PULSE 60; RESP 16; TEMP 36.5; O2SAT 100
== END 2025-04-16 14:11 | disposition home or self-care (01) ==
PROVIDERS: Registered Nurse Emergency; Emergency Provider Emergency Medicine; PCP Internal Medicine
DX: R07.89 Other chest pain (principal); Z79.899 Other long term (current) drug therapy
CPT/HCPCS: 36415; 71046; 80053; 83605; 83735; 84484; 85025; 85610; 85652; 86140; 87040; 93005; 96372; 99284; 99285

== ENCOUNTER → 2025-04-16 11:28 | Outpatient (BNV) | payer OTHER, SELFPAY | PROVIDERS: Emergency Provider Emergency Medicine; PCP Internal Medicine; Visit Provider Internal Medicine Cardiovascular Disease | DX: I48.92 Unspecified atrial flutter (principal); I44.0 Atrioventricular block, first degree; I45.10 Unspecified right bundle-branch block | CPT/HCPCS: 93010 ==

== ENCOUNTER → 2025-04-16 11:44 | Outpatient (BNV) | payer OTHER, SELFPAY | PROVIDERS: Emergency Provider Emergency Medicine; PCP Internal Medicine; Visit Provider Radiology Diagnostic Ultrasound | DX: R07.9 Chest pain, unspecified (principal) | CPT/HCPCS: 71046 ==